=== PATIENT | male | born 1950 | race Caucasian/White ===

== ENCOUNTER 2020-12-21 14:29 | Inpatient (IN) | payer MEDICARE ==
[2020-12-21] MEDS ORDERED: Sodium Chloride 0.9% 10 ML Syringe FLUSH PRN (14:54)
[2020-12-21] MEDS ORDERED: cefTRIAXone 1 GM Vial IVPUSH ONE (15:21)
[2020-12-21] MEDS ORDERED: Sodium Chloride 0.9% 1,000 ML IV ONE (15:27)
--- NOTE | 2020-12-21 15:30 | CR ---
[id number] RAD/RAD Chest PA or AP 1V EXAM: RAD Chest PA or AP 1V INDICATION: FEVER. COMPARISON: None. DISCUSSION/IMPRESSION: Cardiomediastinal silhouette is normal in size and contour. Linear opacity in left lung base. Finding is most consistent with subsegmental atelectasis. However in the setting of fever, developing pneumonia is possible. Right lung is clear. Ian Bray MD 12/21/20 1528 Thank you for allowing us to participate in the care of your patient.
--- NOTE | 2020-12-21 15:37 | EDM.PDOC ---
ED HPI GENERAL MEDICAL PROBLEM - General Chief Complaint: Fever Stated Complaint: ER VISIT Time Seen by Provider: 12/21/20 14:53 Source of Information: Reports: Penitentiary Records - History of Present Illness INITIAL COMMENTS - FREE TEXT/NARRATIVE: Alexander is a 70 y/o male who lives at the [facility]. The nursing staff reported that he did not look well this AM an was quite pale. He was leaning to the left in his chair and was more lethargic and drowsy. Then around noon he felt warm and his temp was noted to be 103.8, he was given APAP 650mg x 1 dose. His temp was rechecked about 1315 and was still 103.6. The RN then called the ER and had the patient transported her for further evaluation. Rapid COVID test done this AM at the [facility] was negative. He is a primary patient of Dr Maggie Ross. Treatments PACK TRAIN DRIVER: Reports: Acetaminophen, IV/IO, Oxygen - Related Data Allergies Allergy/AdvReac Type Severity Reaction Status Date / Time No Known Allergies Allergy Verified 12/21/20 14:40 Past Medical History Cardiovascular History: Reports: High Cholesterol, Hypertension Gastrointestinal History: Reports: Chronic Constipation Genitourinary History: Reports: BPH Psychiatric History: Reports: Anxiety, Schizophrenia Endocrine/Metabolic History: Reports: Diabetes, Type II, Obesity/BMI 30+ Other Dermatologic History: sacral pressure ulcer - Infectious Disease History Infectious Disease History: Reports: Novel Coronavirus - Past Surgical History Other Cardiovascular Surgeries/Procedures: aortic valve stenosis Social & Family History - Tobacco Use Tobacco Use Status *Q: Unknown Ever Used Tobacco Review of Systems - Review of Systems Review Of Systems: Unable To Obtain Reason Not Obtained: ROS from [facility] RN and records Constitutional: Reports: Fever, Weakness Eyes: Reports: No Symptoms Ears: Reports: No Symptoms Nose: Reports: No Symptoms Mouth/Throat: Reports: No Symptoms Respiratory: Reports: No Symptoms Cardiovascular: Reports: No Symptoms GI/Abdominal: Reports: No Symptoms Genitourinary: Reports: No Symptoms Musculoskeletal: Reports: No Symptoms Skin: Reports: Pallor Neurological: Reports: Confusion, Weakness Psychiatric: Reports: No Symptoms ED EXAM, GENERAL - Physical Exam Exam: See Below General Appearance: Other (Elderly male, NAD. He does respond with one word answers, but only sometimes. He looks ill while lying on the ER cart.) Eye Exam: Bilateral Eye: PERRL Ears: Normal External Exam, Normal Canal, Normal TMs Nose: Normal Inspection, Normal Mucosa Throat/Mouth: Other (Lips slightly dry, note dried food or skin on tongue- appears to need oral care.) Neck: Normal Inspection Respiratory/Chest: No Respiratory Distress, Lungs Clear, Normal Breath Sounds, Chest Non-Tender Cardiovascular: Normal Peripheral Pulses, Regular Rate, Rhythm, Systolic Murmur GI/Abdominal: Normal Bowel Sounds, Soft, Non-Tender, Other (Obese) (Male) Exam: Normal Inspection Rectal (Males) Exam: Deferred Back Exam: Normal Inspection Extremities: Other (Trace lower extremity edema) Neurological: Slow to Respond Psychiatric: Flat Affect Skin Exam: Intact, Diaphoretic, Increased Warmth, Pallor Lymphatic: No Adenopathy #1 Interpretation EKG Date: 12/21/20 Time: 14:50 Rate (Beats/Min): 114 [place]: Normal P-Wave: Present QRS: Normal ST-T: Normal QT: Normal EKG Interpretation Comments: Sinus Tachycardia Course - Vital Signs Text/Narrative:: 1453 The patient was seen by the DIRECTOR OF TAX SERVICES. Labs, CXR, and EKG were done. Sepsis protocol started and Ceftriaxone 1gm IVP given due to fever and high suspicion for sepsis. A liter of NS was ordered. Myers was placed. 1600 Labs reviewed. CBC WBC=10.8, Neuts=80.7%; CMP Iivfdt=235, BUN=22, Kbeecjc=081, Mg=1.4; CRP=10.5; UA neg, COVID neg/Influenza A/B neg/neg; Lactic Acid-2.2. CXR reviewed-note developing opacity in left lung, probable pneumonia with fever noted along with cough. WBC elevated with left shift and CRP elevated. Sodium and Mg low, Lactic Acid mildly elevated but will hydrate and have admitting physician recheck. Patient has been covered with Ceftriaxone earlier. Blood Cx x2 are pending. Myers draining and left in place for accurate I&O. He is currently requiring 2 liters of oxygen to keep his sats at 94%. 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 [address] Maggie Ross, patient's PCP to manage but she advised she is out of town and carbonation equipment operator MD for [facility] to be contacted. 1610 Dr Brooke Brown contacted and case discussed. Will plan admission here at [facility] to the floor. Patient remains stable here in the ER. Please see H&P and further admission orders per Dr Deloris Brown. Last Recorded V/S: Last Vital Signs Temp 38.7 C H 12/21/20 14:29 Pulse 112 H 12/21/20 15:25 Resp 32 H 12/21/20 15:25 BP 120/68 12/21/20 15:25 Pulse Ox 95 12/21/20 15:25 - Orders/Labs/Meds Orders: Active Orders 24 hr Category Date Time Status Patient Status [ADT] Routine ADT 12/21/20 16:20 Ordered EKG Documentation Completion [RC] STAT Care 12/21/20 14:54 Active Myers Catheter Insertion [Insert Urinary Catheter] [OM. Care 12/21/20 15:30 Ordered PC] Q24H Urinary Catheter Assessment [RC] ASDIRECTED Care 12/21/20 15:21 Active CULTURE BLOOD [BC] Stat Lab 12/21/20 15:19 Received CULTURE BLOOD [BC] Stat Lab 12/21/20 15:25 Received LACTIC ACID [CHEM] Routine Lab 12/21/20 19:19 Ordered Sodium Chloride 0.9% [Normal Saline] 1,000 ml Med 12/21/20 15:27 Active IV ONETIME Sodium Chloride 0.9% [Saline Flush] Med 12/21/20 14:54 Active 10 ml FLUSH ASDIRECTED PRN Blood Culture x2 Reflex Set [OM.PC] Stat Oth 12/21/20 14:55 Ordered Saline Lock Insert [OM.PC] Stat Oth 12/21/20 14:54 Ordered Medication Orders Sodium Chloride (Normal Saline) 1,000 mls @ 999 mls/hr IV ONETIME ONE Stop: 12/21/20 16:27 Last Admin: 12/21/20 15:30 Dose: 999 mls/hr Documented by: DIANA Sodium Chloride (Sodium Chloride 0.9% 10 Ml Syringe) 10 ml FLUSH ASDIRECTED PRN PRN Reason: Keep Vein Open Labs: Laboratory Tests 12/21/20 12/21/20 12/21/20 Range/Units 15:10 15:18 15:19 WBC 10.8 H (4.0-10.0) x10^3/uL RBC 3.71 L (4.5-6.0) x10^6/uL Hgb 10.8 L (14.0-18.0) g/dL Hct 32.6 L (40.0-52.0) % MCV 87.9 (78.0-93.0) fL MCH 29.1 (26.0-32.0) pg MCHC 33.1 (32.0-36.0) g/dL RDW Coeff of Dian 14.0 (10.0-15.0) % Plt Count 230 (130-400) x10^3/uL Neut % (Auto) 80.7 H (50.0-80.0) % Lymph % (Auto) 13.2 L (25.0-50.0) % [place] % (Auto) 5.7 (2.0-11.0) % Eos % (Auto) 0.2 (0.0-4.0) % Baso % (Auto) 0.2 (0.2-1.2) % Sodium (136-145) mmol/L Potassium (3.5-5.1) mmol/L Chloride (98-107) mmol/L Carbon Dioxide (21-32) mmol/L Anion Gap (5-15) mmol/L BUN (7-18) mg/dL Creatinine (0.70-1.30) mg/dL Est Cr Clr Drug Dosing Estimated GFR (MDRD) Glucose (70-99) mg/dL Lactic Acid (0.4-2.0) mmol/L Calcium (8.5-10.1) mg/dL Corrected Calcium (8.5-10.1) mg/dL Magnesium (1.8-2.4) mg/dL Total Bilirubin (0.2-1.0) mg/dL AST (15-37) U/L ALT (16-63) U/L Alkaline Phosphatase (46-116) U/L Troponin I High Sens (<=76) ng/L C-Reactive Protein (<=0.9) mg/dL Total Protein (6.4-8.2) g/dL Albumin (3.4-5.0) g/dL Globulin Albumin/Globulin Ratio Urine Color Yellow (YELLOW) Urine Appearance Clear (CLEAR) Urine pH 7.0 (5.0-8.0) Ur Specific [place] 1.020 Urine Protein Negative (NEGATIVE) mg/dL Urine Glucose (UA) Negative (NEGATIVE) mg/dL Urine Ketones Negative (NEGATIVE) mg/dL Urine Occult Blood Negative (NEGATIVE) Urine Nitrite Negative (NEGATIVE) Urine Bilirubin Negative (NEGATIVE) Urine Urobilinogen 0.2 (0.2) EU/dL Ur Leukocyte Esterase Negative (NEGATIVE) Influenza Type A RNA Negative (NEGATIVE) Influenza Type B RNA Negative (NEGATIVE) SARS-CoV-2 RNA (MARCELINA) Negative (NEGATIVE) 12/21/20 12/21/20 Range/Units 15:19 15:19 WBC (4.0-10.0) x10^3/uL RBC (4.5-6.0) x10^6/uL Hgb (14.0-18.0) g/dL Hct (40.0-52.0) % MCV (78.0-93.0) fL MCH (26.0-32.0) pg MCHC (32.0-36.0) g/dL RDW Coeff of Dian (10.0-15.0) % Plt Count (130-400) x10^3/uL Neut % (Auto) (50.0-80.0) % Lymph % (Auto) (25.0-50.0) % [place] % (Auto) (2.0-11.0) % Eos % (Auto) (0.0-4.0) % Baso % (Auto) (0.2-1.2) % Sodium 131 L (136-145) mmol/L Potassium 4.0 (3.5-5.1) mmol/L Chloride 94 L (98-107) mmol/L Carbon Dioxide 31 (21-32) mmol/L Anion Gap 10.0 (5-15) mmol/L BUN 22 H (7-18) mg/dL Creatinine 1.2 (0.70-1.30) mg/dL Est Cr Clr Drug Dosing TNP Estimated GFR (MDRD) > 60 Glucose 250 H (70-99) mg/dL Lactic Acid 2.2 H* (0.4-2.0) mmol/L Calcium 8.7 (8.5-10.1) mg/dL Corrected Calcium 9.7 (8.5-10.1) mg/dL Magnesium 1.4 L (1.8-2.4) mg/dL Total Bilirubin 0.8 (0.2-1.0) mg/dL AST 19 (15-37) U/L ALT 19 (16-63) U/L Alkaline Phosphatase 81 (46-116) U/L Troponin I High Sens 16 (<=76) ng/L C-Reactive Protein 10.5 H (<=0.9) mg/dL Total Protein 7.2 (6.4-8.2) g/dL Albumin 2.8 L (3.4-5.0) g/dL Globulin 4.4 Albumin/Globulin Ratio 0.64 Urine Color (YELLOW) Urine Appearance (CLEAR) Urine pH (5.0-8.0) Ur Specific [place] Urine Protein (NEGATIVE) mg/dL Urine Glucose (UA) (NEGATIVE) mg/dL Urine Ketones (NEGATIVE) mg/dL Urine Occult Blood (NEGATIVE) Urine Nitrite (NEGATIVE) Urine Bilirubin (NEGATIVE) Urine Urobilinogen (0.2) EU/dL Ur Leukocyte Esterase (NEGATIVE) Influenza Type A RNA (NEGATIVE) Influenza Type B RNA (NEGATIVE) SARS-CoV-2 RNA (MARCELINA) (NEGATIVE) Meds: Medications Generic Name Dose Route Start Last Admin Trade Name Freq PRN Reason Stop Dose Admin Sodium Chloride 1,000 mls @ 999 mls/hr 12/21/20 15:27 12/21/20 15:30 Normal Saline IV 12/21/20 16:27 999 mls/hr ONETIME ONE Administration Sodium Chloride 10 ml 12/21/20 14:54 Sodium Chloride 0.9% 10 Ml Syringe FLUSH ASDIRECTED PRN Keep Vein Open Discontinued Medications Generic Name Dose Route Start Last Admin Trade Name Freq PRN Reason Stop Dose Admin Ceftriaxone Sodium 1 gm 12/21/20 15:21 12/21/20 15:30 Ceftriaxone 1 Gm Vial IVPUSH 12/21/20 15:22 1 gm STAT ONE Administration - Radiology Interpretation Free Text/Narrative:: XR Chest 1V=opacity noted in the left lung base (See final report) Departure - Departure Time of Disposition: 16:36 Disposition: Admitted As Inpatient 68 Condition: Good Clinical Impression: Cough Fever Qualifiers: Fever type: unspecified Qualified Code(s): R50.9 - Fever, unspecified - Discharge Information Forms: ED Department Discharge Sepsis Event Note (ED) - Evaluation Sepsis Screening Result: No Definite Risk - Focused Exam Vital Signs: Vital Signs Temp Pulse Resp BP Pulse Ox 12/21/20 15:25 112 H 32 H 120/68 95 12/21/20 14:29 38.7 C H 118 H 18 119/58 L 86 L - My Orders Last 24 Hours: My Active Orders 12/21/20 14:54 EKG Documentation Completion [RC] STAT Sodium Chloride 0.9% [Saline Flush] 10 ml FLUSH ASDIRECTED PRN Saline Lock Insert [OM.PC] Stat 12/21/20 14:55 Blood Culture x2 Reflex Set [OM.PC] Stat 12/21/20 15:19 CULTURE BLOOD [BC] Stat 12/21/20 15:21 Urinary Catheter Assessment [RC] ASDIRECTED 12/21/20 15:25 CULTURE BLOOD [BC] Stat 12/21/20 15:27 Sodium Chloride 0.9% [Normal Saline] 1,000 ml IV ONETIME 12/21/20 15:30 Myers Catheter Insertion [Insert Urinary Catheter] [OM.PC] Q24H 12/21/20 16:20 Patient Status [ADT] Routine 12/21/20 19:19 LACTIC ACID [CHEM] Routine - Assessment/Plan Last 24 Hours: My Active Orders 12/21/20 14:54 EKG Documentation Completion [RC] STAT Sodium Chloride 0.9% [Saline Flush] 10 ml FLUSH ASDIRECTED PRN Saline Lock Insert [OM.PC] Stat 12/21/20 14:55 Blood Culture x2 Reflex Set [OM.PC] Stat 12/21/20 15:19 CULTURE BLOOD [BC] Stat 12/21/20 15:21 Urinary Catheter Assessment [RC] ASDIRECTED 12/21/20 15:25 CULTURE BLOOD [BC] Stat 12/21/20 15:27 Sodium Chloride 0.9% [Normal Saline] 1,000 ml IV ONETIME 12/21/20 15:30 Myers Catheter Insertion [Insert Urinary Catheter] [OM.PC] Q24H 12/21/20 16:20 Patient Status [ADT] Routine 12/21/20 19:19 LACTIC ACID [CHEM] Routine Assessment:: 1)Fever 2)Cough 3)R/O Pneumonia Plan: -Dr Brooke Brown to admit for probable Pneumonia
[2020-12-21] MEDS ORDERED: cefTRIAXone 1 GM Vial ONE (15:39)
[2020-12-21 15:54] LABS: CHLORIDE,CL 94 mmol/L (98-107); SODIUM,NA 131 mmol/L (136-145)
[2020-12-21 16:11] LABS: CORONAVIRUS COVID-19 NAA NEGATIVE (NEGATIVE)
[2020-12-21] MEDS ORDERED: Magnesium Sulfate (4.06 MEQ/ML) 1 GM/2 ML SDV IM ONE ×2 (17:06→18:15)
[2020-12-21] MEDS ORDERED: Albuterol/Ipratropium 3.0-0.5 MG/3 ML Neb Soln NEB PRN (17:12)
[2020-12-21] MEDS ORDERED: Insulin Lispro 100 Units/ML 3 ML Vial SUBCUT ONE (17:19)
[2020-12-21] MEDS ORDERED: Glucagon,Human Recombinant 1 MG Vial IM PRN (17:19)
[2020-12-21] MEDS ORDERED: 50% Dextrose in Water 50 ML Syringe IV PRN (17:19)
--- NOTE | 2020-12-21 17:42 | PCM.HP.2 ---
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 He was weak last night per the nurse and used a walker then this AM was just not himself and was getting weaker but vitals were ok then he had a 103.8 temp at 11:45 am his blood sugar was 165 today and also his sats were 97 % at the [facility] but 86 % here on RA. He did get tylenol at noon and temp still 101.7 when he arrived in the ER. He first had a clinic visit scheduled but then he was so weak he needed the atiya lift and was quit slow and just not himself. He is able to answer questions and per staff he wasn't complaining of anything normally he talks fine and talks to himself and that is his behaviors he isn't violent. He had a fortune placed in ER and skin looked ok he has a hx of a scotal abscess last fall. He denies a cough but food was found in his mouth on the initial nursing exam. The [facility] nurse told me she had to feed him today and he did eat but normally he can feed himself. Rapid covid negative he did not get the vaccine yesterday. In ER he states yes to pain, no to abdominal pain or vomiting but yes to headache. No to shortness of breath but it took literally at least 30 seconds for him to respond but he did open both eyes and follow commands. He is on insulin and metformin he has a hx of aortic stenosis. Yesterday he was in the clinic for a vascular visit for PVD and was fine. He hasn't had psych med adjustments for a couple months. Onset of Symptoms: Reports: Today, Sudden - Related Data Allergies/Adverse Reactions: Allergies Allergy/AdvReac Type Severity Reaction Status Date / Time No Known Allergies Allergy Verified 12/21/20 14:40 Home Medications: Home Meds Cholecalciferol (Vitamin D3) [Vitamin D3] 4,000 intnl unit PO DAILY 12/21/20 [History] Insulin Aspart 100 unit SQ QIDACANDBED 12/21/20 [History] Insulin Glarg,Human.Rec.Analog [Lantus Solostar] 40 units SQ BEDTIME 12/21/20 [History] Melatonin 3 mg PO DAILY 12/21/20 [History] Paliperidone [Paliperidone ER] 12 mg PO DAILY 12/21/20 [History] Sennosides/Docusate Sodium [Senna Plus 8.6-50 mg Tablet] 1 each PO DAILY 12/21/20 [History] atorvaSTATin Calcium [Atorvastatin Calcium] 20 mg PO DAILY 12/21/20 [History] bisacodyL [Bisacodyl] 5 mg PO DAILY 12/21/20 [History] hydroCHLOROthiazide [Hydrochlorothiazide] 37.5 mg PO DAILY 12/21/20 [History] lisinopriL [Lisinopril] 20 mg PO DAILY 12/21/20 [History] metFORMIN HCl [Metformin HCl] 1,000 mg PO BID 12/21/20 [History] polyethylene glycoL 3350 [Miralax] 17 gm PO DAILY 12/21/20 [History] traZODone HCl [Trazodone HCl] 25 mg PO BEDTIME 12/21/20 [History] Past Medical History Cardiovascular History: Reports: Heart Murmur, High Cholesterol, Hypertension Gastrointestinal History: Reports: Chronic Constipation Genitourinary History: Reports: BPH Psychiatric History: Reports: Anxiety, Schizophrenia Endocrine/Metabolic History: Reports: Diabetes, Type II, Obesity/BMI 30+ Other Dermatologic History: sacral pressure ulcer - Infectious Disease History Infectious Disease History: Reports: Novel Coronavirus - Past Surgical History Other Cardiovascular Surgeries/Procedures: aortic valve stenosis Social & Family History - Family History Cardiac: Reports: CAD (brother, both parents unlisted what was the cause of but mom had HTN), Hypertension - Tobacco Use Tobacco Use Status *Q: Unknown Ever Used Tobacco H&P Review of Systems - Review of Systems: Review Of Systems: See Below General: Reports: Fever, Weakness. Denies: Chills HEENT: Reports: Headaches. Denies: Dysphasia, Eye Pain, Sinus Congestion, Sore Throat, Visual Changes Pulmonary: Denies: Shortness of Breath, Pleuritic Chest Pain, Cough, Sputum Cardiovascular: Reports: No Symptoms Gastrointestinal: Reports: No Symptoms Genitourinary: Reports: No Symptoms Musculoskeletal: Denies: Neck Pain, Arm Pain, Back Pain Skin: Reports: No Symptoms Psychiatric: Denies: Agitation, Hallucinations Neurological: Reports: Headache, Difficulty Walking, Weakness, Change in Speech (he is slower to respond), Gait Disturbance. Denies: Confusion, Dizziness, Numbness, Syncope Hematologic/Lymphatic: Denies: Easy Bleeding Exam - Exam Exam: See Below - Vital Signs Vital Signs: Last Vital Signs Temp 102.8 F H 12/21/20 16:31 Pulse 114 H 12/21/20 16:31 Resp 18 12/21/20 16:31 BP 152/84 H 12/21/20 16:31 Pulse Ox 95 12/21/20 16:31 - Exam Quality Assessment: Supplemental Oxygen General: Cooperative, Mild Distress, Lethargic HEENT: Conjunctiva Clear, Hearing Intact, Mucosa Moist & Green Level, Nares Patent, Posterior Pharynx Clear, Pupils Equal, Pupils Reactive, TMs Clear Neck: Supple, Trachea Midline, +2 Carotid Pulse wo Bruit, Full Range of Motion. No: JVD Lungs: Clear to Auscultation, Normal Respiratory Effort Cardiovascular: Regular Rate, Regular Rhythm, Systolic Murmur GI/Abdominal Exam: Normal Bowel Sounds, Soft, Non-Tender (Male) Exam: Other (fortune in place urine is yellow). No: Scrotal Swelling Back Exam: Normal Inspection Extremities: Normal Inspection, Non-Tender, No Pedal Edema, Normal Capillary Refill Peripheral Pulses: 2+: Radial (L), Radial (R), Dorsalis Pedis (L), Dorsalis Pedis (R) Skin: Warm, Dry, Intact Neurological: Normal Tone, Other (generalized weakness can follow commands to move extremities) Neuro Extensive - Mental Status: Memory Intact, Slow Response to Commands (answers questions with yes and no) Psychiatric: Normal Affect - Patient Data Lab Results Last 24 hrs: Laboratory Results - last 24 hr 12/21/20 12/21/20 12/21/20 Range/Units 15:10 15:18 15:19 WBC 10.8 H (4.0-10.0) x10^3/uL RBC 3.71 L (4.5-6.0) x10^6/uL Hgb 10.8 L (14.0-18.0) g/dL Hct 32.6 L (40.0-52.0) % MCV 87.9 (78.0-93.0) fL MCH 29.1 (26.0-32.0) pg MCHC 33.1 (32.0-36.0) g/dL RDW Coeff of Dian 14.0 (10.0-15.0) % Plt Count 230 (130-400) x10^3/uL Neut % (Auto) 80.7 H (50.0-80.0) % Lymph % (Auto) 13.2 L (25.0-50.0) % [place] % (Auto) 5.7 (2.0-11.0) % Eos % (Auto) 0.2 (0.0-4.0) % Baso % (Auto) 0.2 (0.2-1.2) % Sodium (136-145) mmol/L Potassium (3.5-5.1) mmol/L Chloride (98-107) mmol/L Carbon Dioxide (21-32) mmol/L Anion Gap (5-15) mmol/L BUN (7-18) mg/dL Creatinine (0.70-1.30) mg/dL Est Cr Clr Drug Dosing Estimated GFR (MDRD) Glucose (70-99) mg/dL Lactic Acid (0.4-2.0) mmol/L Calcium (8.5-10.1) mg/dL Corrected Calcium (8.5-10.1) mg/dL Magnesium (1.8-2.4) mg/dL Total Bilirubin (0.2-1.0) mg/dL AST (15-37) U/L ALT (16-63) U/L Alkaline Phosphatase (46-116) U/L Troponin I High Sens (<=76) ng/L C-Reactive Protein (<=0.9) mg/dL Total Protein (6.4-8.2) g/dL Albumin (3.4-5.0) g/dL Globulin Albumin/Globulin Ratio Urine Color Yellow (YELLOW) Urine Appearance Clear (CLEAR) Urine pH 7.0 (5.0-8.0) Ur Specific [place] 1.020 Urine Protein Negative (NEGATIVE) mg/dL Urine Glucose (UA) Negative (NEGATIVE) mg/dL Urine Ketones Negative (NEGATIVE) mg/dL Urine Occult Blood Negative (NEGATIVE) Urine Nitrite Negative (NEGATIVE) Urine Bilirubin Negative (NEGATIVE) Urine Urobilinogen 0.2 (0.2) EU/dL Ur Leukocyte Esterase Negative (NEGATIVE) Influenza Type A RNA Negative (NEGATIVE) Influenza Type B RNA Negative (NEGATIVE) SARS-CoV-2 RNA (MARCELINA) Negative (NEGATIVE) 12/21/20 12/21/20 Range/Units 15:19 15:19 WBC (4.0-10.0) x10^3/uL RBC (4.5-6.0) x10^6/uL Hgb (14.0-18.0) g/dL Hct (40.0-52.0) % MCV (78.0-93.0) fL MCH (26.0-32.0) pg MCHC (32.0-36.0) g/dL RDW Coeff of Dian (10.0-15.0) % Plt Count (130-400) x10^3/uL Neut % (Auto) (50.0-80.0) % Lymph % (Auto) (25.0-50.0) % [place] % (Auto) (2.0-11.0) % Eos % (Auto) (0.0-4.0) % Baso % (Auto) (0.2-1.2) % Sodium 131 L (136-145) mmol/L Potassium 4.0 (3.5-5.1) mmol/L Chloride 94 L (98-107) mmol/L Carbon Dioxide 31 (21-32) mmol/L Anion Gap 10.0 (5-15) mmol/L BUN 22 H (7-18) mg/dL Creatinine 1.2 (0.70-1.30) mg/dL Est Cr Clr Drug Dosing TNP Estimated GFR (MDRD) > 60 Glucose 250 H (70-99) mg/dL Lactic Acid 2.2 H* (0.4-2.0) mmol/L Calcium 8.7 (8.5-10.1) mg/dL Corrected Calcium 9.7 (8.5-10.1) mg/dL Magnesium 1.4 L (1.8-2.4) mg/dL Total Bilirubin 0.8 (0.2-1.0) mg/dL AST 19 (15-37) U/L ALT 19 (16-63) U/L Alkaline Phosphatase 81 (46-116) U/L Troponin I High Sens 16 (<=76) ng/L C-Reactive Protein 10.5 H (<=0.9) mg/dL Total Protein 7.2 (6.4-8.2) g/dL Albumin 2.8 L (3.4-5.0) g/dL Globulin 4.4 Albumin/Globulin Ratio 0.64 Urine Color (YELLOW) Urine Appearance (CLEAR) Urine pH (5.0-8.0) Ur Specific [place] Urine Protein (NEGATIVE) mg/dL Urine Glucose (UA) (NEGATIVE) mg/dL Urine Ketones (NEGATIVE) mg/dL Urine Occult Blood (NEGATIVE) Urine Nitrite (NEGATIVE) Urine Bilirubin (NEGATIVE) Urine Urobilinogen (0.2) EU/dL Ur Leukocyte Esterase (NEGATIVE) Influenza Type A RNA (NEGATIVE) Influenza Type B RNA (NEGATIVE) SARS-CoV-2 RNA (MARCELINA) (NEGATIVE) Result Diagrams: 12/21/20 15:19 12/21/20 15:19 #1 Interpretation EKG Date: 12/21/20 Rhythm: NSR Rate (Beats/Min): 114 Mcroberts: Normal P-Wave: Present QRS: Normal ST-T: Normal QT: Normal Comparison: NA - No Prior EKG Sepsis Event Note - Evaluation Sepsis Screening Result: No Definite Risk Current Stage of Sepsis: Severe Sepsis Possible Source of Sepsis: Pulmonary - Focused Exam Sepsis Event Note Statement: Focused Sepsis Exam Completed Vital Signs: Vital Signs Temp Pulse Resp BP Pulse Ox Pulse Ox 12/21/20 16:31 102.8 F H 114 H 18 152/84 H 95 12/21/20 15:25 112 H 32 H 120/68 95 12/21/20 14:29 101.7 F H 118 H 18 119/58 L 86 L 95 Respiratory Effort Without Exertion: Shallow Heart Sounds: Murmur, Systolic Capillary Refill, Detail: Less than/Equal to (</=) 2 Seconds Pulse Description: 2+ Normal Peripheral Pulse Location: Dorsalis Pedis Skin Exam (Focused Sepsis): Pale - Problem List (1) Sepsis SNOMED Code(s): 55096090 ICD Code: A41.9 - SEPSIS, UNSPECIFIED ORGANISM Status: Acute Priority: High Current Visit: Yes Qualifiers: Sepsis type: sepsis due to unspecified organism Sepsis acute organ dysfunction status: with acute organ dysfunction Severe sepsis acute organ dysfunction type: encephalopathy Severe sepsis shock status: without septic shock Qualified Code(s): A41.9 - Sepsis, unspecified organism; R65.20 - Severe sepsis without septic shock; G93.40 - Encephalopathy, unspecified (2) Pneumonia SNOMED Code(s): 177039212 ICD Code: J18.9 - PNEUMONIA, UNSPECIFIED ORGANISM Status: Acute Priority: High Current Visit: Yes Qualifiers: Pneumonia type: due to unspecified organism (3) Hyponatremia SNOMED Code(s): 54797697 ICD Code: E87.1 - HYPO-OSMOLALITY AND HYPONATREMIA Status: Acute Priority: High Current Visit: Yes (4) PVD (peripheral vascular disease) SNOMED Code(s): 978262041 ICD Code: I73.9 - PERIPHERAL VASCULAR DISEASE, UNSPECIFIED Status: Chronic Priority: Medium Current Visit: No (5) Schizophrenia SNOMED Code(s): 57588192 ICD Code: F20.9 - SCHIZOPHRENIA, UNSPECIFIED Status: Chronic Priority: Medium Current Visit: Yes Qualifiers: Schizophrenia type: unspecified Qualified Code(s): F20.9 - Schizophrenia, unspecified (6) Type 2 diabetes mellitus SNOMED Code(s): 46613342 ICD Code: E11.9 - TYPE 2 DIABETES MELLITUS WITHOUT COMPLICATIONS Status: Chronic Priority: Medium Current Visit: Yes Qualifiers: Diabetes mellitus senior care insulin use: with senior care use Diabetes mellitus complication status: without complication Qualified Code(s): E11.9 - Type 2 diabetes mellitus without complications; Z79.4 - prison (current) use of insulin (7) HTN (hypertension) SNOMED Code(s): 97032289 ICD Code: I10 - ESSENTIAL (PRIMARY) HYPERTENSION Status: Chronic Priority: Medium Current Visit: No Qualifiers: Hypertension type: essential hypertension Qualified Code(s): I10 - Essential (primary) hypertension (8) Hypomagnesemia SNOMED Code(s): 023372550 ICD Code: E83.42 - HYPOMAGNESEMIA Status: Acute Priority: High Current Visit: Yes (9) Adult failure to thrive SNOMED Code(s): 530521686 ICD Code: R62.7 - ADULT FAILURE TO THRIVE Status: Chronic Priority: Medium Current Visit: Yes (10) Anxiety SNOMED Code(s): 08547937 ICD Code: F41.9 - ANXIETY DISORDER, UNSPECIFIED Status: Chronic Priority: Medium Current Visit: No (11) Aortic valvar stenosis SNOMED Code(s): 20537858 ICD Code: I35.0 - NONRHEUMATIC AORTIC (VALVE) STENOSIS Status: Chronic Priority: Medium Current Visit: Yes Qualifiers: Cardiac valve disease etiology: etiology unspecified Qualified Code(s): I35.0 - Nonrheumatic aortic (valve) stenosis (12) BPH (benign prostatic hyperplasia) SNOMED Code(s): 164570516 ICD Code: N40.0 - BENIGN PROSTATIC HYPERPLASIA WITHOUT LOWER URINRY TRACT SYMP Status: Chronic Priority: Medium Current Visit: Yes Qualifiers: Lower urinary tract symptom presence: unspecified whether lower urinary tract symptoms present Qualified Code(s): N40.0 - Benign prostatic hyperplasia without lower urinary tract symptoms Problem List Initiated/Reviewed/Updated: Yes Orders Last 24hrs: Active Orders 24 hr Category Date Time Status Patient Status [ADT] Routine ADT 12/21/20 16:20 Active Blood Glucose Check, Bedside [RC] QIDACANDBED Care 12/21/20 17:12 Ordered Dietary Supplements [RC] BIDMEALS Care 12/21/20 17:05 Ordered Dietary Supplements [RC] BIDMEALS Care 12/21/20 17:12 Ordered EKG Documentation Completion [RC] STAT Care 12/21/20 14:54 Active Fortune Catheter Insertion [Insert Urinary Catheter] [OM. Care 12/21/20 15:30 Ordered PC] Q24H Intake and Output [RC] QSHIFT Care 12/21/20 17:13 Ordered Oxygen Therapy [RC] PRN Care 12/21/20 17:12 Ordered Pulse Oximetry [RC] CONTINUOUS Care 12/21/20 17:13 Ordered RT Aerosol Therapy [RC] ASDIRECTED Care 12/21/20 17:16 Ordered Up With Assistance [RC] ASDIRECTED Care 12/21/20 17:12 Ordered Urinary Catheter Assessment [RC] ASDIRECTED Care 12/21/20 15:21 Active VTE/DVT Education [RC] PER UNIT ROUTINE Care 12/21/20 17:12 Ordered Vital Signs [RC] Q4H Care 12/21/20 17:12 Ordered Mechanical Soft Diet [DIET] Diet 12/21/20 Breakfast Ordered BASIC METABOLIC PANEL,BMP [CHEM] AM Lab 12/22/20 05:15 Ordered CBC WITH AUTO DIFF [HEME] AM Lab 12/22/20 05:15 Ordered CREATINE KINASE,CK [CHEM] Routine Lab 12/21/20 17:19 Ordered CULTURE BLOOD [BC] Stat Lab 12/21/20 15:19 Received CULTURE BLOOD [BC] Stat Lab 12/21/20 15:25 Received CULTURE SPUTUM + SMEAR [RM] Stat Lab 12/21/20 17:12 Ordered LACTIC ACID [CHEM] Routine Lab 12/21/20 19:19 Ordered Acetaminophen [TylenoL] Med 12/21/20 17:12 Ordered 650 mg PO Q4H PRN Albuterol/Ipratropium [DuoNeb 3.0-0.5 MG/3 ML] Med 12/21/20 17:12 Ordered 3 ml NEB Q4H PRN Azithromycin [Zithromax] 500 mg Med 12/21/20 17:15 Ordered Sodium Chloride 0.9% [Normal Saline (AdvBag)] 250 ml IV DAILY Dextrose 50% in Water Med 12/21/20 17:19 Ordered 50 ml IV ASDIRECTED PRN Enoxaparin [Lovenox] Med 12/22/20 08:00 Ordered 40 mg SUBCUT DAILY Glucagon,Human Recombinant [GlucaGen] Med 12/21/20 17:19 Ordered 1 mg IM ASDIRECTED PRN Insulin Lispro [HumaLOG] Med 12/21/20 17:19 Once 3 unit SUBCUT ONETIME ONE Sodium Chloride 0.9% [Saline Flush] Med 12/21/20 14:54 Active 10 ml FLUSH ASDIRECTED PRN cefTRIAXone [Rocephin] Med 12/21/20 17:15 Ordered 1 gm IVPUSH DAILY Blood Culture x2 Reflex Set [OM.PC] Stat Oth 12/21/20 14:55 Ordered Saline Lock Insert [OM.PC] Stat Oth 12/21/20 14:54 Ordered Resuscitation Status Routine Resus Stat 12/21/20 17:12 Ordered Medication Orders Acetaminophen (Acetaminophen 325 Mg Tab) 650 mg PO Q4H PRN PRN Reason: Pain (Mild 1-3)/fever Albuterol/Ipratropium (Albuterol/Ipratropium 3.0-0.5 Mg/3 Ml Neb Soln) 3 ml NEB Q4H PRN PRN Reason: dyspnea/wheezing Ceftriaxone Sodium (Ceftriaxone 1 Gm Vial) 1 gm IVPUSH DAILY [facility] Dextrose/Water (50% Dextrose In Water 50 Ml Syringe) 50 ml IV ASDIRECTED PRN PRN Reason: Hypoglycemia Enoxaparin Sodium (Enoxaparin 40 Mg/0.4 Ml Syringe) 40 mg SUBCUT DAILY [facility] Glucagon (Glucagon,Human Recombinant 1 Mg Vial) 1 mg IM ASDIRECTED PRN PRN Reason: Hypoglycemia Azithromycin 500 mg/ Sodium (Chloride) 250 mls @ 250 mls/hr IV DAILY AISHA Stop: 12/25/20 23:00 Insulin Human Lispro (Insulin Lispro 100 Units/Ml 3 Ml Vial) 3 unit SUBCUT ONETIME ONE Stop: 12/21/20 17:20 Sodium Chloride (Sodium Chloride 0.9% 10 Ml Syringe) 10 ml FLUSH ASDIRECTED PRN PRN Reason: Keep Vein Open Assessment/Plan Comment:: Chest X-ray shows left lower lobe atelectasis versus developing infiltrate will treat with 2 grams of rocephin IV and IV zithromax. Blood cultures sent. Sputum cultures ordered. IV rehydration BP is actually running a little high so he already got his first liter now I will replaced at 125 ml/hr. Replace magn esium IV. Hold most medications and supplements will reassess need for BP meds in the AM and his Invega. DVT prophylaxis with Lovenox. Discussed cares with guardian sales consultant residential manager as his guardian is out of the office [phone] can call them if further questions. Would transfer to [place] if clinical condition deteriorates. Repeat lactic and check a CK level. Tylenol available for fever along with cooling measures. Monitor blood sugars and insulin ordered 3 units now and long acting will hold the sliding scale for now until eating better or if needed for higher blood sugars. Continue the fortune for strict I and O but likely will remove tomorrow. Oxygen to be used as needed currently on 2 L. - Mortality Measure Prognosis:: Poor
[2020-12-21] MEDS ORDERED: Azithromycin 500 MG in Sodium Chloride 0.9% 250 ML IV SCH (18:00)
[2020-12-21] MEDS ORDERED: Magnesium Sulfate/Water 2 GM/50 ML BAG IV SCH (18:30)
[2020-12-21] MEDS: Sodium Chloride 0.9% 1,000 ML IV SCH (19:39)
[2020-12-21] MEDS ORDERED: Acetaminophen 650 MG Supp RECTAL PRN (20:38)
[2020-12-21] MEDS: Insulin Glarg,Human.Rec.Analog 100 Unit/ML SUBCUT SCH ×2 (20:55→21:49)
[2020-12-22] MEDS: Sodium Chloride 0.9% 1,000 ML IV SCH (01:45)
[2020-12-22] MEDS ORDERED: Piperacillin/Tazobactam 4.5 GM in Sodium Chloride 0.9% 100 ML IV SCH (05:15)
[2020-12-22] MEDS: Acetaminophen 325 MG Tab PO PRN ×2 (05:22→10:16)
[2020-12-22] MEDS ORDERED: Piperacillin/Tazobactam 4.5 GM in Sodium Chloride 0.9% 100 ML IV ONE (05:30)
[2020-12-22] MEDS ORDERED: VANCOmycin 2 GM/400 ML 2 GM in Premix Bag 1 BAG IV SCH (06:00)
[2020-12-22] MEDS ORDERED: VANCOmycin 2 GM/400 ML 400 ML ONE (06:05)
[2020-12-22 06:34] LABS: BASE EXCESS ARTERIAL 3 mmol/L ((-2)-(+3)); BICARBONATE,ARTERIAL 28 mmol/L (21-28); O2 SATURATION ARTERIAL 95.5 %; PCO2 ARTERIAL 45 mmHG (35-48); PO2 ARTERIAL 79 mmHG (83-108)
[2020-12-22 06:50] LABS: ANION GAP 11.7 mmol/L (5-15); CHLORIDE,CL 98 mmol/L (98-107); SODIUM,NA 134 mmol/L (136-145)
[2020-12-22] MEDS ORDERED: NS + KCl 20mEq/L 1,000 ML IV SCH (08:45)
[2020-12-22] MEDS ORDERED: Iopamidol 612 MG/ML 100 ML Bottle IVPUSH ONE (09:16)
[2020-12-22] MEDS: Lisinopril 20 MG Tab PO SCH (10:13)
[2020-12-22] MEDS: Enoxaparin 40 MG/0.4 ML Syringe SUBCUT SCH (10:17)
[2020-12-22] MEDS: Polyethylene Glycol 3350 Powder 17 GM Packet PO SCH (10:20)
--- NOTE | 2020-12-22 10:30 | PN ---
Progress Note for LINH COULTER Date: 12/22/2020 Room #: VM.203 SUBJECTIVE: This is hospital day #2 on a 70-year-old admitted with severe sepsis with fever up to 103 at the snf around noon. Working diagnosis is pneumonia. The patient denied coughing. He did not have any other source of infection found. He began feeling weak on the evening before. He had not been vomiting. He this morning is completely unresponsive even to painful stimuli when he was able to be awakened yesterday to answer questions. He has been sleeping despite not getting any of his regular antipsychotic medications. Temperature is finally down to 99.8. He did require a slight increase in oxygen up to 3 L, but he is breathing normally. Urine output has been excellent. Urine is very clear. He is at 1.7 L. He has had no bowel movements. He has had no oral intake. OBJECTIVE: Vital Signs: His temperature is 99.8, T-max is at 103 [facility] the [facility] around noon and here is 102.8 at 4:30; blood pressure is 144/74, pulse 97, respiratory rate 18, O2 96% on 3 L. General: He is in no acute distress. He is resting in the bed. HEENT: I did open his eyes manually. His pupils are 2 mm. He is not following commands. He did not wake up to the painful stimuli. Heart: Regular rate and rhythm with murmur. LUNGS: Sounds show rhonchi, worse over the left base, but poor respiratory effort as the patient is not following commands. Abdomen: Positive bowel sounds. Soft, nondistended, nontender. Extremities: Warm and dry. No edema. Heels are examined. There is some redness but no ulcers or skin breakdown. Genitourinary: Scrotum does not show any redness. There was one sore with a slight amount of drainage that was cultured, a few sebaceous like cysts were noted and material was extracted from that.. Myers is in place. Urine is quite clear. Mental Status: This patient is too sedated from his medical condition to answer questions. Back: The patient does have a cyst opening on his lower back with packing, no purulent drainage, Another area was opened and had a small amount of purulent drainage and it was tunneling 2 cm LAB WORK: White count down to 7.1, hemoglobin 10.3, platelets 184. ESR 29. PH 7.4, pCO2 of 45, PO2 of 79. Sodium up to 134, potassium 3.7, chloride 98, bicarb 28, BUN 15, creatinine 1, glucose 127, calcium 7.7, magnesium up to 1.8, CRP up to 12.5. CK down to 586. Albumin yesterday was 2.8. Urine completely normal. Influenza A and COVID negative. ASSESSMENT AND PLAN: 1. Severe sepsis with encephalopathy, working diagnosis is pneumonia. The patient has been upgraded to IV vancomycin and Zosyn. Due to the fact he comes from a snf and the severity of his illness, he does not have any history of methicillin-resistant Staphylococcus aureus. We will also slow down IV fluids. We will also pursue CT scans of the chest and abdomen given his uncontrolled diabetes to rule out any other intraabdominal infections. Blood cultures were also repeated today. 2. Unresponsive, could be due to the severe encephalopathy. We will get a head CT. We will continue to support him with oxygen. 3. Diabetes type 2, uncontrolled, but blood sugars acceptable here. I will decrease the Lantus as he has an excellent blood sugar this morning and did not receive it last night. 4. Schizophrenia. We will substitute Risperdal for Invega when he is alert and awake enough to take it. 5. Hyponatremia, likely due to pneumonia, improving. 6. Essential hypertension. Blood pressures are mostly controlled. If he is alert and able to take his lisinopril, we can give it to him. I do not feel any IV blood pressure medications are currently indicated. 7. Hypomagnesemia, replaced. 8. Failure to thrive. This is a longstanding diagnosis for this patient. 9. Anxiety disorder. 10.Aortic stenosis. 11.BPH. He has a Myers in place for strict I's and O's. We will leave this in place due to his current medical condition. 12.Rhabdomyolysis. CK level up to 600. It is improving. Possibly due to the fact that he was on statins. His Lipitor is on hold. He does not have any renal failure currently. PLAN: The patient will continue acute cares with CT scans today for further evaluation of infection, and hopefully this will define his pneumonia better. We will continue IV vancomycin and Zosyn, now day #1. He got Rocephin and Zithromax yesterday. Pharmacy to assist in dosing. We will repeat lab work tomorrow. We will continue to monitor Accu-Cheks for deep vein thrombosis prophylaxis. He is on Lovenox, and I also slowed down IV fluids to 50 mL/h. MKA: 12/22/2020 08:39:36 MODL: 12/22/2020 10:26:34 /[id number] MTDD
[2020-12-22] MEDS: risperiDONE 1 MG Tab PO SCH ×2 (10:50→19:20)
--- NOTE | 2020-12-22 11:15 | CT ---
[id number] CT/CT Head WO IV EXAM: NONCONTRAST HEAD CT INDICATION: FEVER. COMPARISON: None. DISCUSSION: There is mild generalized atrophy. Mild multifocal white matter hypoattenuation is nonspecific, but generally ascribed to chronic small vessel ischemia. No mass effect or midline shift. No acute hemorrhage or extra-axial fluid collection. No acute territorial infarct is identified. Mild scattered bilateral ethmoid sinus mucosal thickening. Partial bilateral mastoid effusions and sclerosis in the tips of the mastoids suggesting potential chronic mastoiditis. IMPRESSION: 1. No acute intracranial findings. 2. Mild paranasal sinus mucosal thickening. 3. Small effusions and sclerosis in the mastoid air cells suggesting potential chronic mastoiditis. Omar Alanis MD 12/22/20 1114 Thank you for allowing us to participate in the care of your patient.
--- NOTE | 2020-12-22 11:31 | CT ---
[id number] CT/CT Chest Abdomen Pelvis W IV EXAM: CHEST ABDOMEN AND PELVIS CT WITH CONTRAST INDICATION: FEVER. COMPARISON: None. DISCUSSION: The lungs demonstrate scattered parenchymal scarring and/or atelectasis. Evidence of COPD with mild apical predominant emphysema and bronchitis. Indeterminate 4 mm noncalcified right middle lobe nodule (image 51 series 2) Mild cardiomegaly. Dense coronary artery calcifications. No pleural or pericardial effusion. No thoracic adenopathy. Soft tissue wound dependent left gluteal region with an associated fluid containing fistula or sinus tract leading to the left perirectal region. The tract is up to 10 mm in diameter. Small fat-containing left inguinal hernia. Previous right inguinal hernia repair. The urinary bladder is partially decompressed by Myers catheter and demonstrates significant wall thickening which could be from cystitis, chronic outlet obstruction and/or neoplasm. There is mild to moderate prostatomegaly. Mildly prominent stool volume. Numerous diverticula of the colon without evidence of diverticulitis. The appendix is not seen and may be surgically absent. Cholelithiasis without CT evidence of acute cholecystitis. In the interpolar region of the right kidney there is a 20 mm mixed cystic and solid mass with a focal area of calcification that is suspicious for malignancy. Abdomen MRI with and without contrast may be useful for further characterization. 25 mm cyst lower pole left kidney. Mild nonspecific thickening of both adrenal glands. The liver, spleen, pancreas and small bowel are normal in appearance. Disc degeneration L4-L5 and L5-S1. IMPRESSION: 1. Fluid containing sinus tract or fistula extending from the left perirectal region along the gluteal cleft to the left gluteal skin. No drainable fluid collection is currently identified. 2. Marked bladder wall thickening could be from cystitis, chronic outlet obstruction, and/or neoplasm. 3. Mixed cystic and solid right renal mass measuring up to 20 mm. This is suspicious for malignancy and further evaluation with MRI is suggested. Omar Alanis MD 12/22/20 [id number] Thank you for allowing us to participate in the care of your patient.
[2020-12-22] MEDS: Piperacillin/Tazobactam 3.375 GM in Sodium Chloride 0.9% 100 ML IV SCH ×2 (14:04→21:21)
[2020-12-22] MEDS ORDERED: cefTRIAXone 1 GM Vial IVPUSH SCH (15:00)
[2020-12-22] MEDS: VANCOmycin 1.5 GM/300 ML 1.5 GM in Premix Bag 1 BAG IV SCH (18:40)
[2020-12-22] MEDS: traZODone 50 MG Tab PO SCH (19:21)
[2020-12-22] MEDS: Insulin Glarg,Human.Rec.Analog 100 Unit/ML SUBCUT SCH (19:24)
[2020-12-23] MEDS: VANCOmycin 1.5 GM/300 ML 1.5 GM in Premix Bag 1 BAG IV SCH ×2 (05:34→17:55)
[2020-12-23] MEDS: Piperacillin/Tazobactam 3.375 GM in Sodium Chloride 0.9% 100 ML IV SCH ×3 (06:39→21:14)
[2020-12-23 08:01] LABS: CHLORIDE,CL 97 mmol/L (98-107); SODIUM,NA 133 mmol/L (136-145)
[2020-12-23 08:02] LABS: ANION GAP 10.2 mmol/L (5-15)
[2020-12-23] MEDS: Lisinopril 20 MG Tab PO SCH (08:13)
[2020-12-23] MEDS: Enoxaparin 40 MG/0.4 ML Syringe SUBCUT SCH (08:13)
[2020-12-23] MEDS: risperiDONE 1 MG Tab PO SCH ×2 (08:13→20:10)
[2020-12-23] MEDS: Polyethylene Glycol 3350 Powder 17 GM Packet PO SCH (08:14)
--- NOTE | 2020-12-23 09:33 | PN ---
Progress Note for LINH COULTER Date: 12/23/2020 Room #: VM.203 SUBJECTIVE: This is patient's third hospital day, being admitted with fever of sepsis and fever of unknown origin. He was also noted to have rhabdomyolysis. He has improved cognition-pradhan, where he is now talkative. He is very weak with transferring. He has been receiving antibiotics of vancomycin as well as Zosyn. He is otherwise not coughing. The patient comments he expressed concerns about how he was treated at the [facility]. The patient to note was obtunded when he came in and he claimed that he had been mistreated at the [facility]. OBJECTIVE: Vital Signs: His temperature is improved to 37.2, pulse is 103, blood pressure is 159/99, and saturations are 95% on 2 L. General: The patient is slightly diaphoretic. Heart: Regular rate and rhythm. Lungs: Have diminished breath sounds on bases. Abdomen: Bowel sounds are present. Soft, nontender. Psychiatric: The patient is noted to be somewhat confused, talking somewhat nonsensically. LABORATORY DATA: Lab work today shows white blood cell count 7.4, hemoglobin stable at 10.9. Sodium is 133, potassium 4.2, creatinine 1.1, GFR greater than 60, and glucose is 209. CK has improved to 421 from 622, albumin is 2.6. Blood cultures are negative so far. He did have a CT scan yesterday of his abdomen, chest, and pelvis which report said fluid-containing sinus tract from left perirectal area with no drainable fluid. He had marked bladder wall thickening from possibly cystitis. Mild cystic and solid right renal mass measuring up to 20 mm. This is suspicious for malignancy. Head CT done had come back showing no acute intracranial findings, mild paranasal sinusitis, small effusion, and sclerosis of mastoid air cells. IMPRESSION: 1. Sepsis of unclear origin. 2. Fever of unknown determination. 3. Rhabdomyolysis. 4. Type 2 diabetes mellitus. 5. Schizophrenia. 6. Hypertension. 7. Hypomagnesemia. 8. Failure to thrive. 9. Anxiety disorder. 10.Aortic stenosis. 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 12.Renal mass. PLAN: The patient stopped with his IV fluids yesterday. Due to his hypertension, persistent, we will have him resumed on his hydrochlorothiazide. We will carefully monitor his renal function. He will continue with his Zosyn and vancomycin. We will have Pharmacy work with dosing of vancomycin. He is on Lovenox and deferred questions of his treatment concerns at [facility] to his primary care provider, who will be back in 2 days. GM12/23/2020 08:52:09 MODL: 12/23/2020 09:22:34 /[id number]
[2020-12-23] MEDS: Hydrochlorothiazide 25 MG Tab PO SCH (10:18)
[2020-12-23] MEDS: traZODone 50 MG Tab PO SCH (20:11)
[2020-12-23] MEDS: Insulin Glarg,Human.Rec.Analog 100 Unit/ML SUBCUT SCH (20:21)
[2020-12-24] MEDS: VANCOmycin 1.5 GM/300 ML 1.5 GM in Premix Bag 1 BAG IV SCH ×2 (05:02→18:03)
[2020-12-24] MEDS: Piperacillin/Tazobactam 3.375 GM in Sodium Chloride 0.9% 100 ML IV SCH ×3 (06:48→21:14)
[2020-12-24 08:23] LABS: CHLORIDE,CL 99 mmol/L (98-107); SODIUM,NA 135 mmol/L (136-145)
[2020-12-24 08:24] LABS: ANION GAP 10.3 mmol/L (5-15)
[2020-12-24] MEDS: Hydrochlorothiazide 25 MG Tab PO SCH (08:39)
[2020-12-24] MEDS: risperiDONE 1 MG Tab PO SCH ×2 (08:40→20:44)
[2020-12-24] MEDS: Enoxaparin 40 MG/0.4 ML Syringe SUBCUT SCH (08:40)
[2020-12-24] MEDS: Lisinopril 20 MG Tab PO SCH (08:41)
[2020-12-24] MEDS: Polyethylene Glycol 3350 Powder 17 GM Packet PO SCH (08:41)
[2020-12-24] MEDS: metFORMIN 500 MG Tab PO SCH ×2 (09:15→20:43)
--- NOTE | 2020-12-24 09:23 | PN ---
Progress Note for LINH COULTER Date: 12/24/2020 Room #: VM.203 SUBJECTIVE: The patient varies with mental status. At times, he will be alert and talkative. Other times, he will be quite somnolent. He does not seem to have any pain. He has not been overly agitated. OBJECTIVE: Vital Signs: His temperature has come down. T-max was 37.1 in last 24 hours. Temperature this morning is 36.7, pulse 89, blood pressure is 112/70, saturations are 94% on 2 L, and respiratory rate 16. General: The patient is fairly somnolent this morning. Heart: Regular rate and rhythm. Lungs: Clear. Abdomen: Soft. Urine output is yellow and clear. His intake yesterday was 2000 mL plus output was 300+. His wound cultures have come back with gram-negative rods as well as coag- negative staph. Lab work shows white blood cell count 5.9, hemoglobin 1.0, sodium 135, potassium 4.3, creatinine 1.0, GFR greater than 60, glucose 211, magnesium was 1.9, CRP were 10.9 today, and ProBNP is 412. IMPRESSIONS: 1. Sepsis of unclear etiology. 2. Fever of unknown etiology. 3. Rhabdomyolysis. 4. Perirectal fistulas. 5. Type 2 diabetes mellitus. 6. Schizophrenia. 7. Hypertension. 8. Hypomagnesemia. 9. Anxiety disorder. 10.Failure to thrive. 11.Aortic stenosis. 12.Renal mass. PLAN: We will continue IV antibiotics. He was resumed on his hydrochlorothiazide yesterday to help prevent fluid retention. Dr. Maggie Ross will be resuming his care tomorrow. GM12/24/2020 08:55:24 MODL: 12/24/2020 09:16:27 /[id number]
[2020-12-24] MEDS: traZODone 50 MG Tab PO SCH (20:44)
[2020-12-24] MEDS: Insulin Glarg,Human.Rec.Analog 100 Unit/ML SUBCUT SCH (20:45)
[2020-12-25 06:33] LABS: CHLORIDE,CL 96 mmol/L (98-107); SODIUM,NA 134 mmol/L (136-145)
[2020-12-25 06:35] LABS: ANION GAP 11.4 mmol/L (5-15)
[2020-12-25] MEDS: VANCOmycin 1.5 GM/300 ML 1.5 GM in Premix Bag 1 BAG IV SCH ×2 (06:53→17:07)
[2020-12-25] MEDS: Polyethylene Glycol 3350 Powder 17 GM Packet PO SCH (07:32)
[2020-12-25] MEDS: risperiDONE 1 MG Tab PO SCH ×2 (07:32→20:22)
[2020-12-25] MEDS: Enoxaparin 40 MG/0.4 ML Syringe SUBCUT SCH (07:32)
[2020-12-25] MEDS: metFORMIN 500 MG Tab PO SCH ×2 (07:32→20:22)
[2020-12-25] MEDS: Lisinopril 20 MG Tab PO SCH (07:33)
[2020-12-25] MEDS: Hydrochlorothiazide 25 MG Tab PO SCH (07:33)
[2020-12-25] MEDS: Piperacillin/Tazobactam 3.375 GM in Sodium Chloride 0.9% 100 ML IV SCH ×3 (08:39→23:27)
--- NOTE | 2020-12-25 15:53 | PCM.PN ---
- General Info Date of Service: 12/25/20 Admission Dx/Problem (Free Text): Admission Diagnosis/Problem Admission Diagnosis/Problem Pneumonia Subjective Update: Yuriy is a 70-year-old male with a past medical history of failure to thrive, uncontrolled diabetes, and schizophrenia. He is a resident at [facility]. Admitted on 12/21/2020 for sepsis after reports of increased weakness and a fever of 103.8. He did have COVID back in June 2020. Rapid testing was negative. Upon arrival to the ER he was noted to be fairly lethargic but would open his eyes and respond upon prompting. He had had no recent medication adjustments. Chest x-ray at the time of admission did show some left lower lobe atelectasis versus questionable infiltrates. He was initiated on Rocephin and azithromycin and blood cultures were sent. Sputum cultures were ordered as well. He was given IV fluids for rehydration. By hospital day 2 his IV antibiotics had been upgraded to IV vancomycin and Zosyn. CT Scans of the chest and abdomen were ordered as well as a CT scan of his head given the encephalopathy. CT head did not treat any acute intracranial findings, may be some sinus mucosal thickening as well as chronic mastoiditis. CT chest abdomen pelvis did demonstrate his known sinus tract in the perirectal region although no drainable fluid collection was identified, bladder wall thickening, and a concerning solid/cystic right renal mass that measured up to 20 mm. There is no particular finding of pneumonia on the CT scan. At this time his vital signs have improved. He has been fever free since time of admission. He is maintaining oxygen saturations without supplementation. Laboratory evaluation is good except for blood sugars are creeping up. Blood cultures demonstrate no growth after 3 days. Left but talks wound culture with preliminary coag-negative staph; sensitivities to follow. Scrotal culture with Klebsiella, Morganella, gram-negative cocci with susceptibilities to cefoxitin (likely what we would send him home on). Mentally he is almost back to baseline today. Has not been up/ambulating much. - Review of Systems General: Reports: No Symptoms HEENT: Reports: No Symptoms Pulmonary: Reports: No Symptoms Cardiovascular: Reports: No Symptoms Musculoskeletal: Reports: No Symptoms Skin: Reports: No Symptoms Neurological: Reports: No Symptoms Psychiatric: Reports: No Symptoms - Patient Data Vitals - Most Recent: Last Vital Signs Temp 98.0 F 12/25/20 14:00 Pulse 94 12/25/20 14:00 Resp 16 12/25/20 14:00 BP 141/80 H 12/25/20 14:00 Pulse Ox 93 L 12/25/20 14:00 Weight - Most Recent: 242 lb I&O - Last 24 Hours: Intake & Output 12/25/20 12/25/20 12/25/20 06:59 14:59 22:59 Intake Total 900 720 Output Total 1999 Balance -1100 736 Lab Results Last 24 Hours: Laboratory Results - last 24 hr 12/24/20 12/25/20 12/25/20 Range/Units 20:42 06:06 06:06 WBC 7.8 (4.0-10.0) x10^3/uL RBC 3.99 L (4.5-6.0) x10^6/uL Hgb 11.6 L (14.0-18.0) g/dL Hct 34.7 L (40.0-52.0) % MCV 87.0 (78.0-93.0) fL MCH 29.1 (26.0-32.0) pg MCHC 33.4 (32.0-36.0) g/dL RDW Coeff of Dian 13.9 (10.0-15.0) % Plt Count 244 (130-400) x10^3/uL Neut % (Auto) 48.7 L (50.0-80.0) % Lymph % (Auto) 37.5 (25.0-50.0) % Coffey % (Auto) 9.2 (2.0-11.0) % Eos % (Auto) 4.2 H (0.0-4.0) % Baso % (Auto) 0.4 (0.2-1.2) % Sodium (136-145) mmol/L Potassium (3.5-5.1) mmol/L Chloride (98-107) mmol/L Carbon Dioxide (21-32) mmol/L Anion Gap (5-15) mmol/L BUN (7-18) mg/dL Creatinine (0.70-1.30) mg/dL Est Cr Clr Drug Dosing mL/min Estimated GFR (MDRD) Glucose (70-99) mg/dL POC Glucose 314 H (70-99) mg/dL Calcium (8.5-10.1) mg/dL Creatine Kinase (39-308) U/L Vancomycin Trough 19.5 (10.0-20.0) ug/mL 12/25/20 12/25/20 12/25/20 Range/Units 06:06 06:08 11:06 WBC (4.0-10.0) x10^3/uL RBC (4.5-6.0) x10^6/uL Hgb (14.0-18.0) g/dL Hct (40.0-52.0) % MCV (78.0-93.0) fL MCH (26.0-32.0) pg MCHC (32.0-36.0) g/dL RDW Coeff of Dian (10.0-15.0) % Plt Count (130-400) x10^3/uL Neut % (Auto) (50.0-80.0) % Lymph % (Auto) (25.0-50.0) % Coffey % (Auto) (2.0-11.0) % Eos % (Auto) (0.0-4.0) % Baso % (Auto) (0.2-1.2) % Sodium 134 L (136-145) mmol/L Potassium 4.4 (3.5-5.1) mmol/L Chloride 96 L (98-107) mmol/L Carbon Dioxide 31 (21-32) mmol/L Anion Gap 11.4 (5-15) mmol/L BUN 12 (7-18) mg/dL Creatinine 1.1 (0.70-1.30) mg/dL Est Cr Clr Drug Dosing 72.64 mL/min Estimated GFR (MDRD) > 60 Glucose 224 H (70-99) mg/dL POC Glucose 220 H 253 H (70-99) mg/dL Calcium 9.0 (8.5-10.1) mg/dL Creatine Kinase 155 (39-308) U/L Vancomycin Trough (10.0-20.0) ug/mL Sha Results Last 24 Hours: Microbiology 12/21/20 15:25 Aerobic Blood Culture - Preliminary Blood - Venous - Lab Draw NO GROWTH AFTER 4 DAYS Anaerobic Blood Culture - Preliminary NO GROWTH AFTER 4 DAYS 12/21/20 15:19 Aerobic Blood Culture - Preliminary Blood - Venous NO GROWTH AFTER 4 DAYS Anaerobic Blood Culture - Preliminary NO GROWTH AFTER 4 DAYS 12/22/20 08:50 Wound Culture - Preliminary Buttock, Left Probable Staphylococcus Sp Gram Positive Rods 12/22/20 08:50 Wound Culture - Final Scrotum - Right Klebsiella Oxytoca Morganella Morganii Gram Negative Cocci 12/22/20 06:22 Aerobic Blood Culture - Preliminary Blood - Venous - Lab Draw NO GROWTH AFTER 3 DAYS Anaerobic Blood Culture - Preliminary NO GROWTH AFTER 3 DAYS 12/22/20 06:15 Aerobic Blood Culture - Preliminary Blood - Venous NO GROWTH AFTER 3 DAYS Anaerobic Blood Culture - Preliminary NO GROWTH AFTER 3 DAYS Med Orders - Current: Current Medications Acetaminophen (Acetaminophen 325 Mg Tab) 650 mg PO Q4H PRN PRN Reason: Pain (Mild 1-3)/fever Last Admin: 12/22/20 10:16 Dose: 650 mg Documented by: Acetaminophen (Acetaminophen 650 Mg Supp) 650 mg RECTAL Q4H PRN PRN Reason: Fever Last Admin: 12/21/20 23:32 Dose: 650 mg Documented by: Albuterol/Ipratropium (Albuterol/Ipratropium 3.0-0.5 Mg/3 Ml Neb Soln) 3 ml NEB Q4H PRN PRN Reason: dyspnea/wheezing Dextrose/Water (50% Dextrose In Water 50 Ml Syringe) 50 ml IV ASDIRECTED PRN PRN Reason: Hypoglycemia Enoxaparin Sodium (Enoxaparin 40 Mg/0.4 Ml Syringe) 40 mg SUBCUT DAILY [facility] Last Admin: 12/25/20 07:32 Dose: 40 mg Documented by: Glucagon (Glucagon,Human Recombinant 1 Mg Vial) 1 mg IM ASDIRECTED PRN PRN Reason: Hypoglycemia Hydrochlorothiazide (Hydrochlorothiazide 25 Mg Tab) 37.5 mg PO DAILY [facility] Last Admin: 12/25/20 07:33 Dose: 37.5 mg Documented by: Vancomycin HCl 1.5 gm/ Premix 300 mls @ 200 mls/hr IV Q12H [facility] Last Admin: 12/25/20 06:53 Dose: 200 mls/hr Documented by: Piperacillin Sod/Tazobactam (Sod 3.375 gm/ Sodium Chloride) 100 mls @ 50 mls/hr IV Q8H [facility] Last Admin: 12/25/20 15:25 Dose: 50 mls/hr Documented by: Insulin Glargine (Insulin Glarg,Human.Rec.Analog 100 Unit/Ml) 25 unit SUBCUT BEDTIME [facility] Lisinopril (Lisinopril 20 Mg Tab) 20 mg PO DAILY [facility] Last Admin: 12/25/20 07:33 Dose: 20 mg Documented by: Metformin HCl (Metformin 500 Mg Tab) 1,000 mg PO BID [facility] Last Admin: 12/25/20 07:32 Dose: 1,000 mg Documented by: Polyethylene Glycol (Polyethylene Glycol 3350 Powder 17 Gm Packet) 17 gm PO DAILY [facility] Last Admin: 12/25/20 07:32 Dose: 17 gm Documented by: Risperidone (Risperidone 1 Mg Tab) 4 mg PO BID [facility] Last Admin: 12/25/20 07:32 Dose: 4 mg Documented by: Senna/Docusate Sodium (Docusate Sodium/Sennosides 50-8.6 Mg Tab) 1 tab PO DAILY [facility] Last Admin: 12/25/20 07:33 Dose: 1 tab Documented by: Sodium Chloride (Sodium Chloride 0.9% 10 Ml Syringe) 10 ml FLUSH ASDIRECTED PRN PRN Reason: Keep Vein Open Trazodone HCl (Trazodone 50 Mg Tab) 25 mg PO BEDTIME [facility] Last Admin: 12/24/20 20:44 Dose: 25 mg Documented by: Vancomycin HCl (Pharmacy To Dose - Vancomycin) 1 dose .XX ASDIRECTED [facility] Discontinued Medications Ceftriaxone Sodium (Ceftriaxone 1 Gm Vial) 1 gm IVPUSH STAT ONE Stop: 12/21/20 15:22 Last Admin: 12/21/20 15:30 Dose: 1 gm Documented by: Ceftriaxone Sodium (Ceftriaxone 1 Gm Vial) 1 gm IVPUSH DAILY@1500 AISHA Ceftriaxone Sodium (Ceftriaxone 1 Gm Vial) Confirm Administered Dose 1 gm .ROUTE .STK-MED ONE Stop: 12/21/20 15:40 Last Admin: 12/22/20 19:27 Dose: Not Given Documented by: Sodium Chloride (Normal Saline) 1,000 mls @ 999 mls/hr IV ONETIME ONE Stop: 12/21/20 16:27 Last Admin: 12/21/20 15:30 Dose: 999 mls/hr Documented by: Azithromycin 500 mg/ Sodium (Chloride) 250 mls @ 250 mls/hr IV Q24H [facility] Last Admin: 12/21/20 18:22 Dose: 250 mls/hr Documented by: Sodium Chloride (Normal Saline) 1,000 mls @ 50 mls/hr IV ASDIRECTED [facility] Last Admin: 12/22/20 01:45 Dose: 125 mls/hr Documented by: Magnesium Sulfate (Magnesium Sulfate In Water 2 Gm/50 Ml) 2 gm in 50 mls @ 25 mls/hr IV ASDIRECTED [facility] Stop: 12/21/20 20:29 Last Admin: 12/21/20 19:38 Dose: 25 mls/hr Documented by: Vancomycin HCl 2 gm/ Premix 400 mls @ 200 mls/hr IV Q24H [facility] Last Admin: 12/22/20 05:57 Dose: 200 mls/hr Documented by: Piperacillin Sod/Tazobactam (Sod 4.5 gm/ Sodium Chloride) 100 mls @ 200 mls/hr IV ONETIME ONE Stop: 12/22/20 05:59 Last Admin: 12/22/20 05:22 Dose: 200 mls/hr Documented by: Piperacillin Sod/Tazobactam (Sod 3.375 gm/ Sodium Chloride) 100 mls @ 25 mls/hr IV Q8H [facility] Last Admin: 12/25/20 08:39 Dose: 25 mls/hr Documented by: Potassium Chloride/Sodium Chloride (Normal Saline With 20 Meq Kcl) 1,000 mls @ 50 mls/hr IV ASDIRECTED [facility] Vancomycin HCl (Vancomycin 2 Gm/400 Ml) Confirm Administered Dose 400 mls @ as directed .ROUTE .STK-MED ONE Stop: 12/22/20 06:06 Last Admin: 12/22/20 19:27 Dose: Not Given Documented by: Insulin Glargine (Insulin Glarg,Human.Rec.Analog 100 Unit/Ml) 40 unit SUBCUT BEDTIME [facility] Last Admin: 12/21/20 21:49 Dose: Not Given Documented by: Insulin Glargine (Insulin Glarg,Human.Rec.Analog 100 Unit/Ml) 15 unit SUBCUT BEDTIME [facility] Last Admin: 12/24/20 20:45 Dose: 15 units Documented by: Insulin Human Lispro (Insulin Lispro 100 Units/Ml 3 Ml Vial) 3 unit SUBCUT ONETIME ONE Stop: 12/21/20 17:20 Last Admin: 12/21/20 18:33 Dose: 3 unit Documented by: Iopamidol (Iopamidol 612 Mg/Ml 100 Ml Bottle) 100 ml IVPUSH ONETIME ONE Stop: 12/22/20 09:17 Last Admin: 12/22/20 10:37 Dose: 100 ml Documented by: Magnesium Sulfate (Magnesium Sulfate (4.06 Meq/Ml) 1 Gm/2 Ml Sdv) 1 gm IM ONETIME ONE Stop: 12/21/20 17:07 Last Admin: 12/21/20 19:46 Dose: Not Given Documented by: Magnesium Sulfate (Magnesium Sulfate (4.06 Meq/Ml) 1 Gm/2 Ml Sdv) 1 gm IM ONETIME ONE Stop: 12/21/20 18:16 Last Admin: 12/21/20 19:45 Dose: Not Given Documented by: - Exam Urinary Catheter Total Time: 3Days 18Hours General: Alert, No Acute Distress HEENT: Mucous Membr. Moist/[employer] Neck: Supple Lungs: Clear to Auscultation, Normal Respiratory Effort Cardiovascular: Regular Rate, Regular Rhythm, Murmurs (strong systolic ejection) GI/Abdominal Exam: Normal Bowel Sounds, Soft, Non-Tender Extremities: Non-Tender, No Pedal Edema Skin: Warm, Dry, Other (coccyx wound with packing in place, no surrounding erythema/warmth/induratoin) Neurological: No New Focal Deficit Psy/Mental Status: Alert, Other (mentatoin almost to baseline this morning, delayed but focused speech present) - Patient Data Lab Results Last 24 hrs: Laboratory Results - last 24 hr 12/24/20 12/25/20 12/25/20 Range/Units 20:42 06:06 06:06 WBC 7.8 (4.0-10.0) x10^3/uL RBC 3.99 L (4.5-6.0) x10^6/uL Hgb 11.6 L (14.0-18.0) g/dL Hct 34.7 L (40.0-52.0) % MCV 87.0 (78.0-93.0) fL MCH 29.1 (26.0-32.0) pg MCHC 33.4 (32.0-36.0) g/dL RDW Coeff of Dian 13.9 (10.0-15.0) % Plt Count 244 (130-400) x10^3/uL Neut % (Auto) 48.7 L (50.0-80.0) % Lymph % (Auto) 37.5 (25.0-50.0) % Coffey % (Auto) 9.2 (2.0-11.0) % Eos % (Auto) 4.2 H (0.0-4.0) % Baso % (Auto) 0.4 (0.2-1.2) % Sodium (136-145) mmol/L Potassium (3.5-5.1) mmol/L Chloride (98-107) mmol/L Carbon Dioxide (21-32) mmol/L Anion Gap (5-15) mmol/L BUN (7-18) mg/dL Creatinine (0.70-1.30) mg/dL Est Cr Clr Drug Dosing mL/min Estimated GFR (MDRD) Glucose (70-99) mg/dL POC Glucose 314 H (70-99) mg/dL Calcium (8.5-10.1) mg/dL Creatine Kinase (39-308) U/L Vancomycin Trough 19.5 (10.0-20.0) ug/mL 12/25/20 12/25/20 12/25/20 Range/Units 06:06 06:08 11:06 WBC (4.0-10.0) x10^3/uL RBC (4.5-6.0) x10^6/uL Hgb (14.0-18.0) g/dL Hct (40.0-52.0) % MCV (78.0-93.0) fL MCH (26.0-32.0) pg MCHC (32.0-36.0) g/dL RDW Coeff of Dian (10.0-15.0) % Plt Count (130-400) x10^3/uL Neut % (Auto) (50.0-80.0) % Lymph % (Auto) (25.0-50.0) % Coffey % (Auto) (2.0-11.0) % Eos % (Auto) (0.0-4.0) % Baso % (Auto) (0.2-1.2) % Sodium 134 L (136-145) mmol/L Potassium 4.4 (3.5-5.1) mmol/L Chloride 96 L (98-107) mmol/L Carbon Dioxide 31 (21-32) mmol/L Anion Gap 11.4 (5-15) mmol/L BUN 12 (7-18) mg/dL Creatinine 1.1 (0.70-1.30) mg/dL Est Cr Clr Drug Dosing 72.64 mL/min Estimated GFR (MDRD) > 60 Glucose 224 H (70-99) mg/dL POC Glucose 220 H 253 H (70-99) mg/dL Calcium 9.0 (8.5-10.1) mg/dL Creatine Kinase 155 (39-308) U/L Vancomycin Trough (10.0-20.0) ug/mL Result Diagrams: 12/25/20 06:06 12/25/20 06:06 Sha Results Last 24 hrs: Microbiology 12/21/20 15:25 Aerobic Blood Culture - Preliminary Blood - Venous - Lab Draw NO GROWTH AFTER 4 DAYS Anaerobic Blood Culture - Preliminary NO GROWTH AFTER 4 DAYS 12/21/20 15:19 Aerobic Blood Culture - Preliminary Blood - Venous NO GROWTH AFTER 4 DAYS Anaerobic Blood Culture - Preliminary NO GROWTH AFTER 4 DAYS 12/22/20 08:50 Wound Culture - Preliminary Buttock, Left Probable Staphylococcus Sp Gram Positive Rods 12/22/20 08:50 Wound Culture - Final Scrotum - Right Klebsiella Oxytoca Morganella Morganii Gram Negative Cocci 12/22/20 06:22 Aerobic Blood Culture - Preliminary Blood - Venous - Lab Draw NO GROWTH AFTER 3 DAYS Anaerobic Blood Culture - Preliminary NO GROWTH AFTER 3 DAYS 12/22/20 06:15 Aerobic Blood Culture - Preliminary Blood - Venous NO GROWTH AFTER 3 DAYS Anaerobic Blood Culture - Preliminary NO GROWTH AFTER 3 DAYS Sepsis Event Note - Evaluation Sepsis Screening Result: No Definite Risk - Focused Exam Vital Signs: Vital Signs Temp Temp Pulse Resp BP BP Pulse Ox 12/25/20 14:00 98.0 F 94 16 141/80 H 93 L 12/25/20 10:00 98.4 F 96 17 144/86 H 94 L 12/25/20 07:47 12/25/20 07:33 145/85 H 12/25/20 05:35 97.7 F 99 16 145/85 H 94 L Pulse Ox 12/25/20 14:00 12/25/20 10:00 12/25/20 07:47 96 12/25/20 07:33 12/25/20 05:35 - Problem List & Annotations (1) Fever SNOMED Code(s): 190084491 Code(s): R50.9 - FEVER, UNSPECIFIED Status: Resolved Current Visit: Yes Qualifiers: Fever type: unspecified Qualified Code(s): R50.9 - Fever, unspecified (2) Sepsis SNOMED Code(s): 11528448 Code(s): A41.9 - SEPSIS, UNSPECIFIED ORGANISM Status: Resolved Priority: High Current Visit: Yes Qualifiers: Sepsis type: sepsis due to unspecified organism Sepsis acute organ dysfunction status: with acute organ dysfunction Severe sepsis acute organ dysfunction type: encephalopathy Severe sepsis shock status: without septic shock Qualified Code(s): A41.9 - Sepsis, unspecified organism; R65.20 - Severe sepsis without septic shock; G93.40 - Encephalopathy, unspecified - Problem List Review Problem List Initiated/Reviewed/Updated: Yes - My Orders Last 24 Hours: My Active Orders 12/25/20 15:46 PT Evaluation and Treatment [CONS] Routine 12/25/20 15:47 OT Evaluation and Treatment [CONS] Routine 12/25/20 20:00 Insulin Glarg,Human.Rec.Analog [LantUS] 25 unit SUBCUT BEDTIME 12/26/20 06:00 BASIC METABOLIC PANEL,BMP [CHEM] Routine CBC W/O DIFF,HEMOGRAM [HEME] Routine CRP [C-REACTIVE PROTEIN] [CHEM] Routine - Plan Plan:: Fever of Unknown Origin/Sepsis of unknown origin -Im not certain this is from a bacterial pneumonia nor his coccyx/scrotal wounds -Coccyx ulcer actually better in appearance than when I saw it last -Blood cultures negative thus far -Scrotal Cx: Klebsiella, Morganella, gram-negative cocci with susceptibilities to cefoxitin -Clinically almost back to baseline mental status Plan: -Continue IV antibiotics for 1 more day (today), if continued improvement switch to oral and ? ability to discharge back to [facility] -CBC, BMP, CRP in the am -PT/OT for deconditioning Renal Mass -Incidental 2cm solid/cystic right renal mass seen on CT abdomen/pelvis Plan: -Will plan for patient to follow-up outpatient on this. Will likely be talking with Chronic: DM: Will increase glargine up to 25U tonight for up-trending blood sugars HTN: continue home regiment Schizophrenia: Risperdal substituted for Invega Diet: mechanical soft DVT: lovenox Code: Full Disposition: called and talked with conservator about plan of care including the response to his infection as well as the incidental renal finding. Continue antibiotics today. PT/OT ordered. Anticipate 1-2 more days prior to discharge.
[2020-12-25] MEDS ORDERED: Insulin Glarg,Human.Rec.Analog 100 Unit/ML SUBCUT SCH (20:00)
[2020-12-25] MEDS: traZODone 50 MG Tab PO SCH (20:23)
[2020-12-26] MEDS: VANCOmycin 1.5 GM/300 ML 1.5 GM in Premix Bag 1 BAG IV SCH (05:00)
[2020-12-26] MEDS: Piperacillin/Tazobactam 3.375 GM in Sodium Chloride 0.9% 100 ML IV SCH (06:40)
[2020-12-26 07:18] LABS: ANION GAP 9.2 mmol/L (5-15); CHLORIDE,CL 99 mmol/L (98-107); SODIUM,NA 135 mmol/L (136-145)
[2020-12-26] MEDS: Enoxaparin 40 MG/0.4 ML Syringe SUBCUT SCH (07:39)
[2020-12-26] MEDS: risperiDONE 1 MG Tab PO SCH (07:39)
[2020-12-26] MEDS: Polyethylene Glycol 3350 Powder 17 GM Packet PO SCH (07:40)
[2020-12-26] MEDS: Lisinopril 20 MG Tab PO SCH (07:40)
[2020-12-26] MEDS: metFORMIN 500 MG Tab PO SCH (07:40)
[2020-12-26] MEDS: Hydrochlorothiazide 25 MG Tab PO SCH (07:40)
--- NOTE | 2020-12-26 10:37 | PCM.DCSUM1 ---
Discharge Summary - Hospital Course Free Text/Narrative:: Yuriy Munoz is a 70 year old male who was transferred to Hospital from the [facility] on 12/21/2020 due to increased lethargy and fever. Initial evaluation demonstrated a mild leukocytosis. Chest x-ray demonstrated atelectasis of the left lower lobe greater than right lower lobe. He was initially treated for pneumonia. Over the following days CT scan of his chest abdomen and pelvis was completed. Did not appear to have a pneumonia and no intra-abdominal abnormalities were noted. He did have the known sinus tract although there is no drainable abscess or fluid collection on imaging. He is continued on vancomycin and Zosyn. Wound cultures were obtained. Over the course of the weekend his mentation improved fact towards baseline. Vitals and laboratory findings were normal. His blood cultures have not grown out any organisms. His sinus tract and scrotal cultures did grow out Morganella and Klebsiella with quite a bit of resistance. By the morning of 12/26/20 hew as felt to be back to baseline in mentation. he is being discharged back to [facility] on Cipro 500mg BID for 5 more days. We will plan to [facility] 1 weeks time for follow-up. I have spoken with the filing writer who is seeing him today in the clinic after discharge and we will likely be having him see surgery for follow-up on this sinus tract. He is due for follow-up on colonoscopy findings as well. Incidental findings on his hospital stay include a 2cm renal cyst with mixed content. We will plan for follow-up on this (IR biopsy ordered through [facility]). - Discharge Data Discharge Date: 12/26/20 Discharge Disposition: DC/[facility]fer to [facility] Condition: Fair - Referral to Home Health Primary Care Physician: Maggie Ross MD - Discharge Diagnosis/Problem(s) (1) Fever SNOMED Code(s): 228550991 ICD Code: R50.9 - FEVER, UNSPECIFIED Status: Resolved Current Visit: Yes Qualifiers: Fever type: unspecified Qualified Code(s): R50.9 - Fever, unspecified (2) Sepsis SNOMED Code(s): 61350353 ICD Code: A41.9 - SEPSIS, UNSPECIFIED ORGANISM Status: Resolved Priority: High Current Visit: Yes Qualifiers: Sepsis type: sepsis due to unspecified organism Sepsis acute organ dysfunction status: with acute organ dysfunction Severe sepsis acute organ dysfunction type: encephalopathy Severe sepsis shock status: without septic shock Qualified Code(s): A41.9 - Sepsis, unspecified organism; R65.20 - Severe sepsis without septic shock; G93.40 - Encephalopathy, unspecified - Patient Summary/Data Consults: Consultations 12/25/20 15:46 PT Evaluation and Treatment [CONS] Routine 12/25/20 15:47 OT Evaluation and Treatment [CONS] Routine - Discharge Plan Home Medications: Home Meds Cholecalciferol (Vitamin D3) [Vitamin D3] 4,000 intnl unit PO DAILY 12/21/20 [History] Insulin Aspart 100 unit SQ QIDACANDBED 12/21/20 [History] Insulin Glarg,Human.Rec.Analog [Lantus Solostar] 40 units SQ BEDTIME 12/21/20 [History] Melatonin 3 mg PO DAILY 12/21/20 [History] Paliperidone [Paliperidone ER] 12 mg PO DAILY 12/21/20 [History] Sennosides/Docusate Sodium [Senna Plus 8.6-50 mg Tablet] 1 each PO DAILY 12/21/20 [History] atorvaSTATin Calcium [Atorvastatin Calcium] 20 mg PO DAILY 12/21/20 [History] bisacodyL [Bisacodyl] 5 mg PO DAILY 12/21/20 [History] hydroCHLOROthiazide [Hydrochlorothiazide] 37.5 mg PO DAILY 12/21/20 [History] lisinopriL [Lisinopril] 20 mg PO DAILY 12/21/20 [History] metFORMIN HCl [Metformin HCl] 1,000 mg PO BID 12/21/20 [History] polyethylene glycoL 3350 [Miralax] 17 gm PO DAILY 12/21/20 [History] traZODone HCl [Trazodone HCl] 25 mg PO BEDTIME 12/21/20 [History] Forms: ED Department Discharge Referrals: Maggie Ross MD [Primary Care Provider] - - Discharge Summary/Plan Comment DC Time >30 min.: Yes - Patient Data Vitals - Most Recent: Last Vital Signs Temp 97.7 F 12/26/20 05:42 Pulse 84 12/26/20 05:42 Resp 18 12/26/20 05:42 BP 106/66 12/26/20 07:40 Pulse Ox 93 L 12/26/20 07:49 Weight - Most Recent: 242 lb I&O - Last 24 hours: Intake & Output 12/25/20 12/26/20 12/26/20 22:59 06:59 14:59 Intake Total 400 700 180 Output Total 85 1600 Balance -45 -900 180 Lab Results - Last 24 hrs: Laboratory Results - last 24 hr 12/25/20 12/25/20 12/25/20 Range/Units 11:06 16:57 20:19 WBC (4.0-10.0) x10^3/uL RBC (4.5-6.0) x10^6/uL Hgb (14.0-18.0) g/dL Hct (40.0-52.0) % MCV (78.0-93.0) fL MCH (26.0-32.0) pg MCHC (32.0-36.0) g/dL RDW Coeff of Dian (10.0-15.0) % Plt Count (130-400) x10^3/uL Sodium (136-145) mmol/L Potassium (3.5-5.1) mmol/L Chloride (98-107) mmol/L Carbon Dioxide (21-32) mmol/L Anion Gap (5-15) mmol/L BUN (7-18) mg/dL Creatinine (0.70-1.30) mg/dL Est Cr Clr Drug Dosing mL/min Estimated GFR (MDRD) Glucose (70-99) mg/dL POC Glucose 253 H 216 H 253 H (70-99) mg/dL Calcium (8.5-10.1) mg/dL C-Reactive Protein (<=0.9) mg/dL SARS CoV-2 RNA Rapid MARCELINA (NEGATIVE) 12/26/20 12/26/20 12/26/20 Range/Units 06:11 06:21 06:33 WBC 8.5 (4.0-10.0) x10^3/uL RBC 3.90 L (4.5-6.0) x10^6/uL Hgb 11.4 L (14.0-18.0) g/dL Hct 34.6 L (40.0-52.0) % MCV 88.7 (78.0-93.0) fL MCH 29.2 (26.0-32.0) pg MCHC 32.9 (32.0-36.0) g/dL RDW Coeff of Dian 14.1 (10.0-15.0) % Plt Count 241 (130-400) x10^3/uL Sodium (136-145) mmol/L Potassium (3.5-5.1) mmol/L Chloride (98-107) mmol/L Carbon Dioxide (21-32) mmol/L Anion Gap (5-15) mmol/L BUN (7-18) mg/dL Creatinine (0.70-1.30) mg/dL Est Cr Clr Drug Dosing mL/min Estimated GFR (MDRD) Glucose (70-99) mg/dL POC Glucose 226 H (70-99) mg/dL Calcium (8.5-10.1) mg/dL C-Reactive Protein (<=0.9) mg/dL SARS CoV-2 RNA Rapid MARCELINA Negative (NEGATIVE) 12/26/20 Range/Units 06:33 WBC (4.0-10.0) x10^3/uL RBC (4.5-6.0) x10^6/uL Hgb (14.0-18.0) g/dL Hct (40.0-52.0) % MCV (78.0-93.0) fL MCH (26.0-32.0) pg MCHC (32.0-36.0) g/dL RDW Coeff of Dian (10.0-15.0) % Plt Count (130-400) x10^3/uL Sodium 135 L (136-145) mmol/L Potassium 4.2 (3.5-5.1) mmol/L Chloride 99 (98-107) mmol/L Carbon Dioxide 31 (21-32) mmol/L Anion Gap 9.2 (5-15) mmol/L BUN 14 (7-18) mg/dL Creatinine 1.2 (0.70-1.30) mg/dL Est Cr Clr Drug Dosing 66.58 mL/min Estimated GFR (MDRD) > 60 Glucose 214 H (70-99) mg/dL POC Glucose (70-99) mg/dL Calcium 8.7 (8.5-10.1) mg/dL C-Reactive Protein 3.4 H (<=0.9) mg/dL SARS CoV-2 RNA Rapid MARCELINA (NEGATIVE) BHAVANI Results - Last 24 hrs: Microbiology 12/22/20 08:50 Wound Culture - Preliminary Buttock, Left Probable Staphylococcus Sp Gram Positive Rods 12/22/20 06:22 Aerobic Blood Culture - Preliminary Blood - Venous - Lab Draw NO GROWTH AFTER 4 DAYS Anaerobic Blood Culture - Preliminary NO GROWTH AFTER 4 DAYS 12/22/20 06:15 Aerobic Blood Culture - Preliminary Blood - Venous NO GROWTH AFTER 4 DAYS Anaerobic Blood Culture - Preliminary NO GROWTH AFTER 4 DAYS 12/21/20 15:25 Aerobic Blood Culture - Preliminary Blood - Venous - Lab Draw NO GROWTH AFTER 4 DAYS Anaerobic Blood Culture - Preliminary NO GROWTH AFTER 4 DAYS 12/21/20 15:19 Aerobic Blood Culture - Preliminary Blood - Venous NO GROWTH AFTER 4 DAYS Anaerobic Blood Culture - Preliminary NO GROWTH AFTER 4 DAYS 12/22/20 08:50 Wound Culture - Final Scrotum - Right Klebsiella Oxytoca Morganella Morganii Gram Negative Cocci Med Orders - Current: Current Medications Acetaminophen (Acetaminophen 325 Mg Tab) 650 mg PO Q4H PRN PRN Reason: Pain (Mild 1-3)/fever Last Admin: 12/22/20 10:16 Dose: 650 mg Documented by: Acetaminophen (Acetaminophen 650 Mg Supp) 650 mg RECTAL Q4H PRN PRN Reason: Fever Last Admin: 12/21/20 23:32 Dose: 650 mg Documented by: Albuterol/Ipratropium (Albuterol/Ipratropium 3.0-0.5 Mg/3 Ml Neb Soln) 3 ml NEB Q4H PRN PRN Reason: dyspnea/wheezing Dextrose/Water (50% Dextrose In Water 50 Ml Syringe) 50 ml IV ASDIRECTED PRN PRN Reason: Hypoglycemia Enoxaparin Sodium (Enoxaparin 40 Mg/0.4 Ml Syringe) 40 mg SUBCUT DAILY [facility] Last Admin: 12/26/20 07:39 Dose: 40 mg Documented by: Glucagon (Glucagon,Human Recombinant 1 Mg Vial) 1 mg IM ASDIRECTED PRN PRN Reason: Hypoglycemia Hydrochlorothiazide (Hydrochlorothiazide 25 Mg Tab) 37.5 mg PO DAILY [facility] Last Admin: 12/26/20 07:40 Dose: 37.5 mg Documented by: Vancomycin HCl 1.5 gm/ Premix 300 mls @ 200 mls/hr IV Q12H [facility] Last Admin: 12/26/20 05:00 Dose: 200 mls/hr Documented by: Piperacillin Sod/Tazobactam (Sod 3.375 gm/ Sodium Chloride) 100 mls @ 50 mls/hr IV Q8H [facility] Last Admin: 12/26/20 06:40 Dose: 50 mls/hr Documented by: Insulin Glargine (Insulin Glarg,Human.Rec.Analog 100 Unit/Ml) 25 unit SUBCUT BEDTIME [facility] Last Admin: 12/25/20 20:20 Dose: 25 units Documented by: Lisinopril (Lisinopril 20 Mg Tab) 20 mg PO DAILY [facility] Last Admin: 12/26/20 07:40 Dose: 20 mg Documented by: Metformin HCl (Metformin 500 Mg Tab) 1,000 mg PO BID [facility] Last Admin: 12/26/20 07:40 Dose: 1,000 mg Documented by: Polyethylene Glycol (Polyethylene Glycol 3350 Powder 17 Gm Packet) 17 gm PO DAILY [facility] Last Admin: 12/26/20 07:40 Dose: Not Given Documented by: Risperidone (Risperidone 1 Mg Tab) 4 mg PO BID [facility] Last Admin: 12/26/20 07:39 Dose: 4 mg Documented by: Senna/Docusate Sodium (Docusate Sodium/Sennosides 50-8.6 Mg Tab) 1 tab PO DAILY [facility] Last Admin: 12/26/20 07:41 Dose: Not Given Documented by: Sodium Chloride (Sodium Chloride 0.9% 10 Ml Syringe) 10 ml FLUSH ASDIRECTED PRN PRN Reason: Keep Vein Open Trazodone HCl (Trazodone 50 Mg Tab) 25 mg PO BEDTIME [facility] Last Admin: 12/25/20 20:23 Dose: 25 mg Documented by: Vancomycin HCl (Pharmacy To Dose - Vancomycin) 1 dose .XX ASDIRECTED [facility] Discontinued Medications Ceftriaxone Sodium (Ceftriaxone 1 Gm Vial) 1 gm IVPUSH STAT ONE Stop: 12/21/20 15:22 Last Admin: 12/21/20 15:30 Dose: 1 gm Documented by: Ceftriaxone Sodium (Ceftriaxone 1 Gm Vial) 1 gm IVPUSH DAILY@1500 AISHA Ceftriaxone Sodium (Ceftriaxone 1 Gm Vial) Confirm Administered Dose 1 gm .ROUTE .STK-MED ONE Stop: 12/21/20 15:40 Last Admin: 12/22/20 19:27 Dose: Not Given Documented by: Sodium Chloride (Normal Saline) 1,000 mls @ 999 mls/hr IV ONETIME ONE Stop: 12/21/20 16:27 Last Admin: 12/21/20 15:30 Dose: 999 mls/hr Documented by: Azithromycin 500 mg/ Sodium (Chloride) 250 mls @ 250 mls/hr IV Q24H [facility] Last Admin: 12/21/20 18:22 Dose: 250 mls/hr Documented by: Sodium Chloride (Normal Saline) 1,000 mls @ 50 mls/hr IV ASDIRECTED [facility] Last Admin: 12/22/20 01:45 Dose: 125 mls/hr Documented by: Magnesium Sulfate (Magnesium Sulfate In Water 2 Gm/50 Ml) 2 gm in 50 mls @ 25 mls/hr IV ASDIRECTED [facility] Stop: 12/21/20 20:29 Last Admin: 12/21/20 19:38 Dose: 25 mls/hr Documented by: Vancomycin HCl 2 gm/ Premix 400 mls @ 200 mls/hr IV Q24H [facility] Last Admin: 12/22/20 05:57 Dose: 200 mls/hr Documented by: Piperacillin Sod/Tazobactam (Sod 4.5 gm/ Sodium Chloride) 100 mls @ 200 mls/hr IV ONETIME ONE Stop: 12/22/20 05:59 Last Admin: 12/22/20 05:22 Dose: 200 mls/hr Documented by: Piperacillin Sod/Tazobactam (Sod 3.375 gm/ Sodium Chloride) 100 mls @ 25 mls/hr IV Q8H [facility] Last Admin: 12/25/20 08:39 Dose: 25 mls/hr Documented by: Potassium Chloride/Sodium Chloride (Normal Saline With 20 Meq Kcl) 1,000 mls @ 50 mls/hr IV ASDIRECTED [facility] Vancomycin HCl (Vancomycin 2 Gm/400 Ml) Confirm Administered Dose 400 mls @ as directed .ROUTE .STK-MED ONE Stop: 12/22/20 06:06 Last Admin: 12/22/20 19:27 Dose: Not Given Documented by: Insulin Glargine (Insulin Glarg,Human.Rec.Analog 100 Unit/Ml) 40 unit SUBCUT BEDTIME [facility] Last Admin: 12/21/20 21:49 Dose: Not Given Documented by: Insulin Glargine (Insulin Glarg,Human.Rec.Analog 100 Unit/Ml) 15 unit SUBCUT BEDTIME [facility] Last Admin: 12/24/20 20:45 Dose: 15 units Documented by: Insulin Human Lispro (Insulin Lispro 100 Units/Ml 3 Ml Vial) 3 unit SUBCUT ONETIME ONE Stop: 12/21/20 17:20 Last Admin: 12/21/20 18:33 Dose: 3 unit Documented by: Iopamidol (Iopamidol 612 Mg/Ml 100 Ml Bottle) 100 ml IVPUSH ONETIME ONE Stop: 12/22/20 09:17 Last Admin: 12/22/20 10:37 Dose: 100 ml Documented by: Magnesium Sulfate (Magnesium Sulfate (4.06 Meq/Ml) 1 Gm/2 Ml Sdv) 1 gm IM ONETIME ONE Stop: 12/21/20 17:07 Last Admin: 12/21/20 19:46 Dose: Not Given Documented by: Magnesium Sulfate (Magnesium Sulfate (4.06 Meq/Ml) 1 Gm/2 Ml Sdv) 1 gm IM ONETIME ONE Stop: 12/21/20 18:16 Last Admin: 12/21/20 19:45 Dose: Not Given Documented by: - Exam General: Reports: Alert, Oriented HEENT: Reports: Mucous Membr. Moist/[place]: Reports: Supple Lungs: Reports: Crackles (bilateral bases (atelectasis)) Cardiovascular: Reports: Regular Rate, Regular Rhythm GI/Abdominal Exam: Normal Bowel Sounds, Non-Tender Extremities: Normal Inspection, Non-Tender, No Pedal Edema Skin: Reports: Warm, Dry, Other (did not insepct sinus tract site today) Psy/Mental Status: Reports: Alert, Other (back to baseline in regards to personality; very focused on 'getting well' and being transfered to a different facility)
== END 2020-12-26 12:30 | DRG 871 ==
LOC: VM.ED 14:29 → VM.MS 16:20
PROVIDERS: ADMIT Internal Medicine; ATTEND Family Medicine
DX: R50.9 Fever, unspecified (principal); R05 Cough; A41.9 Sepsis, unspecified organism; G93.41 Metabolic encephalopathy; E87.1 Hypo-osmolality and hyponatremia; M62.82 Rhabdomyolysis; E87.0 Hyperosmolality and hypernatremia; E11.9 Type 2 diabetes mellitus without complications; R65.20 Severe sepsis without septic shock; F20.9 Schizophrenia, unspecified; M06.9 Rheumatoid arthritis, unspecified; Z20.822 Contact with and (suspected) exposure to COVID-19; E78.00 Pure hypercholesterolemia, unspecified; I10 Essential (primary) hypertension; K59.09 Other constipation; N40.0 Benign prostatic hyperplasia without lower urinary tract symptoms; E66.9 Obesity, unspecified; L89.159 Pressure ulcer of sacral region, unspecified stage; I73.9 Peripheral vascular disease, unspecified; E83.42 Hypomagnesemia; R62.7 Adult failure to thrive; F41.9 Anxiety disorder, unspecified; I35.0 Nonrheumatic aortic (valve) stenosis; N28.9 Disorder of kidney and ureter, unspecified; Z86.16 Personal history of COVID-19; Z79.899 Other long term (current) drug therapy; Z79.4 Long term (current) use of insulin
CPT/HCPCS: 0240U; 36415; 36600; 51702; 70450; 71045; 71260; 74177; 80048; 80053; 80202; 81003; 82550; 82803; 82947; 83605; 83735; 83880; 84145; 84484; 85025; 85027; 85652; 86140; 87040; 87070; 87077; 87186; 93005; 93010; 94760; 96374; 97165-GO; 99284; 99285-25; A9270-GY; J0456; J0696; J1650; J1815-GY; J2543; J3370; J3475; J7030; J7050; Q9967; U0002

== ENCOUNTER 2021-01-27 15:15 | Emergency (ER) | payer MEDICARE ==
[2021-01-27] MEDS ORDERED: Sodium Chloride 0.9% 1,000 ML IV ONE (15:20)
[2021-01-27] MEDS ORDERED: Sodium Chloride 0.9% 10 ML Syringe FLUSH PRN (15:20)
[2021-01-27] MEDS ORDERED: Acetaminophen 650 MG Supp RECTAL ONE (15:41)
--- NOTE | 2021-01-27 15:49 | EDM.PDOC ---
ED HPI GENERAL MEDICAL PROBLEM - General Chief Complaint: Fever Stated Complaint: LETHARGIC,NON AMBULATORY,99.1 TEMP Time Seen by Provider: 01/27/21 15:25 Source of Information: Reports: Patient, EMS, Correction Records History Limitations: Reports: Altered Mental Status - History of Present Illness INITIAL COMMENTS - FREE TEXT/NARRATIVE: Patient is a [facility] resident and was well this morning. AT lunchtime he went from able to feed himself to lethargic and weak. He was found to have a fever and decreased oxygen of sats of 88% on room air. Recently hospitalized fo r pneumonia and sent home on )2 as needed 2 lpm. Patient is a poor historian. States he feels short of breath and has chest pain. did tell ems that he had abdominal pain, but denies this here. Able to answer questions, but orientation is not x4, unsure of baseline. moves all extremities, but will not ambulate. Usually able to ambulate. Unsure if given antipyretics. 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 - Related Data Allergies Allergy/AdvReac Type Severity Reaction Status Date / Time No Known Allergies Allergy Verified 01/27/21 17:30 Home Meds: Home Meds Cholecalciferol (Vitamin D3) [Vitamin D3] 4,000 intnl unit PO DAILY 12/21/20 [History] Insulin Aspart 7 unit SQ QIDACANDBED 12/21/20 [History] Insulin Glarg,Human.Rec.Analog [Lantus Solostar] 45 units SQ BEDTIME 12/21/20 [History] Melatonin 3 mg PO DAILY 12/21/20 [History] Paliperidone [Paliperidone ER] 12 mg PO DAILY 12/21/20 [History] Sennosides/Docusate Sodium [Senna Plus 8.6-50 mg Tablet] 1 each PO DAILY 0 12/21/20 [History] atorvaSTATin Calcium [Atorvastatin Calcium] 20 mg PO DAILY 12/21/20 [History] hydroCHLOROthiazide [Hydrochlorothiazide] 37.5 mg PO DAILY 12/21/20 [History] lisinopriL [Lisinopril] 20 mg PO DAILY 12/21/20 [History] metFORMIN HCl [Metformin HCl] 1,000 mg PO BID 12/21/20 [History] traZODone HCl [Trazodone HCl] 25 mg PO BEDTIME 12/21/20 [History] Aspirin 81 mg PO DAILY 01/27/21 [History] Azithromycin 250 mg PO DAILY #2 tablet 01/27/21 [Rx] Tamsulosin HCl [Flomax] 0.4 mg PO DAILY 01/27/21 [History] Urea [Urea 20% Crm] 1 dose TOP DAILY 01/27/21 [History] Past Medical History Cardiovascular History: Reports: Heart Murmur, High Cholesterol, Hypertension Gastrointestinal History: Reports: Chronic Constipation Genitourinary History: Reports: BPH Psychiatric History: Reports: Anxiety, Schizophrenia Endocrine/Metabolic History: Reports: Diabetes, Type II, Obesity/BMI 30+ Dermatologic History: Reports: Other (See Below) Other Dermatologic History: cyst removal site slow healing - Infectious Disease History Infectious Disease History: Reports: Novel Coronavirus - Past Surgical History Other Cardiovascular Surgeries/Procedures: aortic valve stenosis Social & Family History - Family History Cardiac: Reports: CAD (brother, both parents unlisted what was the cause of but mom had HTN), Hypertension ED ROS GENERAL - Review of Systems Review Of Systems: See Below Constitutional: Reports: Fever, Weakness, Fatigue HEENT: Reports: No Symptoms Respiratory: Reports: Shortness of Breath, Cough Cardiovascular: Reports: Chest Pain Endocrine: Reports: Fatigue GI/Abdominal: Reports: Abdominal Pain. Denies: Hematemesis, Hematochezia, Nausea, Vomiting Musculoskeletal: Reports: No Symptoms Skin: Reports: No Symptoms Neurological: Reports: Difficulty Walking ED EXAM, SEPSIS - Physical Exam Exam: See Below Exam Limited By: Altered Mental Status General Appearance: Alert, Other (answers questions with one word answers. moves all extremities, appears ill) Eye Exam: Bilateral Eye: EOMI, Normal Inspection, PERRL Ears: Normal External Exam, Normal TMs Nose: Normal Inspection Throat/Mouth: Normal Oropharynx, Normal Voice, Other (mild dry mucous membranes) Head: Atraumatic Neck: Normal Inspection Respiratory/Chest: Decreased Breath Sounds (bilateral bases), Crackles (mid lungs), Other (tachypnea) Cardiovascular: Tachycardia, Systolic Murmur GI/Abdominal Exam: Normal Bowel Sounds, Soft, No Organomegaly, No Distention, No Abnormal Bruit, No Mass Extremities: Normal Inspection, No Pedal Edema Neurological: Alert, Slow to Respond (answers in one word replies) #1 Interpretation Rate (Beats/Min): 109 (tachycardia) [place]: Normal P-Wave: Present QRS: Normal QT: Normal EKG Interpretation Comments: q waves in II, III, aVf Course - Vital Signs Last Recorded V/S: Last Vital Signs Temp 37.0 C 01/27/21 16:16 Pulse 108 H 01/27/21 16:00 Resp 20 01/27/21 16:00 BP 168/92 H 01/27/21 16:00 Pulse Ox 96 01/27/21 16:00 - Orders/Labs/Meds Orders: Active Orders 24 hr Category Date Time Status CULTURE BLOOD [BC] Stat Lab 01/27/21 15:31 Received CULTURE BLOOD [BC] Stat Lab 01/27/21 15:34 Received Blood Culture x2 Reflex Set [OM.PC] Stat Oth 01/27/21 15:20 Ordered Pulse Oximetry Continuous Monitoring [OM.PC] Routine Oth 01/27/21 15:20 Ordered Saline Lock Insert [OM.PC] Stat Oth 01/27/21 15:20 Ordered Severe Sepsis Onset Time [OM.PC] Stat Oth 01/27/21 15:20 Ordered Labs: Laboratory Tests 01/27/21 01/27/21 01/27/21 Range/Units 15:25 15:31 15:31 WBC 9.3 (4.0-10.0) x10^3/uL RBC 3.74 L (4.5-6.0) x10^6/uL Hgb 11.0 L (14.0-18.0) g/dL Hct 33.4 L (40.0-52.0) % MCV 89.3 (78.0-93.0) fL MCH 29.4 (26.0-32.0) pg MCHC 32.9 (32.0-36.0) g/dL RDW Coeff of Dian 15.0 (10.0-15.0) % Plt Count 220 (130-400) x10^3/uL Neut % (Auto) 71.9 (50.0-80.0) % Lymph % (Auto) 18.9 L (25.0-50.0) % Floyd % (Auto) 7.8 (2.0-11.0) % Eos % (Auto) 1.2 (0.0-4.0) % Baso % (Auto) 0.2 (0.2-1.2) % Sodium 135 L (136-145) mmol/L Potassium 4.1 (3.5-5.1) mmol/L Chloride 97 L (98-107) mmol/L Carbon Dioxide 30 (21-32) mmol/L Anion Gap 12.1 (5-15) mmol/L BUN 22 H (7-18) mg/dL Creatinine 1.0 (0.70-1.30) mg/dL Est Cr Clr Drug Dosing TNP Estimated GFR (MDRD) > 60 Glucose 157 H (70-99) mg/dL Lactic Acid (0.4-2.0) mmol/L Calcium 8.6 (8.5-10.1) mg/dL Corrected Calcium 9.5 (8.5-10.1) mg/dL Total Bilirubin 0.5 (0.2-1.0) mg/dL AST 12 L (15-37) U/L ALT 19 (16-63) U/L Alkaline Phosphatase 85 (46-116) U/L Troponin I High Sens 9 (<=76) ng/L C-Reactive Protein 2.4 H (<=0.9) mg/dL Total Protein 7.6 (6.4-8.2) g/dL Albumin 2.9 L (3.4-5.0) g/dL Globulin 4.7 Albumin/Globulin Ratio 0.62 Urine Color (YELLOW) Urine Appearance (CLEAR) Urine pH (5.0-8.0) Ur Specific [place] Urine Protein (NEGATIVE) mg/dL Urine Glucose (UA) (NEGATIVE) mg/dL Urine Ketones (NEGATIVE) mg/dL Urine Occult Blood (NEGATIVE) Urine Nitrite (NEGATIVE) Urine Bilirubin (NEGATIVE) Urine Urobilinogen (0.2) EU/dL Ur Leukocyte Esterase (NEGATIVE) Urine RBC (NOT SEEN) /HPF Urine WBC (NOT SEEN) /HPF Ur Squamous Epith Cells (NOT SEEN) /HPF Urine Bacteria (NOT SEEN) /HPF Urine Mucus (NOT SEEN) /LPF SARS CoV-2 RNA Rapid MARCELINA Negative (NEGATIVE) 06/19/21 06/19/21 Range/Units 15:31 16:05 WBC (4.0-10.0) x10^3/uL RBC (4.5-6.0) x10^6/uL Hgb (14.0-18.0) g/dL Hct (40.0-52.0) % MCV (78.0-93.0) fL MCH (26.0-32.0) pg MCHC (32.0-36.0) g/dL RDW Coeff of Dian (10.0-15.0) % Plt Count (130-400) x10^3/uL Neut % (Auto) (50.0-80.0) % Lymph % (Auto) (25.0-50.0) % Floyd % (Auto) (2.0-11.0) % Eos % (Auto) (0.0-4.0) % Baso % (Auto) (0.2-1.2) % Sodium (136-145) mmol/L Potassium (3.5-5.1) mmol/L Chloride (98-107) mmol/L Carbon Dioxide (21-32) mmol/L Anion Gap (5-15) mmol/L BUN (7-18) mg/dL Creatinine (0.70-1.30) mg/dL Est Cr Clr Drug Dosing Estimated GFR (MDRD) Glucose (70-99) mg/dL Lactic Acid 1.8 (0.4-2.0) mmol/L Calcium (8.5-10.1) mg/dL Corrected Calcium (8.5-10.1) mg/dL Total Bilirubin (0.2-1.0) mg/dL AST (15-37) U/L ALT (16-63) U/L Alkaline Phosphatase (46-116) U/L Troponin I High Sens (<=76) ng/L C-Reactive Protein (<=0.9) mg/dL Total Protein (6.4-8.2) g/dL Albumin (3.4-5.0) g/dL Globulin Albumin/Globulin Ratio Urine Color Yellow (YELLOW) Urine Appearance Clear (CLEAR) Urine pH 7.0 (5.0-8.0) Ur Specific [place] 1.020 Urine Protein Negative (NEGATIVE) mg/dL Urine Glucose (UA) Negative (NEGATIVE) mg/dL Urine Ketones Negative (NEGATIVE) mg/dL Urine Occult Blood Negative (NEGATIVE) Urine Nitrite Negative (NEGATIVE) Urine Bilirubin Negative (NEGATIVE) Urine Urobilinogen 0.2 (0.2) EU/dL Ur Leukocyte Esterase Negative (NEGATIVE) Urine RBC 0-5 (NOT SEEN) /HPF Urine WBC Not seen (NOT SEEN) /HPF Ur Squamous Epith Cells Not seen (NOT SEEN) /HPF Urine Bacteria Rare (NOT SEEN) /HPF Urine Mucus Rare H (NOT SEEN) /LPF SARS CoV-2 RNA Rapid MARCELINA (NEGATIVE) Meds: Medications Discontinued Medications Generic Name Dose Route Start Last Admin Trade Name Freq PRN Reason Stop Dose Admin Acetaminophen 650 mg 01/27/21 15:41 01/27/21 15:46 Acetaminophen 650 Mg Supp RECTAL 01/27/21 15:42 650 mg NOW ONE Administration Azithromycin 1 packet 01/27/21 18:06 01/27/21 18:23 Take Home: Azithromycin 250 Mg, 2 Tab Pack PO 01/27/21 18:07 1 packet ONETIME ONE Administration Sodium Chloride 1,000 mls @ 1,000 mls/hr 01/27/21 15:20 01/27/21 15:47 Normal Saline IV 01/27/21 16:19 1,000 mls/hr BOLUS ONE Administration Protocol Methylprednisolone Sodium 101 mls @ 200 mls/hr 01/27/21 17:40 Succinate 125 mg/ Sodium IV 01/27/21 18:11 Chloride ONETIME ONE Azithromycin 500 mg/ Sodium 250 mls @ 250 mls/hr 01/27/21 17:40 01/27/21 17:58 Chloride IV 01/27/21 18:39 250 mls/hr STAT ONE Administration Iopamidol 100 ml 01/27/21 16:39 01/27/21 17:20 Iopamidol 612 Mg/Ml 100 Ml Bottle IVPUSH 01/27/21 16:40 100 ml ONETIME ONE Administration Iopamidol 100 ml 01/27/21 17:20 01/27/21 17:20 Iopamidol 612 Mg/Ml 100 Ml Bottle IVPUSH 01/27/21 17:21 100 ml ONETIME ONE Administration Methylprednisolone Sodium Succinate 125 mg 01/27/21 17:47 01/27/21 17:58 Methylprednisolone Sodium Succinate 125 Mg/2 Ml Sdv IVPUSH 01/27/21 17:48 125 mg ONETIME ONE Administration Methylprednisolone Sodium Succinate Confirm 01/27/21 18:05 01/27/21 18:18 Methylprednisolone Sodium Succinate 125 Mg/2 Ml Sdv Administered 01/27/21 18:06 Not Given Dose 125 mg .ROUTE .STK-MED ONE Sodium Chloride 10 ml 01/27/21 15:20 Sodium Chloride 0.9% 10 Ml Syringe FLUSH ASDIRECTED PRN Keep Vein Open - Radiology Interpretation Free Text/Narrative:: chest x-ray with hypoinflation and crowding of vasculature and bibasilar atelectasis no infiltrates. interpreted by radiology chest angiogram chest PE protocol with no large or central pulmonary embolism. limited by respiratory motion for small and peripheral emboli. Cholelithiasis noted. interpreted by radiology Abdomen ct with resolution of left gluteal fold fluid collection, stable to possible increase in sicze of right renal mass, cholelithiasis without cholecystitis, thickened bladder wall consistent with chronic obstruction verus infection. read by radiology - Re-Assessments/Exams Free Text/Narrative Re-Assessment/Exam: 01/27/21 15:51 Patient appears ill. Is a code level 1, on 2 lpm nasal canula oxygen, febrile. Will get blood cultures x 2, lactic, lbas, urine, chest x-ray. Give IV fluids and rectal tylenol. 01/27/21 16:11 patient WBC is normal, urine not infected, negative forcovid. Awaiting labs, no source of hypoxia and fever. Needs Ct scan of the abdomen and chest to rule out PE and intraabdominal process due to patient's altered mental status at baseline 01/27/21 17:57 Ct with bladder wall thickening, and given nature of amount of urine output, probable due to chronic bladder outlet obstruction. Will leave in the fortune, have them follow up with PCP as to urology consult or in dwelling. will advise on Renal mass CT versus MRI for follow up. Will treat for copd exacerbation with solu medrol 125 mg IVP and azithromycin 500 mg IV. Will send home on azithromycin for the next four days and follow up with PCP. Possible Viral URI Departure - Departure Time of Disposition: 18:00 Disposition: DC/Tfer to [facility] Condition: Fair Clinical Impression: COPD exacerbation, Fever, Viral URI, Urinary retention, Bladder outlet obstruction, Renal mass, right, Cholelithiasis - Discharge Information *PRESCRIPTION DRUG MONITORING PROGRAM REVIEWED*: Not Applicable *COPY OF PRESCRIPTION DRUG MONITORING REPORT IN PATIENT PAVEL: Not Applicable Prescriptions: Azithromycin 250 mg PO DAILY #2 tablet Instructions: Viral Respiratory Infection, [id number], Cholelithiasis, [id number], Acute Urinary Retention, Male, [id number], Fever, Adult, [id number] Referrals: Maggie Ross MD [Primary Care Provider] - Forms: ED Department Discharge Additional Instructions: Testing today did not reveal a pneumonia or a blood clot or COVID causing your fever or shortness of breath. You are being treated with one dose of steroid in the ED, one dose of antibiotics in the ED and antibiotics daily for the next 4 days ( azithromycin). You are given a tablet for tomorrow due to it being Friday and then a prescription for the last 3 three days. The kidney mass in the the right kidney is suggested to be looked at by a renal mass CT or MRI. It appears stable from previous scans. You have gallstones, but no signs of gallbladder infection. A low fat diet is advised You have a fortune catheter in place due to inability to empty your bladder. You were found to have 2 liters of fluid in the bladder, but no infection. It is presumed since no pneumonia was found that you have a viral infection causing your fever. You are advised to treat this with tylenol and motrin and stay well hydrated Close follow up with your primary care is advised. Sepsis Event Note (ED) - Focused Exam Vital Signs: Vital Signs Temp Temp Pulse Resp BP Pulse Ox 01/27/21 16:16 37.0 C 01/27/21 16:00 37.0 C 108 H 20 168/92 H 96 01/27/21 15:46 38.9 C H 01/27/21 15:36 145/88 H 01/27/21 15:21 171/96 H 01/27/21 15:20 38.9 C H 111 H 28 H 158/90 H 89 L - My Orders Last 24 Hours: My Active Orders 01/27/21 15:20 Blood Culture x2 Reflex Set [OM.PC] Stat Pulse Oximetry Continuous Monitoring [OM.PC] Routine Saline Lock Insert [OM.PC] Stat Severe Sepsis Onset Time [OM.PC] Stat 01/27/21 15:31 CULTURE BLOOD [BC] Stat 01/27/21 15:34 CULTURE BLOOD [BC] Stat - Assessment/Plan Last 24 Hours: My Active Orders 01/27/21 15:20 Blood Culture x2 Reflex Set [OM.PC] Stat Pulse Oximetry Continuous Monitoring [OM.PC] Routine Saline Lock Insert [OM.PC] Stat Severe Sepsis Onset Time [OM.PC] Stat 01/27/21 15:31 CULTURE BLOOD [BC] Stat 01/27/21 15:34 CULTURE BLOOD [BC] Stat
--- NOTE | 2021-01-27 16:07 | CR ---
[id number] RAD/RAD Chest PA or AP 1V EXAM: FRONTAL CHEST INDICATION: HYPOXIA. COMPARISON: None. DISCUSSION: Hypoinflation with central vascular crowding and bibasilar atelectasis. No acute infiltrates are identified, but the volume loss could obscure findings. Normal heart size. No effusions. IMPRESSION: 1. Low lung volumes. Omar Alanis MD 01/27/21 [id number] Thank you for allowing us to participate in the care of your patient.
[2021-01-27 16:15] LABS: CHLORIDE,CL 97 mmol/L (98-107); SODIUM,NA 135 mmol/L (136-145)
[2021-01-27 16:18] LABS: ANION GAP 12.1 mmol/L (5-15)
[2021-01-27] MEDS ORDERED: Iopamidol 612 MG/ML 100 ML Bottle IVPUSH ONE ×2 (16:39→17:20)
--- NOTE | 2021-01-27 17:39 | CT ---
[id number] CT/CTA Chest EXAM: CT ANGIOGRAM CHEST INDICATION: HYPOXIA, FEVER. COMPARISON: December 22, 2020. DISCUSSION: No large or central pulmonary embolus is identified, but respiratory motion limits evaluation for small and peripheral emboli. Moderate apical predominant emphysema. Mild scattered linear scarring or atelectasis has minimally changed. No infiltrates. No pleural or pericardial effusion. Borderline cardiomegaly. Atherosclerotic plaque in the aorta and its major branches including the coronary arteries. No mediastinal, hilar or axillary lymphadenopathy. Cholelithiasis in the partially imaged gallbladder. Imaged upper abdomen is otherwise unremarkable. Degenerative changes in the lower thoracic spine. IMPRESSION: 1. No large or central pulmonary embolism. Evaluation for small and peripheral emboli is limited by respiratory motion. 2. Cholelithiasis. Omar Alanis MD 01/27/21 [id number] Thank you for allowing us to participate in the care of your patient.
[2021-01-27] MEDS ORDERED: Azithromycin 500 MG in Sodium Chloride 0.9% 250 ML IV ONE (17:40)
[2021-01-27] MEDS ORDERED: methylPREDNISolone Sod Succ 125 MG in Sodium Chloride 0.9% 100 ML IV ONE (17:40)
[2021-01-27] MEDS ORDERED: methylPREDNISolone Sodium Succinate 125 MG/2 ML SDV IVPUSH ONE (17:47)
--- NOTE | 2021-01-27 17:54 | CT ---
[id number] CT/CT Abdomen Pelvis W IV EXAM: ABDOMEN AND PELVIS CT WITH CONTRAST INDICATION: ABDOMINAL PAIN, FEVER. COMPARISON: December 22, 2020. DISCUSSION: Motion artifact somewhat limits assessment. Interval resolution of a left gluteal fluid collection with linear soft tissue density at the site of previous collection most suggestive of scarring. A mixed intensity cystic and solid right renal mass is at least as large as the prior study was measured at 20 mm and may have mildly increased in size, but exact measurement is limited on today's study due to motion. Stable cyst lower pole left kidney. Nonspecific 15 mm soft tissue density adjacent right kidney. This is more evident on the prior study due to decreased perinephric stranding, but appears likely stable. Nonspecific thickening of the adrenal glands. Cholelithiasis without CT evidence of acute cholecystitis. Small fat-containing umbilical and bilateral inguinal hernias. Diverticulosis of the colon without evidence of diverticulitis. Urinary bladder is decompressed by catheter and has a markedly thick-walled appearance which could be from chronic outlet obstruction, cystitis or neoplasm. The prostate is mildly enlarged. Atherosclerotic plaque in the aorta and its major branches. The liver, spleen, pancreas, and small bowel are normal in appearance. Degenerative changes in the lower lumbar spine. The osseous structures are otherwise unremarkable. IMPRESSION: 1. Interval resolution of a left gluteal fluid collection. 2. Stable or mildly increased cystic and solid density right renal mass as previously described. Consider renal mass protocol CT or MRI. 3. Cholelithiasis without CT evidence of acute cholecystitis. 4. Persistent marked bladder wall thickening which could be from cystitis, chronic outlet obstruction and/or neoplasm. The bladder is decompressed by a Myers catheter Omar Alanis MD 01/27/21 [phone] Thank you for allowing us to participate in the care of your patient.
[2021-01-27] MEDS ORDERED: methylPREDNISolone Sodium Succinate 125 MG/2 ML SDV ONE (18:05)
[2021-01-27] MEDS ORDERED: Take Home: Azithromycin 250 MG, 2 Tab Pack PO ONE (18:06)
== END 2021-01-27 19:20 ==
LOC: VM.ED 15:15
DX: J44.1 Chronic obstructive pulmonary disease with (acute) exacerbation (principal); K80.21 Calculus of gallbladder without cholecystitis with obstruction; J06.9 Acute upper respiratory infection, unspecified; R33.9 Retention of urine, unspecified; E78.00 Pure hypercholesterolemia, unspecified; I10 Essential (primary) hypertension; E11.9 Type 2 diabetes mellitus without complications; E66.9 Obesity, unspecified; Z20.822 Contact with and (suspected) exposure to COVID-19; Z68.30 Body mass index [BMI] 30.0-30.9, adult; Z79.82 Long term (current) use of aspirin; Z79.4 Long term (current) use of insulin; Z79.899 Other long term (current) drug therapy
CPT/HCPCS: 36415; 71045; 71275; 74177; 80053; 81001; 83605; 84484; 85025; 86140; 87040; 93005; 93010; 96365; 96375; 99284; 99285-25; A9270-GY; J0456; J2930; J7030; J7050; Q9967; U0002

== ENCOUNTER 2021-01-30 16:53 | Observation (INO) | payer MEDICARE ==
[2021-01-30] MEDS ORDERED: Sodium Chloride 0.9% 10 ML Syringe FLUSH PRN (17:03)
[2021-01-30] MEDS: Sodium Chloride 0.9% 1,000 ML IV ONE ×2 (17:20→18:32)
--- NOTE | 2021-01-30 17:23 | EDM.PDOC ---
ED HPI GENERAL MEDICAL PROBLEM - General Stated Complaint: lethargy Time Seen by Provider: 01/30/21 17:03 Source of Information: Reports: Patient, EMS, Long-Term Records - History of Present Illness INITIAL COMMENTS - FREE TEXT/NARRATIVE: Yuriy is a 70 y/o male who lives at the [facility]. He is brought to the ED today by EMS after he became more lethargic. Approximately 1330 today he had PT and then he was more drowsy and lethargic after that and would not really answer questions. He was seen over the weekend and placed on Azithromycin. His Systolic BPs were reported by halfway staff in the 60-80 ranges, but EMS reported 110s. He did also have some low sats and was placed on oxygen. This presentation sounds very similar to when he was seen 12/21/2020 and 01/27/2021 in the ER. - Related Data Allergies Allergy/AdvReac Type Severity Reaction Status Date / Time No Known Allergies Allergy Verified 01/30/21 18:15 Home Meds: Home Meds Cholecalciferol (Vitamin D3) [Vitamin D3] 4,000 intnl unit PO DAILY 12/21/20 [History] Insulin Aspart 7 unit SQ TIDAC 12/21/20 [History] Insulin Glarg,Human.Rec.Analog [Lantus Solostar] 45 units SQ BEDTIME 12/21/20 [History] Melatonin 3 mg PO DAILY 12/21/20 [History] Paliperidone [Paliperidone ER] 12 mg PO DAILY 12/21/20 [History] Sennosides/Docusate Sodium [Senna Plus 8.6-50 mg Tablet] 1 each PO DAILY 0 12/21/20 [History] atorvaSTATin Calcium [Atorvastatin Calcium] 20 mg PO DAILY 12/21/20 [History] hydroCHLOROthiazide [Hydrochlorothiazide] 37.5 mg PO DAILY 12/21/20 [History] lisinopriL [Lisinopril] 20 mg PO DAILY 12/21/20 [History] metFORMIN HCl [Metformin HCl] 1,000 mg PO BID 12/21/20 [History] traZODone HCl [Trazodone HCl] 25 mg PO BEDTIME 12/21/20 [History] Aspirin 81 mg PO DAILY 01/27/21 [History] Azithromycin 250 mg PO DAILY #2 tablet 01/27/21 [Rx] Tamsulosin HCl [Flomax] 0.4 mg PO DAILY 01/27/21 [History] Urea [Urea 20% Crm] 1 dose TOP DAILY 01/27/21 [History] Past Medical History Cardiovascular History: Reports: Heart Murmur, High Cholesterol, Hypertension Gastrointestinal History: Reports: Chronic Constipation Genitourinary History: Reports: BPH Psychiatric History: Reports: Anxiety, Schizophrenia Endocrine/Metabolic History: Reports: Diabetes, Type II, Obesity/BMI 30+ Dermatologic History: Reports: Other (See Below) Other Dermatologic History: cyst removal site slow healing - Infectious Disease History Infectious Disease History: Reports: Novel Coronavirus - Past Surgical History Other Cardiovascular Surgeries/Procedures: aortic valve stenosis Social & Family History - Family History Cardiac: Reports: CAD, Hypertension Review of Systems - Review of Systems Review Of Systems: Unable To Obtain (P) Reason Not Obtained: Patient lethargic and answers few questions Constitutional: Reports: Weakness Eyes: Reports: No Symptoms Ears: Reports: No Symptoms Nose: Reports: No Symptoms Mouth/Throat: Reports: No Symptoms Respiratory: Reports: No Symptoms Cardiovascular: Reports: No Symptoms GI/Abdominal: Reports: No Symptoms Genitourinary: Reports: No Symptoms Musculoskeletal: Reports: No Symptoms Skin: Reports: No Symptoms Neurological: Reports: Weakness Psychiatric: Reports: No Symptoms ED EXAM, GENERAL - Physical Exam Exam: See Below General Appearance: No Apparent Distress (Elderly male), Lethargic Eye Exam: Bilateral Eye: PERRL Ears: Normal External Exam, Normal Canal, Normal TMs Nose: Normal Inspection Throat/Mouth: Other (Lips and tongue are dry and cracked) Head: Atraumatic, Normocephalic Neck: Normal Inspection, Supple Respiratory/Chest: Decreased Breath Sounds (bases) Cardiovascular: Normal Peripheral Pulses, Regular Rate, Rhythm, Diastolic Murmur GI/Abdominal: Normal Bowel Sounds, Soft (Male) Exam: Normal Inspection, Other (note dried blood in Attends, mild erythema to scrotum and skin folds, note open area under the scrotum about 1cm long that is excoriated and oozing bright red blood.) Rectal (Males) Exam: Deferred Back Exam: Normal Inspection, Full Range of Motion Extremities: Normal Inspection, Normal Range of Motion, Normal Capillary Refill Neurological: Alert, CN II-XII Intact, Slow to Respond Skin Exam: Warm, Dry, Intact, Normal Color, Other (+tenting noted) Course - Vital Signs Text/Narrative:: 1700 The patient was seen by the DRYING ROOM ATTENDANT. Labs, EKG, and CXR ordered. He was given a liter of NS. 1830 Labs reviewed. CBC neg, BUN=25, Lactic Acid=2.1, UA=neg other than occult blood. CXR reviewed. Case discussed with Dr Maggie Ross, suspect dehydration as cause of increased lactic acid. Patient resting now, VSS. Will plan to admit to Observation tonight with IV fluids and repeat labs in AM. Will consult MD tomorrow. Last Recorded V/S: Last Vital Signs Temp 36.6 C 01/30/21 17:00 Pulse 92 01/30/21 18:29 Resp 22 H 01/30/21 18:29 BP 105/56 L 01/30/21 18:29 Pulse Ox 97 01/30/21 18:29 - Orders/Labs/Meds Orders: Active Orders 24 hr Category Date Time Status Patient Status [ADT] Routine ADT 01/30/21 18:36 Ordered EKG Documentation Completion [RC] STAT Care 01/30/21 17:04 Active CULTURE BLOOD [BC] Stat Lab 01/30/21 17:10 Received CULTURE BLOOD [BC] Stat Lab 01/30/21 17:26 Received REFLEX LACTIC ACID YES OR NO [CHEM] Routine Lab 01/30/21 17:59 Received Sodium Chloride 0.9% [Normal Saline] 250 ml Med 01/30/21 18:45 Ordered IV ASDIRECTED Sodium Chloride 0.9% [Saline Flush] Med 01/30/21 17:03 Active 10 ml FLUSH ASDIRECTED PRN Blood Culture x2 Reflex Set [OM.PC] Stat Oth 01/30/21 17:04 Ordered Saline Lock Insert [OM.PC] Stat Oth 01/30/21 17:04 Ordered Medication Orders Sodium Chloride (Normal Saline) 250 mls @ 250 mls/hr IV ASDIRECTED AISHA Sodium Chloride (Sodium Chloride 0.9% 10 Ml Syringe) 10 ml FLUSH ASDIRECTED PRN PRN Reason: Keep Vein Open Labs: Laboratory Tests 01/30/21 01/30/21 01/30/21 Range/Units 17:10 17:10 17:10 WBC 11.0 H (4.0-10.0) x10^3/uL RBC 3.76 L (4.5-6.0) x10^6/uL Hgb 11.0 L (14.0-18.0) g/dL Hct 33.7 L (40.0-52.0) % MCV 89.6 (78.0-93.0) fL MCH 29.3 (26.0-32.0) pg MCHC 32.6 (32.0-36.0) g/dL RDW Coeff of Dian 15.2 H (10.0-15.0) % Plt Count 208 (130-400) x10^3/uL Neut % (Auto) 51.3 (50.0-80.0) % Lymph % (Auto) 36.5 (25.0-50.0) % [place] % (Auto) 9.6 (2.0-11.0) % Eos % (Auto) 2.5 (0.0-4.0) % Baso % (Auto) 0.1 L (0.2-1.2) % PT (9.9-12.5) SEC INR (2.0-3.5) APTT (25.6-32.8) SEC Sodium 135 L (136-145) mmol/L Potassium 3.8 (3.5-5.1) mmol/L Chloride 97 L (98-107) mmol/L Carbon Dioxide 31 (21-32) mmol/L Anion Gap 10.8 (5-15) mmol/L BUN 25 H (7-18) mg/dL Creatinine 1.1 (0.70-1.30) mg/dL Est Cr Clr Drug Dosing TNP Estimated GFR (MDRD) > 60 Glucose 54 L (70-99) mg/dL Lactic Acid 2.1 H* (0.4-2.0) mmol/L Calcium 8.8 (8.5-10.1) mg/dL Corrected Calcium 9.8 (8.5-10.1) mg/dL Magnesium 1.8 (1.8-2.4) mg/dL Total Bilirubin 0.7 (0.2-1.0) mg/dL AST 15 (15-37) U/L ALT 20 (16-63) U/L Alkaline Phosphatase 70 (46-116) U/L Troponin I High Sens 6 (<=76) ng/L C-Reactive Protein 4.9 H (<=0.9) mg/dL Total Protein 7.5 (6.4-8.2) g/dL Albumin 2.8 L (3.4-5.0) g/dL Globulin 4.7 Albumin/Globulin Ratio 0.60 Urine Color (YELLOW) Urine Appearance (CLEAR) Urine pH (5.0-8.0) Ur Specific [place] Urine Protein (NEGATIVE) mg/dL Urine Glucose (UA) (NEGATIVE) mg/dL Urine Ketones (NEGATIVE) mg/dL Urine Occult Blood (NEGATIVE) Urine Nitrite (NEGATIVE) Urine Bilirubin (NEGATIVE) Urine Urobilinogen (0.2) EU/dL Ur Leukocyte Esterase (NEGATIVE) U Hyaline Cast (Auto) Urine RBC (NOT SEEN) /HPF Urine WBC (NOT SEEN) /HPF Ur Squamous Epith Cells (NOT SEEN) /HPF Urine Bacteria (NOT SEEN) /HPF Urine Mucus (NOT SEEN) /LPF 01/30/21 01/30/21 Range/Units 17:26 17:40 WBC (4.0-10.0) x10^3/uL RBC (4.5-6.0) x10^6/uL Hgb (14.0-18.0) g/dL Hct (40.0-52.0) % MCV (78.0-93.0) fL MCH (26.0-32.0) pg MCHC (32.0-36.0) g/dL RDW Coeff of Dian (10.0-15.0) % Plt Count (130-400) x10^3/uL Neut % (Auto) (50.0-80.0) % Lymph % (Auto) (25.0-50.0) % [place] % (Auto) (2.0-11.0) % Eos % (Auto) (0.0-4.0) % Baso % (Auto) (0.2-1.2) % PT 10.6 (9.9-12.5) SEC INR 1.0 L (2.0-3.5) APTT 32.1 (25.6-32.8) SEC Sodium (136-145) mmol/L Potassium (3.5-5.1) mmol/L Chloride (98-107) mmol/L Carbon Dioxide (21-32) mmol/L Anion Gap (5-15) mmol/L BUN (7-18) mg/dL Creatinine (0.70-1.30) mg/dL Est Cr Clr Drug Dosing Estimated GFR (MDRD) Glucose (70-99) mg/dL Lactic Acid (0.4-2.0) mmol/L Calcium (8.5-10.1) mg/dL Corrected Calcium (8.5-10.1) mg/dL Magnesium (1.8-2.4) mg/dL Total Bilirubin (0.2-1.0) mg/dL AST (15-37) U/L ALT (16-63) U/L Alkaline Phosphatase (46-116) U/L Troponin I High Sens (<=76) ng/L C-Reactive Protein (<=0.9) mg/dL Total Protein (6.4-8.2) g/dL Albumin (3.4-5.0) g/dL Globulin Albumin/Globulin Ratio Urine Color Yellow (YELLOW) Urine Appearance Clear (CLEAR) Urine pH 5.5 (5.0-8.0) Ur Specific [place] 1.010 Urine Protein Negative (NEGATIVE) mg/dL Urine Glucose (UA) Negative (NEGATIVE) mg/dL Urine Ketones Negative (NEGATIVE) mg/dL Urine Occult Blood Moderate H (NEGATIVE) Urine Nitrite Negative (NEGATIVE) Urine Bilirubin Negative (NEGATIVE) Urine Urobilinogen 0.2 (0.2) EU/dL Ur Leukocyte Esterase Negative (NEGATIVE) U Hyaline Cast (Auto) Rare Urine RBC 5-10 H (NOT SEEN) /HPF Urine WBC 0-5 (NOT SEEN) /HPF Ur Squamous Epith Cells Not seen (NOT SEEN) /HPF Urine Bacteria Not seen (NOT SEEN) /HPF Urine Mucus Not seen (NOT SEEN) /LPF Meds: Medications Generic Name Dose Route Start Last Admin Trade Name Freq PRN Reason Stop Dose Admin Sodium Chloride 250 mls @ 250 mls/hr 01/30/21 18:45 Normal Saline IV ASDIRECTED AISHA Sodium Chloride 10 ml 01/30/21 17:03 Sodium Chloride 0.9% 10 Ml Syringe FLUSH ASDIRECTED PRN Keep Vein Open Discontinued Medications Generic Name Dose Route Start Last Admin Trade Name Freq PRN Reason Stop Dose Admin Sodium Chloride 1,000 mls @ 999 mls/hr 01/30/21 17:18 01/30/21 17:20 Normal Saline IV 01/30/21 18:18 999 mls/hr ONETIME ONE Administration - Radiology Interpretation Free Text/Narrative:: XR Chest-no changed from previous, no pneumonia (See final report) Departure - Departure Time of Disposition: 18:41 Disposition: Refer to Observation Condition: Good Clinical Impression: Lethargic, Lactic acid increased, Intertriginous dermatitis associated with moisture - Discharge Information Additional Instructions: -Admit to Observation tonight Sepsis Event Note (ED) - Focused Exam Vital Signs: Vital Signs Temp Pulse Resp BP Pulse Ox 01/30/21 18:29 92 22 H 105/56 L 97 01/30/21 18:00 95 24 H 108/50 L 95 01/30/21 17:00 36.6 C 97 24 H 110/64 90 L - Problem List & Annotations (1) Lethargic SNOMED Code(s): 891756286 Code(s): R53.83 - OTHER FATIGUE Status: Acute Current Visit: Yes Annotation/Comment:: Increased lethargy today at the care center. Behavior spurred staff there to check BP and reported it as low, but normalized in ER. Will monitor. (2) Lactic acid increased SNOMED Code(s): 01885138 Code(s): E87.2 - ACIDOSIS Status: Acute Current Visit: Yes Annotation/Comment:: Lactic acid=2.1, CBC neg. No fever. UA neg. Suspect this is related to dehydration. Will repeat serial Lactic Acid levels and continue IV fluids. (3) Intertriginous dermatitis associated with moisture SNOMED Code(s): 350540776 Code(s): L30.4 - ERYTHEMA INTERTRIGO Status: Acute Current Visit: Yes Annotation/Comment:: -Skin is periarea very excoriated. Will treat with antifungal powder and agressive alysia-care here in the hospital while admitted. (4) HTN (hypertension) SNOMED Code(s): 59452275 Code(s): I10 - ESSENTIAL (PRIMARY) HYPERTENSION Status: Acute Current Visit: No Annotation/Comment:: -Currently on Lisonopril 20mg po qd. Will montitor, but has not been problematic. (5) Urinary retention SNOMED Code(s): 444719126 Code(s): R33.9 - RETENTION OF URINE, UNSPECIFIED Status: Acute Current Visit: No Annotation/Comment:: Fortune placed in the ER and noted that her had 1000ml in bladder. Known bladder outlet obstruction. Will monitor output in in hospital and continue fortune. Will need to see Urology for consult, but will leave this up to PCP. (6) BPH (benign prostatic hyperplasia) SNOMED Code(s): 597181472 Code(s): N40.0 - BENIGN PROSTATIC HYPERPLASIA WITHOUT LOWER URINRY TRACT SYMP Status: Chronic Priority: Medium Current Visit: No Annotation/Comment:: As noted above Qualifiers: Lower urinary tract symptom presence: unspecified whether lower urinary tract symptoms present Qualified Code(s): N40.0 - Benign prostatic hyperplasia without lower urinary tract symptoms (7) Schizophrenia SNOMED Code(s): 60150352 Code(s): F20.9 - SCHIZOPHRENIA, UNSPECIFIED Status: Chronic Priority: Medium Current Visit: No Annotation/Comment:: Continue Paliperiodone ER 12mg qd. Qualifiers: Schizophrenia type: unspecified Qualified Code(s): F20.9 - Schizophrenia, unspecified (8) Type 2 diabetes mellitus SNOMED Code(s): 96733688 Code(s): E11.9 - TYPE 2 DIABETES MELLITUS WITHOUT COMPLICATIONS Status: Chronic Priority: Medium Current Visit: No Annotation/Comment:: Continue Metformin and Insulin while admitted. Will monitor BS AC and HS. Qualifiers: Diabetes mellitus usp insulin use: with buttermaker continuous churn use Diabetes mellitus complication status: without complication Qualified Code(s): E11.9 - Type 2 diabetes mellitus without complications; Z79.4 - FDC (current) use of insulin (9) COPD exacerbation SNOMED Code(s): 959379841 Code(s): J44.1 - CHRONIC OBSTRUCTIVE PULMONARY DISEASE W (ACUTE) EXACERBATION Status: Acute Current Visit: No Annotation/Comment:: Was seen on 2020 for COPD exacerbation, will continue oral Azithromycin as prescribed for 5 day course. - Problem List Review Problem List Initiated/Reviewed/Updated: Yes - My Orders Last 24 Hours: My Active Orders 01/30/21 17:03 Sodium Chloride 0.9% [Saline Flush] 10 ml FLUSH ASDIRECTED PRN 01/30/21 17:04 EKG Documentation Completion [RC] STAT Blood Culture x2 Reflex Set [OM.PC] Stat Saline Lock Insert [OM.PC] Stat 01/30/21 17:10 CULTURE BLOOD [BC] Stat 01/30/21 17:26 CULTURE BLOOD [BC] Stat 01/30/21 17:59 REFLEX LACTIC ACID YES OR NO [CHEM] Routine 01/30/21 18:36 Patient Status [ADT] Routine 01/30/21 18:45 Sodium Chloride 0.9% [Normal Saline] 250 ml IV ASDIRECTED - Assessment/Plan Admission H&P: Please use this note as an admission H&P Last 24 Hours: My Active Orders 01/30/21 17:03 Sodium Chloride 0.9% [Saline Flush] 10 ml FLUSH ASDIRECTED PRN 01/30/21 17:04 EKG Documentation Completion [RC] STAT Blood Culture x2 Reflex Set [OM.PC] Stat Saline Lock Insert [OM.PC] Stat 01/30/21 17:10 CULTURE BLOOD [BC] Stat 01/30/21 17:26 CULTURE BLOOD [BC] Stat 01/30/21 17:59 REFLEX LACTIC ACID YES OR NO [CHEM] Routine 01/30/21 18:36 Patient Status [ADT] Routine 01/30/21 18:45 Sodium Chloride 0.9% [Normal Saline] 250 ml IV ASDIRECTED Assessment:: 1)Lethargy 2)Elevated Lactic Acid 3)Intertrigo Dermatitis-Periarea Plan: As Above
--- NOTE | 2021-01-30 17:34 | CR ---
[id number] RAD/RAD Chest PA or AP 1V EXAM: SINGLE VIEW CHEST. INDICATION: LETHARGY COMPARISON: CORRELATION IS MADE WITH JANUARY 28, 2020 FINDINGS: There is minimal pleural reaction at the left lung base There is mild scarring at the left lung base There is no cynthia pneumonia or edema otherwise The cardiac silhouette is stable IMPRESSION: NO SIGNIFICANT CHANGE SINCE LAST EXAM Marky Spicer MD 01/30/21 7022 Thank you for allowing us to participate in the care of your patient.
[2021-01-30 17:55] LABS: CHLORIDE,CL 97 mmol/L (98-107); SODIUM,NA 135 mmol/L (136-145)
[2021-01-30 17:59] LABS: ANION GAP 10.8 mmol/L (5-15)
[2021-01-30 18:14] LABS: PTT,PARTIAL THROMBOPLSTIN TIME 32.1 SEC (25.6-32.8)
[2021-01-30] MEDS ORDERED: Sodium Chloride 0.9% 250 ML IV SCH (18:45)
[2021-01-30] MEDS ORDERED: Acetaminophen 325 MG Tab PO PRN (18:59)
[2021-01-30] MEDS ORDERED: 50% Dextrose in Water 50 ML Syringe IVPUSH PRN (21:17)
[2021-01-30] MEDS ORDERED: Glucagon,Human Recombinant 1 MG Vial IM PRN (21:17)
[2021-01-30] MEDS: Insulin Glarg,Human.Rec.Analog 100 Unit/ML SUBCUT SCH (21:24)
[2021-01-30] MEDS ORDERED: Insulin Glarg,Human.Rec.Analog 100 Unit/ML SUBCUT ONE (21:30)
[2021-01-30] MEDS: Melatonin 3 MG Tab PO SCH (21:31)
[2021-01-30] MEDS: traZODone 50 MG Tab PO SCH (21:31)
[2021-01-30] MEDS: Betamethasone Dipropionate/Clotrimazole 0.05-1% Crm 15 GM Tube TOP SCH (21:32)
[2021-01-30] MEDS: Sodium Chloride 0.9% 1,000 ML IV SCH (23:08)
[2021-01-31] MEDS: Sodium Chloride 0.9% 1,000 ML IV SCH ×2 (06:44→17:50)
[2021-01-31 06:59] LABS: CHLORIDE,CL 101 mmol/L (98-107); SODIUM,NA 137 mmol/L (136-145)
[2021-01-31] MEDS ORDERED: Insulin Lispro 100 Units/ML 3 ML Vial SUBCUT SCH (07:00)
[2021-01-31 07:01] LABS: ANION GAP 9.9 mmol/L (5-15)
[2021-01-31] MEDS: Aspirin 81 MG Tab.Chew PO SCH (07:53)
[2021-01-31] MEDS: Tamsulosin 0.4 MG Cap.ER PO SCH (07:54)
[2021-01-31] MEDS: metFORMIN 500 MG Tab PO SCH ×2 (07:54→17:56)
[2021-01-31] MEDS: Hydrochlorothiazide 25 MG Tab PO SCH (07:56)
[2021-01-31] MEDS: atorvaSTATin 10 MG Tab PO SCH (07:57)
[2021-01-31] MEDS: Lisinopril 20 MG Tab PO SCH (07:58)
[2021-01-31] MEDS ORDERED: Azithromycin 250 MG Tab PO SCH (08:00)
[2021-01-31] MEDS: Cholecalciferol (Vitamin D3) 25 MCG Tab PO SCH (08:03)
[2021-01-31] MEDS: Betamethasone Dipropionate/Clotrimazole 0.05-1% Crm 15 GM Tube TOP SCH ×2 (08:05→20:20)
[2021-01-31] MEDS: Insulin Lispro 100 Units/ML 3 ML Vial SUBCUT SCH ×2 (11:05→17:48)
[2021-01-31] MEDS: risperiDONE 1 MG Tab PO SCH ×2 (11:27→20:20)
--- NOTE | 2021-01-31 18:33 | PCM.PN ---
- General Info Date of Service: 01/31/21 Admission Dx/Problem (Free Text): Lethargy Elevated CRP Subjective Update: Patient doing better at this time. He reports feeling better and is actually talking tonight to BRASS BUFFER. He has been eating and drinking fluids today. Fortune has remained in. Oxygen weaned off today per nursing as patient was more alert. - Review of Systems General: Reports: No Symptoms HEENT: Reports: No Symptoms Pulmonary: Reports: No Symptoms Cardiovascular: Reports: No Symptoms Gastrointestinal: Reports: No Symptoms Genitourinary: Reports: No Symptoms Musculoskeletal: Reports: No Symptoms Skin: Reports: No Symptoms, Dryness Psychiatric: Reports: No Symptoms - Patient Data Vitals - Most Recent: Last Vital Signs Temp 36.6 C 01/31/21 18:00 Pulse 83 01/31/21 18:00 Resp 20 01/31/21 12:00 BP 184/90 H 01/31/21 18:00 Pulse Ox 95 01/31/21 18:00 Weight - Most Recent: 115.8 kg I&O - Last 24 Hours: Intake & Output 01/31/21 01/31/21 01/31/21 06:59 14:59 22:59 Intake Total 926 720 240 Output Total 3150 1650 1900 Balance -4300 -964 -6205 Lab Results Last 24 Hours: Laboratory Results - last 24 hr 01/30/21 01/30/21 01/30/21 Range/Units 18:54 21:03 21:03 WBC (4.0-10.0) x10^3/uL RBC (4.5-6.0) x10^6/uL Hgb (14.0-18.0) g/dL Hct (40.0-52.0) % MCV (78.0-93.0) fL MCH (26.0-32.0) pg MCHC (32.0-36.0) g/dL RDW Coeff of Dian (10.0-15.0) % Plt Count (130-400) x10^3/uL Neut % (Auto) (50.0-80.0) % Lymph % (Auto) (25.0-50.0) % Rains % (Auto) (2.0-11.0) % Eos % (Auto) (0.0-4.0) % Baso % (Auto) (0.2-1.2) % Sodium (136-145) mmol/L Potassium (3.5-5.1) mmol/L Chloride (98-107) mmol/L Carbon Dioxide (21-32) mmol/L Anion Gap (5-15) mmol/L BUN (7-18) mg/dL Creatinine (0.70-1.30) mg/dL Est Cr Clr Drug Dosing mL/min Estimated GFR (MDRD) Glucose (70-99) mg/dL POC Glucose 102 H (70-99) mg/dL Lactic Acid 1.0 (0.4-2.0) mmol/L Calcium (8.5-10.1) mg/dL Magnesium (1.8-2.4) mg/dL C-Reactive Protein (<=0.9) mg/dL SARS CoV-2 RNA Rapid MARCELINA Negative (NEGATIVE) 01/31/21 01/31/21 01/31/21 Range/Units 06:20 06:40 06:40 WBC 7.1 (4.0-10.0) x10^3/uL RBC 3.41 L (4.5-6.0) x10^6/uL Hgb 10.2 L (14.0-18.0) g/dL Hct 30.7 L (40.0-52.0) % MCV 90.0 (78.0-93.0) fL MCH 29.9 (26.0-32.0) pg MCHC 33.2 (32.0-36.0) g/dL RDW Coeff of Dian 15.1 H (10.0-15.0) % Plt Count 193 (130-400) x10^3/uL Neut % (Auto) 51.9 (50.0-80.0) % Lymph % (Auto) 32.7 (25.0-50.0) % Rains % (Auto) 9.6 (2.0-11.0) % Eos % (Auto) 5.5 H (0.0-4.0) % Baso % (Auto) 0.3 (0.2-1.2) % Sodium 137 (136-145) mmol/L Potassium 3.9 (3.5-5.1) mmol/L Chloride 101 (98-107) mmol/L Carbon Dioxide 30 (21-32) mmol/L Anion Gap 9.9 (5-15) mmol/L BUN 20 H (7-18) mg/dL Creatinine 0.9 (0.70-1.30) mg/dL Est Cr Clr Drug Dosing 93.89 mL/min Estimated GFR (MDRD) > 60 Glucose 115 H (70-99) mg/dL POC Glucose 113 H (70-99) mg/dL Lactic Acid (0.4-2.0) mmol/L Calcium 7.8 L (8.5-10.1) mg/dL Magnesium 1.7 L (1.8-2.4) mg/dL C-Reactive Protein 4.5 H (<=0.9) mg/dL SARS CoV-2 RNA Rapid MARCELINA (NEGATIVE) 01/31/21 01/31/21 01/31/21 Range/Units 06:40 10:55 17:39 WBC (4.0-10.0) x10^3/uL RBC (4.5-6.0) x10^6/uL Hgb (14.0-18.0) g/dL Hct (40.0-52.0) % MCV (78.0-93.0) fL MCH (26.0-32.0) pg MCHC (32.0-36.0) g/dL RDW Coeff of Dian (10.0-15.0) % Plt Count (130-400) x10^3/uL Neut % (Auto) (50.0-80.0) % Lymph % (Auto) (25.0-50.0) % Rains % (Auto) (2.0-11.0) % Eos % (Auto) (0.0-4.0) % Baso % (Auto) (0.2-1.2) % Sodium (136-145) mmol/L Potassium (3.5-5.1) mmol/L Chloride (98-107) mmol/L Carbon Dioxide (21-32) mmol/L Anion Gap (5-15) mmol/L BUN (7-18) mg/dL Creatinine (0.70-1.30) mg/dL Est Cr Clr Drug Dosing mL/min Estimated GFR (MDRD) Glucose (70-99) mg/dL POC Glucose 175 H 119 H (70-99) mg/dL Lactic Acid 0.8 (0.4-2.0) mmol/L Calcium (8.5-10.1) mg/dL Magnesium (1.8-2.4) mg/dL C-Reactive Protein (<=0.9) mg/dL SARS CoV-2 RNA Rapid MARCELINA (NEGATIVE) Sha Results Last 24 Hours: Microbiology 01/30/21 17:26 Aerobic Blood Culture - Preliminary Blood - Venous - Lab Draw NO GROWTH AFTER 1 DAY Anaerobic Blood Culture - Preliminary NO GROWTH AFTER 1 DAY 01/30/21 17:10 Aerobic Blood Culture - Preliminary Blood - Venous NO GROWTH AFTER 1 DAY Anaerobic Blood Culture - Preliminary NO GROWTH AFTER 1 DAY 01/30/21 19:58 MRSA Surveillance Culture - Final Nasal, Unspecified NO MRSA ISOLATED Med Orders - Current: Current Medications Acetaminophen (Acetaminophen 325 Mg Tab) 650 mg PO Q4H PRN PRN Reason: Pain (Mild 1-3)/fever Aspirin (Aspirin 81 Mg Tab.Chew) 81 mg PO DAILY [facility] Last Admin: 01/31/21 07:53 Dose: 81 mg Documented by: Atorvastatin Calcium (Atorvastatin 10 Mg Tab) 20 mg PO DAILY [facility] Last Admin: 01/31/21 07:57 Dose: 20 mg Documented by: Betamethasone/Clotrimazole (Betamethasone Dipropionate/Clotrimazole 0.05-1% Crm 15 Gm Tube) 0 gm TOP BID [facility] Last Admin: 01/31/21 08:05 Dose: 15 applic Documented by: Cholecalciferol (Cholecalciferol (Vitamin D3) 25 Mcg Tab) 100 mcg PO DAILY [facility] Last Admin: 01/31/21 08:03 Dose: 100 mcg Documented by: Dextrose/Water (50% Dextrose In Water 50 Ml Syringe) 50 ml IVPUSH ASDIRECTED PRN PRN Reason: Hypoglycemia Glucagon (Glucagon,Human Recombinant 1 Mg Vial) 1 mg IM ASDIRECTED PRN PRN Reason: Hypoglycemia Hydrochlorothiazide (Hydrochlorothiazide 25 Mg Tab) 37.5 mg PO DAILY [facility] Last Admin: 01/31/21 07:56 Dose: 37.5 mg Documented by: Sodium Chloride (Normal Saline) 250 mls @ 250 mls/hr IV ASDIRECTED [facility] Sodium Chloride (Normal Saline) 1,000 mls @ 125 mls/hr IV ASDIRECTED [facility] Last Admin: 01/31/21 17:50 Dose: 125 mls/hr Documented by: Insulin Glargine (Insulin Glarg,Human.Rec.Analog 100 Unit/Ml) 45 unit SUBCUT BEDTIME [facility] Last Admin: 01/30/21 21:24 Dose: Not Given Documented by: Insulin Human Lispro (Insulin Lispro 100 Units/Ml 3 Ml Vial) 7 unit SUBCUT TIDMEALS [facility] Last Admin: 01/31/21 17:48 Dose: Not Given Documented by: Lisinopril (Lisinopril 20 Mg Tab) 20 mg PO DAILY [facility] Last Admin: 01/31/21 07:58 Dose: 20 mg Documented by: Melatonin (Melatonin 3 Mg Tab) 3 mg PO BEDTIME [facility] Last Admin: 01/30/21 21:31 Dose: 3 mg Documented by: Metformin HCl (Metformin 500 Mg Tab) 1,000 mg PO BIDMEALS [facility] Last Admin: 01/31/21 17:56 Dose: 1,000 mg Documented by: Risperidone (Risperidone 1 Mg Tab) 4 mg PO BID [facility] Last Admin: 01/31/21 11:27 Dose: 4 mg Documented by: Senna/Docusate Sodium (Docusate Sodium/Sennosides 50-8.6 Mg Tab) 1 tab PO DAILY [facility] Last Admin: 01/31/21 08:03 Dose: 1 tab Documented by: Sodium Chloride (Sodium Chloride 0.9% 10 Ml Syringe) 10 ml FLUSH ASDIRECTED PRN PRN Reason: Keep Vein Open Tamsulosin HCl (Tamsulosin 0.4 Mg Cap.Er) 0.4 mg PO DAILY [facility] Last Admin: 01/31/21 07:54 Dose: 0.4 mg Documented by: Trazodone HCl (Trazodone 50 Mg Tab) 25 mg PO BEDTIME [facility] Last Admin: 01/30/21 21:31 Dose: 25 mg Documented by: Discontinued Medications Azithromycin (Azithromycin 250 Mg Tab) 250 mg PO DAILY [facility] Last Admin: 01/31/21 08:04 Dose: 250 mg Documented by: Sodium Chloride (Normal Saline) 1,000 mls @ 999 mls/hr IV ONETIME ONE Stop: 01/30/21 18:18 Last Admin: 01/30/21 18:32 Dose: 250 mls/hr Documented by: Insulin Glargine (Insulin Glarg,Human.Rec.Analog 100 Unit/Ml) 20 unit SUBCUT DAILY ONE Stop: 01/30/21 21:31 Last Admin: 01/30/21 22:11 Dose: 20 unit Documented by: Insulin Human Lispro (Insulin Lispro 100 Units/Ml 3 Ml Vial) [facility] Admin: 01/31/21 08:01 Dose: Not Given Documented by: - Exam Urinary Catheter Total Time: 0Days 18Hours General: Alert, Oriented, Other (Sitting in room mumbling to himself.) HEENT: Pupils Equal, Mucous Membr. Moist/Moose [address] Neck: Supple Lungs: Clear to Auscultation, Normal Respiratory Effort Cardiovascular: Regular Rate, Regular Rhythm GI/Abdominal Exam: Normal Bowel Sounds, Soft, Non-Tender (Male) Exam: Other (Fortune remains in with clear yellow urine draining into collection bag.) Extremities: Normal Inspection, Normal Range of Motion, No Pedal Edema, Normal Capillary Refill Skin: Warm, Dry, Intact - Patient Data Lab Results Last 24 hrs: Laboratory Results - last 24 hr 01/30/21 01/30/21 01/30/21 Range/Units 18:54 21:03 21:03 WBC (4.0-10.0) x10^3/uL RBC (4.5-6.0) x10^6/uL Hgb (14.0-18.0) g/dL Hct (40.0-52.0) % MCV (78.0-93.0) fL MCH (26.0-32.0) pg MCHC (32.0-36.0) g/dL RDW Coeff of Dian (10.0-15.0) % Plt Count (130-400) x10^3/uL Neut % (Auto) (50.0-80.0) % Lymph % (Auto) (25.0-50.0) % Rains % (Auto) (2.0-11.0) % Eos % (Auto) (0.0-4.0) % Baso % (Auto) (0.2-1.2) % Sodium (136-145) mmol/L Potassium (3.5-5.1) mmol/L Chloride (98-107) mmol/L Carbon Dioxide (21-32) mmol/L Anion Gap (5-15) mmol/L BUN (7-18) mg/dL Creatinine (0.70-1.30) mg/dL Est Cr Clr Drug Dosing mL/min Estimated GFR (MDRD) Glucose (70-99) mg/dL POC Glucose 102 H (70-99) mg/dL Lactic Acid 1.0 (0.4-2.0) mmol/L Calcium (8.5-10.1) mg/dL Magnesium (1.8-2.4) mg/dL C-Reactive Protein (<=0.9) mg/dL SARS CoV-2 RNA Rapid MARCELINA Negative (NEGATIVE) 01/31/21 01/31/21 01/31/21 Range/Units 06:20 06:40 06:40 WBC 7.1 (4.0-10.0) x10^3/uL RBC 3.41 L (4.5-6.0) x10^6/uL Hgb 10.2 L (14.0-18.0) g/dL Hct 30.7 L (40.0-52.0) % MCV 90.0 (78.0-93.0) fL MCH 29.9 (26.0-32.0) pg MCHC 33.2 (32.0-36.0) g/dL RDW Coeff of Dian 15.1 H (10.0-15.0) % Plt Count 193 (130-400) x10^3/uL Neut % (Auto) 51.9 (50.0-80.0) % Lymph % (Auto) 32.7 (25.0-50.0) % Rains % (Auto) 9.6 (2.0-11.0) % Eos % (Auto) 5.5 H (0.0-4.0) % Baso % (Auto) 0.3 (0.2-1.2) % Sodium 137 (136-145) mmol/L Potassium 3.9 (3.5-5.1) mmol/L Chloride 101 (98-107) mmol/L Carbon Dioxide 30 (21-32) mmol/L Anion Gap 9.9 (5-15) mmol/L BUN 20 H (7-18) mg/dL Creatinine 0.9 (0.70-1.30) mg/dL Est Cr Clr Drug Dosing 93.89 mL/min Estimated GFR (MDRD) > 60 Glucose 115 H (70-99) mg/dL POC Glucose 113 H (70-99) mg/dL Lactic Acid (0.4-2.0) mmol/L Calcium 7.8 L (8.5-10.1) mg/dL Magnesium 1.7 L (1.8-2.4) mg/dL C-Reactive Protein 4.5 H (<=0.9) mg/dL SARS CoV-2 RNA Rapid MARCELINA (NEGATIVE) 01/31/21 01/31/21 01/31/21 Range/Units 06:40 10:55 17:39 WBC (4.0-10.0) x10^3/uL RBC (4.5-6.0) x10^6/uL Hgb (14.0-18.0) g/dL Hct (40.0-52.0) % MCV (78.0-93.0) fL MCH (26.0-32.0) pg MCHC (32.0-36.0) g/dL RDW Coeff of Dian (10.0-15.0) % Plt Count (130-400) x10^3/uL Neut % (Auto) (50.0-80.0) % Lymph % (Auto) (25.0-50.0) % Rains % (Auto) (2.0-11.0) % Eos % (Auto) (0.0-4.0) % Baso % (Auto) (0.2-1.2) % Sodium (136-145) mmol/L Potassium (3.5-5.1) mmol/L Chloride (98-107) mmol/L Carbon Dioxide (21-32) mmol/L Anion Gap (5-15) mmol/L BUN (7-18) mg/dL Creatinine (0.70-1.30) mg/dL Est Cr Clr Drug Dosing mL/min Estimated GFR (MDRD) Glucose (70-99) mg/dL POC Glucose 175 H 119 H (70-99) mg/dL Lactic Acid 0.8 (0.4-2.0) mmol/L Calcium (8.5-10.1) mg/dL Magnesium (1.8-2.4) mg/dL C-Reactive Protein (<=0.9) mg/dL SARS CoV-2 RNA Rapid MARCELINA (NEGATIVE) Result Diagrams: 01/31/21 06:40 01/31/21 06:40 Sha Results Last 24 hrs: Microbiology 01/30/21 17:26 Aerobic Blood Culture - Preliminary Blood - Venous - Lab Draw NO GROWTH AFTER 1 DAY Anaerobic Blood Culture - Preliminary NO GROWTH AFTER 1 DAY 01/30/21 17:10 Aerobic Blood Culture - Preliminary Blood - Venous NO GROWTH AFTER 1 DAY Anaerobic Blood Culture - Preliminary NO GROWTH AFTER 1 DAY 01/30/21 19:58 MRSA Surveillance Culture - Final Nasal, Unspecified NO MRSA ISOLATED Sepsis Event Note - Evaluation Sepsis Screening Result: No Definite Risk - Focused Exam Vital Signs: Vital Signs Temp Pulse Resp BP BP Pulse Ox Pulse Ox 01/31/21 18:00 36.6 C 83 184/90 H 95 01/31/21 12:00 36.6 C 90 20 128/59 L 95 01/31/21 08:00 35.8 C L 84 20 133/77 93 L 93 L 01/31/21 07:58 133/77 - Problem List & Annotations (1) Lethargic SNOMED Code(s): 883239222 Code(s): R53.83 - OTHER FATIGUE Status: Acute Current Visit: Yes Annotation/Comment:: Much more talkative and alert today. Has beeb drinking coffee and conversing with staff. (2) Lactic acid increased SNOMED Code(s): 71685425 Code(s): E87.2 - ACIDOSIS Status: Acute Current Visit: Yes Annota tion/Comment:: -Lactic acid this AM=0.8, doubt infection. Elevated probable due to dehydration. -Will continue IV fluids yet tonight since he has gotten dehydrated easily now 3 times in the last month. Decrease rate to 75ml/hr. -Repeat BMP and CRP in the AM. (3) Intertriginous dermatitis associated with moisture SNOMED Code(s): 169959531 Code(s): L30.4 - ERYTHEMA INTERTRIGO Status: Acute Current Visit: Yes Annotation/Comment:: -Continue Lotrisone to periarea. Sx improved with good alysia care and meds. -Will consider starting an antifungal powder when he returns to the [facility], but not avilable here. (4) HTN (hypertension) SNOMED Code(s): 24701397 Code(s): I10 - ESSENTIAL (PRIMARY) HYPERTENSION Status: Acute Current Visit: No Annotation/Comment:: -Currently on Lisonopril 20mg po qd. -BP range 128/59 to 184/90, will continue to monitor. (5) Urinary retention SNOMED Code(s): 676005219 Code(s): R33.9 - RETENTION OF URINE, UNSPECIFIED Status: Acute Current Vi sit: No Annotation/Comment:: -Intake 960ml today, [id number]. Last night fortune output was 3150. Balance +1900ml. -Fortune removed and will monitor his output. He may need a fortune in if he continues to retain urine. -Will need to see Urology for consult, but will leave this up to PCP. (6) BPH (benign prostatic hyperplasia) SNOMED Code(s): 607733009 Code(s): N40.0 - BENIGN PROSTATIC HYPERPLASIA WITHOUT LOWER URINRY TRACT SYMP Status: Chronic Priority: Medium Current Visit: No Qualifiers: Lower urinary tract symptom presence: unspecified whether lower urinary tract symptoms present Qualified Code(s): N40.0 - Benign prostatic hyperplasia without lower urinary tract symptoms Annotation/Comment:: As noted above (7) Schizophrenia SNOMED Code(s): 99858870 Code(s): F20.9 - SCHIZOPHRENIA, UNSPECIFIED Status: Chronic Priority: Medium Current Visit: No Qualifiers: Schizophrenia type: unspecified Qualified Code(s): F20.9 - Schizophrenia, unspecified Annotation/Comment:: Continue Paliperiodone ER 12mg qd, recieving Risperidone here as a substitute but will restart this med when he returns to the [facility]. (8) Type 2 diabetes mellitus SNOMED Code(s): 66001816 Code(s): E11.9 - TYPE 2 DIABETES MELLITUS WITHOUT COMPLICATIONS Status: Chronic Priority: Medium Current Visit: No Qualifiers: Diabetes mellitus intermediate insulin use: with extermination inspector use Diabetes mellitus complication status: without complication Qualified Code(s): E11.9 - Type 2 diabetes mellitus without complications; Z79.4 - terminal system operator (current) use of insulin Annotation/Comment:: -Last night was notified that his [id number], evening insulin was cut in half. Low blood sugar most likely due to decreased oral intake. -Will monitor BS AC and HS. Todays readings 113,175, 119. -Resume usual insulin and oral DM meds since he is eating. (9) COPD exacerbation SNOMED Code(s): 968517266 Code(s): J44.1 - CHRONIC OBSTRUCTIVE PULMONARY DISEASE W (ACUTE) EXACERBATION Status: Acute Current Visit: No Annotation/Comment:: -Today was Day# 5 of Azithromycin, will d/c. - Problem List Review Problem List Initiated/Reviewed/Updated: Yes - My Orders Last 24 Hours: My Active Orders 01/30/21 18:36 Patient Status [ADT] Routine 01/30/21 18:45 Sodium Chloride 0.9% [Normal Saline] 250 ml IV ASDIRECTED 01/30/21 18:59 Blood Glucose Check, Bedside [RC] 07,11,17,20 Height and Weight [RC] .PRN Oxygen Therapy [RC] 08,20 Up With Assistance [RC] 08,20 VTE/DVT Education [RC] .PRN Acetaminophen [TylenoL] 650 mg PO Q4H PRN Resuscitation Status Routine 01/30/21 19:00 Intake and Output [RC] 06,18 01/30/21 19:05 Dietary Supplements [RC] ,17 01/30/21 19:30 Sodium Chloride 0.9% [Normal Saline] 1,000 ml IV ASDIRECTED 01/30/21 19:44 Isolation [COMM] Routine 01/30/21 20:00 Betamethasone/Clotrimazole [Lotrisone] 0 gm TOP BID Insulin Glarg,Human.Rec.Analog [LantUS] 45 unit SUBCUT BEDTIME traZODone 25 mg PO BEDTIME 01/30/21 21:00 Melatonin 3 mg PO BEDTIME 01/30/21 21:17 Dextrose 50% in Water 50 ml IVPUSH ASDIRECTED PRN Glucagon,Human Recombinant [GlucaGen] 1 mg IM ASDIRECTED PRN 01/31/21 Breakfast [employer] Diet [DIET] 01/31/21 08:00 Aspirin 81 mg PO DAILY Cholecalciferol (Vitamin D3) [Vitamin D3] 100 mcg PO DAILY Docusate Sodium/Sennosides [Senna Plus] 1 tab PO DAILY Tamsulosin [Flomax] 0.4 mg PO DAILY atorvaSTATin [Lipitor] 20 mg PO DAILY hydroCHLOROthiazide 37.5 mg PO DAILY lisinopriL [Prinivil] 20 mg PO DAILY metFORMIN [Glucophage] 1,000 mg PO BIDMEALS 01/31/21 10:00 risperiDONE [RisperiDAL] 4 mg PO BID 01/31/21 12:00 Insulin Lispro [HumaLOG] 7 unit SUBCUT TIDMEALS 01/31/21 18:30 Remove Fortune Catheter [Urinary Catheter Removal] [RC] PER UNIT ROUTINE - Assessment Assessment:: As above - Plan Plan:: -Plan AM labs and discharge back to care center tomorrow.
[2021-01-31] MEDS ORDERED: Sodium Chloride 0.9% 1,000 ML IV SCH (18:42)
[2021-01-31] MEDS: Insulin Glarg,Human.Rec.Analog 100 Unit/ML SUBCUT SCH (20:19)
[2021-01-31] MEDS: traZODone 50 MG Tab PO SCH (20:20)
[2021-01-31] MEDS: Melatonin 3 MG Tab PO SCH (20:20)
[2021-02-01] MEDS ORDERED: Sodium Chloride 0.9% 1,000 ML IV SCH (01:00)
[2021-02-01 06:41] LABS: CHLORIDE,CL 102 mmol/L (98-107); SODIUM,NA 140 mmol/L (136-145)
[2021-02-01 06:44] LABS: ANION GAP 10.3 mmol/L (5-15)
[2021-02-01] MEDS: Aspirin 81 MG Tab.Chew PO SCH (08:02)
[2021-02-01] MEDS: Tamsulosin 0.4 MG Cap.ER PO SCH (08:02)
[2021-02-01] MEDS: metFORMIN 500 MG Tab PO SCH (08:03)
[2021-02-01] MEDS: Hydrochlorothiazide 25 MG Tab PO SCH (08:04)
[2021-02-01] MEDS: Lisinopril 20 MG Tab PO SCH (08:05)
[2021-02-01] MEDS: atorvaSTATin 10 MG Tab PO SCH (08:05)
[2021-02-01] MEDS: risperiDONE 1 MG Tab PO SCH (08:06)
[2021-02-01] MEDS: Cholecalciferol (Vitamin D3) 25 MCG Tab PO SCH (08:06)
[2021-02-01] MEDS: Betamethasone Dipropionate/Clotrimazole 0.05-1% Crm 15 GM Tube TOP SCH (08:10)
[2021-02-01] MEDS: Insulin Lispro 100 Units/ML 3 ML Vial SUBCUT SCH (08:11)
--- NOTE | 2021-02-01 08:35 | PCM.DCSUM1 ---
Discharge Summary - Hospital Course Free Text/Narrative:: Patient was admitted for lethargy, cough, urinary retention. He is doing much better. He is sitting up , eating and conversing. Unfortunately his fortune catheter was removed yesterday and he continues to have retention. He does have overflow incontinence. Fortune catheter will be placed and needs to be changed monthly along with urology consultation. His lethargy improved with the removal of the Paliperdone and changed to risperidone. Will continue him on this. Cough continues, no signs of pneumonia or illness. Will give him albuterol nebs to help with this. O2 sats are 92% at [facility]. Has chronic respiratory failure and has this prescribed at the half-way. Goal is to keep o2 sats 92% or higher. Has a small sore and breakdown on the scrotum. will have alysia cares and clotrimazole. Brief History: Improved lethargy with medicaiton change, urinary retention with fortune catheter. Patient requests therapy for generalized weakness and deconditioning Diagnosis: Stroke: No Modified [place] Scale: Mod.Disablility Requiring Some Help,Able to Walk Without Assistance Modified [place] Scale Score: 3 - Discharge Data Discharge Date: 02/01/21 Discharge Disposition: DC/Tfer to [facility] Condition: Good - Referral to Home Health Primary Care Physician: Maggie Ross MD - Discharge Diagnosis/Problem(s) (1) Bladder outlet obstruction SNOMED Code(s): 334306702 ICD Code: N32.0 - BLADDER-NECK OBSTRUCTION Status: Acute Current Visit: Yes Problem Details: Patient has been shown to have urinary retention,. needs follow up with urology. Fortune catheter needs to remain in place until this is done. (2) Lethargic SNOMED Code(s): 985227828 ICD Code: R53.83 - OTHER FATIGUE Status: Chronic Current Visit: Yes Problem Details: Much more talkative and alert today. Has beeb drinking coffee and conversing with staff. (3) Cough SNOMED Code(s): 50569364 ICD Code: R05 - COUGH Status: Acute Current Visit: Yes - Patient Instructions Diet: Diabetic Diet - Discharge Plan *PRESCRIPTION DRUG MONITORING PROGRAM REVIEWED*: Not Applicable *COPY OF PRESCRIPTION DRUG MONITORING REPORT IN PATIENT PAVEL: Not Applicable Prescriptions/Med Rec: Albuterol Sulfate 2.5 mg IH Q4HR PRN 14 Days #30 vial.neb PRN Reason: Cough Betamethasone/Clotrimazole [Lotrisone] 1 drop TOP BID #1 tube risperiDONE [RisperiDAL] 4 mg PO BID #60 tablet Home Medications: Home Meds Cholecalciferol (Vitamin D3) [Vitamin D3] 4,000 intnl unit PO DAILY 12/21/20 [History] Insulin Aspart 7 unit SQ TIDAC 12/21/20 [History] Insulin Glarg,Human.Rec.Analog [Lantus Solostar] 45 units SQ BEDTIME 12/21/20 [History] Melatonin 3 mg PO DAILY 12/21/20 [History] Sennosides/Docusate Sodium [Senna Plus 8.6-50 mg Tablet] 1 each PO DAILY 12/21/20 [History] atorvaSTATin Calcium [Atorvastatin Calcium] 20 mg PO DAILY 12/21/20 [History] hydroCHLOROthiazide [Hydrochlorothiazide] 37.5 mg PO DAILY 12/21/20 [History] lisinopriL [Lisinopril] 20 mg PO DAILY 12/21/20 [History] metFORMIN HCl [Metformin HCl] 1,000 mg PO BID 12/21/20 [History] traZODone HCl [Trazodone HCl] 25 mg PO BEDTIME 12/21/20 [History] Aspirin 81 mg PO DAILY 01/27/21 [History] Azithromycin 250 mg PO DAILY #2 tablet 01/27/21 [Rx] Tamsulosin HCl [Flomax] 0.4 mg PO DAILY 01/27/21 [History] Urea [Urea 20% Crm] 1 dose TOP DAILY 01/27/21 [History] Acetaminophen [Tylenol] 650 mg PO Q4H PRN tablet 02/01/21 [Rx] Albuterol Sulfate 2.5 mg IH Q4HR PRN 14 Days #30 vial.neb 02/01/21 [Rx] Betamethasone/Clotrimazole [Lotrisone] 1 drop TOP BID #1 tube 02/01/21 [Rx] risperiDONE [RisperiDAL] 4 mg PO BID #60 tablet 02/01/21 [Rx] Oxygen Therapy Mode: Nasal Cannula Oxygen Flow Rate (L/min): 2 (up to 2 lpm as needed for oxygen less than 92%) Forms: ED Department Discharge Referrals: Maggie oRss MD [Primary Care Provider] - - Discharge Summary/Plan Comment DC Time >30 min.: Yes - Patient Data Vitals - Most Recent: Last Vital Signs Temp 36.3 C 02/01/21 06:00 Pulse 84 02/01/21 06:00 Resp 16 02/01/21 06:00 BP 144/78 H 02/01/21 08:05 Pulse Ox 92 L 02/01/21 06:00 Weight - Most Recent: 115.8 kg I&O - Last 24 hours: Intake & Output 01/31/21 02/01/21 02/01/21 22:59 06:59 14:59 Intake Total 490 938 125 Output Total 2400 Balance -1910 938 125 Lab Results - Last 24 hrs: Laboratory Results - last 24 hr 01/31/21 01/31/21 01/31/21 Range/Units 10:55 17:39 20:18 Sodium (136-145) mmol/L Potassium (3.5-5.1) mmol/L Chloride (98-107) mmol/L Carbon Dioxide (21-32) mmol/L Anion Gap (5-15) mmol/L BUN (7-18) mg/dL Creatinine (0.70-1.30) mg/dL Est Cr Clr Drug Dosing mL/min Estimated GFR (MDRD) Glucose (70-99) mg/dL POC Glucose 175 H 119 H 214 H (70-99) mg/dL Calcium (8.5-10.1) mg/dL Magnesium (1.8-2.4) mg/dL C-Reactive Protein (<=0.9) mg/dL 02/01/21 02/01/21 Range/Units 01:15 06:08 Sodium 140 (136-145) mmol/L Potassium 4.3 (3.5-5.1) mmol/L Chloride 102 (98-107) mmol/L Carbon Dioxide 32 (21-32) mmol/L Anion Gap 10.3 (5-15) mmol/L BUN 14 (7-18) mg/dL Creatinine 0.9 (0.70-1.30) mg/dL Est Cr Clr Drug Dosing 93.89 mL/min Estimated GFR (MDRD) > 60 Glucose 121 H (70-99) mg/dL POC Glucose 151 H (70-99) mg/dL Calcium 8.2 L (8.5-10.1) mg/dL Magnesium 1.6 L (1.8-2.4) mg/dL C-Reactive Protein 2.9 H (<=0.9) mg/dL BHAVANI Results - Last 24 hrs: Microbiology 01/30/21 17:26 Aerobic Blood Culture - Preliminary Blood - Venous - Lab Draw NO GROWTH AFTER 1 DAY Anaerobic Blood Culture - Preliminary NO GROWTH AFTER 1 DAY 01/30/21 17:10 Aerobic Blood Culture - Preliminary Blood - Venous NO GROWTH AFTER 1 DAY Anaerobic Blood Culture - Preliminary NO GROWTH AFTER 1 DAY 01/30/21 19:58 MRSA Surveillance Culture - Final Nasal, Unspecified NO MRSA ISOLATED Med Orders - Current: Current Medications Acetaminophen (Acetaminophen 325 Mg Tab) 650 mg PO Q4H PRN PRN Reason: Pain (Mild 1-3)/fever Aspirin (Aspirin 81 Mg Tab.Chew) 81 mg PO DAILY [facility] Last Admin: 02/01/21 08:02 Dose: 81 mg Documented by: Atorvastatin Calcium (Atorvastatin 10 Mg Tab) 20 mg PO DAILY [facility] Last Admin: 02/01/21 08:05 Dose: 20 mg Documented by: Betamethasone/Clotrimazole (Betamethasone Dipropionate/Clotrimazole 0.05-1% Crm 15 Gm Tube) 0 gm TOP BID [facility] Last Admin: 02/01/21 08:10 Dose: 1 applic Documented by: Cholecalciferol (Cholecalciferol (Vitamin D3) 25 Mcg Tab) 100 mcg PO DAILY [facility] Last Admin: 02/01/21 08:06 Dose: 100 mcg Documented by: Dextrose/Water (50% Dextrose In Water 50 Ml Syringe) 50 ml IVPUSH ASDIRECTED PRN PRN Reason: Hypoglycemia Glucagon (Glucagon,Human Recombinant 1 Mg Vial) 1 mg IM ASDIRECTED PRN PRN Reason: Hypoglycemia Hydrochlorothiazide (Hydrochlorothiazide 25 Mg Tab) 37.5 mg PO DAILY [facility] Last Admin: 02/01/21 08:04 Dose: 37.5 mg Documented by: Sodium Chloride (Normal Saline) 1,000 mls @ 75 mls/hr IV ASDIRECTED [facility] Last Admin: 02/01/21 01:02 Dose: 75 mls/hr Documented by: Insulin Glargine (Insulin Glarg,Human.Rec.Analog 100 Unit/Ml) 45 unit SUBCUT BEDTIME [facility] Last Admin: 01/31/21 20:19 Dose: 45 units Documented by: Insulin Human Lispro (Insulin Lispro 100 Units/Ml 3 Ml Vial) 7 unit SUBCUT TIDMEALS [facility] Last Admin: 02/01/21 08:11 Dose: 7 units Documented by: Lisinopril (Lisinopril 20 Mg Tab) 20 mg PO DAILY [facility] Last Admin: 02/01/21 08:05 Dose: 20 mg Documented by: Melatonin (Melatonin 3 Mg Tab) 3 mg PO BEDTIME [facility] Last Admin: 01/31/21 20:20 Dose: 3 mg Documented by: Metformin HCl (Metformin 500 Mg Tab) 1,000 mg PO BIDMEALS [facility] Last Admin: 02/01/21 08:03 Dose: 1,000 mg Documented by: Risperidone (Risperidone 1 Mg Tab) 4 mg PO BID [facility] Last Admin: 02/01/21 08:06 Dose: 4 mg Documented by: Senna/Docusate Sodium (Docusate Sodium/Sennosides 50-8.6 Mg Tab) 1 tab PO DAILY [facility] Last Admin: 02/01/21 08:06 Dose: 1 tab Documented by: Sodium Chloride (Sodium Chloride 0.9% 10 Ml Syringe) 10 ml FLUSH ASDIRECTED PRN PRN Reason: Keep Vein Open Tamsulosin HCl (Tamsulosin 0.4 Mg Cap.Er) 0.4 mg PO DAILY [facility] Last Admin: 02/01/21 08:02 Dose: 0.4 mg Documented by: Trazodone HCl (Trazodone 50 Mg Tab) 25 mg PO BEDTIME [facility] Last Admin: 01/31/21 20:20 Dose: 25 mg Documented by: Discontinued Medications Azithromycin (Azithromycin 250 Mg Tab) 250 mg PO DAILY [facility] Last Admin: 01/31/21 08:04 Dose: 250 mg Documented by: Sodium Chloride (Normal Saline) 1,000 mls @ 999 mls/hr IV ONETIME ONE Stop: 01/30/21 18:18 Last Admin: 01/30/21 18:32 Dose: 250 mls/hr Documented by: Sodium Chloride (Normal Saline) 250 mls @ 250 mls/hr IV ASDIRECTED AISHA Sodium Chloride (Normal Saline) 1,000 mls @ 125 mls/hr IV ASDIRECTED [facility] Last Admin: 01/31/21 17:50 Dose: 125 mls/hr Documented by: Sodium Chloride (Normal Saline) 1,000 mls @ 75 mls/hr IV ASDIRECTED [facility] Last Admin: 01/31/21 19:11 Dose: 75 mls/hr Documented by: Insulin Glargine (Insulin Glarg,Human.Rec.Analog 100 Unit/Ml) 20 unit SUBCUT DAILY ONE Stop: 01/30/21 21:31 Last Admin: 01/30/21 22:11 Dose: 20 unit Documented by: Insulin Human Lispro (Insulin Lispro 100 Units/Ml 3 Ml Vial) 7 unit SUBCUT TIDAC [facility] Last Admin: 01/31/21 08:01 Dose: Not Given Documented by:
== END 2021-02-01 10:00 ==
LOC: VM.ED 16:53 → VM.MS 18:36
PROVIDERS: ADMIT Nurse Practitioner Family; ATTEND Nurse Practitioner Family
DX: R05 Cough (principal); R33.9 Retention of urine, unspecified; R53.83 Other fatigue; N32.0 Bladder-neck obstruction; E78.00 Pure hypercholesterolemia, unspecified; I10 Essential (primary) hypertension; E11.9 Type 2 diabetes mellitus without complications; E66.9 Obesity, unspecified; E87.2 Acidosis; L30.4 Erythema intertrigo; N40.0 Benign prostatic hyperplasia without lower urinary tract symptoms; F20.9 Schizophrenia, unspecified; J44.1 Chronic obstructive pulmonary disease with (acute) exacerbation; Z20.822 Contact with and (suspected) exposure to COVID-19; Z79.899 Other long term (current) drug therapy; Z79.82 Long term (current) use of aspirin
CPT/HCPCS: 36415; 51702; 51798; 71045; 80048; 80053; 81001; 82947; 83605; 83735; 84484; 85025; 85610; 85730; 86140; 87040; 93005; 99217; 99220; 99225; 99285-25; A9270-GY; G0378; J1815-GY; J7030; J7050; U0002

== ENCOUNTER 2021-02-15 16:25 | Inpatient (IN) | payer MEDICARE ==
--- NOTE | 2021-02-15 17:08 | EDM.PDOC ---
ED HPI GENERAL MEDICAL PROBLEM - General Chief Complaint: General Stated Complaint: hypotension/hypoxia Time Seen by Provider: 02/15/21 16:25 Source of Information: Reports: EMS, [facility] Records History Limitations: Reports: No Limitations - History of Present Illness INITIAL COMMENTS - FREE TEXT/NARRATIVE: Yuriy is a 70 year old male who presents to ER per EMS from the halfway with concerns with blood pressure and oxygen sats. 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 Was kept overnight to monitor for bleeding, nausea and pain. Did well while at [facility], was up eating and vitals were stable. Discharged back to the MD. Staff reports blood pressure low at 70/40 and requiring 5 liters of oxygen to get sat to 90%. Patient complains of mild shortness of breath and dizziness. Denies any pain. No further nausea. Per EMS, blood pressure 100/60. Oxygen sat greater than 90% on 2 liters. Onset: Today Duration: Hour(s): Location: Reports: Generalized Associated Symptoms: Reports: Malaise, Nausea/Vomiting, Shortness of Breath, Weakness. Denies: Chest Pain, Fever/Chills, Headaches - Related Data Allergies Allergy/AdvReac Type Severity Reaction Status Date / Time No Known Allergies Allergy Verified 02/15/21 19:10 Home Meds: Home Meds Cholecalciferol (Vitamin D3) [Vitamin D3] 4,000 intnl unit PO DAILY 12/21/20 [History] Insulin Aspart 7 unit SQ TIDAC 12/21/20 [History] Insulin Glarg,Human.Rec.Analog [Lantus Solostar] 45 units SQ BEDTIME 12/21/20 [History] Melatonin 3 mg PO DAILY 12/21/20 [History] Sennosides/Docusate Sodium [Senna Plus 8.6-50 mg Tablet] 1 each PO DAILY 12/21/20 [History] atorvaSTATin Calcium [Atorvastatin Calcium] 20 mg PO DAILY 12/21/20 [History] hydroCHLOROthiazide [Hydrochlorothiazide] 37.5 mg PO DAILY 12/21/20 [History] lisinopriL [Lisinopril] 20 mg PO DAILY 12/21/20 [History] metFORMIN HCl [Metformin HCl] 1,000 mg PO BID 12/21/20 [History] traZODone HCl [Trazodone HCl] 25 mg PO BEDTIME 12/21/20 [History] Aspirin 81 mg PO DAILY 01/27/21 [History] Azithromycin 250 mg PO DAILY #2 tablet 01/27/21 [Rx] Tamsulosin HCl [Flomax] 0.4 mg PO DAILY 01/27/21 [History] Urea [Urea 20% Crm] 1 dose TOP DAILY 01/27/21 [History] Acetaminophen [Tylenol] 650 mg PO Q4H PRN tablet 02/01/21 [Rx] Albuterol Sulfate 2.5 mg IH Q4HR PRN 14 Days #30 vial.neb 02/01/21 [Rx] Betamethasone/Clotrimazole [Lotrisone] 1 drop TOP BID #1 tube 02/01/21 [Rx] risperiDONE [RisperiDAL] 4 mg PO BID #60 tablet 02/01/21 [Rx] Past Medical History Cardiovascular History: Reports: Heart Murmur, High Cholesterol, Hypertension Gastrointestinal History: Reports: Chronic Constipation Genitourinary History: Reports: BPH Psychiatric History: Reports: Anxiety, Schizophrenia Endocrine/Metabolic History: Reports: Diabetes, Type II, Obesity/BMI 30+ Dermatologic History: Reports: Other (See Below) Other Dermatologic History: cyst removal site slow healing - Infectious Disease History Infectious Disease History: Reports: Novel Coronavirus - Past Surgical History Other Cardiovascular Surgeries/Procedures: aortic valve stenosis Social & Family History - Family History Cardiac: Reports: CAD, Hypertension - Tobacco Use Tobacco Use Status *Q: Unknown Ever Used Tobacco ED ROS GENERAL - Review of Systems Review Of Systems: See Below Constitutional: Reports: Malaise, Weakness, Fatigue. Denies: Fever, Chills HEENT: Denies: Ear Pain, Sinus Problem, Throat Pain Respiratory: Reports: Shortness of Breath. Denies: Cough Cardiovascular: Denies: Chest Pain, Lightheadedness Endocrine: Reports: Fatigue GI/Abdominal: Reports: Nausea. Denies: Abdominal Pain, Vomiting : Reports: Other (indwelling catheter) Musculoskeletal: Reports: No Symptoms Skin: Reports: Pallor Neurological: Reports: Dizziness. Denies: Headache ED EXAM, GENERAL - Physical Exam Exam: See Below Exam Limited By: No Limitations General Appearance: Alert, WD/WN Ears: Normal External Exam, Normal TMs Nose: Normal Inspection, Normal Mucosa, No Blood Throat/Mouth: Normal Inspection, Other (dry mucous membranes) Head: Normocephalic Neck: Normal Inspection, Supple, Non-Tender Respiratory/Chest: No Respiratory Distress, Lungs Clear Cardiovascular: Regular Rate, Rhythm, Systolic Murmur GI/Abdominal: Normal Bowel Sounds, Soft, Non-Tender Extremities: Normal Inspection, No Pedal Edema Neurological: Alert Skin Exam: Pallor Course - Orders/Labs/Meds Orders: Active Orders 24 hr Category Date Time Status CORONAVIRUS COVID-19 RAPID [[facility]] Stat Lab 02/15/21 19:10 Received Labs: Laboratory Tests 02/15/21 02/15/21 02/15/21 Range/Units 16:42 16:42 16:42 WBC 10.5 H (4.0-10.0) x10^3/uL RBC 3.43 L (4.5-6.0) x10^6/uL Hgb 10.1 L (14.0-18.0) g/dL Hct 30.5 L (40.0-52.0) % MCV 88.9 (78.0-93.0) fL MCH 29.4 (26.0-32.0) pg MCHC 33.1 (32.0-36.0) g/dL RDW Coeff of Dian 14.6 (10.0-15.0) % Plt Count 264 (130-400) x10^3/uL Neut % (Auto) 69.3 (50.0-80.0) % Lymph % (Auto) 21.1 L (25.0-50.0) % [place] % (Auto) 8.4 (2.0-11.0) % Eos % (Auto) 1.0 (0.0-4.0) % Baso % (Auto) 0.2 (0.2-1.2) % D-Dimer, Quantitative 10.79 H (<=0.58) mg/LFEU Sodium 135 L (136-145) mmol/L Potassium 4.0 (3.5-5.1) mmol/L Chloride 98 (98-107) mmol/L Carbon Dioxide 31 (21-32) mmol/L Anion Gap 10.0 (5-15) mmol/L BUN 16 (7-18) mg/dL Creatinine 1.1 (0.70-1.30) mg/dL Est Cr Clr Drug Dosing TNP Estimated GFR (MDRD) > 60 Glucose 187 H (70-99) mg/dL Calcium 8.3 L (8.5-10.1) mg/dL Corrected Calcium 9.3 (8.5-10.1) mg/dL Total Bilirubin 0.5 (0.2-1.0) mg/dL AST 25 (15-37) U/L ALT 17 (16-63) U/L Alkaline Phosphatase 77 (46-116) U/L Troponin I High Sens 7 (<=76) ng/L C-Reactive Protein 2.0 H (<=0.9) mg/dL NT-Pro-B Natriuret Pep (<=125) pg/mL Total Protein 6.9 (6.4-8.2) g/dL Albumin 2.7 L (3.4-5.0) g/dL Globulin 4.2 Albumin/Globulin Ratio 0.64 02/15/21 Range/Units 16:42 WBC (4.0-10.0) x10^3/uL RBC (4.5-6.0) x10^6/uL Hgb (14.0-18.0) g/dL Hct (40.0-52.0) % MCV (78.0-93.0) fL MCH (26.0-32.0) pg MCHC (32.0-36.0) g/dL RDW Coeff of Dian (10.0-15.0) % Plt Count (130-400) x10^3/uL Neut % (Auto) (50.0-80.0) % Lymph % (Auto) (25.0-50.0) % [place] % (Auto) (2.0-11.0) % Eos % (Auto) (0.0-4.0) % Baso % (Auto) (0.2-1.2) % D-Dimer, Quantitative (<=0.58) mg/LFEU Sodium (136-145) mmol/L Potassium (3.5-5.1) mmol/L Chloride (98-107) mmol/L Carbon Dioxide (21-32) mmol/L Anion Gap (5-15) mmol/L BUN (7-18) mg/dL Creatinine (0.70-1.30) mg/dL Est Cr Clr Drug Dosing Estimated GFR (MDRD) Glucose (70-99) mg/dL Calcium (8.5-10.1) mg/dL Corrected Calcium (8.5-10.1) mg/dL Total Bilirubin (0.2-1.0) mg/dL AST (15-37) U/L ALT (16-63) U/L Alkaline Phosphatase (46-116) U/L Troponin I High Sens (<=76) ng/L C-Reactive Protein (<=0.9) mg/dL NT-Pro-B Natriuret Pep 237 H (<=125) pg/mL Total Protein (6.4-8.2) g/dL Albumin (3.4-5.0) g/dL Globulin Albumin/Globulin Ratio - Re-Assessments/Exams Free Text/Narrative Re-Assessment/Exam: 02/15/21 18:23 Labs are all unremarkable except d-dimer of greater than 10. Hemoglobin at 10.1. Surgical site is warm and dry, no signs of ecchymosis, taut or firm skin. 02/15/21 18:24 CTA of chest done. 02/15/21 19:09 CT scan shows PE. Did consult with Dr. Holley and then DR. Castañeda and Dr Quintana at [facility] in regards to PE with recent biopsy and ablation. Do feel it is safe to anticoagulate for the PE while following his hemoglobin. Dr. Holley notified and will do admission. Departure - Departure Time of Disposition: 19:10 Disposition: DC/Tfer to Acute Hospital 02 Condition: Fair Clinical Impression: Pulmonary embolism - Discharge Information *PRESCRIPTION DRUG MONITORING PROGRAM REVIEWED*: No *COPY OF PRESCRIPTION DRUG MONITORING REPORT IN PATIENT PAVEL: No - My Orders Last 24 Hours: My Active Orders 02/15/21 19:10 CORONAVIRUS COVID-19 RAPID [[facility]] Stat - Assessment/Plan Last 24 Hours: My Active Orders 02/15/21 19:10 CORONAVIRUS COVID-19 RAPID [[facility]] Stat
[2021-02-15 17:24] LABS: CHLORIDE,CL 98 mmol/L (98-107); SODIUM,NA 135 mmol/L (136-145)
--- NOTE | 2021-02-15 17:30 | CR ---
[id number] RAD/RAD Chest PA or AP 1V EXAM: RAD Chest PA or AP 1V INDICATION: SHORTNESS OF BREATH. COMPARISON: January 30, 2021. DISCUSSION: Cardiomediastinal silhouette is enlarged. Central pulmonary vascular congestion. No pneumothorax or pleural effusion. IMPRESSION: Central pulmonary vascular congestion. Henri Do DO 02/15/21 [id number] Thank you for allowing us to participate in the care of your patient.
--- NOTE | 2021-02-15 18:50 | CT ---
[id number] CT/CTA Chest EXAM: CT ANGIOGRAM CHEST INDICATION: SHORTNESS OF BREATH, HYPOXIA, ELEVATED D - DIMER. COMPARISON: 01/27/2021. DISCUSSION: Evaluation is limited secondary to suboptimal bolus however there are filling defects extending from the segmental and subsegmental branches especially within the left upper lobe suggestive of acute pulmonary embolism. No evidence of right heart strain. Dependent atelectasis and/or scarring at the lung bases bilaterally. No pneumothorax or pleural effusion. No pericardial effusion. The heart is borderline enlarged. No mediastinal, hilar or axillary lymphadenopathy. Atherosclerotic calcifications of aorta and its branches. Cholelithiasis without evidence of acute cholecystitis. IMPRESSION: 1. Acute pulmonary embolism as described above. No evidence of right heart strain. Henri Do DO 02/15/21 1022 Thank you for allowing us to participate in the care of your patient.
[2021-02-15] MEDS ORDERED: Enoxaparin 100 MG/1 ML Syringe SUBCUT ONE (19:31)
[2021-02-15] MEDS ORDERED: Ondansetron 4 MG Tab.DIS PO PRN (20:00)
[2021-02-15] MEDS: Sodium Chloride 0.9% 1,000 ML IV SCH (20:37)
[2021-02-15] MEDS: risperiDONE 1 MG Tab PO SCH (20:55)
[2021-02-15] MEDS: Melatonin 3 MG Tab PO SCH (20:55)
[2021-02-15] MEDS: Insulin Glarg,Human.Rec.Analog 100 Unit/ML SUBCUT SCH (20:56)
[2021-02-15] MEDS: Betamethasone Dipropionate/Clotrimazole 0.05-1% Crm 15 GM Tube TOP SCH (20:56)
--- NOTE | 2021-02-15 21:54 | HP ---
CHIEF COMPLAINT: Hypoxemia with hypotension. HISTORY OF PRESENT ILLNESS: The patient is a 70-year-old resident of [facility] who returned today from [facility] after having gone a right renal mass biopsy with cryoablation. He had been hospitalized there from 02/14/2021 to 02/15/2021, had an uncomplicated procedure with cryoablation and biopsy of right renal mass. He was kept overnight in the hospital due to concern for bleeding and need to monitor for postablation nausea and pain. The patient was doing well morning of discharge with indwelling chronic Myers catheter which is chronic. Vital signs stable. No flank pain or tenderness. He had had a few doses of Zofran. He did not need any postoperative antibiotics. On arrival to the long term, he was noted to have O2 sats down in the 70s and his blood pressure was down 70/60, so he was brought to the emergency room and seen by TED Massey. The patient is a poor historian due to the schizophrenia and he cannot say if he is having pain or nausea. MEDICATIONS: That he is currently on are Zofran 4 mg q.6 hours p.r.n. nausea, vomiting; albuterol nebs q.4 hours p.r.n.; aspirin 81 mg 1 pill daily; Lipitor 20 mg 1 pill at bedtime; hydrochlorothiazide, a pill and a half daily; NovoLog 7 units 3 times a day before meals; Lantus 45 units at bedtime; lisinopril 20 mg daily in the morning; melatonin 3 mg at bedtime; metformin 1000 mg b.i.d.; oxygen 1 liter p.r.n.; Risperdal 3 mg b.i.d.; Senna Plus 2 tablets daily; Zoloft 50 mg daily; tamsulosin 0.4 mg 1 pill daily; trazodone 25 mg at bedtime; vitamin D 100 mcg 1 pill daily. ALLERGIES: To no known medications. 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 He has had BPH, failure to thrive, aortic valve stenosis, frequent falls, peripheral vascular disease and ventral hernia. PAST SURGICAL HISTORY: He has had appendectomy in 2019, colonoscopy in the past, cheek bone fracture in the past, hernia repair on the right, mass excision of left medial thigh chronic sinus tract on 01/18/2014. He has had his wisdom teeth extracted, tonsillectomy, upper endoscopy on 05/18/2020, and right renal mass biopsy and cryoablation on 02/14/2021. SOCIAL HISTORY: The patient is single. He is a resident of [facility]. He has never been . He has smoked, he denies currently. Alcohol use, not listed. FAMILY MEDICAL HISTORY: Mother has had hypertension. Father had some type of cancer. Brother had some type of cancer. Another brother had heart disease. REVIEW OF SYSTEMS: The patient is a poor historian. He says he does walk with a walker. He had been short of breath earlier, had been nauseated. Denies flank pain. Has indwelling Myers catheter which is chronic. The patient is noted to be forgetful, otherwise he is not able to contribute to history. PHYSICAL EXAMINATION: Vital Signs: Patient's weight per [facility] was 111 kg, his pulse was 101, blood pressure 100/60, respiratory rate 16, sats are 92 on 2 liters. Skin: Patient's skin is pale, warm and dry. He does have bruising on his arms from recent IV sticks. HEENT: Mucous membranes are noted to be dry. His tongue is dark brown. Pupils are equal and reactive to light. Neck: Nontender. Heart: Regular rate and rhythm with 2/6 systolic ejection murmur. Lungs: Clear to auscultation. Abdomen: Obese, soft, nontender. No hepatosplenomegaly. Myers catheter is indwelling. His buttocks were not examined today. Neurologic: The patient appears generalized weak neurologically. Psychiatric: The patient is forgetful, answers just one-word questions. LABORATORY DATA: Shows his D-dimer was positive at 10.79, normal being 0.58. Last white blood cell count 10.5, hemoglobin 10.0, platelet count 264, 69.3 segs, 21 lymphs. Sodium 135, potassium 4.0, creatinine 1.1, GFR greater than 60, BUN 16, glucose 187, calcium is 9.3. LFTs were normal. Troponin negative at 7. CRP elevated at 2.0. ProBNP slightly elevated at 237, albumin 2.7. COVID test was negative. Chest x-ray was read as having some central pulmonary vascular congestion. His CTA showed left upper lobe PE. Also cholelithiasis was noted. EKG showed sinus tachycardia. IMPRESSION: 1. Acute left upper lobe pulmonary embolism. 2. Hypoxemia related to pulmonary embolism. 3. Right renal mass with biopsy and ablation on 02/14/2021. 4. Dehydration. 5. Schizophrenia. 6. Type 2 diabetes mellitus. 7. Hypertension. 8. Chronic cholelithiasis. PLAN: I had Melieddie Gao visit with both Dr. Zelalem Miller, interventional radiologist, as well as Dr. Castañeda, hospitalist at [place], about ability to anticoagulate the patient in light of his acute PE, with recent kidney biopsy and ablation therapy. They felt it was acceptable to anticoagulate and no need for thrombectomy, unless bleeding. His hemoglobin while he is in [place] had dropped from 11.1 to 10.1 and he was stable today. We will start him on Lovenox 1 mg/kg b.i.d. dosing. He will also be started on Coumadin, starting tomorrow. We will need to monitor his hemoglobin closely to make certain it does not drop off. HIs oxygen sats need to be monitored.. He will be given some IV hydration due to the slight hypotension and nausea. We will monitor his blood sugars. The patient was felt in need of acute care monitoring and could not be treated as an outpatient for his PE because of his hypoxemia as well as recent biopsy with risk for bleeding. Also patient is a poor historian and so may not be able to indicate problems to others. The patient is a code level 1 status. Do anticipate discharge back to the long term in a few days. He will be admitted to Dr. Maggie Ross's service. If the patient's condition would deteriorate or having problems with hemorrhage, he would need urgent transfer to a higher level of care. GM02/15/2021 20:23:56 MODL: 02/15/2021 21:45:28 /[id number] KIMBERLY
[2021-02-16] MEDS ORDERED: Acetaminophen 325 MG Tab PO PRN (02:00)
[2021-02-16] MEDS ORDERED: Albuterol 0.083% 2.5 MG/3 ML Neb Soln NEB PRN (02:04)
[2021-02-16 07:48] LABS: ANION GAP 9.9 mmol/L (5-15); CHLORIDE,CL 102 mmol/L (98-107); SODIUM,NA 139 mmol/L (136-145)
[2021-02-16] MEDS ORDERED: Hydrochlorothiazide 25 MG Tab PO SCH (08:00)
[2021-02-16] MEDS ORDERED: Lisinopril 20 MG Tab PO SCH (08:00)
--- NOTE | 2021-02-16 08:59 | PCM.PN ---
- General Info Date of Service: 02/16/21 Admission Dx/Problem (Free Text): Yuriy Munoz is a 70-year-old male with a past medical history of schizophrenia, failure to thrive, type 2 diabetes with long-term use of insulin, hypertension, obesity who was admitted on 02/15/2021 for acute hypoxic respiratory failure. Earlier in the day he had undergone renal biopsy and cryotherapy for a right renal mass. He was discharged home from [facility] in [place] in stable condition however upon arrival to the long-term he was noted to be hypoxic with saturations in the 70s and hypovolemic. He was transferred to the ER for furt her evaluation. Upon arrival pulses at 101, blood pressure is 105/58. Saturations were in the low to mid 90s on 2 L of oxygen. Hemoglobin was down slightly from discharge earlier in the day(10.1 from 11.1). BNP was up at 237, CRP at 2.0. D-dimer was positive at 10.78. Chest x-ray demonstrated central pulmonary vascular congestion. CTA of the chest that demonstrated acute pulmonary embolism of the segmental and subsegmental branches of the left upper lobe suggested of an acute pulmonary embolism. ER provider did speak with interventional radiologist as well as the hospitalist on-call at [facility] about the plan of care given his recent biopsy and ablation. They felt that a couple to anticoagulate him and did not feel like he was in need of thrombectomy. He is admitted and initiated on Lovenox 1 mg/kg twice a day as well as Coumadin. This morning Mr. Munoz is a tired-appearing. Vital signs have stabilized although he is still requiring 2 L of oxygen to maintain saturations in the mid 90s. His hemoglobin is stable at 9.9. He denies any pain. - Review of Systems General: Reports: Weakness HEENT: Reports: No Symptoms Pulmonary: Reports: No Symptoms Cardiovascular: Reports: No Symptoms Gastrointestinal: Reports: No Symptoms Genitourinary: Reports: No Symptoms Musculoskeletal: Reports: No Symptoms Skin: Reports: No Symptoms Neurological: Reports: No Symptoms Psychiatric: Reports: No Symptoms Systems Review Comment:: Patient is very reserved but alert this morning. Denies all ROS questions asked - Patient Data Vitals - Most Recent: Last Vital Signs Temp 97.0 F 02/16/21 02:00 Pulse 91 02/16/21 05:41 Resp 16 02/16/21 05:41 BP 104/61 02/16/21 05:41 Pulse Ox 95 02/16/21 05:41 Weight - Most Recent: 245 lb I&O - Last 24 Hours: Intake & Output 02/15/21 02/16/21 02/16/21 22:59 06:59 14:59 Output Total 1300 Balance -1300 Lab Results Last 24 Hours: Laboratory Results - last 24 hr 02/15/21 02/15/21 02/15/21 Range/Units 16:42 16:42 16:42 WBC 10.5 H (4.0-10.0) x10^3/uL RBC 3.43 L (4.5-6.0) x10^6/uL Hgb 10.1 L (14.0-18.0) g/dL Hct 30.5 L (40.0-52.0) % MCV 88.9 (78.0-93.0) fL MCH 29.4 (26.0-32.0) pg MCHC 33.1 (32.0-36.0) g/dL RDW Coeff of Dian 14.6 (10.0-15.0) % Plt Count 264 (130-400) x10^3/uL Neut % (Auto) 69.3 (50.0-80.0) % Lymph % (Auto) 21.1 L (25.0-50.0) % [place] % (Auto) 8.4 (2.0-11.0) % Eos % (Auto) 1.0 (0.0-4.0) % Baso % (Auto) 0.2 (0.2-1.2) % PT (9.9-12.5) SEC INR (2.0-3.5) D-Dimer, Quantitative 10.79 H (<=0.58) mg/LFEU Sodium 135 L (136-145) mmol/L Potassium 4.0 (3.5-5.1) mmol/L Chloride 98 (98-107) mmol/L Carbon Dioxide 31 (21-32) mmol/L Anion Gap 10.0 (5-15) mmol/L BUN 16 (7-18) mg/dL Creatinine 1.1 (0.70-1.30) mg/dL Est Cr Clr Drug Dosing TNP Estimated GFR (MDRD) > 60 Glucose 187 H (70-99) mg/dL POC Glucose (70-99) mg/dL Calcium 8.3 L (8.5-10.1) mg/dL Corrected Calcium 9.3 (8.5-10.1) mg/dL Total Bilirubin 0.5 (0.2-1.0) mg/dL AST 25 (15-37) U/L ALT 17 (16-63) U/L Alkaline Phosphatase 77 (46-116) U/L Troponin I High Sens 7 (<=76) ng/L C-Reactive Protein 2.0 H (<=0.9) mg/dL NT-Pro-B Natriuret Pep (<=125) pg/mL Total Protein 6.9 (6.4-8.2) g/dL Albumin 2.7 L (3.4-5.0) g/dL Globulin 4.2 Albumin/Globulin Ratio 0.64 Urine Color (YELLOW) Urine Appearance (CLEAR) Urine pH (5.0-8.0) Ur Specific [place] Urine Protein (NEGATIVE) mg/dL Urine Glucose (UA) (NEGATIVE) mg/dL Urine Ketones (NEGATIVE) mg/dL Urine Occult Blood (NEGATIVE) Urine Nitrite (NEGATIVE) Urine Bilirubin (NEGATIVE) Urine Urobilinogen (0.2) EU/dL Ur Leukocyte Esterase (NEGATIVE) Urine RBC (NOT SEEN) /HPF Urine WBC (NOT SEEN) /HPF Ur Squamous Epith Cells (NOT SEEN) /HPF Urine Bacteria (NOT SEEN) /HPF Urine Mucus (NOT SEEN) /LPF SARS CoV-2 RNA Rapid MARCELINA (NEGATIVE) 02/15/21 02/15/21 02/15/21 Range/Units 16:42 19:10 20:54 WBC (4.0-10.0) x10^3/uL RBC (4.5-6.0) x10^6/uL Hgb (14.0-18.0) g/dL Hct (40.0-52.0) % MCV (78.0-93.0) fL MCH (26.0-32.0) pg MCHC (32.0-36.0) g/dL RDW Coeff of Dian (10.0-15.0) % Plt Count (130-400) x10^3/uL Neut % (Auto) (50.0-80.0) % Lymph % (Auto) (25.0-50.0) % [place] % (Auto) (2.0-11.0) % Eos % (Auto) (0.0-4.0) % Baso % (Auto) (0.2-1.2) % PT (9.9-12.5) SEC INR (2.0-3.5) D-Dimer, Quantitative (<=0.58) mg/LFEU Sodium (136-145) mmol/L Potassium (3.5-5.1) mmol/L Chloride (98-107) mmol/L Carbon Dioxide (21-32) mmol/L Anion Gap (5-15) mmol/L BUN (7-18) mg/dL Creatinine (0.70-1.30) mg/dL Est Cr Clr Drug Dosing Estimated GFR (MDRD) Glucose (70-99) mg/dL POC Glucose 141 H (70-99) mg/dL Calcium (8.5-10.1) mg/dL Corrected Calcium (8.5-10.1) mg/dL Total Bilirubin (0.2-1.0) mg/dL AST (15-37) U/L ALT (16-63) U/L Alkaline Phosphatase (46-116) U/L Troponin I High Sens (<=76) ng/L C-Reactive Protein (<=0.9) mg/dL NT-Pro-B Natriuret Pep 237 H (<=125) pg/mL Total Protein (6.4-8.2) g/dL Albumin (3.4-5.0) g/dL Globulin Albumin/Globulin Ratio Urine Color (YELLOW) Urine Appearance (CLEAR) Urine pH (5.0-8.0) Ur Specific [place] Urine Protein (NEGATIVE) mg/dL Urine Glucose (UA) (NEGATIVE) mg/dL Urine Ketones (NEGATIVE) mg/dL Urine Occult Blood (NEGATIVE) Urine Nitrite (NEGATIVE) Urine Bilirubin (NEGATIVE) Urine Urobilinogen (0.2) EU/dL Ur Leukocyte Esterase (NEGATIVE) Urine RBC (NOT SEEN) /HPF Urine WBC (NOT SEEN) /HPF Ur Squamous Epith Cells (NOT SEEN) /HPF Urine Bacteria (NOT SEEN) /HPF Urine Mucus (NOT SEEN) /LPF SARS CoV-2 RNA Rapid MARCELINA Negative (NEGATIVE) 0702/16/21 02/16/21 Range/Units 05:30 07:17 07:17 WBC 7.7 (4.0-10.0) x10^3/uL RBC 3.36 L (4.5-6.0) x10^6/uL Hgb 9.9 L (14.0-18.0) g/dL Hct 30.2 L (40.0-52.0) % MCV 89.9 (78.0-93.0) fL MCH 29.5 (26.0-32.0) pg MCHC 32.8 (32.0-36.0) g/dL RDW Coeff of Dian 14.8 (10.0-15.0) % Plt Count 255 (130-400) x10^3/uL Neut % (Auto) 55.5 (50.0-80.0) % Lymph % (Auto) 31.4 (25.0-50.0) % [place] % (Auto) 9.6 (2.0-11.0) % Eos % (Auto) 3.1 (0.0-4.0) % Baso % (Auto) 0.4 (0.2-1.2) % PT 10.4 (9.9-12.5) SEC INR 0.9 L (2.0-3.5) D-Dimer, Quantitative (<=0.58) mg/LFEU Sodium (136-145) mmol/L Potassium (3.5-5.1) mmol/L Chloride (98-107) mmol/L Carbon Dioxide (21-32) mmol/L Anion Gap (5-15) mmol/L BUN (7-18) mg/dL Creatinine (0.70-1.30) mg/dL Est Cr Clr Drug Dosing Estimated GFR (MDRD) Glucose (70-99) mg/dL POC Glucose (70-99) mg/dL Calcium (8.5-10.1) mg/dL Corrected Calcium (8.5-10.1) mg/dL Total Bilirubin (0.2-1.0) mg/dL AST (15-37) U/L ALT (16-63) U/L Alkaline Phosphatase (46-116) U/L Troponin I High Sens (<=76) ng/L C-Reactive Protein (<=0.9) mg/dL NT-Pro-B Natriuret Pep (<=125) pg/mL Total Protein (6.4-8.2) g/dL Albumin (3.4-5.0) g/dL Globulin Albumin/Globulin Ratio Urine Color Yellow (YELLOW) Urine Appearance Clear (CLEAR) Urine pH 7.0 (5.0-8.0) Ur Specific [place]ue 1.015 Urine Protein 30 H (NEGATIVE) mg/dL Urine Glucose (UA) Negative (NEGATIVE) mg/dL Urine Ketones Negative (NEGATIVE) mg/dL Urine Occult Blood Small H (NEGATIVE) Urine Nitrite Negative (NEGATIVE) Urine Bilirubin Negative (NEGATIVE) Urine Urobilinogen 0.2 (0.2) EU/dL Ur Leukocyte Esterase Negative (NEGATIVE) Urine RBC 0-5 (NOT SEEN) /HPF Urine WBC 0-5 (NOT SEEN) /HPF Ur Squamous Epith Cells Not seen (NOT SEEN) /HPF Urine Bacteria Rare (NOT SEEN) /HPF Urine Mucus Not seen (NOT SEEN) /LPF SARS CoV-2 RNA Rapid MARCELINA (NEGATIVE) 02/16/21 02/16/21 Range/Units 07:17 07:18 WBC (4.0-10.0) x10^3/uL RBC (4.5-6.0) x10^6/uL Hgb (14.0-18.0) g/dL Hct (40.0-52.0) % MCV (78.0-93.0) fL MCH (26.0-32.0) pg MCHC (32.0-36.0) g/dL RDW Coeff of Dian (10.0-15.0) % Plt Count (130-400) x10^3/uL Neut % (Auto) (50.0-80.0) % Lymph % (Auto) (25.0-50.0) % [place] % (Auto) (2.0-11.0) % Eos % (Auto) (0.0-4.0) % Baso % (Auto) (0.2-1.2) % PT (9.9-12.5) SEC INR (2.0-3.5) D-Dimer, Quantitative (<=0.58) mg/LFEU Sodium 139 (136-145) mmol/L Potassium 3.9 (3.5-5.1) mmol/L Chloride 102 (98-107) mmol/L Carbon Dioxide 31 (21-32) mmol/L Anion Gap 9.9 (5-15) mmol/L BUN 15 (7-18) mg/dL Creatinine 0.8 (0.70-1.30) mg/dL Est Cr Clr Drug Dosing 99.88 Estimated GFR (MDRD) > 60 Glucose 117 H (70-99) mg/dL POC Glucose 113 H (70-99) mg/dL Calcium 8.1 L (8.5-10.1) mg/dL Corrected Calcium (8.5-10.1) mg/dL Total Bilirubin (0.2-1.0) mg/dL AST (15-37) U/L ALT (16-63) U/L Alkaline Phosphatase (46-116) U/L Troponin I High Sens (<=76) ng/L C-Reactive Protein (<=0.9) mg/dL NT-Pro-B Natriuret Pep (<=125) pg/mL Total Protein (6.4-8.2) g/dL Albumin (3.4-5.0) g/dL Globulin Albumin/Globulin Ratio Urine Color (YELLOW) Urine Appearance (CLEAR) Urine pH (5.0-8.0) Ur Specific [place] Urine Protein (NEGATIVE) mg/dL Urine Glucose (UA) (NEGATIVE) mg/dL Urine Ketones (NEGATIVE) mg/dL Urine Occult Blood (NEGATIVE) Urine Nitrite (NEGATIVE) Urine Bilirubin (NEGATIVE) Urine Urobilinogen (0.2) EU/dL Ur Leukocyte Esterase (NEGATIVE) Urine RBC (NOT SEEN) /HPF Urine WBC (NOT SEEN) /HPF Ur Squamous Epith Cells (NOT SEEN) /HPF Urine Bacteria (NOT SEEN) /HPF Urine Mucus (NOT SEEN) /LPF SARS CoV-2 RNA Rapid MARCELINA (NEGATIVE) Med Orders - Current: Current Medications Acetaminophen (Acetaminophen 325 Mg Tab) 650 mg PO Q6H PRN PRN Reason: Pain Albuterol (Albuterol 0.083% 2.5 Mg/3 Ml Neb Soln) 2.5 mg NEB Q4H PRN PRN Reason: Shortness of Breath Atorvastatin Calcium (Atorvastatin 10 Mg Tab) 20 mg PO DAILY [facility] Betamethasone/Clotrimazole (Betamethasone Dipropionate/Clotrimazole 0.05-1% Crm 15 Gm Tube) 0 gm TOP BID [facility] Last Admin: 02/15/21 20:56 Dose: 1 applic Documented by: Cholecalciferol (Cholecalciferol (Vitamin D3) 25 Mcg Tab) 100 mcg PO DAILY [facility] Enoxaparin Sodium (Enoxaparin 100 Mg/1 Ml Syringe) 100 mg SUBCUT Q12H [facility] Hydrochlorothiazide (Hydrochlorothiazide 25 Mg Tab) 37.5 mg PO DAILY [facility] Sodium Chloride (Normal Saline) 1,000 mls @ 100 mls/hr IV ASDIRECTED [facility] Last Admin: 02/15/21 20:37 Dose: 100 mls/hr Documented by: Insulin Glargine (Insulin Glarg,Human.Rec.Analog 100 Unit/Ml) 45 unit SUBCUT BEDTIME [facility] Last Admin: 02/15/21 20:56 Dose: 45 units Documented by: Insulin Human Lispro (Insulin Lispro 100 Units/Ml 3 Ml Vial) 7 unit SUBCUT TIDAC [facility] Lisinopril (Lisinopril 20 Mg Tab) 20 mg PO DAILY [facility] Melatonin (Melatonin 3 Mg Tab) 3 mg PO BEDTIME [facility] Last Admin: 02/15/21 20:55 Dose: 3 mg Documented by: Non-Formulary Medication (Metformin Hcl [Metformin Hcl]) 1,000 mg PO BID [facility] Non-Formulary Medication (Urea [Urea 20% Crm]) 1 dose TOP DAILY [facility] Ondansetron HCl (Ondansetron 4 Mg Tab.Dis) 4 mg PO Q6H PRN PRN Reason: Nausea Risperidone (Risperidone 1 Mg Tab) 3 mg PO BID [facility] Last Admin: 02/15/21 20:55 Dose: 3 mg Documented by: Senna/Docusate Sodium (Docusate Sodium/Sennosides 50-8.6 Mg Tab) 1 tab PO DAILY [facility] Sertraline HCl (Sertraline 50 Mg Tab) 50 mg PO DAILY [facility] Tamsulosin HCl (Tamsulosin 0.4 Mg Cap.Er) 0.4 mg PO DAILY [facility] Trazodone HCl (Trazodone 50 Mg Tab) 25 mg PO BEDTIME [facility] Warfarin Sodium (Warfarin 5 Mg Tab) 5 mg PO BEDTIME [facility] Discontinued Medications Enoxaparin Sodium (Enoxaparin 100 Mg/1 Ml Syringe) 100 mg SUBCUT ONETIME ONE Stop: 02/15/21 19:32 Last Admin: 02/15/21 19:42 Dose: 100 mg Documented by: - Exam Quality Assessment: Supplemental Oxygen (2L) General: Alert, Cooperative, No Acute Distress HEENT: Mucous Membr. Moist/[place] Neck: Supple Lungs: Clear to Auscultation, Normal Respiratory Effort (Less than ideal exam with patient unable to sit up) Cardiovascular: Regular Rate, Regular Rhythm, Murmurs (3/6 systolic heard over the aortic and mitral areas best) GI/Abdominal Exam: Normal Bowel Sounds, Soft, Non-Tender Extremities: Non-Tender, Pedal Edema (1+ to the bilateral ankles, baseline) Skin: Warm, Dry Wound/Incisions: Healing Well (Biopsy site appears CDI. No surrounding bruising, erythema, edema) Psy/Mental Status: Alert, Normal Affect, Normal Mood - Patient Data Lab Results Last 24 hrs: Laboratory Results - last 24 hr 02/15/21 02/15/21 02/15/21 Range/Units 16:42 16:42 16:42 WBC 10.5 H (4.0-10.0) x10^3/uL RBC 3.43 L (4.5-6.0) x10^6/uL Hgb 10.1 L (14.0-18.0) g/dL Hct 30.5 L (40.0-52.0) % MCV 88.9 (78.0-93.0) fL MCH 29.4 (26.0-32.0) pg MCHC 33.1 (32.0-36.0) g/dL RDW Coeff of Dian 14.6 (10.0-15.0) % Plt Count 264 (130-400) x10^3/uL Neut % (Auto) 69.3 (50.0-80.0) % Lymph % (Auto) 21.1 L (25.0-50.0) % [place] % (Auto) 8.4 (2.0-11.0) % Eos % (Auto) 1.0 (0.0-4.0) % Baso % (Auto) 0.2 (0.2-1.2) % PT (9.9-12.5) SEC INR (2.0-3.5) D-Dimer, Quantitative 10.79 H (<=0.58) mg/LFEU Sodium 135 L (136-145) mmol/L Potassium 4.0 (3.5-5.1) mmol/L Chloride 98 (98-107) mmol/L Carbon Dioxide 31 (21-32) mmol/L Anion Gap 10.0 (5-15) mmol/L BUN 16 (7-18) mg/dL Creatinine 1.1 (0.70-1.30) mg/dL Est Cr Clr Drug Dosing TNP Estimated GFR (MDRD) > 60 Glucose 187 H (70-99) mg/dL POC Glucose (70-99) mg/dL Calcium 8.3 L (8.5-10.1) mg/dL Corrected Calcium 9.3 (8.5-10.1) mg/dL Total Bilirubin 0.5 (0.2-1.0) mg/dL AST 25 (15-37) U/L ALT 17 (16-63) U/L Alkaline Phosphatase 77 (46-116) U/L Troponin I High Sens 7 (<=76) ng/L C-Reactive Protein 2.0 H (<=0.9) mg/dL NT-Pro-B Natriuret Pep (<=125) pg/mL Total Protein 6.9 (6.4-8.2) g/dL Albumin 2.7 L (3.4-5.0) g/dL Globulin 4.2 Albumin/Globulin Ratio 0.64 Urine Color (YELLOW) Urine Appearance (CLEAR) Urine pH (5.0-8.0) Ur Specific [place] Urine Protein (NEGATIVE) mg/dL Urine Glucose (UA) (NEGATIVE) mg/dL Urine Ketones (NEGATIVE) mg/dL Urine Occult Blood (NEGATIVE) Urine Nitrite (NEGATIVE) Urine Bilirubin (NEGATIVE) Urine Urobilinogen (0.2) EU/dL Ur Leukocyte Esterase (NEGATIVE) Urine RBC (NOT SEEN) /HPF Urine WBC (NOT SEEN) /HPF Ur Squamous Epith Cells (NOT SEEN) /HPF Urine Bacteria (NOT SEEN) /HPF Urine Mucus (NOT SEEN) /LPF SARS CoV-2 RNA Rapid MARCELINA (NEGATIVE) 02/15/21 02/15/21 02/15/21 Range/Units 16:42 19:10 20:54 WBC (4.0-10.0) x10^3/uL RBC (4.5-6.0) x10^6/uL Hgb (14.0-18.0) g/dL Hct (40.0-52.0) % MCV (78.0-93.0) fL MCH (26.0-32.0) pg MCHC (32.0-36.0) g/dL RDW Coeff of Dian (10.0-15.0) % Plt Count (130-400) x10^3/uL Neut % (Auto) (50.0-80.0) % Lymph % (Auto) (25.0-50.0) % [place] % (Auto) (2.0-11.0) % Eos % (Auto) (0.0-4.0) % Baso % (Auto) (0.2-1.2) % PT (9.9-12.5) SEC INR (2.0-3.5) D-Dimer, Quantitative (<=0.58) mg/LFEU Sodium (136-145) mmol/L Potassium (3.5-5.1) mmol/L Chloride (98-107) mmol/L Carbon Dioxide (21-32) mmol/L Anion Gap (5-15) mmol/L BUN (7-18) mg/dL Creatinine (0.70-1.30) mg/dL Est Cr Clr Drug Dosing Estimated GFR (MDRD) Glucose (70-99) mg/dL POC Glucose 141 H (70-99) mg/dL Calcium (8.5-10.1) mg/dL Corrected Calcium (8.5-10.1) mg/dL Total Bilirubin (0.2-1.0) mg/dL AST (15-37) U/L ALT (16-63) U/L Alkaline Phosphatase (46-116) U/L Troponin I High Sens (<=76) ng/L C-Reactive Protein (<=0.9) mg/dL NT-Pro-B Natriuret Pep 237 H (<=125) pg/mL Total Protein (6.4-8.2) g/dL Albumin (3.4-5.0) g/dL Globulin Albumin/Globulin Ratio Urine Color (YELLOW) Urine Appearance (CLEAR) Urine pH (5.0-8.0) Ur Specific [place] Urine Protein (NEGATIVE) mg/dL Urine Glucose (UA) (NEGATIVE) mg/dL Urine Ketones (NEGATIVE) mg/dL Urine Occult Blood (NEGATIVE) Urine Nitrite (NEGATIVE) Urine Bilirubin (NEGATIVE) Urine Urobilinogen (0.2) EU/dL Ur Leukocyte Esterase (NEGATIVE) Urine RBC (NOT SEEN) /HPF Urine WBC (NOT SEEN) /HPF Ur Squamous Epith Cells (NOT SEEN) /HPF Urine Bacteria (NOT SEEN) /HPF Urine Mucus (NOT SEEN) /LPF SARS CoV-2 RNA Rapid MARCELINA Negative (NEGATIVE) 02/16/21 02/16/21 02/16/21 Range/Units 05:30 07:17 07:17 WBC 7.7 (4.0-10.0) x10^3/uL RBC 3.36 L (4.5-6.0) x10^6/uL Hgb 9.9 L (14.0-18.0) g/dL Hct 30.2 L (40.0-52.0) % MCV 89.9 (78.0-93.0) fL MCH 29.5 (26.0-32.0) pg MCHC 32.8 (32.0-36.0) g/dL RDW Coeff of Dian 14.8 (10.0-15.0) % Plt Count 255 (130-400) x10^3/uL Neut % (Auto) 55.5 (50.0-80.0) % Lymph % (Auto) 31.4 (25.0-50.0) % [place] % (Auto) 9.6 (2.0-11.0) % Eos % (Auto) 3.1 (0.0-4.0) % Baso % (Auto) 0.4 (0.2-1.2) % PT 10.4 (9.9-12.5) SEC INR 0.9 L (2.0-3.5) D-Dimer, Quantitative (<=0.58) mg/LFEU Sodium (136-145) mmol/L Potassium (3.5-5.1) mmol/L Chloride (98-107) mmol/L Carbon Dioxide (21-32) mmol/L Anion Gap (5-15) mmol/L BUN (7-18) mg/dL Creatinine (0.70-1.30) mg/dL Est Cr Clr Drug Dosing Estimated GFR (MDRD) Glucose (70-99) mg/dL POC Glucose (70-99) mg/dL Calcium (8.5-10.1) mg/dL Corrected Calcium (8.5-10.1) mg/dL Total Bilirubin (0.2-1.0) mg/dL AST (15-37) U/L ALT (16-63) U/L Alkaline Phosphatase (46-116) U/L Troponin I High Sens (<=76) ng/L C-Reactive Protein (<=0.9) mg/dL NT-Pro-B Natriuret Pep (<=125) pg/mL Total Protein (6.4-8.2) g/dL Albumin (3.4-5.0) g/dL Globulin Albumin/Globulin Ratio Urine Color Yellow (YELLOW) Urine Appearance Clear (CLEAR) Urine pH 7.0 (5.0-8.0) Ur Specific [place] 1.015 Urine Protein 30 H (NEGATIVE) mg/dL Urine Glucose (UA) Negative (NEGATIVE) mg/dL Urine Ketones Negative (NEGATIVE) mg/dL Urine Occult Blood Small H (NEGATIVE) Urine Nitrite Negative (NEGATIVE) Urine Bilirubin Negative (NEGATIVE) Urine Urobilinogen 0.2 (0.2) EU/dL Ur Leukocyte Esterase Negative (NEGATIVE) Urine RBC 0-5 (NOT SEEN) /HPF Urine WBC 0-5 (NOT SEEN) /HPF Ur Squamous Epith Cells Not seen (NOT SEEN) /HPF Urine Bacteria Rare (NOT SEEN) /HPF Urine Mucus Not seen (NOT SEEN) /LPF SARS CoV-2 RNA Rapid MARCELINA (NEGATIVE) 02/16/21 02/16/21 Range/Units 07:17 07:18 WBC (4.0-10.0) x10^3/uL RBC (4.5-6.0) x10^6/uL Hgb (14.0-18.0) g/dL Hct (40.0-52.0) % MCV (78.0-93.0) fL MCH (26.0-32.0) pg MCHC (32.0-36.0) g/dL RDW Coeff of Dian (10.0-15.0) % Plt Count (130-400) x10^3/uL Neut % (Auto) (50.0-80.0) % Lymph % (Auto) (25.0-50.0) % [place] % (Auto) (2.0-11.0) % Eos % (Auto) (0.0-4.0) % Baso % (Auto) (0.2-1.2) % PT (9.9-12.5) SEC INR (2.0-3.5) D-Dimer, Quantitative (<=0.58) mg/LFEU Sodium 139 (136-145) mmol/L Potassium 3.9 (3.5-5.1) mmol/L Chloride 102 (98-107) mmol/L Carbon Dioxide 31 (21-32) mmol/L Anion Gap 9.9 (5-15) mmol/L BUN 15 (7-18) mg/dL Creatinine 0.8 (0.70-1.30) mg/dL Est Cr Clr Drug Dosing 99.88 Estimated GFR (MDRD) > 60 Glucose 117 H (70-99) mg/dL POC Glucose 113 H (70-99) mg/dL Calcium 8.1 L (8.5-10.1) mg/dL Corrected Calcium (8.5-10.1) mg/dL Total Bilirubin (0.2-1.0) mg/dL AST (15-37) U/L ALT (16-63) U/L Alkaline Phosphatase (46-116) U/L Troponin I High Sens (<=76) ng/L C-Reactive Protein (<=0.9) mg/dL NT-Pro-B Natriuret Pep (<=125) pg/mL Total Protein (6.4-8.2) g/dL Albumin (3.4-5.0) g/dL Globulin Albumin/Globulin Ratio Urine Color (YELLOW) Urine Appearance (CLEAR) Urine pH (5.0-8.0) Ur Specific [place] Urine Protein (NEGATIVE) mg/dL Urine Glucose (UA) (NEGATIVE) mg/dL Urine Ketones (NEGATIVE) mg/dL Urine Occult Blood (NEGATIVE) Urine Nitrite (NEGATIVE) Urine Bilirubin (NEGATIVE) Urine Urobilinogen (0.2) EU/dL Ur Leukocyte Esterase (NEGATIVE) Urine RBC (NOT SEEN) /HPF Urine WBC (NOT SEEN) /HPF Ur Squamous Epith Cells (NOT SEEN) /HPF Urine Bacteria (NOT SEEN) /HPF Urine Mucus (NOT SEEN) /LPF SARS CoV-2 RNA Rapid MARCELINA (NEGATIVE) Result Diagrams: 02/16/21 07:17 02/16/21 07:17 Sepsis Event Note - Evaluation Sepsis Screening Result: No Definite Risk - Focused Exam Vital Signs: Vital Signs Temp Pulse Resp BP Pulse Ox 02/16/21 05:41 91 16 104/61 95 02/16/21 02:00 97.0 F 87 16 91/57 L 98 02/15/21 22:00 98 F 94 94/65 96 - Problem List & Annotations (1) Hypoxia SNOMED Code(s): 308073333 Code(s): R09.02 - HYPOXEMIA Status: Acute Current Visit: Yes (2) Pulmonary embolism SNOMED Code(s): 21695967 Code(s): I26.99 - OTHER PULMONARY EMBOLISM WITHOUT ACUTE COR PULMONALE Status: Acute Current Visit: Yes (3) Renal mass, right SNOMED Code(s): 192952358 Code(s): N28.89 - OTHER SPECIFIED DISORDERS OF KIDNEY AND URETER Status: Acute Current Visit: Yes - Problem List Review Problem List Initiated/Reviewed/Updated: Yes - Assessment Assessment:: Subsegmental pulmonary embolism, provoked Acute hypoxic respiratory failure S/P renal biopsy and cryo on 02/15/21 -CT demonstrating Subsegmental PE of the left upper lobe -Patient stable on 2L -Hgb stable at this time Plan: -Continue Lovenox/Coumadin bridge. Rx to monitor/dose -Daily monitoring of Hgb -O2 as needed to maintain sats >90% -If worsening status/signs of bleeding short leash to transfer to higher level of care -Zofran prn for nausea Hypovolemia/dehydration -Vitals stable this morning Plan: -Continue IVF at 100mL/hr -Holding home BP meds at this time Chronic: -Schizophrenia - continue home Risperdal, Zoloft -HTN - holding home hydrochlorothiazide 37.5 mg daily, lisinopril 20 mg daily until blood pressures improved -Type 2 diabetes - continue home Lantus 45 units at bedtime, NovoLog 7 units 3 times a day with meals, metformin 1000 mg twice a day -Insomnia - continue home trazodone, melatonin -BPH - continue home Flomax -Hyperlipidemia - continue home Lipitor Diet: Diabetic, as tolerated DVT: Patient is on Lovenox as well as Coumadin bridge at this point Code: Full Disposition: Anticipate that patient will need 3-4 midnight at a minimum for monitoring of his status as well as bridging of the Lovenox/Coumadin. We will monitor his labs as well as his vital signs closely.
[2021-02-16] MEDS: Cholecalciferol (Vitamin D3) 25 MCG Tab PO SCH (09:27)
[2021-02-16] MEDS: atorvaSTATin 10 MG Tab PO SCH (09:27)
[2021-02-16] MEDS: Tamsulosin 0.4 MG Cap.ER PO SCH (09:27)
[2021-02-16] MEDS: Sertraline 50 MG Tab PO SCH (09:28)
[2021-02-16] MEDS: UREA 20% TOP SCH (09:28)
[2021-02-16] MEDS: Enoxaparin 100 MG/1 ML Syringe SUBCUT SCH ×2 (09:28→21:15)
[2021-02-16] MEDS: risperiDONE 1 MG Tab PO SCH ×2 (09:28→21:16)
[2021-02-16] MEDS: Betamethasone Dipropionate/Clotrimazole 0.05-1% Crm 15 GM Tube TOP SCH ×2 (09:29→21:18)
[2021-02-16] MEDS: Insulin Lispro 100 Units/ML 3 ML Vial SUBCUT SCH ×4 (09:29→18:06)
[2021-02-16] MEDS: metFORMIN 500 MG Tab PO SCH ×2 (09:30→18:09)
[2021-02-16] MEDS: Sodium Chloride 0.9% 1,000 ML IV SCH (11:17)
[2021-02-16] MEDS ORDERED: [UNRECOGNIZED DRUG - REMARK] SCH (11:30)
[2021-02-16] MEDS: Warfarin 5 MG Tab PO SCH (12:39)
[2021-02-16] MEDS: traZODone 50 MG Tab PO SCH (21:16)
[2021-02-16] MEDS: Melatonin 3 MG Tab PO SCH (21:16)
[2021-02-16] MEDS: Insulin Glarg,Human.Rec.Analog 100 Unit/ML SUBCUT SCH (21:17)
[2021-02-17] MEDS: Sodium Chloride 0.9% 1,000 ML IV SCH (06:52)
[2021-02-17] MEDS: risperiDONE 1 MG Tab PO SCH ×2 (08:08→20:19)
[2021-02-17] MEDS: Cholecalciferol (Vitamin D3) 25 MCG Tab PO SCH (08:08)
[2021-02-17] MEDS: metFORMIN 500 MG Tab PO SCH ×2 (08:08→18:46)
[2021-02-17] MEDS: Sertraline 50 MG Tab PO SCH (08:08)
[2021-02-17] MEDS: atorvaSTATin 10 MG Tab PO SCH (08:08)
[2021-02-17] MEDS: Tamsulosin 0.4 MG Cap.ER PO SCH (08:08)
[2021-02-17] MEDS: UREA 20% TOP SCH (08:09)
[2021-02-17] MEDS: Enoxaparin 100 MG/1 ML Syringe SUBCUT SCH ×2 (08:09→20:23)
[2021-02-17] MEDS: Betamethasone Dipropionate/Clotrimazole 0.05-1% Crm 15 GM Tube TOP SCH ×2 (08:10→20:29)
--- NOTE | 2021-02-17 10:49 | PCM.PN ---
- General Info Date of Service: 02/17/21 Admission Dx/Problem (Free Text): Yuriy Munoz is a 70-year-old male with a past medical history of schizophrenia, failure to thrive, type 2 diabetes with long-term use of insulin, hypertension, obesity who was admitted on 02/15/2021 for acute hypoxic respiratory failure. Earlier in the day he had undergone renal biopsy and cryotherapy for a right renal mass. He was discharged home from [facility] in [place] in stable condition however upon arrival to the residential he was noted to be hypoxic with saturations in the 70s and hypovolemic. He was transferred to the ER for furt her evaluation. Upon arrival pulses at 101, blood pressure is 105/58. Saturations were in the low to mid 90s on 2 L of oxygen. Hemoglobin was down slightly from discharge earlier in the day (10.1 from 11.1). BNP was up at 237, CRP at 2.0. D-dimer was positive at 10.78. Chest x-ray demonstrated central pulmonary vascular congestion. CTA of the chest that demonstrated acute pulmonary embolism of the segmental and subsegmental branches of the left upper lobe suggested of an acute pulmonary embolism. ER provider did speak with interventional radiologist as well as the hospitalist on-call at [place] about the plan of care given his recent biopsy and ablation. They felt that a couple to anticoagulate him and did not feel like he was in need of thrombectomy. He is admitted and initiated on Lovenox 1 mg/kg twice a day as well as Coumadin. This morning Mr. Munoz is much more alert. He notes no pain. Some trouble with his breathing. We discussed his reason for admission and he notes understanding. He has been able to be weaned to 1L O2. He is eating and drinking well per nursing. he did refuse lab draw this morning so I am awaiting his CBC and INR. Functional Status: Reports: Pain Controlled - Review of Systems General: Reports: No Symptoms HEENT: Reports: No Symptoms Pulmonary: Reports: Shortness of Breath Cardiovascular: Reports: No Symptoms Gastrointestinal: Reports: No Symptoms Genitourinary: Reports: No Symptoms Musculoskeletal: Reports: No Symptoms Skin: Reports: No Symptoms Neurological: Reports: No Symptoms Psychiatric: Reports: No Symptoms - Patient Data Vitals - Most Recent: Last Vital Signs Temp 97.6 F 02/17/21 06:00 Pulse 92 02/17/21 06:00 Resp 15 02/17/21 06:00 BP 161/97 H 02/17/21 06:00 Pulse Ox 94 L 02/17/21 06:00 Weight - Most Recent: 245 lb I&O - Last 24 Hours: Intake & Output 02/16/21 02/17/21 02/17/21 22:59 06:59 14:59 Intake Total 1330 2810 480 Output Total 3200 2000 Balance -1870 810 480 Lab Results Last 24 Hours: Laboratory Results - last 24 hr 02/16/21 02/16/21 02/16/21 Range/Units 11:21 17:07 21:13 PT (9.9-12.5) SEC INR (2.0-3.5) POC Glucose 143 H 105 H 129 H (70-99) mg/dL 02/17/21 02/17/21 Range/Units 08:07 08:40 PT 10.4 (9.9-12.5) SEC INR 0.9 L (2.0-3.5) POC Glucose 149 H (70-99) mg/dL Sha Results Last 24 Hours: Microbiology 02/16/21 05:30 MRSA Surveillance Culture - Final Nares, Unspecified NO MRSA ISOLATED Med Orders - Current: Current Medications Acetaminophen (Acetaminophen 325 Mg Tab) 650 mg PO Q6H PRN PRN Reason: Pain Albuterol (Albuterol 0.083% 2.5 Mg/3 Ml Neb Soln) 2.5 mg NEB Q4H PRN PRN Reason: Shortness of Breath Atorvastatin Calcium (Atorvastatin 10 Mg Tab) 20 mg PO DAILY [facility] Last Admin: 02/17/21 08:08 Dose: 20 mg Documented by: Betamethasone/Clotrimazole (Betamethasone Dipropionate/Clotrimazole 0.05-1% Crm 15 Gm Tube) 0 gm TOP BID [facility] Last Admin: 02/17/21 08:10 Dose: 1 applic Documented by: Cholecalciferol (Cholecalciferol (Vitamin D3) 25 Mcg Tab) 100 mcg PO DAILY [facility] Last Admin: 02/17/21 08:08 Dose: 100 mcg Documented by: Enoxaparin Sodium (Enoxaparin 100 Mg/1 Ml Syringe) 100 mg SUBCUT Q12H [facility] Last Admin: 02/17/21 08:09 Dose: 100 mg Documented by: Hydrochlorothiazide (Hydrochlorothiazide 25 Mg Tab) 37.5 mg PO DAILY [facility] Insulin Glargine (Insulin Glarg,Human.Rec.Analog 100 Unit/Ml) 45 unit SUBCUT BEDTIME [facility] Last Admin: 02/16/21 21:17 Dose: 45 units Documented by: Insulin Human Lispro (Insulin Lispro 100 Units/Ml 3 Ml Vial) 7 unit SUBCUT TIDMEALS [facility] Last Admin: 02/16/21 18:06 Dose: Not Given Documented by: Lisinopril (Lisinopril 20 Mg Tab) 20 mg PO DAILY [facility] Melatonin (Melatonin 3 Mg Tab) 3 mg PO BEDTIME [facility] Last Admin: 02/16/21 21:16 Dose: 3 mg Documented by: Metformin HCl (Metformin 500 Mg Tab) 1,000 mg PO BIDMEALS [facility] Last Admin: 02/17/21 08:08 Dose: 1,000 mg Documented by: Urea 20% Cream (Own (Supply)) 1 dose TOP DAILY [facility] Last Admin: 02/17/21 08:09 Dose: Not Given Documented by: Ondansetron HCl (Ondansetron 4 Mg Tab.Dis) 4 mg PO Q6H PRN PRN Reason: Nausea Pharmacy Consult (Dose & Monitor Warfarin For Pe) 1 each .XX ASDIRECTED [facility] Risperidone (Risperidone 1 Mg Tab) 3 mg PO BID [facility] Last Admin: 02/17/21 08:08 Dose: 3 mg Documented by: Senna/Docusate Sodium (Docusate Sodium/Sennosides 50-8.6 Mg Tab) 1 tab PO DAILY [facility] Last Admin: 02/17/21 08:08 Dose: 1 tab Documented by: Sertraline HCl (Sertraline 50 Mg Tab) 50 mg PO DAILY [facility] Last Admin: 02/17/21 08:08 Dose: 50 mg Documented by: Tamsulosin HCl (Tamsulosin 0.4 Mg Cap.Er) 0.4 mg PO DAILY [facility] Last Admin: 02/17/21 08:08 Dose: 0.4 mg Documented by: Trazodone HCl (Trazodone 50 Mg Tab) 25 mg PO BEDTIME [facility] Last Admin: 02/16/21 21:16 Dose: 25 mg Documented by: Warfarin Sodium (Warfarin 5 Mg Tab) 5 mg PO DAILY@1200 [facility] Last Admin: 02/16/21 12:39 Dose: 5 mg Documented by: Discontinued Medications Enoxaparin Sodium (Enoxaparin 100 Mg/1 Ml Syringe) 100 mg SUBCUT ONETIME ONE Stop: 02/15/21 19:32 Last Admin: 02/15/21 19:42 Dose: 100 mg Documented by: Hydrochlorothiazide (Hydrochlorothiazide 25 Mg Tab) 37.5 mg PO DAILY [facility] Last Admin: 02/16/21 09:25 Dose: Not Given Documented by: Sodium Chloride (Normal Saline) 1,000 mls @ 100 mls/hr IV ASDIRECTED [facility] Last Admin: 02/17/21 06:52 Dose: 100 mls/hr Documented by: Insulin Human Lispro (Insulin Lispro 100 Units/Ml 3 Ml Vial) 7 unit SUBCUT TIDAC [facility] Last Admin: 02/16/21 11:25 Dose: Not Given Documented by: Lisinopril (Lisinopril 20 Mg Tab) 20 mg PO DAILY [facility] Last Admin: 02/16/21 09:26 Dose: Not Given Documented by: - Exam Quality Assessment: Supplemental Oxygen (1L) General: Alert, Oriented HEENT: Mucous Membr. Moist/[place] Neck: Supple Lungs: Normal Respiratory Effort, Rhonchi (Left lower lobe) Cardiovascular: Regular Rate, Regular Rhythm, Murmurs (3/6 systolic, heart best over the left upper sternal border today. less in the mitral area) GI/Abdominal Exam: Normal Bowel Sounds, Soft Back Exam: Normal Inspection Extremities: Non-Tender, Pedal Edema (1+ to the mid-[place]) Skin: Warm Psy/Mental Status: Alert, Normal Affect, Normal Mood - Patient Data Lab Results Last 24 hrs: Laboratory Results - last 24 hr 02/16/21 02/16/21 02/16/21 Range/Units 11:21 17:07 21:13 PT (9.9-12.5) SEC INR (2.0-3.5) POC Glucose 143 H 105 H 129 H (70-99) mg/dL 02/17/21 02/17/21 Range/Units 08:07 08:40 PT 10.4 (9.9-12.5) SEC INR 0.9 L (2.0-3.5) POC Glucose 149 H (70-99) mg/dL Result Diagrams: 02/16/21 07:17 02/16/21 07:17 Sha Results Last 24 hrs: Microbiology 02/16/21 05:30 MRSA Surveillance Culture - Final Nares, Unspecified NO MRSA ISOLATED Sepsis Event Note - Evaluation Sepsis Screening Result: No Definite Risk - Focused Exam Vital Signs: Vital Signs Temp Pulse Resp BP BP Pulse Ox 02/17/21 06:00 97.6 F 92 15 161/97 H 94 L 02/17/21 02:00 97.3 F 88 17 142/88 H 95 - Problem List & Annotations (1) Hypoxia SNOMED Code(s): 371071507 Code(s): R09.02 - HYPOXEMIA Status: Acute Current Visit: Yes (2) Pulmonary embolism SNOMED Code(s): 66884114 Code(s): I26.99 - OTHER PULMONARY EMBOLISM WITHOUT ACUTE COR PULMONALE Status: Acute Current Visit: Yes (3) Renal mass, right SNOMED Code(s): 079778887 Code(s): N28.89 - OTHER SPECIFIED DISORDERS OF KIDNEY AND URETER Status: Acute Current Visit: Yes - Problem List Review Problem List Initiated/Reviewed/Updated: Yes - My Orders Last 24 Hours: My Active Orders 02/16/21 11:30 Pharmacy Consult [Consult to Pharmacy] 1 each .XX ASDIRECTED 02/16/21 12:00 Warfarin [Coumadin] 5 mg PO DAILY@1200 02/16/21 16:52 Renew/Continue Urinary Catheter [OM.PC] Routine 02/17/21 10:27 Renew/Continue Urinary Catheter [OM.PC] Routine - Assessment Assessment:: Subsegmental pulmonary embolism, provoked Acute hypoxic respiratory failure S/P renal biopsy and cryo on 02/15/21 -CT demonstrating Subsegmental PE of the left upper lobe -O2 down to 1L Plan: -Continue Lovenox/Coumadin bridge. Pharmacy to help monitor (thank you) -Daily monitoring of Hgb -O2 as needed to maintain sats >90% -If worsening status/signs of bleeding we will discuss transfer to [facility] prn for nausea Hypovolemia/dehydration -BP elevated this am -Patient eating/drinking well Plan: -D/C IVF -Restarting home BP meds Chronic: -Schizophrenia - continue home Risperdal, Zoloft -HTN - restart home HCTZ and lisinopril -Type 2 diabetes - continue home Lantus 45 units at bedtime, NovoLog 7 units 3 times a day with meals, metformin 1000 mg twice a day -Insomnia - continue home trazodone, melatonin -BPH - continue home Flomax -Hyperlipidemia - continue home Lipitor Diet: Diabetic, as tolerated DVT: Patient is on Lovenox as well as Coumadin bridge at this point Code: Full Disposition: Anticipate that patient will need 3-4 midnight at a minimum for monitoring of his status as well as bridging of the Lovenox/Coumadin. We will monitor his labs as well as his vital signs closely.
[2021-02-17] MEDS: Lisinopril 20 MG Tab PO SCH (11:06)
[2021-02-17] MEDS: Warfarin 5 MG Tab PO SCH (11:06)
[2021-02-17] MEDS: Hydrochlorothiazide 25 MG Tab PO SCH (11:16)
[2021-02-17] MEDS: Melatonin 3 MG Tab PO SCH (20:19)
[2021-02-17] MEDS: traZODone 50 MG Tab PO SCH (20:20)
[2021-02-17] MEDS: Insulin Glarg,Human.Rec.Analog 100 Unit/ML SUBCUT SCH (20:22)
[2021-02-18] MEDS: risperiDONE 1 MG Tab PO SCH ×2 (07:56→21:14)
[2021-02-18] MEDS: Sertraline 50 MG Tab PO SCH (07:57)
[2021-02-18] MEDS: Cholecalciferol (Vitamin D3) 25 MCG Tab PO SCH (07:57)
[2021-02-18] MEDS: Hydrochlorothiazide 25 MG Tab PO SCH (07:57)
[2021-02-18] MEDS: metFORMIN 500 MG Tab PO SCH ×2 (07:57→17:34)
[2021-02-18] MEDS: Tamsulosin 0.4 MG Cap.ER PO SCH (07:57)
[2021-02-18] MEDS: atorvaSTATin 10 MG Tab PO SCH (07:57)
[2021-02-18] MEDS: Enoxaparin 100 MG/1 ML Syringe SUBCUT SCH ×2 (07:58→21:15)
[2021-02-18] MEDS: Lisinopril 20 MG Tab PO SCH (07:58)
[2021-02-18] MEDS: Betamethasone Dipropionate/Clotrimazole 0.05-1% Crm 15 GM Tube TOP SCH ×2 (07:58→21:17)
--- NOTE | 2021-02-18 11:18 | PCM.PN ---
- General Info Date of Service: 02/18/21 Admission Dx/Problem (Free Text): Pulmonary Embolism Subjective Update: Yuriy Munoz is a 70-year-old male with a past medical history of schizophrenia, failure to thrive, type 2 diabetes with long-term use of insulin, hypertension, obesity who was admitted on 02/15/2021 for acute hypoxic respiratory failure. Earlier in the day he had undergone renal biopsy and cryotherapy for a right renal mass. He was discharged home from in stable condition however upon arrival to the long term he was noted to be hypoxic with saturations in the 70s and hypovolemic. He was transferred to the ER for further evaluation. Upon arrival pulses at 101, blood pressure is 105/58. Saturations were in the low to mid 90s on 2 L of oxygen. Hemoglobin was down slightly from discharge earlier in the day (10.1 from 11.1). BNP was up at 237, CRP at 2.0. D-dimer was positive at 10.78. Chest x-ray demonstrated central pulmonary vascular congestion. CTA of the chest that demonstrated acute pulmonary embolism of the segmental and subsegmental branches of the left upper lobe suggested of an acute pulmonary embolism. ER provider did speak with interventional radiologist as well as the hospitalist on-call at [place] about the plan of care given his recent biopsy and ablation. They felt that a couple to anticoagulate him and did not feel like he was in need of thrombectomy. He is admitted and initiated on Lovenox 1 mg/kg twice a day as well as Coumadin. This morning Yuriy is alert and more talkative and starting to perseverate on his typical topics. He was weaned off oxygen yesterday afternoon and has been steady in the mid-90s on RA since. He denies any pain or SOB. - Review of Systems General: Reports: No Symptoms HEENT: Reports: No Symptoms Pulmonary: Reports: No Symptoms Cardiovascular: Reports: No Symptoms Gastrointestinal: Reports: No Symptoms Genitourinary: Reports: No Symptoms Musculoskeletal: Reports: No Symptoms Skin: Reports: No Symptoms Neurological: Reports: No Symptoms Psychiatric: Reports: No Symptoms - Patient Data Vitals - Most Recent: Last Vital Signs Temp 97.8 F 02/18/21 10:00 Pulse 102 H 02/18/21 10:00 Resp 16 02/18/21 10:00 BP 115/73 02/18/21 10:00 Pulse Ox 92 L 02/18/21 10:00 Weight - Most Recent: 245 lb I&O - Last 24 Hours: Intake & Output 02/17/21 02/18/21 02/18/21 22:59 06:59 14:59 Intake Total 760 800 420 Output Total 3400 2400 Balance -2640 -1600 420 Lab Results Last 24 Hours: Laboratory Results - last 24 hr 02/17/21 02/17/21 02/17/21 Range/Units 08:40 11:21 18:46 WBC 7.6 (4.0-10.0) x10^3/uL RBC 3.30 L (4.5-6.0) x10^6/uL Hgb 9.7 L (14.0-18.0) g/dL Hct 30.1 L (40.0-52.0) % MCV 91.2 (78.0-93.0) fL MCH 29.4 (26.0-32.0) pg MCHC 32.2 (32.0-36.0) g/dL RDW Coeff of Dian 14.8 (10.0-15.0) % Plt Count 261 (130-400) x10^3/uL PT (9.9-12.5) SEC INR (2.0-3.5) POC Glucose 188 H 158 H (70-99) mg/dL 02/18/21 02/18/21 02/18/21 Range/Units 07:56 09:32 09:32 WBC 8.9 (4.0-10.0) x10^3/uL RBC 3.36 L (4.5-6.0) x10^6/uL Hgb 9.8 L (14.0-18.0) g/dL Hct 30.2 L (40.0-52.0) % MCV 89.9 (78.0-93.0) fL MCH 29.2 (26.0-32.0) pg MCHC 32.5 (32.0-36.0) g/dL RDW Coeff of Dian 14.6 (10.0-15.0) % Plt Count 251 (130-400) x10^3/uL PT 13.3 H (9.9-12.5) SEC INR 1.2 L (2.0-3.5) POC Glucose 108 H (70-99) mg/dL Sha Results Last 24 Hours: Microbiology 02/16/21 05:30 MRSA Surveillance Culture - Final Nares, Unspecified NO MRSA ISOLATED Med Orders - Current: Current Medications Acetaminophen (Acetaminophen 325 Mg Tab) 650 mg PO Q6H PRN PRN Reason: Pain Albuterol (Albuterol 0.083% 2.5 Mg/3 Ml Neb Soln) 2.5 mg NEB Q4H PRN PRN Reason: Shortness of Breath Atorvastatin Calcium (Atorvastatin 10 Mg Tab) 20 mg PO DAILY [facility] Last Admin: 02/18/21 07:57 Dose: 20 mg Documented by: Betamethasone/Clotrimazole (Betamethasone Dipropionate/Clotrimazole 0.05-1% Crm 15 Gm Tube) 0 gm TOP BID [facility] Last Admin: 02/18/21 07:58 Dose: 1 applic Documented by: Cholecalciferol (Cholecalciferol (Vitamin D3) 25 Mcg Tab) 100 mcg PO DAILY [facility] Last Admin: 02/18/21 07:57 Dose: 100 mcg Documented by: Enoxaparin Sodium (Enoxaparin 100 Mg/1 Ml Syringe) 100 mg SUBCUT Q12H [facility] Last Admin: 02/18/21 07:58 Dose: 100 mg Documented by: Hydrochlorothiazide (Hydrochlorothiazide 25 Mg Tab) 37.5 mg PO DAILY [facility] Last Admin: 02/18/21 07:57 Dose: 37.5 mg Documented by: Insulin Glargine (Insulin Glarg,Human.Rec.Analog 100 Unit/Ml) 45 unit SUBCUT BEDTIME [facility] Last Admin: 02/17/21 20:22 Dose: 45 units Documented by: Insulin Human Lispro (Insulin Lispro 100 Units/Ml 3 Ml Vial) 7 unit SUBCUT TIDMEALS [facility] Last Admin: 02/16/21 18:06 Dose: Not Given Documented by: Lisinopril (Lisinopril 20 Mg Tab) 20 mg PO DAILY [facility] Last Admin: 02/18/21 07:58 Dose: 20 mg Documented by: Melatonin (Melatonin 3 Mg Tab) 3 mg PO BEDTIME [facility] Last Admin: 02/17/21 20:19 Dose: 3 mg Documented by: Metformin HCl (Metformin 500 Mg Tab) 1,000 mg PO BIDMEALS [facility] Last Admin: 02/18/21 07:57 Dose: 1,000 mg Documented by: Urea 20% Cream (Own (Supply)) 1 dose TOP DAILY [facility] Last Admin: 02/17/21 08:09 Dose: Not Given Documented by: Ondansetron HCl (Ondansetron 4 Mg Tab.Dis) 4 mg PO Q6H PRN PRN Reason: Nausea Pharmacy Consult (Dose & Monitor Warfarin For Pe) 1 each .XX ASDIRECTED [facility] Risperidone (Risperidone 1 Mg Tab) 3 mg PO BID [facility] Last Admin: 02/18/21 07:56 Dose: 3 mg Documented by: Senna/Docusate Sodium (Docusate Sodium/Sennosides 50-8.6 Mg Tab) 1 tab PO DAILY [facility] Last Admin: 02/18/21 07:57 Dose: 1 tab Documented by: Sertraline HCl (Sertraline 50 Mg Tab) 50 mg PO DAILY [facility] Last Admin: 02/18/21 07:57 Dose: 50 mg Documented by: Tamsulosin HCl (Tamsulosin 0.4 Mg Cap.Er) 0.4 mg PO DAILY [facility] Last Admin: 02/18/21 07:57 Dose: 0.4 mg Documented by: Trazodone HCl (Trazodone 50 Mg Tab) 25 mg PO BEDTIME [facility] Last Admin: 02/17/21 20:20 Dose: 25 mg Documented by: Warfarin Sodium (Warfarin 5 Mg Tab) 5 mg PO DAILY@1200 [facility] Last Admin: 02/17/21 11:06 Dose: 5 mg Documented by: Discontinued Medications Enoxaparin Sodium (Enoxaparin 100 Mg/1 Ml Syringe) 100 mg SUBCUT ONETIME ONE Stop: 02/15/21 19:32 Last Admin: 02/15/21 19:42 Dose: 100 mg Documented by: Hydrochlorothiazide (Hydrochlorothiazide 25 Mg Tab) 37.5 mg PO DAILY [facility] Last Admin: 02/16/21 09:25 Dose: Not Given Documented by: Sodium Chloride (Normal Saline) 1,000 mls @ 100 mls/hr IV ASDIRECTED [facility] Last Admin: 02/17/21 06:52 Dose: 100 mls/hr Documented by: Insulin Human Lispro (Insulin Lispro 100 Units/Ml 3 Ml Vial) 7 unit SUBCUT TIDAC [facility] Last Admin: 02/16/21 11:25 Dose: Not Given Documented by: Lisinopril (Lisinopril 20 Mg Tab) 20 mg PO DAILY [facility] Last Admin: 02/16/21 09:26 Dose: Not Given Documented by: - Exam General: Alert, Oriented HEENT: EOMI, Mucous Membr. Moist/[place] Neck: Supple Lungs: Normal Respiratory Effort, Crackles (bilateral bases) Cardiovascular: Regular Rate, Regular Rhythm GI/Abdominal Exam: Normal Bowel Sounds, Soft, Non-Tender Extremities: Non-Tender, No Pedal Edema, Pedal Edema (trace) Skin: Warm, Dry Neurological: No New Focal Deficit Psy/Mental Status: Alert, Normal Affect, Normal Mood - Patient Data Lab Results Last 24 hrs: Laboratory Results - last 24 hr 02/17/21 02/17/21 02/17/21 Range/Units 08:40 11:21 18:46 WBC 7.6 (4.0-10.0) x10^3/uL RBC 3.30 L (4.5-6.0) x10^6/uL Hgb 9.7 L (14.0-18.0) g/dL Hct 30.1 L (40.0-52.0) % MCV 91.2 (78.0-93.0) fL MCH 29.4 (26.0-32.0) pg MCHC 32.2 (32.0-36.0) g/dL RDW Coeff of Dian 14.8 (10.0-15.0) % Plt Count 261 (130-400) x10^3/uL PT (9.9-12.5) SEC INR (2.0-3.5) POC Glucose 188 H 158 H (70-99) mg/dL 02/18/21 02/18/21 02/18/21 Range/Units 07:56 09:32 09:32 WBC 8.9 (4.0-10.0) x10^3/uL RBC 3.36 L (4.5-6.0) x10^6/uL Hgb 9.8 L (14.0-18.0) g/dL Hct 30.2 L (40.0-52.0) % MCV 89.9 (78.0-93.0) fL MCH 29.2 (26.0-32.0) pg MCHC 32.5 (32.0-36.0) g/dL RDW Coeff of Dian 14.6 (10.0-15.0) % Plt Count 251 (130-400) x10^3/uL PT 13.3 H (9.9-12.5) SEC INR 1.2 L (2.0-3.5) POC Glucose 108 H (70-99) mg/dL Result Diagrams: 02/18/21 09:32 02/16/21 07:17 Sha Results Last 24 hrs: Microbiology 02/16/21 05:30 MRSA Surveillance Culture - Final Nares, Unspecified NO MRSA ISOLATED Sepsis Event Note - Evaluation Sepsis Screening Result: No Definite Risk - Focused Exam Vital Signs: Vital Signs Temp Pulse Resp BP BP Pulse Ox 02/18/21 10:00 97.8 F 102 H 16 115/73 92 L 02/18/21 07:58 132/76 02/18/21 06:00 98.4 F 95 16 132/76 95 02/18/21 02:00 97.6 F 92 16 111/63 94 L - Problem List & Annotations (1) Hypoxia SNOMED Code(s): 027540512 Code(s): R09.02 - HYPOXEMIA Status: Acute Current Visit: Yes (2) Pulmonary embolism SNOMED Code(s): 21516340 Code(s): I26.99 - OTHER PULMONARY EMBOLISM WITHOUT ACUTE COR PULMONALE Status: Acute Current Visit: Yes (3) Renal mass, right SNOMED Code(s): 908919570 Code(s): N28.89 - OTHER SPECIFIED DISORDERS OF KIDNEY AND URETER Status: Acute Current Visit: Yes - Problem List Review Problem List Initiated/Reviewed/Updated: Yes - My Orders Last 24 Hours: My Active Orders 02/17/21 10:27 Renew/Continue Urinary Catheter [OM.PC] Routine 02/18/21 10:15 Renew/Continue Urinary Catheter [OM.PC] Routine 02/19/21 13:59 CBC W/O DIFF,HEMOGRAM [HEME] DAILY 02/20/21 13:59 CBC W/O DIFF,HEMOGRAM [HEME] DAILY 02/21/21 13:59 CBC W/O DIFF,HEMOGRAM [HEME] DAILY 02/22/21 13:59 CBC W/O DIFF,HEMOGRAM [HEME] DAILY 02/23/21 13:59 CBC W/O DIFF,HEMOGRAM [HEME] DAILY 02/24/21 13:59 CBC W/O DIFF,HEMOGRAM [HEME] DAILY 02/25/21 13:59 CBC W/O DIFF,HEMOGRAM [HEME] DAILY 02/26/21 13:59 CBC W/O DIFF,HEMOGRAM [HEME] DAILY 02/27/21 13:59 CBC W/O DIFF,HEMOGRAM [HEME] DAILY 02/28/21 13:59 CBC W/O DIFF,HEMOGRAM [HEME] DAILY 03/01/21 13:59 CBC W/O DIFF,HEMOGRAM [HEME] DAILY 03/02/21 13:59 CBC W/O DIFF,HEMOGRAM [HEME] DAILY 03/03/21 13:59 CBC W/O DIFF,HEMOGRAM [HEME] DAILY 03/04/21 13:59 CBC W/O DIFF,HEMOGRAM [HEME] DAILY 03/05/21 13:59 CBC W/O DIFF,HEMOGRAM [HEME] DAILY 03/06/21 13:59 CBC W/O DIFF,HEMOGRAM [HEME] DAILY - Assessment Assessment:: Subsegmental pulmonary embolism, provoked Acute hypoxic respiratory failure, resolved S/P renal biopsy and cryo on 02/15/21 -CT demonstrating Subsegmental PE of the left upper lobe -Patient now sating fine on RA -Hgb stable Plan: -Continue Lovenox/Coumadin bridge. Pharmacy to help monitor (thank you) -hgb e/o day at this time -INR daily -Zofran prn for nausea Hypovolemia/dehydration, resolved Chronic: -Schizophrenia - continue home Risperdal, Zoloft -HTN - continuehome HCTZ and lisinopril -Type 2 diabetes - continue home Lantus 45 units at bedtime, NovoLog 7 units 3 times a day with meals, metformin 1000 mg twice a day -Insomnia - continue home trazodone, melatonin -BPH - continue home Flomax -Hyperlipidemia - continue home Lipitor Diet: Diabetic, as tolerated DVT: Patient is on Lovenox as well as Coumadin bridge at this point Code: Full Disposition: Anticipate that patient will need 1-3 more nights monitoring of his status as well as bridging of the Lovenox/Coumadin. We will monitor his labs as well as his vital signs closely.
[2021-02-18] MEDS: Warfarin 5 MG Tab PO SCH (11:29)
[2021-02-18] MEDS: Insulin Lispro 100 Units/ML 3 ML Vial SUBCUT SCH (17:34)
[2021-02-18] MEDS: traZODone 50 MG Tab PO SCH (21:14)
[2021-02-18] MEDS: Melatonin 3 MG Tab PO SCH (21:15)
[2021-02-18] MEDS: Insulin Glarg,Human.Rec.Analog 100 Unit/ML SUBCUT SCH (21:17)
[2021-02-19] MEDS: Enoxaparin 100 MG/1 ML Syringe SUBCUT SCH (09:00)
[2021-02-19] MEDS: Insulin Lispro 100 Units/ML 3 ML Vial SUBCUT SCH ×2 (09:01→12:45)
[2021-02-19] MEDS: Cholecalciferol (Vitamin D3) 25 MCG Tab PO SCH (09:04)
[2021-02-19] MEDS: Hydrochlorothiazide 25 MG Tab PO SCH (09:05)
[2021-02-19] MEDS: metFORMIN 500 MG Tab PO SCH (09:05)
[2021-02-19] MEDS: atorvaSTATin 10 MG Tab PO SCH (09:05)
[2021-02-19] MEDS: Sertraline 50 MG Tab PO SCH (09:07)
[2021-02-19] MEDS: Lisinopril 20 MG Tab PO SCH (09:07)
[2021-02-19] MEDS: risperiDONE 1 MG Tab PO SCH (09:07)
[2021-02-19] MEDS: Tamsulosin 0.4 MG Cap.ER PO SCH (09:08)
[2021-02-19] MEDS: Betamethasone Dipropionate/Clotrimazole 0.05-1% Crm 15 GM Tube TOP SCH (09:08)
--- NOTE | 2021-02-19 09:37 | PCM.DCSUM1 ---
Discharge Summary - Hospital Course Free Text/Narrative:: Yuriy Munoz is a 70-year-old male with a past medical history of schizophrenia, failure to thrive, type 2 diabetes with long-term use of insulin, hypertension, obesity who was admitted on 02/15/2021 for acute hypoxic respiratory failure. Earlier in the day he had undergone renal biopsy and cryotherapy for a right renal mass. He was discharged home from [facility] in [place] in stable condition however upon [facility] he was noted to be hypoxic with saturations in the 70s and hypovolemic. He was transferred to the ER for further evaluation. Upon arrival pulse was 101, blood pressure 105/58. Saturations were in the low to mid 90s on 2 L of oxygen. Hemoglobin was down slightly from discharge earlier in the day (10.1 from 11.1). BNP was up at 237, CRP at 2.0. D-dimer was positive at 10.78. Chest x-ray demonstrated central pulmonary vascular congestion. CTA of the chest demonstrated acute pulmonary embolism of the segmental and subsegmental branches of the left upper lobe suggested of an acute pulmonary embolism. ER provider did speak with interventional radiologist as well as the hospitalist on-call at [facility] about the plan of care given his recent biopsy and ablation. They felt that it would be safe to anticoagulate him and did not feel like he was in need of thrombectomy/transfer. He is admitted and initiated on Lovenox 1 mg/kg twice a day as well as Coumadin. He has done well throughout his hospital stay. He has been weaned off of oxygen onto room air and is satting in the mid 90s. If no complaints of shortness of breath, palpitations, abdominal pain, urinary problems, leg pains. He is hopeful to be discharged to a different hospital at this time; these perseverations are pretty typical for him when he is at baseline with a schizophrenia. I feel like he is ready for discharge back to [facility]. This morning his INR is only 1.5. We will plan to discharge him on a continued Lovenox/warfarin bridge. We will send him on warfarin 5 mg daily. He will continued Lovenox 80 mg subcu twice a day. We'll plan to do daily INR checks. Once we have two INRs that are within therapeutic range (2-3) we will discontinue the Lovenox. I anticipate another 2-4 days for bridging as his INR has been very slow to build while he has been in the hospital. I did place orders for all the medications through [facility]. I also put in a referral to the anticoagulation clinic through [facility]. Being that this was a provoked pulmonary embolism we will plan for 3 months of therapy. I did relay our plan of care with the charge nurse on his floor. We will have him continue the incentive spirometry QID for now as well to aid in pulmonary protection. - Discharge Data Discharge Date: 02/19/21 Discharge Disposition: DC/Tfer to [facility] Condition: Good - Referral to Home Health Primary Care Physician: Maggie Ross MD - Discharge Diagnosis/Problem(s) (1) Hypoxia SNOMED Code(s): 182091852 ICD Code: R09.02 - HYPOXEMIA Status: Acute Current Visit: Yes (2) Pulmonary embolism SNOMED Code(s): 72266686 ICD Code: I26.99 - OTHER PULMONARY EMBOLISM WITHOUT ACUTE COR PULMONALE Status: Acute Current Visit: Yes (3) Renal mass, right SNOMED Code(s): 832757575 ICD Code: N28.89 - OTHER SPECIFIED DISORDERS OF KIDNEY AND URETER Status: Acute Current Visit: Yes - Patient Instructions Other/Special Instructions: Warfarin 5mg daily. Lovenox bridge: 80mg SubQ BID. Daily INR, fax to [facility] daily. Will D/C Lovenox once we have 2 therapeutic I NRs. [facility] INR clinic referral placed. In[facility]rive Spirometry 4 times a day for the next week - Discharge Plan *PRESCRIPTION DRUG MONITORING PROGRAM REVIEWED*: No *COPY OF PRESCRIPTION DRUG MONITORING REPORT IN PATIENT PAVEL: No Home Medications: Home Meds Cholecalciferol (Vitamin D3) [Vitamin D3] 4,000 intnl unit PO DAILY 12/21/20 [History] Insulin Aspart 7 unit SQ TIDAC 12/21/20 [History] Insulin Glarg,Human.Rec.Analog [Lantus Solostar] 45 units SQ BEDTIME 12/21/20 [History] Melatonin 3 mg PO DAILY 12/21/20 [History] Sennosides/Docusate Sodium [Senna Plus 8.6-50 mg Tablet] 1 each PO DAILY 12/21/20 [History] atorvaSTATin Calcium [Atorvastatin Calcium] 20 mg PO DAILY 12/21/20 [History] hydroCHLOROthiazide [Hydrochlorothiazide] 37.5 mg PO DAILY 12/21/20 [History] lisinopriL [Lisinopril] 20 mg PO DAILY 12/21/20 [History] metFORMIN HCl [Metformin HCl] 1,000 mg PO BID 12/21/20 [History] Tamsulosin HCl [Flomax] 0.4 mg PO DAILY 01/27/21 [History] Urea [Urea 20% Crm] 1 dose TOP DAILY 01/27/21 [History] Betamethasone/Clotrimazole [Lotrisone] 1 drop TOP BID #1 tube 02/01/21 [Rx] Sertraline [Zoloft] 50 mg PO DAILY 02/15/21 [History] ondansetron HCL [Zofran] 4 mg PO Q6H PRN 02/15/21 [History] risperiDONE [RisperiDAL] 3 mg PO BID 02/15/21 [History] Enoxaparin [Lovenox] 80 mg SUBCUT Q12H syringe 02/19/21 [Rx] Warfarin [Coumadin] 5 mg PO DAILY@1200 tablet 02/19/21 [Rx] Oxygen Therapy Mode: Room Air Forms: ED Department Discharge Referrals: PCP,Unknown [Ordering Only Provider] - - Discharge Summary/Plan Comment DC Time >30 min.: No - Patient Data Vitals - Most Recent: Last Vital Signs Temp 97.3 F 02/19/21 06:00 Pulse 57 L 02/19/21 06:00 Resp 18 02/19/21 06:00 BP 133/84 02/19/21 09:07 Pulse Ox 93 L 02/19/21 06:00 Weight - Most Recent: 245 lb I&O - Last 24 hours: Intake & Output 02/18/21 02/19/21 02/19/21 22:59 06:59 14:59 Intake Total 240 600 240 Output Total 2550 1000 Balance -2310 -400 240 Lab Results - Last 24 hrs: Laboratory Results - last 24 hr 02/18/21 02/18/21 02/18/21 Range/Units 09:32 09:32 11:31 WBC 8.9 (4.0-10.0) x10^3/uL RBC 3.36 L (4.5-6.0) x10^6/uL Hgb 9.8 L (14.0-18.0) g/dL Hct 30.2 L (40.0-52.0) % MCV 89.9 (78.0-93.0) fL MCH 29.2 (26.0-32.0) pg MCHC 32.5 (32.0-36.0) g/dL RDW Coeff of Dian 14.6 (10.0-15.0) % Plt Count 251 (130-400) x10^3/uL PT 13.3 H (9.9-12.5) SEC INR 1.2 L (2.0-3.5) POC Glucose 196 H (70-99) mg/dL 02/18/21 02/18/21 02/19/21 Range/Units 17:33 21:16 06:30 WBC (4.0-10.0) x10^3/uL RBC (4.5-6.0) x10^6/uL Hgb (14.0-18.0) g/dL Hct (40.0-52.0) % MCV (78.0-93.0) fL MCH (26.0-32.0) pg MCHC (32.0-36.0) g/dL RDW Coeff of Dian (10.0-15.0) % Plt Count (130-400) x10^3/uL PT 16.4 H (9.9-12.5) SEC INR 1.5 L (2.0-3.5) POC Glucose 197 H 201 H (70-99) mg/dL 02/19/21 02/19/21 02/19/21 Range/Units 06:30 07:52 08:59 WBC 9.5 (4.0-10.0) x10^3/uL RBC 3.42 L (4.5-6.0) x10^6/uL Hgb 10.1 L (14.0-18.0) g/dL Hct 30.7 L (40.0-52.0) % MCV 89.8 (78.0-93.0) fL MCH 29.5 (26.0-32.0) pg MCHC 32.9 (32.0-36.0) g/dL RDW Coeff of Dian 14.8 (10.0-15.0) % Plt Count 245 (130-400) x10^3/uL PT (9.9-12.5) SEC INR (2.0-3.5) POC Glucose 152 H 177 H (70-99) mg/dL Med Orders - Current: Current Medications Acetaminophen (Acetaminophen 325 Mg Tab) 650 mg PO Q6H PRN PRN Reason: Pain Albuterol (Albuterol 0.083% 2.5 Mg/3 Ml Neb Soln) 2.5 mg NEB Q4H PRN PRN Reason: Shortness of Breath Atorvastatin Calcium (Atorvastatin 10 Mg Tab) 20 mg PO DAILY [facility] Last Admin: 02/19/21 09:05 Dose: 20 mg Documented by: Betamethasone/Clotrimazole (Betamethasone Dipropionate/Clotrimazole 0.05-1% Crm 15 Gm Tube) 0 gm TOP BID [facility] Last Admin: 02/19/21 09:08 Dose: 1 applic Documented by: Cholecalciferol (Cholecalciferol (Vitamin D3) 25 Mcg Tab) 100 mcg PO DAILY [facility] Last Admin: 02/19/21 09:04 Dose: 100 mcg Documented by: Enoxaparin Sodium (Enoxaparin 100 Mg/1 Ml Syringe) 100 mg SUBCUT Q12H [facility] Last Admin: 02/19/21 09:00 Dose: 100 mg Documented by: Hydrochlorothiazide (Hydrochlorothiazide 25 Mg Tab) 37.5 mg PO DAILY [facility] Last Admin: 02/19/21 09:05 Dose: 37.5 mg Documented by: Insulin Glargine (Insulin Glarg,Human.Rec.Analog 100 Unit/Ml) 45 unit SUBCUT BEDTIME [facility] Last Admin: 02/18/21 21:17 Dose: 45 units Documented by: Insulin Human Lispro (Insulin Lispro 100 Units/Ml 3 Ml Vial) 7 unit SUBCUT TIDMEALS [facility] Last Admin: 02/19/21 09:01 Dose: 7 units Documented by: Lisinopril (Lisinopril 20 Mg Tab) 20 mg PO DAILY [facility] Last Admin: 02/19/21 09:07 Dose: 20 mg Documented by: Melatonin (Melatonin 3 Mg Tab) 3 mg PO BEDTIME [facility] Last Admin: 02/18/21 21:15 Dose: 3 mg Documented by: Metformin HCl (Metformin 500 Mg Tab) 1,000 mg PO BIDMEALS [facility] Last Admin: 02/19/21 09:05 Dose: 1,000 mg Documented by: Urea 20% Cream (Own (Supply)) 1 dose TOP DAILY [facility] Last Admin: 02/17/21 08:09 Dose: Not Given Documented by: Ondansetron HCl (Ondansetron 4 Mg Tab.Dis) 4 mg PO Q6H PRN PRN Reason: Nausea Pharmacy Consult (Dose & Monitor Warfarin For Pe) 1 each .XX ASDIRECTED [facility] Risperidone (Risperidone 1 Mg Tab) 3 mg PO BID [facility] Last Admin: 02/19/21 09:07 Dose: 3 mg Documented by: Senna/Docusate Sodium (Docusate Sodium/Sennosides 50-8.6 Mg Tab) 1 tab PO DAILY [facility] Last Admin: 02/19/21 09:05 Dose: 1 tab Documented by: Sertraline HCl (Sertraline 50 Mg Tab) 50 mg PO DAILY [facility] Last Admin: 02/19/21 09:07 Dose: 50 mg Documented by: Tamsulosin HCl (Tamsulosin 0.4 Mg Cap.Er) 0.4 mg PO DAILY [facility] Last Admin: 02/19/21 09:08 Dose: 0.4 mg Documented by: Trazodone HCl (Trazodone 50 Mg Tab) 25 mg PO BEDTIME [facility] Last Admin: 02/18/21 21:14 Dose: 25 mg Documented by: Warfarin Sodium (Warfarin 5 Mg Tab) 5 mg PO DAILY@1200 [facility] Last Admin: 02/18/21 11:29 Dose: 5 mg Documented by: Discontinued Medications Enoxaparin Sodium (Enoxaparin 100 Mg/1 Ml Syringe) 100 mg SUBCUT ONETIME ONE Stop: 02/15/21 19:32 Last Admin: 02/15/21 19:42 Dose: 100 mg Documented by: Hydrochlorothiazide (Hydrochlorothiazide 25 Mg Tab) 37.5 mg PO DAILY [facility] Last Admin: 02/16/21 09:25 Dose: Not Given Documented by: Sodium Chloride (Normal Saline) 1,000 mls @ 100 mls/hr IV ASDIRECTED [facility] Last Admin: 02/17/21 06:52 Dose: 100 mls/hr Documented by: Insulin Human Lispro (Insulin Lispro 100 Units/Ml 3 Ml Vial) 7 unit SUBCUT TIDAC [facility] Last Admin: 02/16/21 11:25 Dose: Not Given Documented by: Lisinopril (Lisinopril 20 Mg Tab) 20 mg PO DAILY [facility] Last Admin: 02/16/21 09:26 Dose: Not Given Documented by: - Exam General: Reports: Alert, Oriented, Cooperative, No Acute Distress HEENT: Reports: EOMI, Mucous Membr. Moist/[place] Neck: Reports: Supple Lungs: Reports: Normal Respiratory Effort, Crackles (bilateral lower lung bases) Cardiovascular: Reports: Regular Rate, Regular Rhythm GI/Abdominal Exam: Normal Bowel Sounds, Soft, Non-Tender Back Exam: Reports: Normal Inspection Extremities: Non-Tender, Pedal Edema (trace) Skin: Reports: Warm, Dry Wound/Incisions: Reports: Healing Well Neurological: Reports: No New Focal Deficit Psy/Mental Status: Reports: Alert, Normal Affect, Normal Mood
[2021-02-19] MEDS: Warfarin 5 MG Tab PO SCH (12:43)
== END 2021-02-19 13:00 | DRG 175 ==
LOC: VM.ED 16:25 → VM.MS 19:11
PROVIDERS: ADMIT Family Medicine; ATTEND Family Medicine
DX: I26.99 Other pulmonary embolism without acute cor pulmonale (principal); I26.93 Single subsegmental thrombotic pulmonary embolism without acute cor pulmonale; E78.00 Pure hypercholesterolemia, unspecified; J96.01 Acute respiratory failure with hypoxia; N28.89 Other specified disorders of kidney and ureter; F41.9 Anxiety disorder, unspecified; I10 Essential (primary) hypertension; E11.9 Type 2 diabetes mellitus without complications; E78.5 Hyperlipidemia, unspecified; Z79.82 Long term (current) use of aspirin; N40.0 Benign prostatic hyperplasia without lower urinary tract symptoms; Z79.899 Other long term (current) drug therapy; F17.210 Nicotine dependence, cigarettes, uncomplicated; Z20.822 Contact with and (suspected) exposure to COVID-19; K59.09 Other constipation; G47.00 Insomnia, unspecified; R29.6 Repeated falls; I73.9 Peripheral vascular disease, unspecified; E86.0 Dehydration; F20.9 Schizophrenia, unspecified; K80.80 Other cholelithiasis without obstruction; Z79.4 Long term (current) use of insulin; Z87.19 Personal history of other diseases of the digestive system; Z90.49 Acquired absence of other specified parts of digestive tract; Z98.890 Other specified postprocedural states; Z90.89 Acquired absence of other organs
CPT/HCPCS: 36415; 71046; 71275; 80048; 80053; 81001; 82947; 83880; 84484; 85025; 85027; 85379; 85610; 86140; 93005; 99284; 99285-25; A9270-GY; J1650; J1815-GY; J7030; U0002

== ENCOUNTER 2021-03-10 12:09 | Inpatient (IN) | payer MEDICARE ==
[2021-03-10] MEDS ORDERED: Lactated Ringers 1,000 ML IV ONE ×3 (12:26→12:52)
[2021-03-10] MEDS ORDERED: cefTRIAXone 2 GM Vial IVPUSH ONE (12:26)
[2021-03-10 13:08] LABS: CHLORIDE,CL 97 mmol/L (98-107); SODIUM,NA 134 mmol/L (136-145)
[2021-03-10 13:09] LABS: ANION GAP 11.2 mmol/L (5-15)
--- NOTE | 2021-03-10 13:28 | CR ---
[id number] RAD/RAD Chest PA or AP 1V EXAM: RAD Chest PA or AP 1V INDICATION: HYPOTENSION, QUESTION SEPSIS. COMPARISON: None. DISCUSSION: Cardiomediastinal silhouette is stable in size and contour. No infiltrate, effusion, pneumothorax, or edema. Pulmonary hyperinflation. Left basilar linear atelectasis and/or scarring. IMPRESSION: No acute cardiopulmonary abnormality. Henri Do DO 03/10/21 [id number] Thank you for allowing us to participate in the care of your patient.
[2021-03-10 13:30] LABS: PTT,PARTIAL THROMBOPLSTIN TIME 42.8 SEC (25.6-32.8)
--- NOTE | 2021-03-10 13:31 | EDM.PDOC ---
ED HPI GENERAL MEDICAL PROBLEM - General Stated Complaint: weakness Time Seen by Provider: 03/10/21 12:09 - History of Present Illness INITIAL COMMENTS - FREE TEXT/NARRATIVE: Patient comes emergency department today from the special cares unit at the [facility] here in town with concerns of sweating hypotension and tachycardia. Patient has longstanding history of schizophrenia. He had a urinary catheter placed a couple months ago. He has had decreased activity over the past couple of days. He has been very weak. He does not typically get out of bed other than with the assistance of a Nanette lift but they are needing to assist him quite a bit more. He was noted to be hypotensive with a blood pressure in the 60s and a heart rate in the 120s at the [facility] today. He was alert and at his neurological baseline. Ambulance was summoned and brought to the emergency department. Upon arrival the patient is alert and at his neurological baseline. He knows where he is he knows where he lives. There is no confusion. He does not complain of any cough congestion. He does complain of feeling chilled. No fever. No chest pain no shortness of breath or difficulty breathing. He does complain of generalized weakness malaise and fatigue. No arthralgias or myalgias. He denies any abdominal pain nausea or vomiting. He does have a Myers catheter in place. He has been having normal bowel movements. He does not have the energy to eat or drink. Although he is constantly thirsty. He has been Covid vaccinated. - Related Data Allergies Allergy/AdvReac Type Severity Reaction Status Date / Time No Known Allergies Allergy Verified 03/10/21 19:42 Home Meds: Home Meds Cholecalciferol (Vitamin D3) [Vitamin D3] 4,000 intnl unit PO DAILY 12/21/20 [History] Insulin Aspart 7 unit SQ TIDAC 12/21/20 [History] Insulin Glarg,Human.Rec.Analog [Lantus Solostar] 40 units SQ BEDTIME 12/21/20 [History] Melatonin 3 mg PO DAILY 12/21/20 [History] atorvaSTATin Calcium [Atorvastatin Calcium] 20 mg PO DAILY 12/21/20 [History] hydroCHLOROthiazide [Hydrochlorothiazide] 12.5 mg PO DAILY 12/21/20 [History] lisinopriL [Lisinopril] 20 mg PO DAILY 12/21/20 [History] metFORMIN HCl [Metformin HCl] 1,000 mg PO BID 12/21/20 [History] Tamsulosin HCl [Flomax] 0.4 mg PO DAILY 01/27/21 [History] Urea [Urea 20% Crm] 1 dose TOP DAILY 01/27/21 [History] Sertraline [Zoloft] 50 mg PO DAILY 02/15/21 [History] ondansetron HCL [Zofran] 4 mg PO Q6H PRN 02/15/21 [History] risperiDONE [RisperiDAL] 3 mg PO BID 02/15/21 [History] Betamethasone/Clotrimazole [Lotrisone] 1 applic TOP BID 03/10/21 [History] Methylcellulose [Fiber] 500 mg PO DAILY 03/10/21 [History] Nystatin 1 applic PO BID 03/10/21 [History] Warfarin [Coumadin] 5 mg PO ASDIRECTED 03/10/21 [History] Past Medical History Cardiovascular History: Reports: Heart Murmur, High Cholesterol, Hypertension Gastrointestinal History: Reports: Chronic Constipation Genitourinary History: Reports: BPH Psychiatric History: Reports: Anxiety, Schizophrenia Endocrine/Metabolic History: Reports: Diabetes, Type II, Obesity/BMI 30+ Dermatologic History: Reports: Other (See Below) Other Dermatologic History: cyst removal site slow healing - Infectious Disease History Infectious Disease History: Reports: Novel Coronavirus - Past Surgical History Other Cardiovascular Surgeries/Procedures: aortic valve stenosis Social & Family History - Family History Cardiac: Reports: CAD, Hypertension ED ROS GENERAL - Review of Systems Review Of Systems: Comprehensive ROS is negative, except as noted in HPI. ED EXAM, SEPSIS - Physical Exam Exam: See Below Text/Narrative:: This patient upon arrival is alert and appropriate although he does appear toxic appearing. He is pale and diaphoretic with weak peripheral pulses. Exam Limited By: No Limitations General Appearance: Alert Eye Exam: Bilateral Eye: EOMI Ears: Normal External Exam Nose: Normal Inspection Throat/Mouth: No: Normal Inspection (Oral mucosa is quite dry. His lips are dried and cracked) Head: Atraumatic, Normocephalic Neck: Normal Inspection, Supple Respiratory/Chest: No Respiratory Distress, Lungs Clear, Normal Breath Sounds, No Accessory Muscle Use, Chest Non-Tender Cardiovascular: Normal Peripheral Pulses, Regular Rate, Rhythm, Tachycardia Peripheral Pulses: 1+: Radial (L), Radial (R) GI/Abdominal Exam: Normal Bowel Sounds, Soft, Non-Tender, No Distention, No Mass (Male) Exam: Other (Myers catheter in place draining dark yellow semiclear urine) Rectal (Males) Exam: Deferred Back: Normal Inspection, Full Range of Motion Extremities: Normal Inspection (Pale cool clammy diaphoretic extremities no signs of rash lesions sores) Neurological: Alert, Oriented, Normal Cognition (At his baseline) Psychiatric: Flat Affect Skin: Intact, No Rash, Cool, Diaphoretic, Pallor Course - Vital Signs Last Recorded V/S: Last Vital Signs Temp 98.3 F 03/10/21 18:10 Pulse 103 H 03/10/21 18:10 Resp 16 03/10/21 18:10 BP 126/74 03/10/21 18:10 Pulse Ox 100 03/10/21 18:10 - Orders/Labs/Meds Orders: Active Orders 24 hr Category Date Time Status CULTURE BLOOD [BC] Stat Lab 03/10/21 12:21 Received CULTURE BLOOD [BC] Stat Lab 03/10/21 13:04 Received CULTURE URINE [RM] Stat Lab 03/10/21 13:26 Received Sodium Chloride 0.9% [Saline Flush] Med 03/10/21 12:23 Active 10 ml FLUSH ASDIRECTED PRN Blood Culture x2 Reflex Set [OM.PC] Stat Oth 03/10/21 12:23 Ordered Peripheral IV Insertion Adult [OM.PC] Stat Oth 03/10/21 12:23 Ordered Medication Orders Atorvastatin Calcium (Atorvastatin 10 Mg Tab) 20 mg PO DAILY [facility] Betamethasone/Clotrimazole (Betamethasone Dipropionate/Clotrimazole 0.05-1% Crm 15 Gm Tube) 0 gm TOP BID AISHA Last Admin: 03/10/21 21:22 Dose: 1 applic Documented by: SHIVANI Calcium Polycarbophil (Calcium Polycarbophil 625 Mg Tab) 625 mg PO DAILY [facility] Ceftriaxone Sodium (Ceftriaxone 1 Gm Vial) 1 gm IVPUSH DAILY@1200 [facility] Cholecalciferol (Cholecalciferol (Vitamin D3) 25 Mcg Tab) 100 mcg PO DAILY [facility] Insulin Glargine (Insulin Glarg,Human.Rec.Analog 100 Unit/Ml) 40 unit SUBCUT BEDTIME [facility] Last Admin: 03/10/21 21:22 Dose: 40 unit Documented by: SHIVANI Insulin Human Lispro (Insulin Lispro 100 Units/Ml 3 Ml Vial) 7 unit SUBCUT TIDMEALS [facility] Magnesium Oxide (Magnesium Oxide 400 Mg Tab) 400 mg PO BID [facility] Last Admin: 03/10/21 21:22 Dose: 400 mg Documented by: SHIVANI Melatonin (Melatonin 3 Mg Tab) 3 mg PO BEDTIME [facility] Last Admin: 03/10/21 21:22 Dose: 3 mg Documented by: SHIVANI Ondansetron HCl (Ondansetron 4 Mg Tab.Dis) 4 mg PO Q6H PRN PRN Reason: Nausea Risperidone (Risperidone 1 Mg Tab) 3 mg PO BID [facility] Last Admin: 03/10/21 21:21 Dose: 3 mg Documented by: SHIVANI Sertraline HCl (Sertraline 50 Mg Tab) 50 mg PO DAILY [facility] Sodium Chloride (Sodium Chloride 0.9% 10 Ml Syringe) 10 ml FLUSH ASDIRECTED PRN PRN Reason: Keep Vein Open Warfarin Sodium (Warfarin 5 Mg Tab) 5 mg PO DAILY@1999 [facility] Stop: 03/11/21 20:01 Last Admin: 03/10/21 21:21 Dose: 5 mg Documented by: SHIVANI Labs: Laboratory Tests 03/10/21 03/10/21 03/10/21 Range/Units 12:15 12:21 12:21 WBC 11.4 H (4.0-10.0) x10^3/uL RBC 3.89 L (4.5-6.0) x10^6/uL Hgb 11.3 L (14.0-18.0) g/dL Hct 34.8 L (40.0-52.0) % MCV 89.5 (78.0-93.0) fL MCH 29.0 (26.0-32.0) pg MCHC 32.5 (32.0-36.0) g/dL RDW Coeff of Dian 14.9 (10.0-15.0) % Plt Count 361 D (130-400) x10^3/uL Neut % (Auto) 70.2 (50.0-80.0) % Lymph % (Auto) 21.2 L (25.0-50.0) % [place] % (Auto) 6.6 (2.0-11.0) % Eos % (Auto) 1.8 (0.0-4.0) % Baso % (Auto) 0.2 (0.2-1.2) % PT (9.9-12.5) SEC INR (2.0-3.5) APTT (25.6-32.8) SEC Sodium 134 L (136-145) mmol/L Potassium 4.2 (3.5-5.1) mmol/L Chloride 97 L (98-107) mmol/L Carbon Dioxide 30 (21-32) mmol/L Anion Gap 11.2 (5-15) mmol/L BUN 25 H (7-18) mg/dL Creatinine 1.2 (0.70-1.30) mg/dL Est Cr Clr Drug Dosing TNP Estimated GFR (MDRD) > 60 Glucose 195 H (70-99) mg/dL Lactic Acid (0.4-2.0) mmol/L Calcium 8.6 (8.5-10.1) mg/dL Corrected Calcium 9.6 (8.5-10.1) mg/dL Magnesium 1.6 L (1.8-2.4) mg/dL Total Bilirubin 0.4 (0.2-1.0) mg/dL AST 16 (15-37) U/L ALT 13 L (16-63) U/L Alkaline Phosphatase 93 (46-116) U/L Troponin I High Sens 8 (<=76) ng/L C-Reactive Protein 0.9 (<=0.9) mg/dL Total Protein 7.5 (6.4-8.2) g/dL Albumin 2.7 L (3.4-5.0) g/dL Globulin 4.8 Albumin/Globulin Ratio 0.56 Lipase 75 (73-393) U/L Procalcitonin (0.1-0.50) ng/mL Urine Color (YELLOW) Urine Appearance (CLEAR) Urine pH (5.0-8.0) Ur Specific [place] Urine Protein (NEGATIVE) mg/dL Urine Glucose (UA) (NEGATIVE) mg/dL Urine Ketones (NEGATIVE) mg/dL Urine Occult Blood (NEGATIVE) Urine Nitrite (NEGATIVE) Urine Bilirubin (NEGATIVE) Urine Urobilinogen (0.2) EU/dL Ur Leukocyte Esterase (NEGATIVE) U Hyaline Cast (Auto) Urine RBC (NOT SEEN) /HPF Urine WBC (NOT SEEN) /HPF Ur Squamous Epith Cells (NOT SEEN) /HPF Urine Bacteria (NOT SEEN) /HPF Urine Mucus (NOT SEEN) /LPF SARS-CoV-2 RNA (MARCELINA) Negative (NEGATIVE) 03/10/21 03/10/21 03/10/21 Range/Units 12:21 12:21 13:04 WBC (4.0-10.0) x10^3/uL RBC (4.5-6.0) x10^6/uL Hgb (14.0-18.0) g/dL Hct (40.0-52.0) % MCV (78.0-93.0) fL MCH (26.0-32.0) pg MCHC (32.0-36.0) g/dL RDW Coeff of Dian (10.0-15.0) % Plt Count (130-400) x10^3/uL Neut % (Auto) (50.0-80.0) % Lymph % (Auto) (25.0-50.0) % [place] % (Auto) (2.0-11.0) % Eos % (Auto) (0.0-4.0) % Baso % (Auto) (0.2-1.2) % PT 21.3 H (9.9-12.5) SEC INR 1.9 L (2.0-3.5) APTT 42.8 H (25.6-32.8) SEC Sodium (136-145) mmol/L Potassium (3.5-5.1) mmol/L Chloride (98-107) mmol/L Carbon Dioxide (21-32) mmol/L Anion Gap (5-15) mmol/L BUN (7-18) mg/dL Creatinine (0.70-1.30) mg/dL Est Cr Clr Drug Dosing Estimated GFR (MDRD) Glucose (70-99) mg/dL Lactic Acid 4.3 H* (0.4-2.0) mmol/L Calcium (8.5-10.1) mg/dL Corrected Calcium (8.5-10.1) mg/dL Magnesium (1.8-2.4) mg/dL Total Bilirubin (0.2-1.0) mg/dL AST (15-37) U/L ALT (16-63) U/L Alkaline Phosphatase (46-116) U/L Troponin I High Sens (<=76) ng/L C-Reactive Protein (<=0.9) mg/dL Total Protein (6.4-8.2) g/dL Albumin (3.4-5.0) g/dL Globulin Albumin/Globulin Ratio Lipase (73-393) U/L Procalcitonin <0.05 L (0.1-0.50) ng/mL Urine Color (YELLOW) Urine Appearance (CLEAR) Urine pH (5.0-8.0) Ur Specific [place] Urine Protein (NEGATIVE) mg/dL Urine Glucose (UA) (NEGATIVE) mg/dL Urine Ketones (NEGATIVE) mg/dL Urine Occult Blood (NEGATIVE) Urine Nitrite (NEGATIVE) Urine Bilirubin (NEGATIVE) Urine Urobilinogen (0.2) EU/dL Ur Leukocyte Esterase (NEGATIVE) U Hyaline Cast (Auto) Urine RBC (NOT SEEN) /HPF Urine WBC (NOT SEEN) /HPF Ur Squamous Epith Cells (NOT SEEN) /HPF Urine Bacteria (NOT SEEN) /HPF Urine Mucus (NOT SEEN) /LPF SARS-CoV-2 RNA (MARCELINA) (NEGATIVE) 03/10/21 Range/Units 13:26 WBC (4.0-10.0) x10^3/uL RBC (4.5-6.0) x10^6/uL Hgb (14.0-18.0) g/dL Hct (40.0-52.0) % MCV (78.0-93.0) fL MCH (26.0-32.0) pg MCHC (32.0-36.0) g/dL RDW Coeff of Dian (10.0-15.0) % Plt Count (130-400) x10^3/uL Neut % (Auto) (50.0-80.0) % Lymph % (Auto) (25.0-50.0) % [place] % (Auto) (2.0-11.0) % Eos % (Auto) (0.0-4.0) % Baso % (Auto) (0.2-1.2) % PT (9.9-12.5) SEC INR (2.0-3.5) APTT (25.6-32.8) SEC Sodium (136-145) mmol/L Potassium (3.5-5.1) mmol/L Chloride (98-107) mmol/L Carbon Dioxide (21-32) mmol/L Anion Gap (5-15) mmol/L BUN (7-18) mg/dL Creatinine (0.70-1.30) mg/dL Est Cr Clr Drug Dosing Estimated GFR (MDRD) Glucose (70-99) mg/dL Lactic Acid (0.4-2.0) mmol/L Calcium (8.5-10.1) mg/dL Corrected Calcium (8.5-10.1) mg/dL Magnesium (1.8-2.4) mg/dL Total Bilirubin (0.2-1.0) mg/dL AST (15-37) U/L ALT (16-63) U/L Alkaline Phosphatase (46-116) U/L Troponin I High Sens (<=76) ng/L C-Reactive Protein (<=0.9) mg/dL Total Protein (6.4-8.2) g/dL Albumin (3.4-5.0) g/dL Globulin Albumin/Globulin Ratio Lipase (73-393) U/L Procalcitonin (0.1-0.50) ng/mL Urine Color Yellow (YELLOW) Urine Appearance Clear (CLEAR) Urine pH 6.0 (5.0-8.0) Ur Specific [place] 1.020 Urine Protein Negative (NEGATIVE) mg/dL Urine Glucose (UA) Negative (NEGATIVE) mg/dL Urine Ketones Negative (NEGATIVE) mg/dL Urine Occult Blood Moderate H (NEGATIVE) Urine Nitrite Negative (NEGATIVE) Urine Bilirubin Negative (NEGATIVE) Urine Urobilinogen 0.2 (0.2) EU/dL Ur Leukocyte Esterase Small H (NEGATIVE) U Hyaline Cast (Auto) Many Urine RBC 10-20 H (NOT SEEN) /HPF Urine WBC 20-30 H (NOT SEEN) /HPF Ur Squamous Epith Cells Rare (NOT SEEN) /HPF Urine Bacteria Rare (NOT SEEN) /HPF Urine Mucus Rare H (NOT SEEN) /LPF SARS-CoV-2 RNA (MARCELINA) (NEGATIVE) Meds: Medications Generic Name Dose Route Start Last Admin Trade Name Freq PRN Reason Stop Dose Admin Atorvastatin Calcium 20 mg 03/11/21 08:00 Atorvastatin 10 Mg Tab PO DAILY AISHA Betamethasone/Clotrimazole 0 gm 03/10/21 20:00 03/10/21 21:22 Betamethasone Dipropionate/Clotrimazole 0.05-1% Crm 15 Gm Tube TOP 1 applic BID [facility] Administration Calcium Polycarbophil 625 mg 03/11/21 08:00 Calcium Polycarbophil 625 Mg Tab PO DAILY [facility] Ceftriaxone Sodium 1 gm 03/11/21 12:00 Ceftriaxone 1 Gm Vial IVPUSH DAILY@1200 [facility] Cholecalciferol 100 mcg 03/11/21 08:00 Cholecalciferol (Vitamin D3) 25 Mcg Tab PO DAILY [facility] Insulin Glargine 40 unit 03/10/21 20:00 03/10/21 21:22 Insulin Glarg,Human.Rec.Analog 100 Unit/Ml SUBCUT 40 unit BEDTIME [facility] Administration Insulin Human Lispro 7 unit 03/11/21 08:00 Insulin Lispro 100 Units/Ml 3 Ml Vial SUBCUT TIDMEALS [facility] Magnesium Oxide 400 mg 03/10/21 20:00 03/10/21 21:22 Magnesium Oxide 400 Mg Tab PO 400 mg BID [facility] Administration Melatonin 3 mg 03/10/21 20:00 03/10/21 21:22 Melatonin 3 Mg Tab PO 3 mg BEDTIME [facility] Administration Ondansetron HCl 4 mg 03/10/21 18:20 Ondansetron 4 Mg Tab.Dis PO Q6H PRN Nausea Risperidone 3 mg 03/10/21 20:00 03/10/21 21:21 Risperidone 1 Mg Tab PO 3 mg BID [facility] Administration Sertraline HCl 50 mg 03/11/21 08:00 Sertraline 50 Mg Tab PO DAILY [facility] Sodium Chloride 10 ml 03/10/21 12:23 Sodium Chloride 0.9% 10 Ml Syringe FLUSH ASDIRECTED PRN Keep Vein Open Warfarin Sodium 5 mg 03/10/21 21:00 03/10/21 21:21 Warfarin 5 Mg Tab PO 03/11/21 20:01 5 mg DAILY@2000 [facility] Administration Discontinued Medications Generic Name Dose Route Start Last Admin Trade Name Freq PRN Reason Stop Dose Admin Ceftriaxone Sodium 2 gm 03/10/21 12:26 03/10/21 12:35 Ceftriaxone 2 Gm Vial IVPUSH 03/10/21 12:27 2 gm STAT ONE Administration Enoxaparin Sodium 40 mg 03/10/21 18:22 03/10/21 19:04 Enoxaparin 40 Mg/0.4 Ml Syringe SUBCUT 03/10/21 18:23 40 mg ONETIME ONE Administration Lactated Ringer's 1,000 mls @ 999 mls/hr 03/10/21 12:26 03/10/21 12:35 Ringers, Lactated IV 03/10/21 13:26 999 mls/hr ONETIME ONE Administration Lactated Ringer's 1,000 mls @ 999 mls/hr 03/10/21 12:47 03/10/21 13:08 Ringers, Lactated IV 03/10/21 13:47 999 mls/hr ONETIME ONE Administration Lactated Ringer's 1,000 mls @ 999 mls/hr 03/10/21 12:52 03/10/21 13:40 Ringers, Lactated IV 03/10/21 13:52 999 mls/hr ONETIME ONE Administration Lactated Ringer's 1,000 mls @ 150 mls/hr 03/10/21 14:30 03/10/21 14:41 Ringers, Lactated IV 150 mls/hr ASDIRECTED [facility] Administration Insulin Human Lispro 7 unit 03/11/21 07:00 Insulin Lispro 100 Units/Ml 3 Ml Vial SUBCUT TIDAC [facility] - Radiology Interpretation Free Text/Narrative:: Chest x-ray per radiology no infiltrate effusion pneumothorax or edema. Left basilar linear atelectasis and/or scarring. No acute cardiopulmonary abnormality. - Re-Assessments/Exams Free Text/Narrative Re-Assessment/Exam: Although the patient's blood pressure is much improved upon arrival with a blood pressure in the 120s I still have concerns for sepsis for this patient. IV was established labs are drawn. To include blood cultures x2. Covid negative. LR 1 L wide open. Rocephin 2 g IV piggyback. Chest x-ray with some chronic scarring but no acute infiltrate. Shortly after the patient's arrival he did start dipping his blood pressure into the 80s systolically. I then initiated the 30 mill per kilo bolus for a total of 3 L for my concerns of sepsis with septic shock. Laboratory evaluation with a WBC of 11.4, hemoglobin 11.3, platelet 361. CMP with a sodium 134 chloride 97 a normal creatinine of 1.2 with a BUN of 25. Glucose 195. Lactic acid 4.3. Magnesium 1.6. CRP 0.9. Lipase normal at 75. Procalcitonin less than 0.05. Urinalysis with moderate amount of blood from his indwelling Myers, small leukocyte esterase, U RBCs 1020, U WBCs 2030. After the 3 L bolus the patient did quite improved. His blood pressure surprisingly increased to about 160 systolically. His skin is pink warm and dry. He relates that he feels quite a bit better. He does not feel as weak and fatigued as he did upon arrival. Clearly appears that this patient is in urosepsis with septic shock responsive to fluids. He initially was given 2 g of Rocephin to cover him for bacteremia. I do not find any other cause for his infection at this time. He was monitored in the emergency department over the next hour or so with the concerns of sepsis with septic shock with an elevated lactic acid. Lactated Ringer's was continued on 150 mils to continue hydration. After his 3 L and about 300 mils of lactated Ringer's he still only had about 250 mils of urine out so far. Patient does feel quite a bit better. Her repeat of his lactic shows improvement of it at 3 hours down to 3.8. This patient is a full code verified with the patient as well as his documentation. Although he does have sepsis with septic shock he has responded well to fluid and maintained his vital signs at this time. I called and spoke with Dr. Deloris Brown. HPI ER Course findings and concerns were relayed to her. She came and saw the patient in the ED and agreed to admit the patient here with the above concerns. The patient was comfortable with this plan and his questions answered. Departure - Departure Time of Disposition: 16:00 Disposition: Admitted As Inpatient 68 Clinical Impression: Hypomagnesemia UTI (urinary tract infection) Qualifiers: Urinary tract infection type: catheter-associated UTI Indwelling urinary catheter type: indwelling urethral catheter Encounter type: initial encounter Qualified Code(s): T83.511A - Infection and inflammatory reaction due to indwelling urethral catheter, initial encounter; N39.0 - Urinary tract infection, site not specified Sepsis Qualifiers: Sepsis type: sepsis due to unspecified organism Sepsis acute organ dysfunction status: with acute organ dysfunction Severe sepsis acute organ dysfunction type: unspecified Severe sepsis shock status: with septic shock Qualified Code(s): A41.9 - Sepsis, unspecified organism; R65.21 - Severe sepsis with septic shock - Discharge Information Sepsis Event Note (ED) - Focused Exam Vital Signs: Vital Signs Pulse Resp BP Pulse Ox 03/10/21 14:05 91 16 167/92 H 99 - My Orders Last 24 Hours: My Active Orders 03/10/21 12:21 CULTURE BLOOD [BC] Stat 03/10/21 12:23 Sodium Chloride 0.9% [Saline Flush] 10 ml FLUSH ASDIRECTED PRN Blood Culture x2 Reflex Set [OM.PC] Stat Peripheral IV Insertion Adult [OM.PC] Stat 03/10/21 13:04 CULTURE BLOOD [BC] Stat 03/10/21 13:26 CULTURE URINE [RM] Stat - Assessment/Plan Last 24 Hours: My Active Orders 03/10/21 12:21 CULTURE BLOOD [BC] Stat 03/10/21 12:23 Sodium Chloride 0.9% [Saline Flush] 10 ml FLUSH ASDIRECTED PRN Blood Culture x2 Reflex Set [OM.PC] Stat Peripheral IV Insertion Adult [OM.PC] Stat 03/10/21 13:04 CULTURE BLOOD [BC] Stat 03/10/21 13:26 CULTURE URINE [RM] Stat
--- NOTE | 2021-03-10 13:32 | PCM.EKG ---
#1 Interpretation EKG Date: 03/10/21 Time: 12:20 Rhythm: NSR Rate (Beats/Min): 104 Amonate: Normal P-Wave: Present QRS: Normal ST-T: Normal QT: Normal Comparison: No Change
[2021-03-10] MEDS ORDERED: Lactated Ringers 1,000 ML IV SCH (14:30)
[2021-03-10] MEDS ORDERED: Ondansetron 4 MG Tab.DIS PO PRN (18:20)
[2021-03-10] MEDS ORDERED: Enoxaparin 40 MG/0.4 ML Syringe SUBCUT ONE (18:22)
[2021-03-10] MEDS ORDERED: Warfarin 5 MG Tab PO SCH (21:00)
[2021-03-10] MEDS: risperiDONE 1 MG Tab PO SCH (21:21)
[2021-03-10] MEDS: Melatonin 3 MG Tab PO SCH (21:22)
[2021-03-10] MEDS: Insulin Glarg,Human.Rec.Analog 100 Unit/ML SUBCUT SCH (21:22)
[2021-03-10] MEDS: Betamethasone Dipropionate/Clotrimazole 0.05-1% Crm 15 GM Tube TOP SCH (21:22)
[2021-03-10] MEDS: Magnesium Oxide 400 MG Tab PO SCH (21:22)
--- NOTE | 2021-03-10 21:23 | HP ---
CHIEF COMPLAINT: Hypotension. HISTORY OF PRESENT ILLNESS: At 11 a.m., at the half-way, the patient was weak and dizzy. His blood pressure was only 60/40, his heart rate 120, O2 of 90 on room air and 96 on 2 L. He was very pale and clammy. His respiratory rate 20, temp 98.4, but very pale. No fevers. Blood sugar 224. Then, they put him in Trendelenburg. He was alert and orientated x4. His blood pressure did improve up to 96/61, heart rate 110, but decision was made to transfer him over to the hospital for further eval. The patient was incontinent of bowel which he did not report to me. He denied basically any symptom other than he said he knew his blood pressure was low. He has a permanent Fortune catheter. He requires a Nanette lift. He states he is at the half-way because he is weak and he has been in the [facility] since 07/2020 since he moved from a half-way in [place]. This is what I put in my note in 12/2020 which was his first hospital admission and he had pneumonia. He was looking much worse, hypoxic, 103 fever at that time. He eventually was treated, discharged home. Blood cultures did not grow any infection, but then unfortunately the patient has been back for four visits now. The next visit in 01/2021, the patient was admitted for lethargy, cough, and urinary retention and he had had a catheter removal before he came in and discharging diagnosis was more for the urinary retention. The patient does have schizophrenia. He is followed by Psych. Then, his next admission earlier in 02/2021 showed him to have pulmonary embolism. He is on Coumadin. Yesterday, his INR was 2.4. That admission happened after the admission on 02/14/2021 and 02/15/2021 for a right renal mass that he underwent cryoablation for. That mass was actually found on a CT when he was admitted in 12/2020 for the pneumonia. The patient is denying any back pain. He in fact did not have any blood in his Fortune catheter, but did have microscopic 10-20 rbc's, 20-30 wbc's. He is denying that he had any burning. He is denying abdominal pain, but he was diagnosed in the emergency room with suspected UTI due to lactic acid of 4.3, given 2 g of Rocephin and 3 L of fluid and had significant improvement, but only a little bit of urine output so far. The patient actually tells me he wants to be hospitalized in the [facility] in [place]. 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 However, we did not discuss this today. He does have a followup with Interventional Radiology in 03/2021, and Urology later this fall. His pulmonary embolism was on 02/15/2021 noted to be due to a suboptimal bolus, but he has filling defects in the segmental and subsegmental branches, especially within the left upper lobe. He had some dependent atelectasis at that time. He had cholelithiasis but without acute cholecystitis. The patient is alert. He is answering questions. He is denying any headache. ALLERGIES: Include none. MEDICATION LIST: Reviewed from [facility] and he is on Coumadin or warfarin for his pulmonary embolism. While he is scheduled to get 5 mg today and 5 mg Friday, he got 2.5 mg yesterday with a plan of repeat for 03/12/2021. Other medications as per his [facility] medication list includes Lipitor 20 mg daily, Lotrisone cream twice daily, vitamin D 4000 units daily, hydrochlorothiazide 12.5 daily, insulin 7 units t.i.d., Lantus 40 units at bedtime, lisinopril 20 mg daily, metformin 1000 b.i.d., fiber 500 daily, nystatin b.i.d., Zofran 4 mg every four hours p.r.n., Risperdal 3 mg b.i.d., sertraline 50 mg daily, Flomax 0.4 daily, and urea topical. PAST MEDICAL HISTORY: Includes the renal cell cancer, status post IR ablation on 02/14/2021 to the right anterolateral kidney; acute pulmonary embolism, on Coumadin; obesity; schizophrenia; essential hypertension; BPH; failure to thrive in an adult; leg weakness; hyperlipidemia. The patient reported history of COVID; chronic pressure ulcer of the sacrum, but no new concerns for wound drainage; peripheral vascular disease; type 2 diabetes. PAST SURGICAL HISTORY: Tonsillectomy, dental extractions, sinus tract excision, left medial thigh IR ablation for that kidney tumor, groin hernia surgery, fracture to the cheek bone surgery, appendectomy, colonoscopy. SOCIAL HISTORY: The patient is a former smoker. He is reported to have no alcohol use. He is single. No children listed. No occupation listed. FAMILY HISTORY: Both parents are listed as . His mother had essential hypertension. REVIEW OF SYSTEMS: General: The patient is not aware of any fever or chills. His weight went down about 20 pounds at least in the last six months, but he had gained about 10 pounds prior to that from the fall. HEENT: No sore throat. No trouble swallowing, although he is scheduled for a swallow eval. Cardiac: No chest pain. No palpitations. Respiratory: No cough. No shortness of breath. Neurologic: The patient denies that he currently feels weak, lightheaded, or dizzy, other than the weakness in his legs which is chronic. Musculoskeletal: He has no new back pain or joint pains. Otherwise, all systems reviewed and found to be negative unless otherwise stated. PHYSICAL EXAMINATION: Vital Signs: On admission, his temperature is 98.9; pulse 97; blood pressure 118/78, but after 3 L of fluids, he did get up to 161/84, respiratory rate 18; and O2 of 98 on 2 L. General: He is in no acute distress. Heart: Regular rate and rhythm. S1, S2 without murmur. Lungs: Lung sounds are clear to auscultation bilaterally without crackles or wheezes. Abdomen: Positive bowel sounds. Soft, nondistended, nontender. Extremities: Warm and dry. No edema. Skin: Warm and dry. Mental Status: He is alert. He is aware he is at the hospital. He states he does not like it at the care center. He answers questions appropriately. LABORATORY WORK: Shows white count 11.4, hemoglobin 11.1 which is improved from his last ER visit two or three weeks ago, platelets 361. INR 1.9. Sodium 134, potassium 4.2, chloride 97, bicarb 30, BUN 25, creatinine 1.2, glucose 195. His lactic was 4.3, calcium 8.6, magnesium 1.6, bilirubin 0.4, AST 16, ALT 13. CRP is normal at 0.9. Albumin 2.7, lipase 75, and procalcitonin less than 0.05. COVID testing negative. Urine again 20-30 wbc's. The patient's imaging today shows a chest x-ray which has no acute process. ASSESSMENT: 1. Acute-onset hypotension, symptomatic, with weakness and dizziness and tachycardia. Possible sepsis. The patient with a recent pulmonary embolism, but nearly normal INR, but no chest pain, shortness of breath, and improved rapidly with IV fluids, possibly some low blood pressure from his medications, diuretic and angiotensin converting enzyme inhibitor. We will go ahead and hold those. I do not think he needs further fluids at this point. We will hold them. 2. Urinary tract infection. Urine is being cultured. We will continue Rocephin 1 g daily. We also had blood cultures. We will assess for other clinical signs of hypotension and infection. He has a chronic fortune. 3. Lactic acidosis, possibly due to the sepsis. Also, he has been on metformin. Repeat lactic acid is already improving. We will go ahead and repeat it again in 3 hours with another INR and hemoglobin, just to further evaluate causes of low blood pressure. 4. Type 2 diabetes. We will continue his insulin. We will do q.i.d. Accu- Cheks. 5. Pulmonary embolism. I am going to give him 40 mg of subcutaneous Lovenox one time if his hemoglobin is stable. 6. Renal cancer with recent ablation. The patient is not having any symptoms to suggest there are any issues there, but we will have a low threshold for re-imaging with a CT of his abdomen if he has fevers or further hypotension. 7. Schizophrenia. We will continue his home medications. 8. Hyperlipidemia. I will continue his Lipitor. 9. Hypomagnesemia. I will replace orally. PLAN: The patient is admitted for acute cares. I did update his guardian today. His normal guardian is out for the weekend, but on-call next week; Yazmin, . The on-call was [phone]. For DVT prophylaxis, he is getting the one time Lovenox. He is on Coumadin. He is a code level 1. Again Yuriy Munoz, admitted with hypotension and volume depletion, now clinically improved, but not stable enought to go back to the care center. He will likely be discharged there in the next couple of days. I did tell his guardian if he needs transfer, it would be to [place], not to this hospital in [place] that he talks about and they understand. MKA: 03/10/2021 18:31:22 MODL: 03/10/2021 21:16:44 /[id number] MTDD
[2021-03-11] MEDS ORDERED: Insulin Lispro 100 Units/ML 3 ML Vial SUBCUT SCH (07:00)
[2021-03-11] MEDS: atorvaSTATin 10 MG Tab PO SCH (08:01)
[2021-03-11] MEDS: risperiDONE 1 MG Tab PO SCH ×2 (08:01→21:07)
[2021-03-11] MEDS: Cholecalciferol (Vitamin D3) 25 MCG Tab PO SCH (08:02)
[2021-03-11] MEDS: Magnesium Oxide 400 MG Tab PO SCH ×2 (08:03→21:08)
[2021-03-11] MEDS: Sertraline 50 MG Tab PO SCH (08:03)
[2021-03-11] MEDS: Insulin Lispro 100 Units/ML 3 ML Vial SUBCUT SCH ×3 (08:04→18:23)
[2021-03-11] MEDS: Betamethasone Dipropionate/Clotrimazole 0.05-1% Crm 15 GM Tube TOP SCH ×2 (08:05→21:09)
[2021-03-11] MEDS: Calcium Polycarbophil 625 MG Tab PO SCH (08:08)
[2021-03-11] MEDS: Sodium Chloride 0.9% 10 ML Syringe FLUSH PRN ×2 (08:09→12:56)
[2021-03-11 08:57] LABS: CHLORIDE,CL 98 mmol/L (98-107); SODIUM,NA 134 mmol/L (136-145)
[2021-03-11 09:01] LABS: ANION GAP 9.1 mmol/L (5-15)
[2021-03-11] MEDS ORDERED: Warfarin 5 MG Tab PO SCH (09:30)
--- NOTE | 2021-03-11 11:50 | PN ---
Progress Note for LINH COULTER Date: 03/11/2021 Room #: VM.201 SUBJECTIVE: This is hospital day #2 on a 70-year-old admitted with symptomatic hypotension and dizziness, working diagnosis was sepsis due to UTI, and he did receive some IV Rocephin, but he has a chronic wound to his lower back, which has some purulent drainage. It has been there for many months. He has had it cultured before and has grown enterococcus and coagulase-negative Staph last in December. He has been afebrile. He did have a mildly elevated white count at 11.3, but it has now normalized. His lactic acid was quite high over 4, but it normalized yesterday after IV fluids. His procalcitonin remains normal. He had 3 L of fluid. He has a chronic catheter, and now, he has had 3.8 L out. He is eating and drinking 75% to 100% of his meals. He is not in any pain. His biggest concern is that he does not want to go back to the [facility]. He wants to go to assisted living in [place]. He was on lisinopril and hydrochlorothiazide. Those medications were held. He had recently just been decreased from 37 to 12.5 of hydrochlorothiazide on the . He also recently was started on Coumadin for PE. INR was 2.4 the day prior to admission, 1.9 in the ER. He had received 2.5 mg on 03/09/2021 with instructions to take 5 mg daily over the weekend. The patient has not had any bleeding problems. His hemoglobin remained stable. OBJECTIVE: Vital Signs: His weight is 107.5 kg; temperature 98.4; pulse 93; blood pressure 149/86, but repeat blood pressure in the 120s this morning around 8 o'clock per the nurse; respiratory rate is 18; and O2 of 98% on room air. General: He is in no acute distress. Heart: Regular rate and rhythm. S1, S2 without murmur. Lungs: Lung sounds are clear to auscultation bilaterally without crackles or wheezes. Abdomen: Nondistended, nontender. Extremities: Warm and dry. No edema. Mental Status: He is alert. He answers questions. We did not go specifically through orientation questions but he is aware he lives at [facility]. Skin: His left lower buttock wound just has some minimal redness, no surrounding cellulitis, but there is some mild purulent discharge and drainage on his dressing, which was cultured from the wound today. Mental Status: He is not anxious or depressed. He is not having any behaviors. LABORATORY DATA: Lab work does show his white count to be 8.8, hemoglobin 10.8, and platelets 340. INR 1.9. Sodium 134, potassium 4.1, chloride 98, bicarbonate 31, BUN 13, creatinine 0.9, and glucose 132. His blood sugars have actually been quite excellent. He had 252, though as his high at bedtime. Otherwise, a 99 was his low. Lactic normalized down to 1.5. Calcium 8.7, procalcitonin again less than 0.05. ASSESSMENT: 1. Acute hypotension with concern for sepsis, although it could just be related to his medications and volume depletion because he made a remarkable improvement with mainly fluids, although he did get intravenous Rocephin. He has never had a fever and his symptoms came on though quite abruptly. At this point, we have stopped intravenous fluids on admit and he is maintaining his hydration. We will keep him off the hydrochlorothiazide. I will hold the lisinopril 20 mg daily unless his blood pressure goes up again into the 150s or 160s and likely, then I will start on 10 mg daily. 2. Recent pulmonary embolism. He got a dose of subcutaneous 40 of Lovenox yesterday. He has 1.9 for INR. I will give him his 5 mg dose this morning and repeat an INR tomorrow morning, and Pharmacy can help at that point with further dosing. 3. Urinary tract infection complicated with chronic Myers. He has been on intravenous Rocephin. Given review of his last wound cultures and his wound today, I am going to switch him over to the Unasyn to cover both infections. 4. Chronic left lower back wound likely infected due to drainage. He has been working with this for months over at the [facility]. He should continue same wound cares. 5. Type 2 diabetes. Blood sugars are under good control. He is off the metformin. We will continue insulin hold if blood sugar under 100 since unless he starts eating better or has high blood sugars. 6. Lactic acidosis. Metformin has been stopped. It will be up to his primary care whether they decide on restarting it. 7. Recent renal cell cancer with ablation. He is not having any symptoms from this. There are no fevers or indications to repeat any imaging. 8. Schizophrenia. We will continue his home medications. 9. Hyperlipidemia, on Lipitor. 10.Hypomagnesemia. He is on oral replacement. PLAN: The patient will continue acute cares. We will continue the Coumadin. I will not re-dose the Lovenox today since INR is at 1.9, and he is having no symptoms of his pulmonary embolism. No further hypotension. He is not having chest pain or palpitations. We will get the dialysis social worker involved and as I anticipate discharge back to [facility] tomorrow, and then the patient can work with them regarding his desire to go to a half-way in [place]. I have already updated his guardian yesterday. He is a code level 1. I will switch his IV Rocephin over to Unasyn and await further wound culture that were done today. We will repeat laboratory work in the AM and restart his lisinopril if needed for blood pressures. MKA: 03/11/2021 10:58:21 MODL: 03/11/2021 11:40:42 /[id number] MTDD
[2021-03-11] MEDS ORDERED: cefTRIAXone 1 GM Vial IVPUSH SCH (12:00)
[2021-03-11] MEDS: Lisinopril 10 MG Tab PO SCH (12:53)
[2021-03-11] MEDS: Ampicillin/Sulbactam Na 3 GM Vial IVPUSH SCH ×2 (12:56→18:23)
[2021-03-11] MEDS: Melatonin 3 MG Tab PO SCH (21:08)
[2021-03-11] MEDS: Insulin Glarg,Human.Rec.Analog 100 Unit/ML SUBCUT SCH (21:09)
[2021-03-12] MEDS: Ampicillin/Sulbactam Na 3 GM Vial IVPUSH SCH ×3 (00:14→11:47)
[2021-03-12 07:21] LABS: ANION GAP 7.4 mmol/L (5-15); CHLORIDE,CL 102 mmol/L (98-107); SODIUM,NA 137 mmol/L (136-145)
[2021-03-12] MEDS: Sodium Chloride 0.9% 10 ML Syringe FLUSH PRN (07:54)
[2021-03-12] MEDS: Insulin Lispro 100 Units/ML 3 ML Vial SUBCUT SCH ×2 (07:54→11:47)
[2021-03-12] MEDS: risperiDONE 1 MG Tab PO SCH (07:55)
[2021-03-12] MEDS: Cholecalciferol (Vitamin D3) 25 MCG Tab PO SCH (07:55)
[2021-03-12] MEDS: Betamethasone Dipropionate/Clotrimazole 0.05-1% Crm 15 GM Tube TOP SCH (07:55)
[2021-03-12] MEDS: atorvaSTATin 10 MG Tab PO SCH (07:55)
[2021-03-12] MEDS: Sertraline 50 MG Tab PO SCH (07:56)
[2021-03-12] MEDS: Calcium Polycarbophil 625 MG Tab PO SCH (07:56)
[2021-03-12] MEDS: Lisinopril 10 MG Tab PO SCH (07:56)
[2021-03-12] MEDS: Magnesium Oxide 400 MG Tab PO SCH (07:56)
[2021-03-12] MEDS: Warfarin 5 MG Tab PO SCH ×2 (08:02→08:37)
--- NOTE | 2021-03-12 11:43 | PCM.DCSUM1 ---
Discharge Summary - Hospital Course Free Text/Narrative:: Yuriy is a 70-year-old male who was admitted on 03/10/2021 for hypotension and dizziness. At the time of admission I didn't think that there is maybe a component of sepsis due to UTI and he was given Rocephin. As noted that he also had this chronic lower back wound that had some purulent drainage. He was afebrile, white cell count was 11.3 lactic acid was high over 4. He was given IV fluids and within 24 hours his clinical status had improved significantly. He has done well over the last 24 hours with only oral hydration. His HCTZ was held as well as his lisinopril. From a breathing standpoint he did very well especially given his recent admission for acute provoked PE. His Coumadin was continued while he was inpatient. For the concern of the UTI he was switched to Unasyn to cover both the urinary as well as his chronic low back wound. M etformin was held due to his lactic acidosis; we will plan to restart this at time of discharge. This morning the patient is well-appearing. He has no complaints. His vital signs are stable. Laboratory evaluation is relatively normal. Microbiology did come back positive for staph and coag negative with strep in the urine. He is crying out coag-negative as well as gram-positive rods in his low back/buttocks wound. Blood cultures thus far negative. - Discharge Data Discharge Date: 03/12/21 Discharge Disposition: DC/Tfer to SNF 03 Condition: Fair - Referral to Home Health Primary Care Physician: Maggie Ross MD - Patient Summary/Data Consults: Consultations 03/11/21 10:29 Consult to Case Management/[place] [CONS] Routine - Discharge Plan *PRESCRIPTION DRUG MONITORING PROGRAM REVIEWED*: No *COPY OF PRESCRIPTION DRUG MONITORING REPORT IN PATIENT PAVEL: No Prescriptions/Med Rec: lisinopriL [Prinivil] 10 mg PO DAILY #30 tablet Home Medications: Home Meds Cholecalciferol (Vitamin D3) [Vitamin D3] 4,000 intnl unit PO DAILY 12/21/20 [History] Insulin Aspart 7 unit SQ TIDAC 12/21/20 [History] Insulin Glarg,Human.Rec.Analog [Lantus Solostar] 40 units SQ BEDTIME 12/21/20 [History] Melatonin 3 mg PO DAILY 12/21/20 [History] atorvaSTATin Calcium [Atorvastatin Calcium] 20 mg PO DAILY 12/21/20 [History] metFORMIN HCl [Metformin HCl] 1,000 mg PO BID 12/21/20 [History] Tamsulosin HCl [Flomax] 0.4 mg PO DAILY 01/27/21 [History] Urea [Urea 20% Crm] 1 dose TOP DAILY 01/27/21 [History] Sertraline [Zoloft] 50 mg PO DAILY 02/15/21 [History] ondansetron HCL [Zofran] 4 mg PO Q6H PRN 02/15/21 [History] risperiDONE [RisperiDAL] 3 mg PO BID 02/15/21 [History] Betamethasone/Clotrimazole [Lotrisone] 1 applic TOP BID 03/10/21 [History] Methylcellulose [Fiber] 500 mg PO DAILY 03/10/21 [History] Nystatin 1 applic PO BID 03/10/21 [History] Warfarin [Coumadin] 5 mg PO ASDIRECTED 03/10/21 [History] Amoxicillin/Clavulanate K [Augmentin 875-125 MG] 1 tab PO BID #10 tablet 03/12/21 [Rx] lisinopriL [Prinivil] 10 mg PO DAILY #30 tablet 03/12/21 [Rx] Referrals: Maggie Ross MD [Primary Care Provider] - - Discharge Summary/Plan Comment DC Time >30 min.: No - Patient Data Vitals - Most Recent: Last Vital Signs Temp 98.6 F 03/12/21 11:27 Pulse 86 03/12/21 11:27 Resp 16 03/12/21 11:27 BP 145/86 H 03/12/21 11:27 Pulse Ox 97 03/12/21 11:27 Weight - Most Recent: 237 lb 1.6 oz I&O - Last 24 hours: Intake & Output 03/11/21 03/12/21 03/12/21 22:59 06:59 14:59 Intake Total 240 1500 380 Output Total 1500 2950 Balance -1260 -1450 380 Lab Results - Last 24 hrs: Laboratory Results - last 24 hr 03/11/21 03/11/21 03/11/21 Range/Units 11:40 17:29 20:46 WBC (4.0-10.0) x10^3/uL RBC (4.5-6.0) x10^6/uL Hgb (14.0-18.0) g/dL Hct (40.0-52.0) % MCV (78.0-93.0) fL MCH (26.0-32.0) pg MCHC (32.0-36.0) g/dL RDW Coeff of Dian (10.0-15.0) % Plt Count (130-400) x10^3/uL Neut % (Auto) (50.0-80.0) % Lymph % (Auto) (25.0-50.0) % [place] % (Auto) (2.0-11.0) % Eos % (Auto) (0.0-4.0) % Baso % (Auto) (0.2-1.2) % PT (9.9-12.5) SEC INR (2.0-3.5) Sodium (136-145) mmol/L Potassium (3.5-5.1) mmol/L Chloride (98-107) mmol/L Carbon Dioxide (21-32) mmol/L Anion Gap (5-15) mmol/L BUN (7-18) mg/dL Creatinine (0.70-1.30) mg/dL Est Cr Clr Drug Dosing mL/min Estimated GFR (MDRD) Glucose (70-99) mg/dL POC Glucose 93 146 H 183 H (70-99) mg/dL Calcium (8.5-10.1) mg/dL Magnesium (1.8-2.4) mg/dL 03/12/21 03/12/21 03/12/21 Range/Units 06:23 06:23 06:23 WBC 8.8 (4.0-10.0) x10^3/uL RBC 3.52 L (4.5-6.0) x10^6/uL Hgb 10.4 L (14.0-18.0) g/dL Hct 32.0 L (40.0-52.0) % MCV 90.9 (78.0-93.0) fL MCH 29.5 (26.0-32.0) pg MCHC 32.5 (32.0-36.0) g/dL RDW Coeff of Dian 15.0 (10.0-15.0) % Plt Count 325 (130-400) x10^3/uL Neut % (Auto) 56.6 (50.0-80.0) % Lymph % (Auto) 33.6 (25.0-50.0) % [place] % (Auto) 7.4 (2.0-11.0) % Eos % (Auto) 2.2 (0.0-4.0) % Baso % (Auto) 0.2 (0.2-1.2) % PT 21.3 H (9.9-12.5) SEC INR 1.9 L (2.0-3.5) Sodium 137 (136-145) mmol/L Potassium 4.4 (3.5-5.1) mmol/L Chloride 102 (98-107) mmol/L Carbon Dioxide 32 (21-32) mmol/L Anion Gap 7.4 (5-15) mmol/L BUN 15 (7-18) mg/dL Creatinine 0.9 (0.70-1.30) mg/dL Est Cr Clr Drug Dosing 88.78 mL/min Estimated GFR (MDRD) > 60 Glucose 133 H (70-99) mg/dL POC Glucose (70-99) mg/dL Calcium 8.5 (8.5-10.1) mg/dL Magnesium (1.8-2.4) mg/dL 03/12/21 03/12/21 03/12/21 Range/Units 06:23 06:58 11:19 WBC (4.0-10.0) x10^3/uL RBC (4.5-6.0) x10^6/uL Hgb (14.0-18.0) g/dL Hct (40.0-52.0) % MCV (78.0-93.0) fL MCH (26.0-32.0) pg MCHC (32.0-36.0) g/dL RDW Coeff of Dian (10.0-15.0) % Plt Count (130-400) x10^3/uL Neut % (Auto) (50.0-80.0) % Lymph % (Auto) (25.0-50.0) % [place] % (Auto) (2.0-11.0) % Eos % (Auto) (0.0-4.0) % Baso % (Auto) (0.2-1.2) % PT (9.9-12.5) SEC INR (2.0-3.5) Sodium (136-145) mmol/L Potassium (3.5-5.1) mmol/L Chloride (98-107) mmol/L Carbon Dioxide (21-32) mmol/L Anion Gap (5-15) mmol/L BUN (7-18) mg/dL Creatinine (0.70-1.30) mg/dL Est Cr Clr Drug Dosing mL/min Estimated GFR (MDRD) Glucose (70-99) mg/dL POC Glucose 118 H 144 H (70-99) mg/dL Calcium (8.5-10.1) mg/dL Magnesium 1.8 (1.8-2.4) mg/dL BHAVANI Results - Last 24 hrs: Microbiology 03/11/21 09:20 Wound Culture - Preliminary Buttock, Unspecified Staphylococcus Coagulase Neg Gram Negative Rods 03/10/21 13:26 Urine Culture - Preliminary Urine, Myers Cath (Indwelling) Streptococcus Species Staphylococcus Coagulase Neg 03/10/21 18:40 MRSA Surveillance Culture - Final Nares, Unspecified NO MRSA ISOLATED 03/10/21 13:04 Aerobic Blood Culture - Preliminary Blood - Venous - Lab Draw NO GROWTH AFTER 1 DAY Anaerobic Blood Culture - Preliminary NO GROWTH AFTER 1 DAY 03/10/21 12:21 Aerobic Blood Culture - Preliminary Blood - Venous NO GROWTH AFTER 1 DAY Anaerobic Blood Culture - Preliminary NO GROWTH AFTER 1 DAY Med Orders - Current: Current Medications Ampicillin Sodium/Sulbactam Sodium (Ampicillin/Sulbactam Na 3 Gm Vial) 3 gm IVPUSH Q6H [facility] Last Admin: 03/12/21 06:09 Dose: 3 gm Documented by: Atorvastatin Calcium (Atorvastatin 10 Mg Tab) 20 mg PO DAILY [facility] Last Admin: 03/12/21 07:55 Dose: 20 mg Documented by: Betamethasone/Clotrimazole (Betamethasone Dipropionate/Clotrimazole 0.05-1% Crm 15 Gm Tube) 0 gm TOP BID [facility] Last Admin: 03/12/21 07:55 Dose: 1 applic Documented by: Calcium Polycarbophil (Calcium Polycarbophil 625 Mg Tab) 625 mg PO DAILY [facility] Last Admin: 03/12/21 07:56 Dose: 625 mg Documented by: Cholecalciferol (Cholecalciferol (Vitamin D3) 25 Mcg Tab) 100 mcg PO DAILY [facility] Last Admin: 03/12/21 07:55 Dose: 100 mcg Documented by: Insulin Glargine (Insulin Glarg,Human.Rec.Analog 100 Unit/Ml) 40 unit SUBCUT BEDTIME [facility] Last Admin: 03/11/21 21:09 Dose: 40 unit Documented by: Insulin Human Lispro (Insulin Lispro 100 Units/Ml 3 Ml Vial) 7 unit SUBCUT TIDMEALS [facility] Last Admin: 03/12/21 07:54 Dose: 7 units Documented by: Lisinopril (Lisinopril 10 Mg Tab) 10 mg PO DAILY [facility] Last Admin: 03/12/21 07:56 Dose: 10 mg Documented by: Magnesium Oxide (Magnesium Oxide 400 Mg Tab) 400 mg PO BID [facility] Last Admin: 03/12/21 07:56 Dose: 400 mg Documented by: Melatonin (Melatonin 3 Mg Tab) 3 mg PO BEDTIME [facility] Last Admin: 03/11/21 21:08 Dose: 3 mg Documented by: Ondansetron HCl (Ondansetron 4 Mg Tab.Dis) 4 mg PO Q6H PRN PRN Reason: Nausea Risperidone (Risperidone 1 Mg Tab) 3 mg PO BID [facility] Last Admin: 03/12/21 07:55 Dose: 3 mg Documented by: Sertraline HCl (Sertraline 50 Mg Tab) 50 mg PO DAILY [facility] Last Admin: 03/12/21 07:56 Dose: 50 mg Documented by: Sodium Chloride (Sodium Chloride 0.9% 10 Ml Syringe) 10 ml FLUSH ASDIRECTED PRN PRN Reason: Keep Vein Open Last Admin: 03/12/21 07:54 Dose: 10 ml Documented by: Warfarin Sodium (Warfarin 5 Mg Tab) 5 mg PO DAILY@1999 [facility] Last Admin: 03/12/21 08:37 Dose: Not Given Documented by: Discontinued Medications Ceftriaxone Sodium (Ceftriaxone 2 Gm Vial) 2 gm IVPUSH STAT ONE Stop: 03/10/21 12:27 Last Admin: 03/10/21 12:35 Dose: 2 gm Documented by: Ceftriaxone Sodium (Ceftriaxone 1 Gm Vial) 1 gm IVPUSH DAILY@1200 [facility] Enoxaparin Sodium (Enoxaparin 40 Mg/0.4 Ml Syringe) 40 mg SUBCUT ONETIME ONE Stop: 03/10/21 18:23 Last Admin: 03/10/21 19:04 Dose: 40 mg Documented by: Lactated Ringer's (Ringers, Lactated) 1,000 mls @ 999 mls/hr IV ONETIME ONE Stop: 03/10/21 13:26 Last Admin: 03/10/21 12:35 Dose: 999 mls/hr Documented by: Lactated Ringer's (Ringers, Lactated) 1,000 mls @ 999 mls/hr IV ONETIME ONE Stop: 03/10/21 13:47 Last Admin: 03/10/21 13:08 Dose: 999 mls/hr Documented by: Lactated Ringer's (Ringers, Lactated) 1,000 mls @ 999 mls/hr IV ONETIME ONE Stop: 03/10/21 13:52 Last Admin: 03/10/21 13:40 Dose: 999 mls/hr Documented by: Lactated Ringer's (Ringers, Lactated) 1,000 mls @ 150 mls[facility] Last Admin: 03/10/21 14:41 Dose: 150 mls/hr Documented by: Insulin Human Lispro (Insulin Lispro 100 Units/Ml 3 Ml Vial) [facility] Warfarin Sodium (Warfarin 5 Mg Tab) 5 mg PO DAILY@1999 [facility] Stop: 03/11/21 20:01 Last Admin: 03/10/21 21:21 Dose: 5 mg Documented by: Warfarin Sodium (Warfarin 5 Mg Tab) 5 mg PO DAILY@1999 [facility] Last Admin: 03/11/21 10:44 Dose: 5 mg Documented by: - Exam General: Reports: Alert, Cooperative, No Acute Distress HEENT: Reports: EOMI, Mucous Membr. Moist/[place] Neck: Reports: Supple Lungs: Reports: Clear to Auscultation, Normal Respiratory Effort Cardiovascular: Reports: Regular Rate, Regular Rhythm GI/Abdominal Exam: Soft, Non-Tender Back Exam: Reports: Normal Inspection Extremities: Non-Tender Skin: Reports: Warm, Dry Psy/Mental Status: Reports: Alert, Normal Affect, Normal Mood
== END 2021-03-12 13:20 | DRG 699 ==
LOC: VM.ED 12:09 → VM.MS 14:17
PROVIDERS: ADMIT Internal Medicine; ATTEND Internal Medicine
DX: A41.9 Sepsis, unspecified organism (principal); T83.511A Infection and inflammatory reaction due to indwelling urethral catheter, initial encounter; E87.2 Acidosis; N39.0 Urinary tract infection, site not specified; F20.9 Schizophrenia, unspecified; E66.9 Obesity, unspecified; I10 Essential (primary) hypertension; N40.0 Benign prostatic hyperplasia without lower urinary tract symptoms; F41.9 Anxiety disorder, unspecified; R62.7 Adult failure to thrive; E11.9 Type 2 diabetes mellitus without complications; E78.5 Hyperlipidemia, unspecified; E11.51 Type 2 diabetes mellitus with diabetic peripheral angiopathy without gangrene; I95.9 Hypotension, unspecified; E83.42 Hypomagnesemia; Z20.822 Contact with and (suspected) exposure to COVID-19; E78.00 Pure hypercholesterolemia, unspecified; K59.09 Other constipation; G89.29 Other chronic pain; M54.5 Low back pain; Z79.4 Long term (current) use of insulin; Z79.84 Long term (current) use of oral hypoglycemic drugs; Z79.01 Long term (current) use of anticoagulants; Z79.899 Other long term (current) drug therapy; Z86.711 Personal history of pulmonary embolism; Z85.53 Personal history of malignant neoplasm of renal pelvis; Z86.16 Personal history of COVID-19; Z87.891 Personal history of nicotine dependence; Z90.89 Acquired absence of other organs; Z98.890 Other specified postprocedural states; Z90.49 Acquired absence of other specified parts of digestive tract
CPT/HCPCS: 36415; 71045; 80048; 80053; 81001; 82947; 83605; 83690; 83735; 84145; 84484; 85025; 85027; 85610; 85730; 86140; 87040; 87070; 87077; 87086; 87088; 87186; 93005; 94760; 96374; 99284; 99285-25; A9270-GY; J0295; J0696; J1650; J1815-GY; J7120; U0002

== ENCOUNTER 2021-04-02 15:13 | Inpatient (IN) | payer MEDICARE ==
[2021-04-02] MEDS ORDERED: Non-Formulary Medication 1 Each (Insulin Aspart 100 UNIT/ML Vial) SQ PRN (16:31)
[2021-04-02] MEDS ORDERED: Ondansetron 4 MG Tab.DIS PO PRN (16:31)
[2021-04-02] MEDS: cefTRIAXone 2 GM Vial IVPUSH SCH (18:34)
[2021-04-02] MEDS: Sodium Chloride 0.9% 1,000 ML IV SCH (18:35)
[2021-04-02] MEDS: Insulin Lispro 100 Units/ML 3 ML Vial SUBCUT SCH (18:57)
[2021-04-02] MEDS ORDERED: Insulin Glarg,Human.Rec.Analog 100 Unit/ML SUBCUT SCH (20:00)
[2021-04-02] MEDS ORDERED: Warfarin 5 MG Tab PO ONE (20:15)
[2021-04-02] MEDS: risperiDONE 1 MG Tab PO SCH (20:48)
[2021-04-02] MEDS: Betamethasone Dipropionate/Clotrimazole 0.05-1% Crm 15 GM Tube TOP SCH (20:55)
[2021-04-02] MEDS: Melatonin 3 MG Tab PO SCH (20:55)
--- NOTE | 2021-04-02 22:18 | HP ---
SUBJECTIVE: The patient is a 70-year-old male who presented to the clinic with complaints of weakness, loss of appetite, tired, needing more cues, slow to respond and lethargic at times. Caregiver who accompanies him has no clue as to how long these symptoms have been going on. The patient is a poor historian and not able to relate much details of his health. To note, I had admitted the patient on 02/15/2021 with an acute PE after renal biopsy and weakness. He also had some UTI at the current time. Then, he had an admission on 7:30 for UTI. Then on 03/26/2021, he had a video swallow done for some dysphagia where he was found to have some delayed transition. He had some reduced swallowing noted. MEDICATIONS: The patient's medications that he is currently on are Coumadin 5 mg daily, fiber pill 1 pill daily, Flomax 0.4 mg 1 pill daily. Insulin sliding scale; if blood sugars are over 150 to 199, he has 1 unit to 7; if 200 to 249, 2 units, add 2 units to 7; if it is 250 to 299, 3 units, add 3 units to 7 units; if it is 300 to 349, 4 units, add 4 units to 7; if 350 to 399, add 5 units to 7. He takes Lantus 40 units daily, Lipitor 20 mg a day, lisinopril 10 mg daily, Lotrisone cream to scrotum 2 times a day, melatonin 3 mg 1 pill at bedtime, metformin 1000 mg twice a day, NovoLog 7 units before meals, Risperdal 3 mg twice a day, urea cream 20% to feet once a day, vitamin D 4000 units once a day, Zofran 4 mg every 6 hours as needed, Zoloft 50 mg 1 pill a day. ALLERGIES: None known. PAST MEDICAL HISTORY: The patient has history of schizophrenia, type 2 diabetes mellitus, hypertension, hyperlipidemia, bipolar 1 disorder, depression. He has had an adrenal gland tumor noted, prior upper GI bleed. He has had tobacco dependency, had BPH with urinary retention with need for permanent Myers catheter. Failure to thrive, aortic valvular stenosis, frequent falls, peripheral vascular disease, ventral hernia. PAST SURGICAL HISTORY: He has had an appendectomy in 2019, colonoscopy in the past. He has had a cheekbone fracture in the past, hernia repair on the right, mass excision of left medial thigh, chronic sinus tract on 01/18/2014. He has wisdom teeth resected. Upper GI on 05/18/2020. He has had a right renal mass biopsy and cryoablation on 02/14/2021. SOCIAL HISTORY: He is single. He is a resident of [facility]. He has never been . He has smoked; he denies current use. Alcohol use, not listed. FAMILY MEDICAL HISTORY: Mother has had hypertension. Father had some type of cancer. Brother has had cancer. Another brother has had heart disease. REVIEW OF SYSTEMS: The patient is a poor historian. He is being more lethargic. He denies coughing on fluid or aspirating. He denies throwing up. No diarrhea. He has a Myers catheter in. He is in a wheelchair now due to weakness. PHYSICAL EXAMINATION: Vital Signs: Show that his temperature is 100.1, blood pressure is 108/66, pulse is 116, saturations are 93%. Skin: [place], warm, diaphoretic. HEENT: Mucous membranes are dry. Heart: Tachycardic. Unable to appreciate murmur. Lungs: Have diminished breath sounds on bases, but he is noted to have a productive cough. Abdomen: Bowel sounds present. Soft, nontender. Genitalia: He has Myers catheter. Extremities: Lower extremities are weak with moving around. His skin is noted to be somewhat pale. DIAGNOSTIC DATA: Chest x-ray done in the clinic. I do not appreciated any acute pneumonias. Lab that was done in the clinic shows his white blood cell count to be 20.4 with hemoglobin 10.5, platelets 272 with 87% segs, 1 band, 7% lymphocytes, 5.6 monocytes. Sodium was 131, potassium 4.5, creatinine 0.84, BUN 21, glucose 209, GFR greater than 90, calcium 9.4. Urinalysis shows urine slightly cloudy, ketones 5, specific gravity 1.020, greater than 300 mg/dL protein, moderate leukocyte esterase. Microscopy shows 11 to 20 white blood cells, 11 to 20 red blood cells, bacteria many, calcium oxalate crystals present, white blood cells clumps present. IMPRESSION: 1. Sepsis. 2. Probable urosepsis. 3. Febrile. 4. Tachycardia. 5. Cough, doubtful aspiration pneumonia. 6. Dysphagia. 7. Schizophrenia. 8. Bipolar disorder. 9. Hypertension. 10.Type 2 diabetes mellitus. 11.Right adrenal gland mass. 12.Urinary retention with bladder outlet obstruction. 13.Known pulmonary embolism, currently anticoagulated. PLAN: The patient will be admitted to acute care. He is full code level status. He will be checked for COIVD, which actually came back negative for screen at the hospital. At the hospital, his lactic acid came back elevated at 2.3, procalcitonin was normal at 0.39. The patient's metformin will be held due to sepsis, and he will have his sliding scale insulin covered. The patient will be given IV hydration to help with his sepsis. Dr. Maggie Ross to assume care in the morning. To note, the patient's condition may continue to decline with current health problems and the patient could potentially from current health problems as it is somewhat concerning that the patient now has had a third admission in little over a month's time. To note, over an hour was spent on admission for the patient. GM04/02/2021 18:17:01 MODL: 04/02/2021 22:09:41 /[id number] KIMBERLY
[2021-04-03] MEDS: Insulin Lispro 100 Units/ML 3 ML Vial SUBCUT SCH ×5 (06:56→19:12)
[2021-04-03 07:03] LABS: CHLORIDE,CL 98 mmol/L (98-107); SODIUM,NA 134 mmol/L (136-145)
[2021-04-03 07:07] LABS: ANION GAP 10.9 mmol/L (5-15)
[2021-04-03] MEDS ORDERED: UREA TOP SCH (08:00)
[2021-04-03] MEDS ORDERED: 50% Dextrose in Water 50 ML Syringe IVPUSH PRN (08:09)
[2021-04-03] MEDS: Calcium Polycarbophil 625 MG Tab PO SCH (08:51)
[2021-04-03] MEDS: Sertraline 50 MG Tab PO SCH (08:51)
[2021-04-03] MEDS: Lisinopril 10 MG Tab PO SCH (08:51)
[2021-04-03] MEDS: Tamsulosin 0.4 MG Cap.ER PO SCH (08:51)
[2021-04-03] MEDS: Cholecalciferol (Vitamin D3) 25 MCG Tab PO SCH (08:58)
[2021-04-03] MEDS: atorvaSTATin 10 MG Tab PO SCH (08:58)
[2021-04-03] MEDS: risperiDONE 1 MG Tab PO SCH ×2 (08:58→20:56)
[2021-04-03] MEDS: Betamethasone Dipropionate/Clotrimazole 0.05-1% Crm 15 GM Tube TOP SCH ×2 (09:03→20:57)
--- NOTE | 2021-04-03 12:34 | PCM.PN ---
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 He presented to the clinic for evaluation after being noted to have weakness, loss of appetite, fatigue, intermittent lethargic behaviors. Laboratory evaluation in the clinic was notable for leukocytosis of 24,000. Ur ine came back demonstrating likely urinary urinary tract infection with calcium oxalate crystals and WBC clumps. He was admitted, initiated on fluids and IV antibiotics (Rocephin). He is at baseline level of mentation this morning: alert and asking to be transferred to a hospital a hospital that can take care of all of his needs; specifically asking to go to one of the 4 in [place] (there are only 2: [facility] and the [facility] [place]). His vitals are stable and labwork is slightly improved. Blood cultures are pending ([facility]) as are the urine cultures ([place]). Functional Status: Reports: Pain Controlled - Review of Systems General: Reports: Weakness, Fatigue HEENT: Reports: No Symptoms Pulmonary: Reports: No Symptoms Cardiovascular: Reports: No Symptoms Gastrointestinal: Reports: No Symptoms Musculoskeletal: Reports: No Symptoms Skin: Reports: No Symptoms Psychiatric: Reports: No Symptoms - Patient Data Vitals - Most Recent: Last Vital Signs Temp 97.9 F 04/03/21 12:03 Pulse 96 04/03/21 12:03 Resp 33 H 04/03/21 12:03 BP 165/90 H 04/03/21 12:03 Pulse Ox 92 L 04/03/21 12:03 Weight - Most Recent: 235 lb 14.314 oz I&O - Last 24 Hours: Intake & Output 04/02/21 04/03/21 04/03/21 22:59 06:59 14:59 Intake Total 0 1845 600 Output Total 725 650 Balance -725 1195 600 Lab Results Last 24 Hours: Laboratory Results - last 24 hr 04/02/21 04/02/21 04/02/21 Range/Units 15:32 15:35 15:35 WBC (4.0-10.0) x10^3/uL RBC (4.5-6.0) x10^6/uL Hgb (14.0-18.0) g/dL Hct (40.0-52.0) % MCV (78.0-93.0) fL MCH (26.0-32.0) pg MCHC (32.0-36.0) g/dL RDW Coeff of Dian (10.0-15.0) % Plt Count (130-400) x10^3/uL Immature Gran % (Auto) (0.00-0.43) % Neut % (Auto) (50.0-80.0) % Lymph % (Auto) (25.0-50.0) % [place] % (Auto) (2.0-11.0) % Eos % (Auto) (0.0-4.0) % Baso % (Auto) (0.2-1.2) % Neut # (Auto) (1.8-7.7) x10^3/uL Lymph # (Auto) (1.0-4.8) x10^3/uL [place] # (Auto) (0.0-0.8) x10^3/uL Eos # (Auto) (0.0-0.5) x10^3/uL Baso # (Auto) (0.0-0.2) x10^3/uL Immature Gran # (Auto) (0.00-0.07) x10^3/uL PT (9.9-12.5) SEC INR (2.0-3.5) Sodium (136-145) mmol/L Potassium (3.5-5.1) mmol/L Chloride (98-107) mmol/L Carbon Dioxide (21-32) mmol/L Anion Gap (5-15) mmol/L BUN (7-18) mg/dL Creatinine (0.70-1.30) mg/dL Est Cr Clr Drug Dosing mL/min Estimated GFR (MDRD) Glucose (70-99) mg/dL POC Glucose (70-99) mg/dL Lactic Acid 2.3 H* (0.4-2.0) mmol/L Calcium (8.5-10.1) mg/dL Corrected Calcium (8.5-10.1) mg/dL Magnesium (1.8-2.4) mg/dL Total Bilirubin (0.2-1.0) mg/dL AST (15-37) U/L ALT (16-63) U/L Alkaline Phosphatase (46-116) U/L C-Reactive Protein (<=0.9) mg/dL Total Protein (6.4-8.2) g/dL Albumin (3.4-5.0) g/dL Globulin Albumin/Globulin Ratio Procalcitonin 0.39 (0.1-0.50) ng/mL SARS CoV-2 RNA Rapid MARCELINA Negative (NEGATIVE) 04/02/21 04/02/21 04/02/21 Range/Units 17:58 17:58 18:55 WBC (4.0-10.0) x10^3/uL RBC (4.5-6.0) x10^6/uL Hgb (14.0-18.0) g/dL Hct (40.0-52.0) % MCV (78.0-93.0) fL MCH (26.0-32.0) pg MCHC (32.0-36.0) g/dL RDW Coeff of Dian (10.0-15.0) % Plt Count (130-400) x10^3/uL Immature Gran % (Auto) (0.00-0.43) % Neut % (Auto) (50.0-80.0) % Lymph % (Auto) (25.0-50.0) % [place] % (Auto) (2.0-11.0) % Eos % (Auto) (0.0-4.0) % Baso % (Auto) (0.2-1.2) % Neut # (Auto) (1.8-7.7) x10^3/uL Lymph # (Auto) (1.0-4.8) x10^3/uL [place] # (Auto) (0.0-0.8) x10^3/uL Eos # (Auto) (0.0-0.5) x10^3/uL Baso # (Auto) (0.0-0.2) x10^3/uL Immature Gran # (Auto) (0.00-0.07) x10^3/uL PT (9.9-12.5) SEC INR (2.0-3.5) Sodium (136-145) mmol/L Potassium (3.5-5.1) mmol/L Chloride (98-107) mmol/L Carbon Dioxide (21-32) mmol/L Anion Gap (5-15) mmol/L BUN (7-18) mg/dL Creatinine (0.70-1.30) mg/dL Est Cr Clr Drug Dosing mL/min Estimated GFR (MDRD) Glucose (70-99) mg/dL POC Glucose 198 H (70-99) mg/dL Lactic Acid 1.0 (0.4-2.0) mmol/L Calcium (8.5-10.1) mg/dL Corrected Calcium (8.5-10.1) mg/dL Magnesium (1.8-2.4) mg/dL Total Bilirubin (0.2-1.0) mg/dL AST (15-37) U/L ALT (16-63) U/L Alkaline Phosphatase (46-116) U/L C-Reactive Protein 94.4 H (<=0.9) mg/dL Total Protein (6.4-8.2) g/dL Albumin (3.4-5.0) g/dL Globulin Albumin/Globulin Ratio Procalcitonin (0.1-0.50) ng/mL SARS CoV-2 RNA Rapid MARCELINA (NEGATIVE) 04/02/21 04/03/21 04/03/21 Range/Units 20:52 06:12 06:12 WBC 19.1 H (4.0-10.0) x10^3/uL RBC 3.42 L (4.5-6.0) x10^6/uL Hgb 9.7 L (14.0-18.0) g/dL Hct 30.1 L (40.0-52.0) % MCV 88.0 (78.0-93.0) fL MCH 28.4 (26.0-32.0) pg MCHC 32.2 (32.0-36.0) g/dL RDW Coeff of Dian 15.0 (10.0-15.0) % Plt Count 250 (130-400) x10^3/uL Immature Gran % (Auto) 0.60 H (0.00-0.43) % Neut % (Auto) 87.5 H (50.0-80.0) % Lymph % (Auto) 7.2 L (25.0-50.0) % [place] % (Auto) 4.4 (2.0-11.0) % Eos % (Auto) 0.2 (0.0-4.0) % Baso % (Auto) 0.1 L (0.2-1.2) % Neut # (Auto) 16.7 H (1.8-7.7) x10^3/uL Lymph # (Auto) 1.4 (1.0-4.8) x10^3/uL [place] # (Auto) 0.8 (0.0-0.8) x10^3/uL Eos # (Auto) 0.0 (0.0-0.5) x10^3/uL Baso # (Auto) 0.0 (0.0-0.2) x10^3/uL Immature Gran # (Auto) 0.12 H (0.00-0.07) x10^3/uL PT 26.9 H (9.9-12.5) SEC INR 2.4 (2.0-3.5) Sodium (136-145) mmol/L Potassium (3.5-5.1) mmol/L Chloride (98-107) mmol/L Carbon Dioxide (21-32) mmol/L Anion Gap (5-15) mmol/L BUN (7-18) mg/dL Creatinine (0.70-1.30) mg/dL Est Cr Clr Drug Dosing mL/min Estimated GFR (MDRD) Glucose (70-99) mg/dL POC Glucose 187 H (70-99) mg/dL Lactic Acid (0.4-2.0) mmol/L Calcium (8.5-10.1) mg/dL Corrected Calcium (8.5-10.1) mg/dL Magnesium (1.8-2.4) mg/dL Total Bilirubin (0.2-1.0) mg/dL AST (15-37) U/L ALT (16-63) U/L Alkaline Phosphatase (46-116) U/L C-Reactive Protein (<=0.9) mg/dL Total Protein (6.4-8.2) g/dL Albumin (3.4-5.0) g/dL Globulin Albumin/Globulin Ratio Procalcitonin (0.1-0.50) ng/mL SARS CoV-2 RNA Rapid MARCELINA (NEGATIVE) 04/03/21 04/03/21 04/03/21 Range/Units 06:12 06:12 06:12 WBC (4.0-10.0) x10^3/uL RBC (4.5-6.0) x10^6/uL Hgb (14.0-18.0) g/dL Hct (40.0-52.0) % MCV (78.0-93.0) fL MCH (26.0-32.0) pg MCHC (32.0-36.0) g/dL RDW Coeff of Dian (10.0-15.0) % Plt Count (130-400) x10^3/uL Immature Gran % (Auto) (0.00-0.43) % Neut % (Auto) (50.0-80.0) % Lymph % (Auto) (25.0-50.0) % [place] % (Auto) (2.0-11.0) % Eos % (Auto) (0.0-4.0) % Baso % (Auto) (0.2-1.2) % Neut # (Auto) (1.8-7.7) x10^3/uL Lymph # (Auto) (1.0-4.8) x10^3/uL [place] # (Auto) (0.0-0.8) x10^3/uL Eos # (Auto) (0.0-0.5) x10^3/uL Baso # (Auto) (0.0-0.2) x10^3/uL Immature Gran # (Auto) (0.00-0.07) x10^3/uL PT (9.9-12.5) SEC INR (2.0-3.5) Sodium 134 L (136-145) mmol/L Potassium 3.9 (3.5-5.1) mmol/L Chloride 98 (98-107) mmol/L Carbon Dioxide 29 (21-32) mmol/L Anion Gap 10.9 (5-15) mmol/L BUN 20 H (7-18) mg/dL Creatinine 0.7 (0.70-1.30) mg/dL Est Cr Clr Drug Dosing 114.14 mL/min Estimated GFR (MDRD) > 60 Glucose 186 H (70-99) mg/dL POC Glucose (70-99) mg/dL Lactic Acid 1.0 (0.4-2.0) mmol/L Calcium 8.3 L (8.5-10.1) mg/dL Corrected Calcium 9.8 (8.5-10.1) mg/dL Magnesium 1.9 (1.8-2.4) mg/dL Total Bilirubin 0.4 (0.2-1.0) mg/dL AST 13 L (15-37) U/L ALT 12 L (16-63) U/L Alkaline Phosphatase 90 (46-116) U/L C-Reactive Protein (<=0.9) mg/dL Total Protein 6.5 (6.4-8.2) g/dL Albumin 2.1 L (3.4-5.0) g/dL Globulin 4.4 Albumin/Globulin Ratio 0.48 Procalcitonin 0.38 (0.1-0.50) ng/mL SARS CoV-2 RNA Rapid MARCELINA (NEGATIVE) 04/03/21 04/03/21 Range/Units 06:51 11:36 WBC (4.0-10.0) x10^3/uL RBC (4.5-6.0) x10^6/uL Hgb (14.0-18.0) g/dL Hct (40.0-52.0) % MCV (78.0-93.0) fL MCH (26.0-32.0) pg MCHC (32.0-36.0) g/dL RDW Coeff of Dian (10.0-15.0) % Plt Count (130-400) x10^3/uL Immature Gran % (Auto) (0.00-0.43) % Neut % (Auto) (50.0-80.0) % Lymph % (Auto) (25.0-50.0) % [place] % (Auto) (2.0-11.0) % Eos % (Auto) (0.0-4.0) % Baso % (Auto) (0.2-1.2) % Neut # (Auto) (1.8-7.7) x10^3/uL Lymph # (Auto) (1.0-4.8) x10^3/uL [place] # (Auto) (0.0-0.8) x10^3/uL Eos # (Auto) (0.0-0.5) x10^3/uL Baso # (Auto) (0.0-0.2) x10^3/uL Immature Gran # (Auto) (0.00-0.07) x10^3/uL PT (9.9-12.5) SEC INR (2.0-3.5) Sodium (136-145) mmol/L Potassium (3.5-5.1) mmol/L Chloride (98-107) mmol/L Carbon Dioxide (21-32) mmol/L Anion Gap (5-15) mmol/L BUN (7-18) mg/dL Creatinine (0.70-1.30) mg/dL Est Cr Clr Drug Dosing mL/min Estimated GFR (MDRD) Glucose (70-99) mg/dL POC Glucose 184 H 157 H (70-99) mg/dL Lactic Acid (0.4-2.0) mmol/L Calcium (8.5-10.1) mg/dL Corrected Calcium (8.5-10.1) mg/dL Magnesium (1.8-2.4) mg/dL Total Bilirubin (0.2-1.0) mg/dL AST (15-37) U/L ALT (16-63) U/L Alkaline Phosphatase (46-116) U/L C-Reactive Protein (<=0.9) mg/dL Total Protein (6.4-8.2) g/dL Albumin (3.4-5.0) g/dL Globulin Albumin/Globulin Ratio Procalcitonin (0.1-0.50) ng/mL SARS CoV-2 RNA Rapid MARCELINA (NEGATIVE) Med Orders - Current: Current Medications Atorvastatin Calcium (Atorvastatin 10 Mg Tab) 20 mg PO DAILY [facility] Last Admin: 04/03/21 08:58 Dose: 20 mg Documented by: Betamethasone/Clotrimazole (Betamethasone Dipropionate/Clotrimazole 0.05-1% Crm 15 Gm Tube) 0 gm TOP BID [facility] Last Admin: 04/03/21 09:03 Dose: 1 dose Documented by: Calcium Polycarbophil (Calcium Polycarbophil 625 Mg Tab) 625 mg PO DAILY [facility] Last Admin: 04/03/21 08:51 Dose: 625 mg Documented by: Ceftriaxone Sodium (Ceftriaxone 2 Gm Vial) 2 gm IVPUSH Q24H [facility] Last Admin: 04/02/21 18:34 Dose: 2 gm Documented by: Cholecalciferol (Cholecalciferol (Vitamin D3) 25 Mcg Tab) 100 mcg PO DAILY [facility] Last Admin: 04/03/21 08:58 Dose: 100 mcg Documented by: Dextrose/Water (50% Dextrose In Water 50 Ml Syringe) 50 ml IVPUSH ASDIRECTED PRN PRN Reason: Hypoglycemia Sodium Chloride (Normal Saline) 1,000 mls @ 150 mls/hr IV ASDIRECTED [facility] Last Admin: 04/02/21 18:35 Dose: 150 mls/hr Documented by: Insulin Glargine (Insulin Glarg,Human.Rec.Analog 100 Unit/Ml) 40 unit SUBCUT BEDTIME [facility] Last Admin: 04/02/21 20:48 Dose: 40 unit Documented by: Insulin Human Lispro (Insulin Lispro 100 Units/Ml 3 Ml Vial) 0 unit SUBCUT TIDMEALS [facility]; Protocol Insulin Human Lispro (Insulin Lispro 100 Units/Ml 3 Ml Vial) 7 unit SUBCUT TIDMEALS [facility] Lisinopril (Lisinopril 10 Mg Tab) 10 mg PO DAILY [facility] Last Admin: 04/03/21 08:51 Dose: 10 mg Documented by: Melatonin (Melatonin 3 Mg Tab) 3 mg PO BEDTIME [facility] Last Admin: 04/02/21 20:55 Dose: Not Given Documented by: Ondansetron HCl (Ondansetron 4 Mg Tab.Dis) 4 mg PO Q6H PRN PRN Reason: Nausea Risperidone (Risperidone 1 Mg Tab) 3 mg PO BID [facility] Last Admin: 04/03/21 08:58 Dose: 3 mg Documented by: Sertraline HCl (Sertraline 50 Mg Tab) 50 mg PO DAILY [facility] Last Admin: 04/03/21 08:51 Dose: 50 mg Documented by: Tamsulosin HCl (Tamsulosin 0.4 Mg Cap.Er) 0.4 mg PO DAILY [facility] Last Admin: 04/03/21 08:51 Dose: 0.4 mg Documented by: Warfarin Sodium (Warfarin 5 Mg Tab) 5 mg PO BEDTIME [facility] Discontinued Medications Insulin Human Lispro (Insulin Lispro 100 Units/Ml 3 Ml Vial) 7 unit SUBCUT TIDAC [facility] Last Admin: 04/03/21 06:56 Dose: 7 unit Documented by: Non-Formulary Medication (Insulin Aspart) 1 unit SQ TIDAC PRN PRN Reason: Blood Glucose Non-Formulary Medication (Urea [Urea 20% Crm]) 1 applic TOP DAILY [facility] Warfarin Sodium (Warfarin 5 Mg Tab) 5 mg PO ONETIME ONE Stop: 04/02/21 20:16 Last Admin: 04/02/21 20:48 Dose: 5 mg Documented by: - Exam General: Alert, Cooperative, No Acute Distress HEENT: Mucous Membr. Moist/[place] Neck: Supple Lungs: Clear to Auscultation, Normal Respiratory Effort Cardiovascular: Regular Rate, Regular Rhythm, Murmurs (3/6 systolic ejection murmur) GI/Abdominal Exam: Normal Bowel Sounds, Soft, Non-Tender Extremities: Non-Tender, No Pedal Edema Skin: Warm, Dry Wound/Incisions: Other (unable to assess sacral wound today (no assistance in the room)) Neurological: No New Focal Deficit Psy/Mental Status: Alert, Normal Affect, Normal Mood, Other (patient is at his baseline mental function with his normal concerns/complaints/delusions) - Patient Data Lab Results Last 24 hrs: Laboratory Results - last 24 hr 04/02/21 04/02/21 04/02/21 Range/Units 15:32 15:35 15:35 WBC (4.0-10.0) x10^3/uL RBC (4.5-6.0) x10^6/uL Hgb (14.0-18.0) g/dL Hct (40.0-52.0) % MCV (78.0-93.0) fL MCH (26.0-32.0) pg MCHC (32.0-36.0) g/dL RDW Coeff of Dian (10.0-15.0) % Plt Count (130-400) x10^3/uL Immature Gran % (Auto) (0.00-0.43) % Neut % (Auto) (50.0-80.0) % Lymph % (Auto) (25.0-50.0) % [place] % (Auto) (2.0-11.0) % Eos % (Auto) (0.0-4.0) % Baso % (Auto) (0.2-1.2) % Neut # (Auto) (1.8-7.7) x10^3/uL Lymph # (Auto) (1.0-4.8) x10^3/uL [place] # (Auto) (0.0-0.8) x10^3/uL Eos # (Auto) (0.0-0.5) x10^3/uL Baso # (Auto) (0.0-0.2) x10^3/uL Immature Gran # (Auto) (0.00-0.07) x10^3/uL PT (9.9-12.5) SEC INR (2.0-3.5) Sodium (136-145) mmol/L Potassium (3.5-5.1) mmol/L Chloride (98-107) mmol/L Carbon Dioxide (21-32) mmol/L Anion Gap (5-15) mmol/L BUN (7-18) mg/dL Creatinine (0.70-1.30) mg/dL Est Cr Clr Drug Dosing mL/min Estimated GFR (MDRD) Glucose (70-99) mg/dL POC Glucose (70-99) mg/dL Lactic Acid 2.3 H* (0.4-2.0) mmol/L Calcium (8.5-10.1) mg/dL Corrected Calcium (8.5-10.1) mg/dL Magnesium (1.8-2.4) mg/dL Total Bilirubin (0.2-1.0) mg/dL AST (15-37) U/L ALT (16-63) U/L Alkaline Phosphatase (46-116) U/L C-Reactive Protein (<=0.9) mg/dL Total Protein (6.4-8.2) g/dL Albumin (3.4-5.0) g/dL Globulin Albumin/Globulin Ratio Procalcitonin 0.39 (0.1-0.50) ng/mL SARS CoV-2 RNA Rapid MARCELINA Negative (NEGATIVE) 04/02/21 04/02/21 04/02/21 Range/Units 17:58 17:58 18:55 WBC (4.0-10.0) x10^3/uL RBC (4.5-6.0) x10^6/uL Hgb (14.0-18.0) g/dL Hct (40.0-52.0) % MCV (78.0-93.0) fL MCH (26.0-32.0) pg MCHC (32.0-36.0) g/dL RDW Coeff of Dian (10.0-15.0) % Plt Count (130-400) x10^3/uL Immature Gran % (Auto) (0.00-0.43) % Neut % (Auto) (50.0-80.0) % Lymph % (Auto) (25.0-50.0) % [place] % (Auto) (2.0-11.0) % Eos % (Auto) (0.0-4.0) % Baso % (Auto) (0.2-1.2) % Neut # (Auto) (1.8-7.7) x10^3/uL Lymph # (Auto) (1.0-4.8) x10^3/uL [place] # (Auto) (0.0-0.8) x10^3/uL Eos # (Auto) (0.0-0.5) x10^3/uL Baso # (Auto) (0.0-0.2) x10^3/uL Immature Gran # (Auto) (0.00-0.07) x10^3/uL PT (9.9-12.5) SEC INR (2.0-3.5) Sodium (136-145) mmol/L Potassium (3.5-5.1) mmol/L Chloride (98-107) mmol/L Carbon Dioxide (21-32) mmol/L Anion Gap (5-15) mmol/L BUN (7-18) mg/dL Creatinine (0.70-1.30) mg/dL Est Cr Clr Drug Dosing mL/min Estimated GFR (MDRD) Glucose (70-99) mg/dL POC Glucose 198 H (70-99) mg/dL Lactic Acid 1.0 (0.4-2.0) mmol/L Calcium (8.5-10.1) mg/dL Corrected Calcium (8.5-10.1) mg/dL Magnesium (1.8-2.4) mg/dL Total Bilirubin (0.2-1.0) mg/dL AST (15-37) U/L ALT (16-63) U/L Alkaline Phosphatase (46-116) U/L C-Reactive Protein 94.4 H (<=0.9) mg/dL Total Protein (6.4-8.2) g/dL Albumin (3.4-5.0) g/dL Globulin Albumin/Globulin Ratio Procalcitonin (0.1-0.50) ng/mL SARS CoV-2 RNA Rapid MARCELINA (NEGATIVE) 04/02/21 04/03/21 04/03/21 Range/Units 20:52 06:12 06:12 WBC 19.1 H (4.0-10.0) x10^3/uL RBC 3.42 L (4.5-6.0) x10^6/uL Hgb 9.7 L (14.0-18.0) g/dL Hct 30.1 L (40.0-52.0) % MCV 88.0 (78.0-93.0) fL MCH 28.4 (26.0-32.0) pg MCHC 32.2 (32.0-36.0) g/dL RDW Coeff of Dian 15.0 (10.0-15.0) % Plt Count 250 (130-400) x10^3/uL Immature Gran % (Auto) 0.60 H (0.00-0.43) % Neut % (Auto) 87.5 H (50.0-80.0) % Lymph % (Auto) 7.2 L (25.0-50.0) % [place] % (Auto) 4.4 (2.0-11.0) % Eos % (Auto) 0.2 (0.0-4.0) % Baso % (Auto) 0.1 L (0.2-1.2) % Neut # (Auto) 16.7 H (1.8-7.7) x10^3/uL Lymph # (Auto) 1.4 (1.0-4.8) x10^3/uL [place] # (Auto) 0.8 (0.0-0.8) x10^3/uL Eos # (Auto) 0.0 (0.0-0.5) x10^3/uL Baso # (Auto) 0.0 (0.0-0.2) x10^3/uL Immature Gran # (Auto) 0.12 H (0.00-0.07) x10^3/uL PT 26.9 H (9.9-12.5) SEC INR 2.4 (2.0-3.5) Sodium (136-145) mmol/L Potassium (3.5-5.1) mmol/L Chloride (98-107) mmol/L Carbon Dioxide (21-32) mmol/L Anion Gap (5-15) mmol/L BUN (7-18) mg/dL Creatinine (0.70-1.30) mg/dL Est Cr Clr Drug Dosing mL/min Estimated GFR (MDRD) Glucose (70-99) mg/dL POC Glucose 187 H (70-99) mg/dL Lactic Acid (0.4-2.0) mmol/L Calcium (8.5-10.1) mg/dL Corrected Calcium (8.5-10.1) mg/dL Magnesium (1.8-2.4) mg/dL Total Bilirubin (0.2-1.0) mg/dL AST (15-37) U/L ALT (16-63) U/L Alkaline Phosphatase (46-116) U/L C-Reactive Protein (<=0.9) mg/dL Total Protein (6.4-8.2) g/dL Albumin (3.4-5.0) g/dL Globulin Albumin/Globulin Ratio Procalcitonin (0.1-0.50) ng/mL SARS CoV-2 RNA Rapid MARCELINA (NEGATIVE) 04/03/21 04/03/21 04/03/21 Range/Units 06:12 06:12 06:12 WBC (4.0-10.0) x10^3/uL RBC (4.5-6.0) x10^6/uL Hgb (14.0-18.0) g/dL Hct (40.0-52.0) % MCV (78.0-93.0) fL MCH (26.0-32.0) pg MCHC (32.0-36.0) g/dL RDW Coeff of Dian (10.0-15.0) % Plt Count (130-400) x10^3/uL Immature Gran % (Auto) (0.00-0.43) % Neut % (Auto) (50.0-80.0) % Lymph % (Auto) (25.0-50.0) % [place] % (Auto) (2.0-11.0) % Eos % (Auto) (0.0-4.0) % Baso % (Auto) (0.2-1.2) % Neut # (Auto) (1.8-7.7) x10^3/uL Lymph # (Auto) (1.0-4.8) x10^3/uL [place] # (Auto) (0.0-0.8) x10^3/uL Eos # (Auto) (0.0-0.5) x10^3/uL Baso # (Auto) (0.0-0.2) x10^3/uL Immature Gran # (Auto) (0.00-0.07) x10^3/uL PT (9.9-12.5) SEC INR (2.0-3.5) Sodium 134 L (136-145) mmol/L Potassium 3.9 (3.5-5.1) mmol/L Chloride 98 (98-107) mmol/L Carbon Dioxide 29 (21-32) mmol/L Anion Gap 10.9 (5-15) mmol/L BUN 20 H (7-18) mg/dL Creatinine 0.7 (0.70-1.30) mg/dL Est Cr Clr Drug Dosing 114.14 mL/min Estimated GFR (MDRD) > 60 Glucose 186 H (70-99) mg/dL POC Glucose (70-99) mg/dL Lactic Acid 1.0 (0.4-2.0) mmol/L Calcium 8.3 L (8.5-10.1) mg/dL Corrected Calcium 9.8 (8.5-10.1) mg/dL Magnesium 1.9 (1.8-2.4) mg/dL Total Bilirubin 0.4 (0.2-1.0) mg/dL AST 13 L (15-37) U/L ALT 12 L (16-63) U/L Alkaline Phosphatase 90 (46-116) U/L C-Reactive Protein (<=0.9) mg/dL Total Protein 6.5 (6.4-8.2) g/dL Albumin 2.1 L (3.4-5.0) g/dL Globulin 4.4 Albumin/Globulin Ratio 0.48 Procalcitonin 0.38 (0.1-0.50) ng/mL SARS CoV-2 RNA Rapid MARCELINA (NEGATIVE) 04/03/21 04/03/21 Range/Units 06:51 11:36 WBC (4.0-10.0) x10^3/uL RBC (4.5-6.0) x10^6/uL Hgb (14.0-18.0) g/dL Hct (40.0-52.0) % MCV (78.0-93.0) fL MCH (26.0-32.0) pg MCHC (32.0-36.0) g/dL RDW Coeff of Dian (10.0-15.0) % Plt Count (130-400) x10^3/uL Immature Gran % (Auto) (0.00-0.43) % Neut % (Auto) (50.0-80.0) % Lymph % (Auto) (25.0-50.0) % [place] % (Auto) (2.0-11.0) % Eos % (Auto) (0.0-4.0) % Baso % (Auto) (0.2-1.2) % Neut # (Auto) (1.8-7.7) x10^3/uL Lymph # (Auto) (1.0-4.8) x10^3/uL [place] # (Auto) (0.0-0.8) x10^3/uL Eos # (Auto) (0.0-0.5) x10^3/uL Baso # (Auto) (0.0-0.2) x10^3/uL Immature Gran # (Auto) (0.00-0.07) x10^3/uL PT (9.9-12.5) SEC INR (2.0-3.5) Sodium (136-145) mmol/L Potassium (3.5-5.1) mmol/L Chloride (98-107) mmol/L Carbon Dioxide (21-32) mmol/L Anion Gap (5-15) mmol/L BUN (7-18) mg/dL Creatinine (0.70-1.30) mg/dL Est Cr Clr Drug Dosing mL/min Estimated GFR (MDRD) Glucose (70-99) mg/dL POC Glucose 184 H 157 H (70-99) mg/dL Lactic Acid (0.4-2.0) mmol/L Calcium (8.5-10.1) mg/dL Corrected Calcium (8.5-10.1) mg/dL Magnesium (1.8-2.4) mg/dL Total Bilirubin (0.2-1.0) mg/dL AST (15-37) U/L ALT (16-63) U/L Alkaline Phosphatase (46-116) U/L C-Reactive Protein (<=0.9) mg/dL Total Protein (6.4-8.2) g/dL Albumin (3.4-5.0) g/dL Globulin Albumin/Globulin Ratio Procalcitonin (0.1-0.50) ng/mL SARS CoV-2 RNA Rapid MARCELINA (NEGATIVE) Result Diagrams: 04/03/21 06:12 04/03/21 06:12 Sepsis Event Note - Evaluation Sepsis Screening Result: Possible Sepsis Risk - Focused Exam Vital Signs: Vital Signs Temp Temp Pulse Resp BP BP Pulse Ox 04/03/21 12:03 97.9 F 96 33 H 165/90 H 92 L 04/03/21 08:51 146/88 H 04/03/21 05:52 98.4 F 99 31 H 146/88 H 91 L 04/03/21 02:00 97 25 H 132/77 89 L - Problem List & Annotations (1) Sepsis SNOMED Code(s): 60392648 Code(s): A41.9 - SEPSIS, UNSPECIFIED ORGANISM Status: Resolved Current Visit: Yes Qualifiers: Sepsis type: sepsis due to unspecified organism Sepsis acute organ dysfunction status: with acute organ dysfunction Severe sepsis acute organ dysfunction type: unspecified Severe sepsis shock status: with septic shock Qualified Code(s): A41.9 - Sepsis, unspecified organism; R65.21 - Severe sepsis with septic shock (2) UTI (urinary tract infection) SNOMED Code(s): 85757932 Code(s): N39.0 - URINARY TRACT INFECTION, SITE NOT SPECIFIED Status: Acute Current Visit: Yes Qualifiers: Urinary tract infection type: catheter-associated UTI Indwelling urinary catheter type: indwelling urethral catheter Encounter type: initial encounter Qualified Code(s): T83.511A - Infection and inflammatory reaction due to indwelling urethral catheter, initial encounter; N39.0 - Urinary tract infection, site not specified - Problem List Review Problem List Initiated/Reviewed/Updated: Yes - My Orders Last 24 Hours: My Active Orders 04/03/21 00:26 Consult to Case Management/Instructional Design Technologist [CONS] Routine 04/03/21 07:04 CULTURE URINE [RM] Routine 04/03/21 08:09 Dextrose 50% in Water 50 ml IVPUSH ASDIRECTED PRN 04/03/21 12:00 Insulin Lispro [HumaLOG] See Protocol SUBCUT TIDMEALS - Plan Plan:: Mr Munoz is hospital day #2 for treatment of urosepsis. Sepsis - resolved UTI, likely pyelonephritis -Patient clinical status is improved from previous - CBC with mild improvement, LA back to normal - Chronic fortune use (hx urinary retention after RCC ablation, has failed a number of void trials) Plan: - Cut down on IVF - Continue IV Rocephin, anticipate 14 day course given repeat complicated UTI - Monitor cultures (UA at [place], Blood at [facility]) Sacral Ulcer - Chronic - Given previous culture results should be covered by current abx - Has never had positive blood cultures during past admissions Plan: - Wound cares - Had discussed general surgery for further cares, held off given patient fra gility in the past, may pursue again - Will plan to continue antibiotics at discharge that will cover both UTI and buttocks wound Chronic: -Schizophrenia - continue home Risperdal, Zoloft -HTN - continue home Lisinopril -Type 2 diabetes - continue home Lantus 45 units at bedtime, NovoLog 7 units 3 times a day with meals, +SS, metformin -Insomnia - continue home melatonin -BPH - continue home Flomax -Hyperlipidemia - continue home Lipitor -PE (provoked): continue warfarin, INR monitoring Diet: Diabetic, as tolerated DVT: oral anticoagulation, INR's for monitoring of coumadin Code: [place] Disposition: Anticipate that patient will need 1-2 more midnights for IV antibiotics. Will monitor cultures and adjust regiment as indicated. Anticipate prolonged outpatient antibiotic course. Will plan to line up surgical as well as likely urological consults after discharge to address the sacral wound as well as the chronic fortune in more detail. Also likely worth a repeat of PSA outpatient given history of BPH.
[2021-04-03] MEDS: Sodium Chloride 0.9% 1,000 ML IV SCH (14:40)
[2021-04-03] MEDS: cefTRIAXone 2 GM Vial IVPUSH SCH (16:58)
[2021-04-03] MEDS: metFORMIN 500 MG Tab PO SCH (19:10)
[2021-04-03] MEDS: Warfarin 5 MG Tab PO SCH (20:56)
[2021-04-03] MEDS: Melatonin 3 MG Tab PO SCH (20:56)
[2021-04-03] MEDS: Insulin Glarg,Human.Rec.Analog 100 Unit/ML SUBCUT SCH (20:57)
[2021-04-04] MEDS: Sodium Chloride 0.9% 1,000 ML IV SCH (03:35)
[2021-04-04 07:22] LABS: CHLORIDE,CL 101 mmol/L (98-107); SODIUM,NA 136 mmol/L (136-145)
[2021-04-04] MEDS: Calcium Polycarbophil 625 MG Tab PO SCH (08:28)
[2021-04-04] MEDS: risperiDONE 1 MG Tab PO SCH ×2 (08:28→19:33)
[2021-04-04] MEDS: metFORMIN 500 MG Tab PO SCH ×2 (08:28→18:37)
[2021-04-04] MEDS: atorvaSTATin 10 MG Tab PO SCH (08:28)
[2021-04-04] MEDS: Tamsulosin 0.4 MG Cap.ER PO SCH (08:28)
[2021-04-04] MEDS: Cholecalciferol (Vitamin D3) 25 MCG Tab PO SCH (08:29)
[2021-04-04] MEDS: Sertraline 50 MG Tab PO SCH (08:29)
[2021-04-04] MEDS: Lisinopril 10 MG Tab PO SCH (08:29)
[2021-04-04] MEDS: Insulin Lispro 100 Units/ML 3 ML Vial SUBCUT SCH ×6 (08:30→17:18)
[2021-04-04] MEDS: Betamethasone Dipropionate/Clotrimazole 0.05-1% Crm 15 GM Tube TOP SCH ×2 (08:32→19:32)
--- NOTE | 2021-04-04 15:13 | PCM.PN ---
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 He presented to the clinic for evaluation after being noted to have weakness, loss of appetite, fatigue, intermittent lethargic behaviors. Laboratory evaluation in the clinic was notable for leukocytosis of 24,000. Ur ine came back demonstrating likely urinary urinary tract infection with calcium oxalate crystals and WBC clumps. He was admitted, initiated on fluids and IV antibiotics (Rocephin). He maintains at his baseline level of mentation this morning: alert and asking to be transferred to a hospital a hospital that can take care of all of his needs. Vitals remain stable and WBC down-trending. - Review of Systems General: Reports: Weakness, Fatigue HEENT: Reports: No Symptoms Pulmonary: Reports: No Symptoms Cardiovascular: Reports: No Symptoms Gastrointestinal: Reports: No Symptoms Genitourinary: Reports: No Symptoms Musculoskeletal: Reports: No Symptoms Skin: Reports: No Symptoms Neurological: Reports: No Symptoms - Patient Data Vitals - Most Recent: Last Vital Signs Temp 98.2 F 04/04/21 14:00 Pulse 96 04/04/21 14:00 Resp 34 H 04/04/21 14:00 BP 149/95 H 04/04/21 14:00 Pulse Ox 91 L 04/04/21 14:00 Weight - Most Recent: 235 lb 14.314 oz I&O - Last 24 Hours: Intake & Output 04/04/21 04/04/21 04/04/21 06:59 14:59 22:59 Intake Total 1815 720 Output Total 1400 1550 Balance 415 -830 Lab Results Last 24 Hours: Laboratory Results - last 24 hr 04/03/21 04/04/21 04/04/21 Range/Units 16:57 06:28 06:28 WBC 11.9 H (4.0-10.0) x10^3/uL RBC 3.60 L (4.5-6.0) x10^6/uL Hgb 10.2 L (14.0-18.0) g/dL Hct 31.2 L (40.0-52.0) % MCV 86.7 (78.0-93.0) fL MCH 28.3 (26.0-32.0) pg MCHC 32.7 (32.0-36.0) g/dL RDW Coeff of Dian 14.7 (10.0-15.0) % Plt Count 292 (130-400) x10^3/uL Neutrophils % (Manual) 74 (50-80) % Band Neutrophils % 4 (0-6) % Lymphocytes % (Manual) 14 L (25-50) % Monocytes % (Manual) 6 (2-11) % Eosinophils % (Manual) 1 (0-4) % Metamyelocytes % 1 H (0) % Immature Gran # 0.12 H (0.00-0.07) X10^3/Ul Absolute Neutrophils 9.3 H (1.8-7.7) x10^3/uL Lymphocytes # (Manual) 1.7 (1.0-4.8) x10^3/uL Monocytes # (Manual) 0.7 (0.0-0.8) x10^3/uL Eosinophils # (Manual) 0.1 (0.0-0.5) x10^3/uL Platelet Estimate Adequate Ovalocytes 1+ slight H Effort Cells 1+ slight H Acanthocytes (Spur) 1+ slight H Rouleaux 1+ slight H PT 27.6 H (9.9-12.5) SEC INR 2.5 (2.0-3.5) Sodium (136-145) mmol/L Potassium (3.5-5.1) mmol/L Chloride (98-107) mmol/L Carbon Dioxide (21-32) mmol/L Anion Gap (5-15) mmol/L BUN (7-18) mg/dL Creatinine (0.70-1.30) mg/dL Est Cr Clr Drug Dosing mL/min Estimated GFR (MDRD) Glucose (70-99) mg/dL POC Glucose 148 H (70-99) mg/dL Calcium (8.5-10.1) mg/dL 04/04/21 04/04/21 Range/Units 06:28 13:24 WBC (4.0-10.0) x10^3/uL RBC (4.5-6.0) x10^6/uL Hgb (14.0-18.0) g/dL Hct (40.0-52.0) % MCV (78.0-93.0) fL MCH (26.0-32.0) pg MCHC (32.0-36.0) g/dL RDW Coeff of Dian (10.0-15.0) % Plt Count (130-400) x10^3/uL Neutrophils % (Manual) (50-80) % Band Neutrophils % (0-6) % Lymphocytes % (Manual) (25-50) % Monocytes % (Manual) (2-11) % Eosinophils % (Manual) (0-4) % Metamyelocytes % (0) % Immature Gran # (0.00-0.07) X10^3/Ul Absolute Neutrophils (1.8-7.7) x10^3/uL Lymphocytes # (Manual) (1.0-4.8) x10^3/uL Monocytes # (Manual) (0.0-0.8) x10^3/uL Eosinophils # (Manual) (0.0-0.5) x10^3/uL Platelet Estimate Ovalocytes John Cells Acanthocytes (Spur) Rouleaux PT (9.9-12.5) SEC INR (2.0-3.5) Sodium 136 (136-145) mmol/L Potassium 4.0 (3.5-5.1) mmol/L Chloride 101 (98-107) mmol/L Carbon Dioxide 29 (21-32) mmol/L Anion Gap 10.0 (5-15) mmol/L BUN 12 (7-18) mg/dL Creatinine 0.7 (0.70-1.30) mg/dL Est Cr Clr Drug Dosing 114.14 mL/min Estimated GFR (MDRD) > 60 Glucose 134 H (70-99) mg/dL POC Glucose 148 H (70-99) mg/dL Calcium 8.3 L (8.5-10.1) mg/dL Sha Results Last 24 Hours: Microbiology 04/03/21 07:04 Urine Culture - Preliminary Urine, Fortune Cath (Indwelling) Gram Negative Rods Streptococcus Species 04/02/21 15:43 Aerobic Blood Culture - Preliminary Blood - Venous - Lab Draw NO GROWTH AFTER 1 DAY Anaerobic Blood Culture - Preliminary NO GROWTH AFTER 1 DAY 04/02/21 15:35 Aerobic Blood Culture - Preliminary Blood - Venous NO GROWTH AFTER 1 DAY Anaerobic Blood Culture - Preliminary NO GROWTH AFTER 1 DAY 04/02/21 15:45 MRSA Surveillance Culture - Final Nasal, Unspecified NO MRSA ISOLATED Med Orders - Current: Current Medications Atorvastatin Calcium (Atorvastatin 10 Mg Tab) 20 mg PO DAILY [facility] Last Admin: 04/04/21 08:28 Dose: 20 mg Documented by: Betamethasone/Clotrimazole (Betamethasone Dipropionate/Clotrimazole 0.05-1% Crm 15 Gm Tube) 0 gm TOP BID [facility] Last Admin: 04/04/21 08:32 Dose: 1 dose Documented by: Calcium Polycarbophil (Calcium Polycarbophil 625 Mg Tab) 625 mg PO DAILY [facility] Last Admin: 04/04/21 08:28 Dose: 625 mg Documented by: Ceftriaxone Sodium (Ceftriaxone 2 Gm Vial) 2 gm IVPUSH Q24H [facility] Last Admin: 04/03/21 16:58 Dose: 2 gm Documented by: Cholecalciferol (Cholecalciferol (Vitamin D3) 25 Mcg Tab) 100 mcg PO DAILY [facility] Last Admin: 04/04/21 08:29 Dose: 100 mcg Documented by: Dextrose/Water (50% Dextrose In Water 50 Ml Syringe) 50 ml IVPUSH ASDIRECTED PRN PRN Reason: Hypoglycemia Sodium Chloride (Normal Saline) 1,000 mls @ 1 mls/hr IV ASDIRECTED [facility] Last Admin: 04/04/21 03:35 Dose: 75 mls/hr Documented by: Insulin Glargine (Insulin Glarg,Human.Rec.Analog 100 Unit/Ml) 45 unit SUBCUT BEDTIME [facility] Last Admin: 04/03/21 20:57 Dose: 45 unit Documented by: Insulin Human Lispro (Insulin Lispro 100 Units/Ml 3 Ml Vial) 0 unit SUBCUT TIDMEALS [facility]; Protocol Last Admin: 04/04/21 13:27 Dose: Not Given Documented by: Insulin Human Lispro (Insulin Lispro 100 Units/Ml 3 Ml Vial) 7 unit SUBCUT TIDMEALS [facility] Last Admin: 04/04/21 13:28 Dose: 7 units Documented by: Lisinopril (Lisinopril 10 Mg Tab) 10 mg PO DAILY [facility] Last Admin: 04/04/21 08:29 Dose: 10 mg Documented by: Melatonin (Melatonin 3 Mg Tab) 3 mg PO BEDTIME [facility] Last Admin: 04/03/21 20:56 Dose: 3 mg Documented by: Metformin HCl (Metformin 500 Mg Tab) 1,000 mg PO BIDMEALS [facility] Last Admin: 04/04/21 08:28 Dose: 1,000 mg Documented by: Ondansetron HCl (Ondansetron 4 Mg Tab.Dis) 4 mg PO Q6H PRN PRN Reason: Nausea Risperidone (Risperidone 1 Mg Tab) 3 mg PO BID [facility] Last Admin: 04/04/21 08:28 Dose: 3 mg Documented by: Sertraline HCl (Sertraline 50 Mg Tab) 50 mg PO DAILY [facility] Last Admin: 04/04/21 08:29 Dose: 50 mg Documented by: Tamsulosin HCl (Tamsulosin 0.4 Mg Cap.Er) 0.4 mg PO DAILY [facility] Last Admin: 04/04/21 08:28 Dose: 0.4 mg Documented by: Warfarin Sodium (Warfarin 5 Mg Tab) 5 mg PO BEDTIME [facility] Last Admin: 04/03/21 20:56 Dose: 5 mg Documented by: Discontinued Medications Insulin Glargine (Insulin Glarg,Human.Rec.Analog 100 Unit/Ml) 40 unit SUBCUT BEDTIME [facility] Last Admin: 04/02/21 20:48 Dose: 40 unit Documented by: Insulin Human Lispro (Insulin Lispro 100 Units/Ml 3 Ml Vial) 7 unit SUBCUT TIDAC [facility] Last Admin: 04/03/21 06:56 Dose: 7 unit Documented by: Non-Formulary Medication (Insulin Aspart) 1 unit SQ TIDAC PRN PRN Reason: Blood Glucose Non-Formulary Medication (Urea [Urea 20% Crm]) 1 applic TOP DAILY [facility] Warfarin Sodium (Warfarin 5 Mg Tab) 5 mg PO ONETIME ONE Stop: 04/02/21 20:16 Last Admin: 04/02/21 20:48 Dose: 5 mg Documented by: - Exam General: Alert, Cooperative, No Acute Distress HEENT: Mucous Membr. Moist/[place]: Supple Lungs: Clear to Auscultation, Normal Respiratory Effort Cardiovascular: Regular Rate, Regular Rhythm, Murmurs (2/6 ejection murmur) GI/Abdominal Exam: Normal Bowel Sounds, Soft, Non-Tender Extremities: Normal Inspection, Non-Tender, No Pedal Edema Skin: Warm, Dry Neurological: No New Focal Deficit Psy/Mental Status: Alert, Normal Mood, Other (typical delusions/fixations again today) - Patient Data Lab Results Last 24 hrs: Laboratory Results - last 24 hr 04/03/21 04/04/21 04/04/21 Range/Units 16:57 06:28 06:28 WBC 11.9 H (4.0-10.0) x10^3/uL RBC 3.60 L (4.5-6.0) x10^6/uL Hgb 10.2 L (14.0-18.0) g/dL Hct 31.2 L (40.0-52.0) % MCV 86.7 (78.0-93.0) fL MCH 28.3 (26.0-32.0) pg MCHC 32.7 (32.0-36.0) g/dL RDW Coeff of Dian 14.7 (10.0-15.0) % Plt Count 292 (130-400) x10^3/uL Neutrophils % (Manual) 74 (50-80) % Band Neutrophils % 4 (0-6) % Lymphocytes % (Manual) 14 L (25-50) % Monocytes % (Manual) 6 (2-11) % Eosinophils % (Manual) 1 (0-4) % Metamyelocytes % 1 H (0) % Immature Gran # 0.12 H (0.00-0.07) X10^3/Ul Absolute Neutrophils 9.3 H (1.8-7.7) x10^3/uL Lymphocytes # (Manual) 1.7 (1.0-4.8) x10^3/uL Monocytes # (Manual) 0.7 (0.0-0.8) x10^3/uL Eosinophils # (Manual) 0.1 (0.0-0.5) x10^3/uL Platelet Estimate Adequate Ovalocytes 1+ slight H John Cells 1+ slight H Acanthocytes (Spur) 1+ slight H Rouleaux 1+ slight H PT 27.6 H (9.9-12.5) SEC INR 2.5 (2.0-3.5) Sodium (136-145) mmol/L Potassium (3.5-5.1) mmol/L Chloride (98-107) mmol/L Carbon Dioxide (21-32) mmol/L Anion Gap (5-15) mmol/L BUN (7-18) mg/dL Creatinine (0.70-1.30) mg/dL Est Cr Clr Drug Dosing mL/min Estimated GFR (MDRD) Glucose (70-99) mg/dL POC Glucose 148 H (70-99) mg/dL Calcium (8.5-10.1) mg/dL 04/04/21 04/04/21 Range/Units 06:28 13:24 WBC (4.0-10.0) x10^3/uL RBC (4.5-6.0) x10^6/uL Hgb (14.0-18.0) g/dL Hct (40.0-52.0) % MCV (78.0-93.0) fL MCH (26.0-32.0) pg MCHC (32.0-36.0) g/dL RDW Coeff of Dian (10.0-15.0) % Plt Count (130-400) x10^3/uL Neutrophils % (Manual) (50-80) % Band Neutrophils % (0-6) % Lymphocytes % (Manual) (25-50) % Monocytes % (Manual) (2-11) % Eosinophils % (Manual) (0-4) % Metamyelocytes % (0) % Immature Gran # (0.00-0.07) X10^3/Ul Absolute Neutrophils (1.8-7.7) x10^3/uL Lymphocytes # (Manual) (1.0-4.8) x10^3/uL Monocytes # (Manual) (0.0-0.8) x10^3/uL Eosinophils # (Manual) (0.0-0.5) x10^3/uL Platelet Estimate Ovalocytes John Cells Acanthocytes (Spur) Rouleaux PT (9.9-12.5) SEC INR (2.0-3.5) Sodium 136 (136-145) mmol/L Potassium 4.0 (3.5-5.1) mmol/L Chloride 101 (98-107) mmol/L Carbon Dioxide 29 (21-32) mmol/L Anion Gap 10.0 (5-15) mmol/L BUN 12 (7-18) mg/dL Creatinine 0.7 (0.70-1.30) mg/dL Est Cr Clr Drug Dosing 114.14 mL/min Estimated GFR (MDRD) > 60 Glucose 134 H (70-99) mg/dL POC Glucose 148 H (70-99) mg/dL Calcium 8.3 L (8.5-10.1) mg/dL Result Diagrams: 04/04/21 06:28 04/04/21 06:28 Sha Results Last 24 hrs: Microbiology 04/03/21 07:04 Urine Culture - Preliminary Urine, Fortune Cath (Indwelling) Gram Negative Rods Streptococcus Species 04/02/21 15:43 Aerobic Blood Culture - Preliminary Blood - Venous - Lab Draw NO GROWTH AFTER 1 DAY Anaerobic Blood Culture - Preliminary NO GROWTH AFTER 1 DAY 04/02/21 15:35 Aerobic Blood Culture - Preliminary Blood - Venous NO GROWTH AFTER 1 DAY Anaerobic Blood Culture - Preliminary NO GROWTH AFTER 1 DAY 04/02/21 15:45 MRSA Surveillance Culture - Final Nasal, Unspecified NO MRSA ISOLATED Sepsis Event Note - Evaluation Sepsis Screening Result: Possible Sepsis Risk - Focused Exam Vital Signs: Vital Signs Temp Pulse Resp BP BP Pulse Ox 04/04/21 14:00 98.2 F 96 34 H 149/95 H 91 L 04/04/21 10:00 98.2 F 98 34 H 159/97 H 90 L 04/04/21 08:29 159/84 H 04/04/21 06:00 91 20 159/84 H 93 L - Problem List & Annotations (1) Sepsis SNOMED Code(s): 33094050 Code(s): A41.9 - SEPSIS, UNSPECIFIED ORGANISM Status: Resolved Current Visit: Yes Qualifiers: Sepsis type: sepsis due to unspecified organism Sepsis acute organ dysfunction status: with acute organ dysfunction Severe sepsis acute organ dysfunction type: unspecified Severe sepsis shock status: with septic shock Qualified Code(s): A41.9 - Sepsis, unspecified organism; R65.21 - Severe sepsis with septic shock (2) UTI (urinary tract infection) SNOMED Code(s): 79083670 Code(s): N39.0 - URINARY TRACT INFECTION, SITE NOT SPECIFIED Status: Acute Current Visit: Yes Qualifiers: Urinary tract infection type: catheter-associated UTI Indwelling urinary catheter type: indwelling urethral catheter Encounter type: initial encounter Qualified Code(s): T83.511A - Infection and inflammatory reaction due to indwelling urethral catheter, initial encounter; N39.0 - Urinary tract infection, site not specified - Problem List Review Problem List Initiated/Reviewed/Updated: Yes - My Orders Last 24 Hours: My Active Orders 04/03/21 16:35 Discontinue Telemetry Monitoring [Cardiac Monitoring Discontinue] [RC] Click to Edit 04/03/21 18:00 metFORMIN [Glucophage] 1,000 mg PO BIDMEALS 04/03/21 20:00 Insulin Glarg,Human.Rec.Analog [LantUS] 45 unit SUBCUT BEDTIME 04/05/21 06:00 CBC W/O DIFF,HEMOGRAM [HEME] Routine - Plan Plan:: Mr Munoz is hospital day #3 for treatment of urosepsis. Sepsis - resolved UTI, likely pyelonephritis -Patient clinical status is improved from previous - labs/vitals improving - Chronic fortune use (hx urinary retention after RCC ablation, has failed a number of void trials) - Urine growing enterococcucus and coag neg staph, similar to past urine samples Plan: - Stop IVF - Continue IV Rocephin today. Switch to oral antibiotics tomorrow: Augmenting 875 BID for 11 more days (total of 14 days of treatment) for presumed pyelo - Continue to monitor cultures (UA at [place], Blood at [facility]) Sacral Ulcer - Chronic - Given previous culture results should be covered by current abx - Has never had positive blood cultures during past admissions Plan: - Wound cares - Had discussed general surgery for further cares, held off given patient fragility in the past, may pursue again - Will plan to continue antibiotics at discharge that will cover both UTI and buttocks wound Chronic: -Schizophrenia - continue home Risperdal, Zoloft -HTN - continue home Lisinopril -Type 2 diabetes - continue home Lantus 45 units at bedtime, NovoLog 7 units 3 times a day with meals, +SS, metformin -Insomnia - continue home melatonin -BPH - continue home Flomax -Hyperlipidemia - continue home Lipitor -PE (provoked): continue warfarin, INR monitoring Diet: Diabetic, as tolerated DVT: oral anticoagulation, INR's for monitoring of coumadin Code: [place] Disposition: Anticipate that patient will be discharged tomorrow on oral antibiotics: augmentin BID for 11 more days. Will plan to line up surgical as well as likely urological consults after discharge to address the sacral wound as well as the chronic fortune in more detail. Also likely worth a repeat of PSA outpatient given history of BPH.
[2021-04-04] MEDS: cefTRIAXone 2 GM Vial IVPUSH SCH (16:34)
[2021-04-04] MEDS: Warfarin 5 MG Tab PO SCH (19:31)
[2021-04-04] MEDS: Melatonin 3 MG Tab PO SCH (19:33)
[2021-04-04] MEDS: Insulin Glarg,Human.Rec.Analog 100 Unit/ML SUBCUT SCH (19:36)
[2021-04-05] MEDS ORDERED: Amoxicillin/Clavulanate K 875-125 MG Tab PO SCH (08:00)
[2021-04-05] MEDS: Betamethasone Dipropionate/Clotrimazole 0.05-1% Crm 15 GM Tube TOP SCH (08:06)
[2021-04-05] MEDS: Cholecalciferol (Vitamin D3) 25 MCG Tab PO SCH (08:06)
[2021-04-05] MEDS: risperiDONE 1 MG Tab PO SCH (08:06)
[2021-04-05] MEDS: Calcium Polycarbophil 625 MG Tab PO SCH (08:07)
[2021-04-05] MEDS: Lisinopril 10 MG Tab PO SCH (08:07)
[2021-04-05] MEDS: Tamsulosin 0.4 MG Cap.ER PO SCH (08:07)
[2021-04-05] MEDS: metFORMIN 500 MG Tab PO SCH (08:07)
[2021-04-05] MEDS: atorvaSTATin 10 MG Tab PO SCH (08:08)
[2021-04-05] MEDS: Insulin Lispro 100 Units/ML 3 ML Vial SUBCUT SCH ×2 (08:08)
[2021-04-05] MEDS: Sertraline 50 MG Tab PO SCH (08:08)
--- NOTE | 2021-04-05 08:16 | PCM.DCSUM1 ---
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 He presented to the clinic for evaluation after being noted to have weakness, loss of appetite, fatigue, intermittent lethargic behaviors. Laboratory evaluation in the clinic was notable for leukocytosis of 24,000. Urine came back demonstrating likely urinary tract infection with calcium oxalate crystals and WBC clumps. He was admitted, initiated on fluids and IV antibiotics (Rocephin). On hospital day 3 his vitals and labs had improved. Urine cultures grew out pseudomonas and strep species (similar to past cultures). Given his picture pointing towards a pyelonephritis we will plan to treat for another 11 days with PO antibiotics; will plan to treat with Cefdinir 300mg BID PO for 22 doses. I do want to get him set up with urology for evaluation of this chronic fortune that has been in place since his ablation this summer. Give medical stability I also think we can advance plans for him to see general surgery to discuss his buttocks wound. These referrals will be placed via [employer]. We will also plan to repeat a PSA at his next appt as this has not been done in the recent years and may be cause for the bladder/fortune troubles. - Discharge Data Discharge Date: 04/05/21 Discharge Disposition: DC/Tfer to [facility] Condition: Good - Referral to Home Health Primary Care Physician: Maggie Ross MD - Discharge Diagnosis/Problem(s) (1) Pyelonephritis SNOMED Code(s): 88361933 ICD Code: N12 - TUBULO-INTERSTITIAL NEPHRITIS, NOT SPCF ACUTE OR CHRONIC Status: Acute Current Visit: Yes (2) Sepsis SNOMED Code(s): 40600363 ICD Code: A41.9 - SEPSIS, UNSPECIFIED ORGANISM Status: Resolved Current Visit: Yes Qualifiers: Sepsis type: sepsis due to unspecified organism Sepsis acute organ dysfunction status: with acute organ dysfunction Severe sepsis acute organ dysfunction type: unspecified Severe sepsis shock status: with septic shock Qualified Code(s): A41.9 - Sepsis, unspecified organism; R65.21 - Severe sepsis with septic shock (3) UTI (urinary tract infection) SNOMED Code(s): 06962101 ICD Code: N39.0 - URINARY TRACT INFECTION, SITE NOT SPECIFIED Status: Acute Current Visit: Yes Qualifiers: Urinary tract infection type: catheter-associated UTI Indwelling urinary catheter type: indwelling urethral catheter Encounter type: initial encounter Qualified Code(s): T83.511A - Infection and inflammatory reaction due to indwelling urethral catheter, initial encounter; N39.0 - Urinary tract infecti on, site not specified - Patient Summary/Data Consults: Consultations 04/03/21 00:26 Consult to Case Management/Data Migration Lead [CONS] Routine 04/03/21 12:43 PT Evaluation and Treatment [CONS] Routine - Discharge Plan *PRESCRIPTION DRUG MONITORING PROGRAM REVIEWED*: Not Applicable *COPY OF PRESCRIPTION DRUG MONITORING REPORT IN PATIENT PAVEL: Not Applicable Prescriptions/Med Rec: Cefdinir [Omnicef] 300 mg PO BID 11 Days #22 cap Home Medications: Home Meds Cholecalciferol (Vitamin D3) [Vitamin D3] 4,000 units PO DAILY 12/21/20 [History] Insulin Aspart See Protocol SQ TIDAC 12/21/20 [History] Insulin Glarg,Human.Rec.Analog [Lantus Solostar] 40 units SQ BEDTIME 12/21/20 [History] Melatonin 3 mg PO BEDTIME 12/21/20 [History] atorvaSTATin Calcium [Atorvastatin Calcium] 20 mg PO DAILY 12/21/20 [History] metFORMIN HCl [Metformin HCl] 1,000 mg PO BID 12/21/20 [History] Tamsulosin HCl [Flomax] 0.4 mg PO DAILY 01/27/21 [History] Urea [Urea 20% Crm] 1 applic TOP DAILY 01/27/21 [History] Sertraline [Zoloft] 50 mg PO DAILY 02/15/21 [History] ondansetron HCL [Zofran] 4 mg PO Q6H PRN 02/15/21 [History] risperiDONE [RisperiDAL] 3 mg PO BID 02/15/21 [History] Betamethasone/Clotrimazole [Lotrisone] 1 applic TOP BID 03/10/21 [History] Methylcellulose [Fiber] 500 mg PO DAILY 03/10/21 [History] Warfarin [Coumadin] 5 mg PO DAILY 03/10/21 [History] lisinopriL [Prinivil] 10 mg PO DAILY #30 tablet 03/12/21 [Rx] Insulin Aspart [NovoLOG] 7 units SUBCUT TIDAC 04/02/21 [History] Cefdinir [Omnicef] 300 mg PO BID 11 Days #22 cap 04/05/21 [Rx] - Discharge Summary/Plan Comment DC Time >30 min.: No Total # of Minutes for Discharge Time: 25 Discharge Summary/Plan Comment: Pyelonephritis: discharge on Cefdinir 300mg BID for 11 more days (total of 14 days of antibiotics) - Review of Systems General: Reports: Weakness, Fatigue HEENT: Reports: No Symptoms Pulmonary: Reports: No Symptoms Cardiovascular: Reports: No Symptoms Gastrointestinal: Reports: No Symptoms Genitourinary: Reports: No Symptoms Musculoskeletal: Reports: No Symptoms Neurological: Reports: No Symptoms Psychiatric: Reports: No Symptoms - Patient Data Vitals - Most Recent: Last Vital Signs Temp 97.2 F 04/05/21 06:00 Pulse 94 04/05/21 06:00 Resp 16 04/05/21 06:00 BP 171/94 H 04/05/21 08:07 Pulse Ox 90 L 04/05/21 06:00 Weight - Most Recent: 235 lb 14.314 oz I&O - Last 24 hours: Intake & Output 04/04/21 04/05/21 04/05/21 22:59 06:59 14:59 Intake Total 680 360 Output Total 850 1750 Balance -170 -1750 360 Lab Results - Last 24 hrs: Laboratory Results - last 24 hr 04/04/21 04/04/21 04/04/21 Range/Units 13:24 17:08 19:35 WBC (4.0-10.0) x10^3/uL RBC (4.5-6.0) x10^6/uL Hgb (14.0-18.0) g/dL Hct (40.0-52.0) % MCV (78.0-93.0) fL MCH (26.0-32.0) pg MCHC (32.0-36.0) g/dL RDW Coeff of Dian (10.0-15.0) % Plt Count (130-400) x10^3/uL PT (9.9-12.5) SEC INR (2.0-3.5) POC Glucose 148 H 74 135 H (70-99) mg/dL 04/05/21 04/05/21 04/05/21 Range/Units 06:15 06:15 06:23 WBC 9.4 (4.0-10.0) x10^3/uL RBC 3.84 L (4.5-6.0) x10^6/uL Hgb 10.7 L (14.0-18.0) g/dL Hct 33.2 L (40.0-52.0) % MCV 86.5 (78.0-93.0) fL MCH 27.9 (26.0-32.0) pg MCHC 32.2 (32.0-36.0) g/dL RDW Coeff of Dian 14.8 (10.0-15.0) % Plt Count 334 (130-400) x10^3/uL PT 33.9 H (9.9-12.5) SEC INR 3.1 (2.0-3.5) POC Glucose 77 (70-99) mg/dL BHAVANI Results - Last 24 hrs: Microbiology 04/03/21 07:04 Urine Culture - Preliminary Urine, Fortune Cath (Indwelling) Pseudomonas Aeruginosa Streptococcus Species 04/02/21 15:43 Aerobic Blood Culture - Preliminary Blood - Venous - Lab Draw NO GROWTH AFTER 2 DAYS Anaerobic Blood Culture - Preliminary NO GROWTH AFTER 2 DAYS 04/02/21 15:35 Aerobic Blood Culture - Preliminary Blood - Venous NO GROWTH AFTER 2 DAYS Anaerobic Blood Culture - Preliminary NO GROWTH AFTER 2 DAYS Med Orders - Current: Current Medications Amoxicillin/Clavulanate Potassium (Amoxicillin/Clavulanate K 875-125 Mg Tab) 1 tab PO Q12HR [facility] Stop: 04/16/21 08:01 Last Admin: 04/05/21 08:07 Dose: 1 tab Documented by: Atorvastatin Calcium (Atorvastatin 10 Mg Tab) 20 mg PO DAILY [facility] Last Admin: 04/05/21 08:08 Dose: 20 mg Documented by: Betamethasone/Clotrimazole (Betamethasone Dipropionate/Clotrimazole 0.05-1% Crm 15 Gm Tube) 0 gm TOP BID [facility] Last Admin: 04/05/21 08:06 Dose: 1 dose Documented by: Calcium Polycarbophil (Calcium Polycarbophil 625 Mg Tab) 625 mg PO DAILY [facility] Last Admin: 04/05/21 08:07 Dose: 625 mg Documented by: Cefdinir (Cefdinir 300 Mg Cap) 300 mg PO BID [facility] Stop: 04/16/21 20:01 Cholecalciferol (Cholecalciferol (Vitamin D3) 25 Mcg Tab) 100 mcg PO DAILY [facility] Last Admin: 04/05/21 08:06 Dose: 100 mcg Documented by: Dextrose/Water (50% Dextrose In Water 50 Ml Syringe) 50 ml IVPUSH ASDIRECTED PRN PRN Reason: Hypoglycemia Insulin Glargine (Insulin Glarg,Human.Rec.Analog 100 Unit/Ml) 45 unit SUBCUT BEDTIME [facility] Last Admin: 04/04/21 19:36 Dose: 45 unit Documented by: Insulin Human Lispro (Insulin Lispro 100 Units/Ml 3 Ml Vial) 0 unit SUBCUT TIDMEALS [facility]; Protocol Last Admin: 04/05/21 08:08 Dose: Not Given Documented by: Insulin Human Lispro (Insulin Lispro 100 Units/Ml 3 Ml Vial) 7 unit SUBCUT TIDMEALS [facility] Last Admin: 04/05/21 08:08 Dose: Not Given Documented by: Lisinopril (Lisinopril 10 Mg Tab) 10 mg PO DAILY [facility] Last Admin: 04/05/21 08:07 Dose: 10 mg Documented by: Melatonin (Melatonin 3 Mg Tab) 3 mg PO BEDTIME [facility] Last Admin: 04/04/21 19:33 Dose: 3 mg Documented by: Metformin HCl (Metformin 500 Mg Tab) 1,000 mg PO BIDMEALS [facility] Last Admin: 04/05/21 08:07 Dose: 1,000 mg Documented by: Ondansetron HCl (Ondansetron 4 Mg Tab.Dis) 4 mg PO Q6H PRN PRN Reason: Nausea Risperidone (Risperidone 1 Mg Tab) 3 mg PO BID [facility] Last Admin: 04/05/21 08:06 Dose: 3 mg Documented by: Sertraline HCl (Sertraline 50 Mg Tab) 50 mg PO DAILY [facility] Last Admin: 04/05/21 08:08 Dose: 50 mg Documented by: Tamsulosin HCl (Tamsulosin 0.4 Mg Cap.Er) 0.4 mg PO DAILY [facility] Last Admin: 04/05/21 08:07 Dose: 0.4 mg Documented by: Warfarin Sodium (Warfarin 5 Mg Tab) 5 mg PO BEDTIME [facility] Last Admin: 04/04/21 19:31 Dose: 5 mg Documented by: Discontinued Medications Ceftriaxone Sodium (Ceftriaxone 2 Gm Vial) 2 gm IVPUSH Q24H [facility] Stop: 04/04/21 23:59 Last Admin: 04/04/21 16:34 Dose: 2 gm Documented by: Sodium Chloride (Normal Saline) 1,000 mls @ 1 mls/hr IV ASDIRECTED [facility] Last Admin: 04/04/21 03:35 Dose: 75 mls/hr Documented by: Insulin Glargine (Insulin Glarg,Human.Rec.Analog 100 Unit/Ml) 40 unit SUBCUT BEDTIME [facility] Last Admin: 04/02/21 20:48 Dose: 40 unit Documented by: Insulin Human Lispro (Insulin Lispro 100 Units/Ml 3 Ml Vial) 7 unit SUBCUT TIDAC [facility] Last Admin: 04/03/21 06:56 Dose: 7 unit Documented by: Non-Formulary Medication (Insulin Aspart) 1 unit SQ TIDAC PRN PRN Reason: Blood Glucose Non-Formulary Medication (Urea [Urea 20% Crm]) 1 applic TOP DAILY [facility] Warfarin Sodium (Warfarin 5 Mg Tab) 5 mg PO ONETIME ONE Stop: 04/02/21 20:16 Last Admin: 04/02/21 20:48 Dose: 5 mg Documented by: - Exam General: Reports: Alert, Oriented, Cooperative, No Acute Distress HEENT: Reports: Mucous Membr. Moist/[place]: Reports: Supple Lungs: Reports: Clear to Auscultation, Normal Respiratory Effort Cardiovascular: Reports: Regular Rate, Regular Rhythm, Murmurs (2/6 ejection) GI/Abdominal Exam: Normal Bowel Sounds, Soft, Non-Tender Extremities: Normal Inspection, Non-Tender, No Pedal Edema Skin: Reports: Warm, Dry Neurological: Reports: No New Focal Deficit Psy/Mental Status: Reports: Alert, Normal Affect, Normal Mood
[2021-04-05] MEDS ORDERED: Cefdinir 300 MG Cap PO SCH (20:00)
== END 2021-04-05 11:15 | DRG 698 ==
LOC: VM.MS 15:14
PROVIDERS: ADMIT Family Medicine; ATTEND Family Medicine
DX: T83.511A Infection and inflammatory reaction due to indwelling urethral catheter, initial encounter (principal); A41.52 Sepsis due to Pseudomonas; R65.21 Severe sepsis with septic shock; I26.99 Other pulmonary embolism without acute cor pulmonale; N12 Tubulo-interstitial nephritis, not specified as acute or chronic; F20.9 Schizophrenia, unspecified; I10 Essential (primary) hypertension; Z20.822 Contact with and (suspected) exposure to COVID-19; E11.9 Type 2 diabetes mellitus without complications; E27.8 Other specified disorders of adrenal gland; F31.9 Bipolar disorder, unspecified; E78.5 Hyperlipidemia, unspecified; I35.0 Nonrheumatic aortic (valve) stenosis; E11.51 Type 2 diabetes mellitus with diabetic peripheral angiopathy without gangrene; G47.00 Insomnia, unspecified; N40.0 Benign prostatic hyperplasia without lower urinary tract symptoms; Z90.49 Acquired absence of other specified parts of digestive tract; L98.429 Non-pressure chronic ulcer of back with unspecified severity; E11.622 Type 2 diabetes mellitus with other skin ulcer; Z79.4 Long term (current) use of insulin; Z79.899 Other long term (current) drug therapy
CPT/HCPCS: 36415; 80048; 80053; 82947; 83605; 83735; 84145; 85007; 85025; 85027; 85610; 86140; 87040; 87086; 87088; 87186; A9270-GY; J0696; J1815-GY; J7030; U0002

== ENCOUNTER 2021-08-10 09:22 | Inpatient (IN) | payer MEDICARE ==
[2021-08-10] MEDS ORDERED: Sodium Chloride 0.9% 10 ML Syringe FLUSH PRN (09:35)
[2021-08-10] MEDS ORDERED: Lactated Ringers 1,000 ML IV ONE ×3 (09:37→10:41)
[2021-08-10] MEDS ORDERED: cefTRIAXone 2 GM Vial IVPUSH ONE (09:38)
--- NOTE | 2021-08-10 10:03 | CR ---
[id number] RAD/RAD Chest PA or AP 1V EXAM: RAD Chest PA or AP 1V INDICATION: SEPSIS. COMPARISON: Subtle DISCUSSION/IMPRESSION: Cardiomediastinal silhouette is unchanged from the prior examination. Subtle opacity projects over the left lung base. This was seen in February 2021. Correlation with CT from February demonstrates linear opacity in the left lower lobe. This is most consistent with scarring or atelectasis. Within limitation of low lung volumes, no evidence of pneumonia. There is however central vascular congestion. Correlate for other signs of fluid retention. Ian Bray MD 08/10/21 1000 Thank you for allowing us to participate in the care of your patient.
[2021-08-10 10:26] LABS: ANION GAP 14.8 mmol/L (5-15)
[2021-08-10 10:35] LABS: CORONAVIRUS COVID-19 NAA NEGATIVE (NEGATIVE); RESPIRATORY SYNCYTIAL VIR NAA NEGATIVE (NEGATIVE)
[2021-08-10] MEDS ORDERED: Azithromycin 500 MG in Sodium Chloride 0.9% 250 ML IV ONE (10:46)
--- NOTE | 2021-08-10 11:01 | EDM.PDOC ---
ED HPI GENERAL MEDICAL PROBLEM - General Chief Complaint: General Stated Complaint: VOMITING, CODE 1 Time Seen by Provider: 08/10/21 09:25 Source of Information: Reports: Patient, EMS, Intermediate Records History Limitations: Reports: No Limitations - History of Present Illness INITIAL COMMENTS - FREE TEXT/NARRATIVE: Patient comes emergency department today from the group home with concerns of vomiting hypotension and pallor. 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 This morning they noted that his blood pressure was in the 80s he had been vomiting. Therefore the ambulance was summoned. Upon arrival EMS noted that his blood pressure was in the 90s or so. He was quite pale. Upon arrival in the emergency department the patient is alert he complains of abdominal pain nausea and generalized malaise and fatigue. He keeps repeating that he wants to get penicillin because he knows that he has some type of infection. He has no shortness of breath difficulty breathing cough or congestion. His oxygen saturation was noted to be in the 86 to 87% which is new for him. He was placed on oxygen. He has been Covid vaccinated. Generalized Pain Score (Numeric/FACES): 8 - Related Data Allergies Allergy/AdvReac Type Severity Reaction Status Date / Time No Known Allergies Allergy Verified 08/10/21 10:13 Home Meds: Home Meds Cholecalciferol (Vitamin D3) [Vitamin D3] 4,000 units PO DAILY 12/21/20 [History] Insulin Aspart See Protocol SQ TIDAC 12/21/20 [History] Insulin Glarg,Human.Rec.Analog [Lantus Solostar] 40 units SQ BEDTIME 12/21/20 [History] Melatonin 3 mg PO BEDTIME 12/21/20 [History] atorvaSTATin Calcium [Atorvastatin Calcium] 20 mg PO DAILY 12/21/20 [History] metFORMIN HCl [Metformin HCl] 1,000 mg PO BID 12/21/20 [History] Tamsulosin HCl [Flomax] 0.4 mg PO DAILY 01/27/21 [History] Urea [Urea 20% Crm] 1 applic TOP DAILY 01/27/21 [History] Sertraline [Zoloft] 150 mg PO DAILY 02/15/21 [History] ondansetron HCL [Zofran] 4 mg PO Q6H PRN 02/15/21 [History] risperiDONE [RisperiDAL] 2 mg PO BID 02/15/21 [History] Methylcellulose [Fiber] 500 mg PO DAILY 03/10/21 [History] lisinopriL [Prinivil] 10 mg PO DAILY #30 tablet 03/12/21 [Rx] Insulin Aspart [NovoLOG] 7 units SUBCUT TIDAC 04/02/21 [History] Acetaminophen [Tylenol] 650 mg PO Q8H PRN 08/10/21 [History] hydroCHLOROthiazide [Hydrochlorothiazide] 12.5 mg PO DAILY 08/10/21 [History] Past Medical History Cardiovascular History: Reports: Heart Murmur, High Cholesterol, Hypertension Gastrointestinal History: Reports: Chronic Constipation Genitourinary History: Reports: BPH Psychiatric History: Reports: Anxiety, Schizophrenia Endocrine/Metabolic History: Reports: Diabetes, Type II, Obesity/BMI 30+ Dermatologic History: Reports: Other (See Below) Other Dermatologic History: cyst removal site slow healing - Infectious Disease History Infectious Disease History: Reports: Novel Coronavirus - Past Surgical History Other Cardiovascular Surgeries/Procedures: aortic valve stenosis Social & Family History - Family History Cardiac: Reports: CAD, Hypertension - Tobacco Use Tobacco Use Status *Q: Former Tobacco User Used Tobacco, but Quit: Yes Month/Year Tobacco Last Used: 1999 - Recreational Drug Use Recreational Drug Use: No ED ROS GENERAL - Review of Systems Review Of Systems: Comprehensive ROS is negative, except as noted in HPI. ED EXAM, GENERAL - Physical Exam Exam: See Below Free Text/Narrative:: The patient is alert with a flat affect that is typical for him paler and he is ill-appearing as well as toxic appearing. He is pale cool diaphoretic. Exam Limited By: No Limitations General Appearance: Alert, Moderate Distress, Obese. No: Anxious, Lethargic, Obtunded Eye Exam: Bilateral Eye: EOMI Ears: Normal External Exam Nose: Normal Inspection Throat/Mouth: No: Normal Inspection (Oral mucosas exquisitely dry no lesions.), Normal Lips (His lips are dried and cracked) Head: Atraumatic, Normocephalic Neck: Normal Inspection Respiratory/Chest: Respiratory Distress (He does have some mild respiratory distress with tachypnea shallow respirations. He is maintaining his airway.), Decreased Breath Sounds (Decreased breath sounds bilaterally.), Wheezing (Some faint expiratory wheezing bilateral bases) Cardiovascular: Normal Peripheral Pulses, Regular Rate, Rhythm, Tachycardia Peripheral Pulses: 1+: Radial (L), Radial (R) GI/Abdominal: Distended, Guarding, Tender (He has generalized tenderness.), Abnormal Bowel Sounds (Hypoactive), Mass (There is a round type mass under his umbilicus that is tender soft). No: Rigid, Rebound (Male) Exam: Other (He has a Myers catheter in place that is draining very cloudy sedimentary full urine) Back Exam: Other (He does have some breakdown on his coccyx.) Extremities: Slow Capillary Refill, Pallor Neurological: Alert, Oriented (At his baseline) Psychiatric: Flat Affect Skin Exam: No Rash, Cool, Diaphoretic, Pallor Course - Vital Signs Last Recorded V/S: Last Vital Signs Temp 96.2 F L 08/11/21 02:00 Pulse 109 H 08/11/21 02:00 Resp 26 H 08/11/21 02:00 BP 97/60 08/11/21 02:00 Pulse Ox 91 L 08/11/21 02:00 - Orders/Labs/Meds Orders: Active Orders 24 hr Category Date Time Status Myers Catheter Insertion [Insert Urinary Catheter] [OM. Care 08/10/21 10:15 Ordered PC] Q24H Urinary Catheter Assessment [RC] ASDIRECTED Care 08/10/21 10:02 Active CULTURE BLOOD [BC] Stat Lab 08/10/21 09:30 Stop Req CULTURE BLOOD [BC] Stat Lab 08/10/21 10:24 Received CULTURE URINE [RM] Stat Lab 08/10/21 09:36 Stop Req CULTURE URINE [RM] Stat Lab 08/10/21 11:10 Received Sodium Chloride 0.9% [Saline Flush] Med 08/10/21 09:35 Active 10 ml FLUSH ASDIRECTED PRN Blood Culture x2 Reflex Set [OM.PC] Stat Oth 08/10/21 09:35 Ordered Peripheral IV Insertion Adult [OM.PC] Stat Oth 08/10/21 09:35 Ordered Medication Orders Acetaminophen (Acetaminophen Susp 160 Mg/5 Ml 120 Ml Bottle) 640 mg PO Q4H PRN PRN Reason: Pain Acetaminophen (Acetaminophen 80 Mg Supp) 320 mg RECTAL Q4H PRN PRN Reason: Pain Dextrose/Water (50% Dextrose In Water 50 Ml Syringe) 50 ml IVPUSH ASDIRECTED PRN PRN Reason: Hypoglycemia Flumazenil (Flumazenil 0.1 Mg/Ml 5 Ml Mdv) 0.2 mg IVPUSH ASDIRECTED PRN PRN Reason: Respiratory Depression Glucagon (Glucagon,Human Recombinant 1 Mg Vial) 1 mg IM ASDIRECTED PRN PRN Reason: Hypoglycemia Glycopyrrolate (Glycopyrrolate 0.2 Mg/Ml 2 Ml Sdv) 0.4 mg IVPUSH Q2H PRN PRN Reason: Other Hydromorphone HCl (Hydromorphone 1 Mg/Ml Syringe) 1 mg IVPUSH Q4H PRN PRN Reason: Pain Ciprofloxacin/Dextrose 200 mg/ (Premix) 100 mls @ 100 mls/hr IV Q12HR AISHA Last Admin: 08/10/21 22:11 Dose: 100 mls/hr Documented by: CORNELIA Insulin Glargine (Insulin Glarg,Human.Rec.Analog 100 Unit/Ml) 20 unit SUBCUT DAILY AISHA Lorazepam (Lorazepam 2 Mg/Ml Sdv) 1 mg IVPUSH Q4H PRN PRN Reason: Anxiety Ondansetron HCl (Ondansetron 4 Mg/2 Ml Sdv) 4 mg IVPUSH Q8H PRN PRN Reason: Nausea Last Admin: 08/10/21 17:36 Dose: 4 mg Documented by: YIFAN Sodium Chloride (Sodium Chloride 0.9% 10 Ml Syringe) 10 ml FLUSH ASDIRECTED PRN PRN Reason: Keep Vein Open Labs: Laboratory Tests 08/10/21 08/10/21 08/10/21 Range/Units 09:30 09:30 09:30 WBC 14.1 H (4.0-10.0) x10^3/uL RBC 4.44 L (4.5-6.0) x10^6/uL Hgb 11.8 L (14.0-18.0) g/dL Hct 36.9 L (40.0-52.0) % MCV 83.1 D (78.0-93.0) fL MCH 26.6 (26.0-32.0) pg MCHC 32.0 (32.0-36.0) g/dL RDW Coeff of Dian 16.4 H (10.0-15.0) % Plt Count 269 (130-400) x10^3/uL Add Manual Diff Yes Neutrophils % (Manual) 78 (50-80) % Band Neutrophils % 19 H (0-6) % Lymphocytes % (Manual) 2 L (25-50) % Metamyelocytes % 1 H (0) % Immature Gran # 0.14 H (0.00-0.07) X10^3/Ul Absolute Neutrophils 13.7 H (1.8-7.7) x10^3/uL Lymphocytes # (Manual) 0.3 L (1.0-4.8) x10^3/uL Vacuolated Neuts 1+ slight Toxic Granulation 2+ moderate H Platelet Estimate Adequate Giant Platelets Rare H Polychromasia Rare Anisocytosis 1+ slight H Ovalocytes 1+ slight H PT (9.9-12.5) SEC INR (2.0-3.5) APTT (25.6-32.8) SEC POC VBG pH (7.33-7.43) pH POC VBG pCO2 (41-51) mmHg POC VBG pO2 mmHg POC VBG HCO3 (22-29) mmol/L POC Venous O2 Sat % VBG Base Excess (-(2)-3) mmol/L POC FiO2 Sodium 133 L (136-145) mmol/L Potassium 4.8 (3.5-5.1) mmol/L Chloride 95 L (98-107) mmol/L Carbon Dioxide 28 (21-32) mmol/L POC Venous Total CO2 (23-30) mmol/L Anion Gap 14.8 (5-15) mmol/L BUN 68 H D (7-18) mg/dL Creatinine 1.9 H D (0.70-1.30) mg/dL Est Cr Clr Drug Dosing 42.05 mL/min Estimated GFR (MDRD) 35 Glucose 225 H (70-99) mg/dL Lactic Acid 7.2 H* (0.4-2.0) mmol/L Calcium 10.1 D (8.5-10.1) mg/dL Corrected Calcium 11.2 H (8.5-10.1) mg/dL Magnesium 1.8 (1.8-2.4) mg/dL Total Bilirubin 0.7 (0.2-1.0) mg/dL AST 14 L (15-37) U/L ALT 19 (16-63) U/L Alkaline Phosphatase 110 (46-116) U/L Creatine Kinase (39-308) U/L Troponin I High Sens 19 (<=76) ng/L C-Reactive Protein 14.7 H (<=0.9) mg/dL NT-Pro-B Natriuret Pep (<=125) pg/mL Total Protein 7.7 (6.4-8.2) g/dL Albumin 2.6 L (3.4-5.0) g/dL Globulin 5.1 Albumin/Globulin Ratio 0.51 Lipase 40 L (73-393) U/L Procalcitonin (0.1-0.50) ng/mL Urine Color (YELLOW) Urine Appearance (CLEAR) Urine pH (5.0-8.0) Ur Specific [place] Urine Protein (NEGATIVE) mg/dL Urine Glucose (UA) (NEGATIVE) mg/dL Urine Ketones (NEGATIVE) mg/dL Urine Occult Blood (NEGATIVE) Urine Nitrite (NEGATIVE) Urine Bilirubin (NEGATIVE) Urine Urobilinogen (0.2) EU/dL Ur Leukocyte Esterase (NEGATIVE) U Hyaline Cast (Auto) Urine RBC (NOT SEEN) /HPF Urine WBC (NOT SEEN) /HPF Ur Squamous Epith Cells (NOT SEEN) /HPF Triple Phos Crystals (NOT SEEN) /HPF Urine Bacteria (NOT SEEN) /HPF Urine Mucus (NOT SEEN) /LPF Urine Yeast (Budding) (NONE - FEW) /HPF Influenza Type A RNA (NEGATIVE) RSV RNA (INAAT) (NEGATIVE) Influenza Type B RNA (NEGATIVE) SARS-CoV-2 RNA (MARCELINA) (NEGATIVE) 08/10/21 08/10/21 08/10/21 Range/Units 09:30 09:30 09:30 WBC (4.0-10.0) x10^3/uL RBC (4.5-6.0) x10^6/uL Hgb (14.0-18.0) g/dL Hct (40.0-52.0) % MCV (78.0-93.0) fL MCH (26.0-32.0) pg MCHC (32.0-36.0) g/dL RDW Coeff of Dian (10.0-15.0) % Plt Count (130-400) x10^3/uL Add Manual Diff Neutrophils % (Manual) (50-80) % Band Neutrophils % (0-6) % Lymphocytes % (Manual) (25-50) % Metamyelocytes % (0) % Immature Gran # (0.00-0.07) X10^3/Ul Absolute Neutrophils (1.8-7.7) x10^3/uL Lymphocytes # (Manual) (1.0-4.8) x10^3/uL Vacuolated Neuts Toxic Granulation Platelet Estimate Giant Platelets Polychromasia Anisocytosis Ovalocytes PT 10.6 D (9.9-12.5) SEC INR 1.0 L (2.0-3.5) APTT 32.3 (25.6-32.8) SEC POC VBG pH (7.33-7.43) pH POC VBG pCO2 (41-51) mmHg POC VBG pO2 mmHg POC VBG HCO3 (22-29) mmol/L POC Venous O2 Sat % VBG Base Excess (-(2)-3) mmol/L POC FiO2 Sodium (136-145) mmol/L Potassium (3.5-5.1) mmol/L Chloride (98-107) mmol/L Carbon Dioxide (21-32) mmol/L POC Venous Total CO2 (23-30) mmol/L Anion Gap (5-15) mmol/L BUN (7-18) mg/dL Creatinine (0.70-1.30) mg/dL Est Cr Clr Drug Dosing mL/min Estimated GFR (MDRD) Glucose (70-99) mg/dL Lactic Acid (0.4-2.0) mmol/L Calcium (8.5-10.1) mg/dL Corrected Calcium (8.5-10.1) mg/dL Magnesium (1.8-2.4) mg/dL Total Bilirubin (0.2-1.0) mg/dL AST (15-37) U/L ALT (16-63) U/L Alkaline Phosphatase (46-116) U/L Creatine Kinase (39-308) U/L Troponin I High Sens (<=76) ng/L C-Reactive Protein (<=0.9) mg/dL NT-Pro-B Natriuret Pep 1679 H (<=125) pg/mL Total Protein (6.4-8.2) g/dL Albumin (3.4-5.0) g/dL Globulin Albumin/Globulin Ratio Lipase (73-393) U/L Procalcitonin 0.77 H (0.1-0.50) ng/mL Urine Color (YELLOW) Urine Appearance (CLEAR) Urine pH (5.0-8.0) Ur Specific [place] Urine Protein (NEGATIVE) mg/dL Urine Glucose (UA) (NEGATIVE) mg/dL Urine Ketones (NEGATIVE) mg/dL Urine Occult Blood (NEGATIVE) Urine Nitrite (NEGATIVE) Urine Bilirubin (NEGATIVE) Urine Urobilinogen (0.2) EU/dL Ur Leukocyte Esterase (NEGATIVE) U Hyaline Cast (Auto) Urine RBC (NOT SEEN) /HPF Urine WBC (NOT SEEN) /HPF Ur Squamous Epith Cells (NOT SEEN) /HPF Triple Phos Crystals (NOT SEEN) /HPF Urine Bacteria (NOT SEEN) /HPF Urine Mucus (NOT SEEN) /LPF Urine Yeast (Budding) (NONE - FEW) /HPF Influenza Type A RNA (NEGATIVE) RSV RNA (INAAT) (NEGATIVE) Influenza Type B RNA (NEGATIVE) SARS-CoV-2 RNA (MARCELINA) (NEGATIVE) 08/10/21 08/10/21 08/10/21 Range/Units 09:30 09:36 09:37 WBC (4.0-10.0) x10^3/uL RBC (4.5-6.0) x10^6/uL Hgb (14.0-18.0) g/dL Hct (40.0-52.0) % MCV (78.0-93.0) fL MCH (26.0-32.0) pg MCHC (32.0-36.0) g/dL RDW Coeff of Dian (10.0-15.0) % Plt Count (130-400) x10^3/uL Add Manual Diff Neutrophils % (Manual) (50-80) % Band Neutrophils % (0-6) % Lymphocytes % (Manual) (25-50) % Metamyelocytes % (0) % Immature Gran # (0.00-0.07) X10^3/Ul Absolute Neutrophils (1.8-7.7) x10^3/uL Lymphocytes # (Manual) (1.0-4.8) x10^3/uL Vacuolated Neuts Toxic Granulation Platelet Estimate Giant Platelets Polychromasia Anisocytosis Ovalocytes PT (9.9-12.5) SEC INR (2.0-3.5) APTT (25.6-32.8) SEC POC VBG pH (7.33-7.43) pH POC VBG pCO2 (41-51) mmHg POC VBG pO2 mmHg POC VBG HCO3 (22-29) mmol/L POC Venous O2 Sat % VBG Base Excess (-(2)-3) mmol/L POC FiO2 Sodium (136-145) mmol/L Potassium (3.5-5.1) mmol/L Chloride (98-107) mmol/L Carbon Dioxide (21-32) mmol/L POC Venous Total CO2 (23-30) mmol/L Anion Gap (5-15) mmol/L BUN (7-18) mg/dL Creatinine (0.70-1.30) mg/dL Est Cr Clr Drug Dosing mL/min Estimated GFR (MDRD) Glucose (70-99) mg/dL Lactic Acid (0.4-2.0) mmol/L Calcium (8.5-10.1) mg/dL Corrected Calcium (8.5-10.1) mg/dL Magnesium (1.8-2.4) mg/dL Total Bilirubin (0.2-1.0) mg/dL AST (15-37) U/L ALT (16-63) U/L Alkaline Phosphatase (46-116) U/L Creatine Kinase 46 (39-308) U/L Troponin I High Sens (<=76) ng/L C-Reactive Protein (<=0.9) mg/dL NT-Pro-B Natriuret Pep (<=125) pg/mL Total Protein (6.4-8.2) g/dL Albumin (3.4-5.0) g/dL Globulin Albumin/Globulin Ratio Lipase (73-393) U/L Procalcitonin (0.1-0.50) ng/mL Urine Color Dark yellow H (YELLOW) Urine Appearance Cloudy H (CLEAR) Urine pH >=9.0 H (5.0-8.0) Ur Specific [place] 1.010 Urine Protein >=300 H (NEGATIVE) mg/dL Urine Glucose (UA) Negative (NEGATIVE) mg/dL Urine Ketones Negative (NEGATIVE) mg/dL Urine Occult Blood Negative (NEGATIVE) Urine Nitrite Negative (NEGATIVE) Urine Bilirubin Negative (NEGATIVE) Urine Urobilinogen 0.2 (0.2) EU/dL Ur Leukocyte Esterase Moderate H (NEGATIVE) U Hyaline Cast (Auto) Rare Urine RBC Not seen (NOT SEEN) /HPF Urine WBC 20-30 H (NOT SEEN) /HPF Ur Squamous Epith Cells Not seen (NOT SEEN) /HPF Triple Phos Crystals Few H (NOT SEEN) /HPF Urine Bacteria Many H (NOT SEEN) /HPF Urine Mucus Not seen (NOT SEEN) /LPF Urine Yeast (Budding) Few (NONE - FEW) /HPF Influenza Type A RNA Negative (NEGATIVE) RSV RNA (INAAT) Negative (NEGATIVE) Influenza Type B RNA Negative (NEGATIVE) SARS-CoV-2 RNA (MARCELINA) Negative (NEGATIVE) 08/10/21 08/10/21 08/10/21 Range/Units 11:10 12:55 13:11 WBC (4.0-10.0) x10^3/uL RBC (4.5-6.0) x10^6/uL Hgb (14.0-18.0) g/dL Hct (40.0-52.0) % MCV (78.0-93.0) fL MCH (26.0-32.0) pg MCHC (32.0-36.0) g/dL RDW Coeff of Dian (10.0-15.0) % Plt Count (130-400) x10^3/uL Add Manual Diff Neutrophils % (Manual) (50-80) % Band Neutrophils % (0-6) % Lymphocytes % (Manual) (25-50) % Metamyelocytes % (0) % Immature Gran # (0.00-0.07) X10^3/Ul Absolute Neutrophils (1.8-7.7) x10^3/uL Lymphocytes # (Manual) (1.0-4.8) x10^3/uL Vacuolated Neuts Toxic Granulation Platelet Estimate Giant Platelets Polychromasia Anisocytosis Ovalocytes PT (9.9-12.5) SEC INR (2.0-3.5) APTT (25.6-32.8) SEC POC VBG pH 7.42 (7.33-7.43) pH POC VBG pCO2 40 L (41-51) mmHg POC VBG pO2 29 mmHg POC VBG HCO3 26 (22-29) mmol/L POC Venous O2 Sat 56 % VBG Base Excess 2 (-(2)-3) mmol/L POC FiO2 36 Sodium (136-145) mmol/L Potassium (3.5-5.1) mmol/L Chloride (98-107) mmol/L Carbon Dioxide (21-32) mmol/L POC Venous Total CO2 26 (23-30) mmol/L Anion Gap (5-15) mmol/L BUN (7-18) mg/dL Creatinine (0.70-1.30) mg/dL Est Cr Clr Drug Dosing mL/min Estimated GFR (MDRD) Glucose (70-99) mg/dL Lactic Acid 6.6 H* (0.4-2.0) mmol/L Calcium (8.5-10.1) mg/dL Corrected Calcium (8.5-10.1) mg/dL Magnesium (1.8-2.4) mg/dL Total Bilirubin (0.2-1.0) mg/dL AST (15-37) U/L ALT (16-63) U/L Alkaline Phosphatase (46-116) U/L Creatine Kinase (39-308) U/L Troponin I High Sens (<=76) ng/L C-Reactive Protein (<=0.9) mg/dL NT-Pro-B Natriuret Pep (<=125) pg/mL Total Protein (6.4-8.2) g/dL Albumin (3.4-5.0) g/dL Globulin Albumin/Globulin Ratio Lipase (73-393) U/L Procalcitonin (0.1-0.50) ng/mL Urine Color Dark yellow H (YELLOW) Urine Appearance Cloudy H (CLEAR) Urine pH >=9.0 H (5.0-8.0) Ur Specific [place] 1.010 Urine Protein >=300 H (NEGATIVE) mg/dL Urine Glucose (UA) Negative (NEGATIVE) mg/dL Urine Ketones Negative (NEGATIVE) mg/dL Urine Occult Blood Large H (NEGATIVE) Urine Nitrite Negative (NEGATIVE) Urine Bilirubin Negative (NEGATIVE) Urine Urobilinogen 0.2 (0.2) EU/dL Ur Leukocyte Esterase Large H (NEGATIVE) U Hyaline Cast (Auto) Rare Urine RBC 50-75 H (NOT SEEN) /HPF Urine WBC 20-30 H (NOT SEEN) /HPF Ur Squamous Epith Cells Not seen (NOT SEEN) /HPF Triple Phos Crystals Few H (NOT SEEN) /HPF Urine Bacteria Many H (NOT SEEN) /HPF Urine Mucus Not seen (NOT SEEN) /LPF Urine Yeast (Budding) (NONE - FEW) /HPF Influenza Type A RNA (NEGATIVE) RSV RNA (INAAT) (NEGATIVE) Influenza Type B RNA (NEGATIVE) SARS-CoV-2 RNA (MARCELINA) (NEGATIVE) Meds: Medications Generic Name Dose Route Start Last Admin Trade Name Rober PRN Reason Stop Dose Admin Acetaminophen 640 mg 08/10/21 15:04 Acetaminophen Susp 160 Mg/5 Ml 120 Ml Bottle PO Q4H PRN Pain Acetaminophen 320 mg 08/10/21 15:04 Acetaminophen 80 Mg Supp RECTAL Q4H PRN Pain Dextrose/Water 50 ml 08/10/21 15:24 50% Dextrose In Water 50 Ml Syringe IVPUSH ASDIRECTED PRN Hypoglycemia Flumazenil 0.2 mg 08/10/21 15:09 Flumazenil 0.1 Mg/Ml 5 Ml Mdv IVPUSH ASDIRECTED PRN Respiratory Depression Glucagon 1 mg 08/10/21 15:24 Glucagon,Human Recombinant 1 Mg Vial IM ASDIRECTED PRN Hypoglycemia Glycopyrrolate 0.4 mg 08/10/21 15:09 Glycopyrrolate 0.2 Mg/Ml 2 Ml Sdv IVPUSH Q2H PRN Other Hydromorphone HCl 1 mg 08/10/21 15:04 Hydromorphone 1 Mg/Ml Syringe IVPUSH Q4H PRN Pain Ciprofloxacin/Dextrose 200 mg/ 100 mls @ 100 mls/hr 08/10/21 20:00 08/10/21 22:11 Premix IV 100 mls/hr Q12HR AISHA Administration Insulin Glargine 20 unit 08/10/21 15:30 Insulin Glarg,Human.Rec.Analog 100 Unit/Ml SUBCUT DAILY AISHA Lorazepam 1 mg 08/10/21 15:09 Lorazepam 2 Mg/Ml Sdv IVPUSH Q4H PRN Anxiety Ondansetron HCl 4 mg 08/10/21 15:02 08/10/21 17:36 Ondansetron 4 Mg/2 Ml Sdv IVPUSH 4 mg Q8H PRN Administration Nausea Sodium Chloride 10 ml 08/10/21 09:35 Sodium Chloride 0.9% 10 Ml Syringe FLUSH ASDIRECTED PRN Keep Vein Open Discontinued Medications Generic Name Dose Route Start Last Admin Trade Name Rober PRN Reason Stop Dose Admin Ceftriaxone Sodium 2 gm 08/10/21 09:38 08/10/21 09:43 Ceftriaxone 2 Gm Vial IVPUSH 08/10/21 09:39 2 gm STAT ONE Administration Lactated Ringer's 1,000 mls @ 999 mls/hr 08/10/21 09:37 08/10/21 09:31 Ringers, Lactated IV 08/10/21 10:37 999 mls/hr ONETIME ONE Administration Lactated Ringer's 1,000 mls @ 999 mls/hr 08/10/21 09:38 08/10/21 10:50 Ringers, Lactated IV 08/10/21 10:38 999 mls/hr ONETIME ONE Administration Lactated Ringer's 1,000 mls @ 999 mls/hr 08/10/21 10:41 08/10/21 10:50 Ringers, Lactated IV 08/10/21 11:41 999 mls/hr ONETIME ONE Administration Azithromycin 500 mg/ Sodium 250 mls @ 250 mls/hr 08/10/21 10:46 08/10/21 10:50 Chloride IV 08/10/21 11:45 250 mls/hr STAT ONE Administration Lactated Ringer's 1,000 mls @ 125 mls/hr 08/10/21 13:00 08/10/21 13:09 Ringers, Lactated IV 125 mls/hr ASDIRECTED AISHA Administration - Radiology Interpretation Free Text/Narrative:: Per radiology chest x-ray subtle opacity projects over the left lung base. Previously seen in February 2021. Most likely consistent with scarring or atelectasis. Within limitations of the low lung volumes no evidence of pneumonia. There is however central vascular congestion correlate for the signs of fluid retention. CT abdomen pelvis with contrast initially reviewed extemporaneously by myself. Shows a rather full stomach that extends into his duodenum. He clearly has some pretty impressive hydroureteronephrosis bilaterally with some perinephric stranding around the kidneys. I do not see any evidence of free air or bowel obstruction he has a rather impressively very thick-walled bladder that appears to be decompressed with some stranding around his bladder as well. He has severe constipation specifically in the rectal vault. CT abdomen pelvis per radiology shows extensive diffuse and severe wall thickening edema throughout the urinary bladder. CT abdomen pelvis shows extensive diffuse and severe wall thickening edema throughout the urinary bladder. Findings were previously seen but increased. Additionally there has been development of reactive fat stranding and edema in the pericystic fat. Correlate with urinalysis for urinary tract infection. Changes in urinary bladder likely accounting for bilateral right greater than left hydroureteral nephrosis is no obstructing stone or mass identified in either distal ureter. No other acute findings in the abdomen or pelvis. Other findings are described as above. - Re-Assessments/Exams Free Text/Narrative Re-Assessment/Exam: I have severe concerns for this patient presentation with sepsis and most likely septic shock. IV was established labs are drawn to include blood cultures x2. 2 g of Rocephin IV push. Initiation of fluid bolus 3 L total to get him to 30 mils per kilogram. Bedside ultrasound of the abdomen shows a very large distended bladder when completed by myself. Myers catheter was exchanged and urine was flowing easily and had return of 2 liters aproximately of very dark maroon colored urine. He is requiring oxygen to keep his oxygen saturations above 90%. Chest x-ray initially reviewed extemporaneously by myself shows some rotational aspect looks like he may have a pleural effusion on the right lower no overt pulmonary infiltrate. Radiological review to follow. Azithromycin 500 mg IV piggyback. Patient's lactic is quite elevated at 7 as well as an elevation in his creatinine. This patient clearly has some severe sepsis going on. CT abdomen pelvis was ordered. He did respond well to the fluid resuscitation and his blood pressure improved quite a bit. His skin is pink and less diaphoretic. Patient clearly is in sepsis with septic shock that was responsive to fluid resuscitation. He is also constipated. His sepsis is most likely due to recurrent urinary tract infection and/or pneumonia that has not flurished yet. This patient is a known code level 1 although his guardian is within [place]. We did repeat his lactic which showed improvement from his initial lactic of 7.2 down to 6.6. He is showing clinical improvement. I spoke with Dr. Deloris Brown about this patient. HPI ER COURSE findings and concerns were relayed to her. She did come and see the patient in the ED. She accepted this patient here for further care and management. I advised Dr. Brown to discuss with his guardian that a consideration of change in code status is really warranted for this patient. Departure - Departure Time of Disposition: 10:30 Disposition: Admitted As Inpatient 68 Clinical Impression: Acute kidney injury, Hypoxia Urinary tract infection associated with indwelling urethral catheter Qualifiers: Encounter type: initial encounter Qualified Code(s): T83.511A - Infection and inflammatory reaction due to indwelling urethral catheter, initial encounter Complication, blocked Myers catheter Qualifiers: Encounter type: initial encounter Qualified Code(s): T83.091A - Other mechanical complication of indwelling urethral catheter, initial encounter Sepsis with acute renal failure and septic shock Qualifiers: Sepsis type: sepsis due to unspecified organism Acute renal failure type: unspecified Qualified Code(s): A41.9 - Sepsis, unspecified organism - Discharge Information Sepsis Event Note (ED) - Evaluation Sepsis Screening Result: Possible Sepsis Risk - My Orders Last 24 Hours: My Active Orders 08/10/21 09:30 CULTURE BLOOD [BC] Stat 08/10/21 09:35 Sodium Chloride 0.9% [Saline Flush] 10 ml FLUSH ASDIRECTED PRN Blood Culture x2 Reflex Set [OM.PC] Stat Peripheral IV Insertion Adult [OM.PC] Stat 08/10/21 09:36 CULTURE URINE [RM] Stat 08/10/21 10:02 Urinary Catheter Assessment [RC] ASDIRECTED 08/10/21 10:15 Myers Catheter Insertion [Insert Urinary Catheter] [OM.PC] Q24H 08/10/21 10:24 CULTURE BLOOD [BC] Stat 08/10/21 11:10 CULTURE URINE [RM] Stat - Assessment/Plan Last 24 Hours: My Active Orders 08/10/21 09:30 CULTURE BLOOD [BC] Stat 08/10/21 09:35 Sodium Chloride 0.9% [Saline Flush] 10 ml FLUSH ASDIRECTED PRN Blood Culture x2 Reflex Set [OM.PC] Stat Peripheral IV Insertion Adult [OM.PC] Stat 08/10/21 09:36 CULTURE URINE [RM] Stat 08/10/21 10:02 Urinary Catheter Assessment [RC] ASDIRECTED 08/10/21 10:15 Myers Catheter Insertion [Insert Urinary Catheter] [OM.PC] Q24H 08/10/21 10:24 CULTURE BLOOD [BC] Stat 08/10/21 11:10 CULTURE URINE [RM] Stat
[2021-08-10 11:14] LABS: PTT,PARTIAL THROMBOPLSTIN TIME 32.3 SEC (25.6-32.8)
--- NOTE | 2021-08-10 11:57 | CT ---
[id number] CT/CT Abdomen Pelvis W IV EXAM: CT Abdomen Pelvis W IV CLINICAL DATA: ABDOMEN PAIN,VOMITTING HIGH LACTIC. COMPARISON STUDY: January 2021. FINDINGS: Bibasal parenchymal atelectasis in both lungs. Extensive and severe wall thickening/edema throughout the urinary bladder with pericystic reactive change. Amount and severity of thickening is increased since the prior examination. Reactive stranding and edema in the adjacent soft tissues was not present previously. Myers catheter within the urinary bladder, similar to the prior examination. Moderate right-sided hydroureteronephrosis to nearly the UVJ. Distal to where the ureter crosses the iliac vasculature there is focal transition to decompressed ureter that extends to the UVJ. No obstructing stone or mass identified. Mild left hydroureteronephrosis. Persistent area of hypoenhancement the right kidney interpolar region. This correlates with findings on prior examination, similar in appearance that examination. Focal nodular thickening measuring up to 8 mm. Finding is nonspecific and similar to the prior examination. Slightly increased bilateral and symmetric perinephric stranding. Findings are nonspecific. No definitive radiographic evidence of pyelonephritis. Large amount of retained stool in the rectum and sigmoid segment of the colon. Gastric distention with air-fluid level. No evidence of gastric caliber obstruction. No small bowel obstruction or inflammation. No colitis or diverticulitis. Cholelithiasis. No evidence of acute cholecystitis. Liver, spleen, pancreas, and adrenal glands are unremarkable. Spondylosis. No acute fracture or compression deformity. IMPRESSION: Extensive diffuse and severe wall thickening/edema throughout the urinary bladder. Findings were seen previously but have increased. Additionally there has been development of reactive fat stranding and edema in the pericystic fat. Correlate with urinalysis for urinary tract infection. Changes in the urinary bladder likely accounting for bilateral right greater than left hydroureteronephrosis, as no obstructing stone or mass identified in either distal ureter. No other acute findings in the abdomen or pelvis. Other findings are described above. Ian Bray MD 08/10/21 [id number] Thank you for allowing us to participate in the care of your patient.
[2021-08-10] MEDS ORDERED: Lactated Ringers 1,000 ML IV SCH (13:00)
[2021-08-10] MEDS ORDERED: Ondansetron 4 MG/2 ML SDV IVPUSH PRN (15:02)
[2021-08-10] MEDS ORDERED: Acetaminophen Susp 160 MG/5 ML 120 ML Bottle PO PRN (15:04)
[2021-08-10] MEDS ORDERED: Acetaminophen 80 MG Supp RECTAL PRN (15:04)
[2021-08-10] MEDS ORDERED: HYDROmorphone 1 MG/ML Syringe IVPUSH PRN (15:04)
[2021-08-10] MEDS ORDERED: Glycopyrrolate 0.2 MG/ML 2 ML SDV IVPUSH PRN (15:09)
[2021-08-10] MEDS ORDERED: LORazepam 2 MG/ML SDV IVPUSH PRN (15:09)
[2021-08-10] MEDS ORDERED: Flumazenil 0.1 MG/ML 5 ML MDV IVPUSH PRN (15:09)
[2021-08-10] MEDS ORDERED: 50% Dextrose in Water 50 ML Syringe IVPUSH PRN (15:24)
[2021-08-10] MEDS ORDERED: Glucagon,Human Recombinant 1 MG Vial IM PRN (15:24)
--- NOTE | 2021-08-10 17:48 | PN ---
Progress Note for LINH COULTER Date: 08/10/2021 Room #: VM.203 CHIEF COMPLAINT: Not feeling well. HISTORY OF PRESENT ILLNESS: This is a 70-year-old [facility] patient who is well-known to myself from previous hospital admissions for pneumonia and UTI who was having hypotension in the 80s. He was pale. He was hypoxic around 86%. His catheter was not working well and therefore the decision was made to transfer him over to the hospital. He had some vomiting as well. On arrival, he has been afebrile, but he was tachycardic. He was found to have a respiratory rate of 44, his lactic acid was 7, white count was 14, and he was complaining mainly of abdominal pain. He was given IV Rocephin and Zithromax. His initial chest x-ray did not show any pneumonia. His abdominal CT did show a thickened wall to the bladder with moderate right-sided hydroureteronephrosis and no obstructing masses noted. This was felt to be possibly related to the bladder findings and he had some perinephric stranding, but nonspecific, not felt to be pyelonephritis. He had a previous IR procedure for renal cancer. He has urinary retention and had just seen Urology earlier this month and decision was to leave the Myers in place. CT also did show constipation. He was incontinent of bowel since arriving. It was normal, not diarrhea. 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 There is packing in place. We examined that. We did not feel that was any acute source of infection. The patient is very pale despite the 3 L of fluid. He is maintaining his blood pressures. He is alert. He is talking to us. He denies any shortness of breath, but states he has been coughing. In the care center, he had reported some coughing over the last couple of days and he had a negative COVID test over there 2 days ago. ALLERGIES: None. MEDICATIONS: His medication list is reviewed. He is on Flomax 0.4 daily, hydrochlorothiazide 12.5 daily, sliding scale insulin, Lantus 40 units daily, Lipitor 20 mg daily, lisinopril 10 mg daily, melatonin 3 mg at bedtime, metformin 1000 twice daily, NovoLog 7 units with meals, Risperdal 2 mg twice daily, Tylenol p.r.n., urea cream, vitamin D, Zofran 4 mg every 6 hours as needed for nausea, and Zoloft 150 daily. The patient is not normally on oxygen. Also, he has a fiber tablet listed once a day. The patient also had not been eating or drinking well. 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 PAST SURGICAL HISTORY: The patient has had tonsillectomy, dental extraction, sinus tract excision, IR ablation for kidney tumor, groin surgery for hernia, fracture surgery for maxillary fracture, appendectomy, colonoscopy. SOCIAL HISTORY: The patient is a former smoker. No alcohol use. Single. No children. No occupation listed. [employer] is his guardian. The on-call, Alessandra spoke with her today on [phone]. FAMILY HISTORY: Both parents are listed as . Mother had hypertension. REVIEW OF SYSTEMS: Unobtainable from the patient due to his critical status other than he does report yes, he has abdominal pain and had been coughing. PHYSICAL EXAMINATION: Vital Signs: The patient did have a temperature of 98.1, pulse 119, blood pressure 91/63, respiratory rate 44, O2 of 87% on room air. Later vitals show respiratory rate down to 24 and O2 of 95% on 2 L. General: He is in no acute distress. Heart: Regular rate and rhythm with tachycardia with faint murmur noted. Lungs: Lung sounds are decreased with poor respiratory effort. Abdomen: Positive bowel sounds. It is soft. Mildly distended, but he does have some right lower [id number] abdomen tenderness. When he turned over, he had some dark [id number] vomit, it was just liquid. Mental Status: He is not orientated to place that he is at the hospital, but he did recognize the ER staff earlier as he has seen them before. Extremities: Otherwise, his extremities are pale and cool. There is no mottling. The buttocks are examined. He does have the tract with iodoform packing in place, but there is no drainage. No new warmth or redness to suggest active infection. These wounds are chronic. DIAGNOSTIC DATA: Lab work; white count 14.1, hemoglobin 11.8, platelets 269. INR 1, pH 7.4, pCO2 of 40, this is a venous blood gas. Sodium 133, potassium 4.8, chloride 95, bicarb 28, BUN 68, creatinine 1.9 with baseline around 1, glucose 225, lactic 7.2 and repeat 6.3, calcium corrected is 11.2, magnesium is 1.8, bilirubin is 0.7, AST 14, ALT 19, alkaline phosphatase 110, CK 46, troponin 19, CRP 14.7, NT-proBNP 1679, albumin 2.6, procalcitonin is 0.77, lipase 40. Urine shows large blood and leukocyte esterase was 20 to 30 wbc's and rbc's are 50 to 75. COVID, influenza, RSV all negative. It should be noted in the HPI that when he arrived, the catheter was not working. It was just like pus. They replaced it with a Coude and he did have immediate good urine output, however, it was bloody. EKG did show him to have sinus tachycardia. His chest x-ray showed some central pulmonary congestion, chronic scarring in the left base. No infiltrates. Abdominal CT as listed in HPI. ASSESSMENT: 1. Septic shock. The patient is DNR as per discussion with his guardian. We will not transfer to a higher level of care. He already received IV Rocephin and Zithromax in the ER, but given his history of Pseudomonas, I did add on IV Cipro. His condition is extremely guarded. He will be on palliative care status. If his condition worsens, he will transition to full comfort cares and his guardian is aware of this. 2. Acute hypoxic respiratory failure secondary to a pneumonia. He got the Rocephin and Zithromax. He has not been hospitalized for 4 months. 3. Severe urinary tract infection complicated due to obstruction and catheter. Due to past cultures, he has had multiple things, Proteus, Pseudomonas. The IV Rocephin was helpful, but we will add the IV Cipro 200 twice daily. 4. Type 2 diabetes with some mild hyperglycemia. We will continue just his Lantus daily unless he is on full- out comfort cares. We will do Accu- Cheks p.r.n. 5. History of pulmonary embolism. He is off Coumadin. Due to the renal failure and comfort care status, I will hold off on deep venous thrombosis prophylaxis. If the patient's condition is improved though, I will start it. 6. History of renal cell cancer, status post ablation that was earlier this summer. 7. Schizophrenia. We will start his home medications if he is well enough to take them. We will have some p.r.n. Ativan available. 8. Hyperlipidemia. Hold Lipitor. 9. Palliative cares PLAN: The patient will be admitted for acute cares. He has a critical illness. He received 3 L of fluid. I am going to hold off on further fluids now that his blood pressure has improved up to 112, as further fluids may just worsen his respiratory status. We will continue the IV antibiotics for code status code level 5. He is palliative care status. His condition is extremely guarded and we will not try to transfer to a higher level of care given the goals of care and discussed that he was already DNR per his guardian and the patient himself said he did not want to be put on a ventilator or have CPR. MKA: 08/10/2021 15:25:16 MODL: 08/10/2021 17:43:54 /[id number] MTDTray
[2021-08-10] MEDS: Ciprofloxacin in D5W 200 MG in Premix Bag 1 BAG IV SCH ×2 (22:11)
[2021-08-11] MEDS ORDERED: Azithromycin 500 MG in Sodium Chloride 0.9% 250 ML IV ONE (03:52)
[2021-08-11] MEDS: Insulin Glarg,Human.Rec.Analog 100 Unit/ML SUBCUT SCH ×2 (05:37→09:44)
[2021-08-11] MEDS: Ciprofloxacin in D5W 200 MG in Premix Bag 1 BAG IV SCH ×4 (09:44→20:51)
[2021-08-11] MEDS: cefTRIAXone 2 GM Vial IVPUSH SCH (12:49)
--- NOTE | 2021-08-11 13:37 | PN ---
Progress Note for LINH COULTER Date: 08/11/2021 Room #: VM.203 SUBJECTIVE: This is hospital day #2 on a 70-year-old admitted for septic shock yesterday with gram-negative bacteremia. His blood cultures became positive. Urine cultures are also showing gram-negative rods. He does have a history of enterococcus and Pseudomonas on previous cultures in the hospital. He also was positive for MRSA on his screen. He does have a chronic low back wound and fistula that all looked stable. It did not appear to be a source of infection. He has had previous cultures through the clinic showing Proteus which would be sensitive to his current antibiotics, but that was the most recent one in June. The patient is much more alert this morning. He had 3 L of fluid. He was in acute renal failure when he came in and he has had good urine output of 3 L. He feels like eating and drinking. He is able to answer questions appropriately. He does report having pain all over. He reports a little bit of a cough, but not feeling short of breath. The patient has had previous admissions for pneumonia and UTI. Yesterday, he was having abdominal pain and a CT did show extensive cystitis and even hydroureteronephrosis. Myers catheter is in place and is draining blood. OBJECTIVE: Vital Signs: His temperature is 96.2, pulse 109, blood pressure 97/60, respiratory rate 26, and O2 of 91 on room air. General: He is in no acute distress. He is still quite pale, but his extremities are warm and dry. Mental Status: He is alert. He asks when he is going to go home. Heart: Regular rate and rhythm with murmur. Lungs: Lung sounds are actually clear to auscultation bilaterally without crackles or wheezes. Abdomen: Nondistended. Positive bowel sounds. Soft, nontender. Extremities: Warm and dry. No edema. He has padding on both heels. Genitourinary: Myers is in place, still with red urine. LABORATORY DATA: Lab work was not repeated today other than his blood sugar is 157. He has not required any insulin and again urine and blood are growing gram- negative rods. ASSESSMENT: 1. Severe sepsis with septic shock in a 70-year-old who did improve with IV antibiotics, Rocephin, and Zithromax, and then given IV Cipro. He is off IV fluids. He is not requiring any pressors. Long discussion was had with his guardian and he is on a modified comfort cares. We will not escalate therapy. I will continue the IV Rocephin 2 g daily and the IV Cipro 200 b.i.d. and await further cultures. Source of gram-negative bacteremia is presumably the urine. 2. Acute hypoxic respiratory failure secondary to a pneumonia. It is very possible that this could be from an aspiration. However, he is clinically improving. We will continue to monitor respiratory status. 3. Severe complicated urinary tract infection with Myers in place. He has a chronic Myers since radiation procedure through IR for kidney cancer. We will continue current antibiotics and await culture. 4. Hematuria, possibly due to his Myers catheter versus a severe infection. We will hold all anticoagulation and monitor hemoglobins. 5. Type 2 diabetes. Blood sugars are controlled. He does have Lantus ordered for when he starts eating and drinking. We will hold off on any meal insulin. 6. History of pulmonary embolism. He is off Coumadin due to acute hematuria and the goals of care ultimately if he gets worse to be comfort. I am not going to start him on any Lovenox, but would consider it if his condition improves and he has resolved hematuria. 7. History of renal cancer, status post ablation earlier this summer with IR. 8. Schizophrenia. His home medications are ordered and he should take them when he can safely do so. 9. Hyperlipidemia. Lipitor has been stopped. 10.Palliative care. PLAN: The patient will continue on acute cares. We will hold off on further fluids. We will continue IV antibiotics. His condition continues to be guarded. We will repeat his lab work tomorrow. We will allow him to eat and drink per the goals of care for comfort. He is a code level 5. No DVT prophylaxis due to comfort care and also that he is acutely bleeding. Wound care orders for packing on his fistula again tomorrow, but I do not feel that is the source of infection, that has been more of a chronic thing. MKA: 08/11/2021 13:05:48 MODL: 08/11/2021 13:29:39 /[id number]
[2021-08-12] MEDS: Ciprofloxacin in D5W 200 MG in Premix Bag 1 BAG IV SCH ×4 (08:20→19:42)
[2021-08-12] MEDS: Insulin Glarg,Human.Rec.Analog 100 Unit/ML SUBCUT SCH (08:21)
[2021-08-12] MEDS: cefTRIAXone 2 GM Vial IVPUSH SCH (08:22)
[2021-08-12] MEDS ORDERED: Acetaminophen 325 MG Tab PO PRN (08:40)
[2021-08-12] MEDS ORDERED: Ondansetron 4 MG Tab.DIS PO PRN (08:40)
[2021-08-12 08:42] LABS: CHLORIDE,CL 97 mmol/L (98-107); SODIUM,NA 135 mmol/L (136-145)
[2021-08-12 08:47] LABS: ANION GAP 7.9 mmol/L (5-15)
[2021-08-12] MEDS ORDERED: LORazepam 2 MG/ML SDV IVPUSH PRN (09:00)
--- NOTE | 2021-08-12 09:18 | PN ---
Progress Note for LINH COULTER Date: 08/12/2021 Room #: VM.203 SUBJECTIVE: This is hospital day #3 on a 70-year-old admitted with severe sepsis, septic shock due to gram-negative bacteremia with gram-negative rods in the urine and blood. CT was confirming thickened bladder. He did have some hydronephrosis. He had acute renal failure that has completely resolved. He is more alert and awake. He is eating. He is answering questions. He denies that he has any pain. He denies shortness of breath. He denies that he is coughing and I did hear him doing some coughing from the fernandez, however, it is much improved. He is continued on 2 L of oxygen. He also has a Myers catheter in place. There is no longer bloody urine. He has not been on his psychotropic medications. He is starting to say he does not want to go back to the senior care. He does not like to be in hospitals. He does not like the food here, but he thinks he needs to stay a week to get stronger. He says that he is not able to walk. The nurse at the [facility] had said that he had not been ambulating. OBJECTIVE: Vital Signs: His temperature is 97.1, pulse 101, blood pressure 144/87, respiratory rate 20, O2 of 93% on 2 L. General: He is in no acute distress. Heart: Regular rate and rhythm. S1, S2 with murmur. Lungs: Sounds are decreased. He has poor effort in the bases. He has some crackles in the left base. Abdomen: Nondistended. Positive bowel sounds. Soft, nontender. Extremities: Warm, dry. No edema. He has bilateral heel ulcers present on admission. Mental Status: He is alert, that he is in the hospital. He does not recognize me. He tells me he wants a male doctor. LABORATORY DATA: White count 8.7; hemoglobin 10, down from 11.8, probably hemodilution; platelets 218. Sodium 135, potassium 3.9, chloride 97, bicarb 34, BUN 29, creatinine 0.8, glucose 174, calcium 8.9. ASSESSMENT AND PLAN: 1. Septic shock due to gram-negative bacteremia due to urinary tract infection, improving. Repeat lactic acid this morning is pending. 2. Acute hypoxic respiratory failure secondary to pneumonia versus aspiration. The patient is oxygenating the same. He is not having any respiratory status. At this point, we will continue to wean oxygen. He is on the Rocephin and Cipro. He did get some Zithromax initially. 3. Severe complicated urinary tract infection with Myers in place. It is draining well. He will continue IV antibiotics and await further culture results. 4. Gram-negative bacteremia. He has previously had Pseudomonas and Proteus. I did continue the Rocephin as he had, had an Enterococcus that was resistant to Cipro while awaiting further urine cultures as well. 5. Hematuria, resolved. This was after his Myers catheter was revised. 6. Type 2 diabetes. Blood sugars are under fair control. He is on half his regular Lantus dosing. We will continue with the same. Q.i.d. Accu-Cheks and hold off on meal insulin for now. 7. History of pulmonary embolism. He has been off Coumadin. Now that he has had no further hematuria, I will start him on Lovenox daily. 8. Acute renal failure. His kidney function has returned to normal. This is likely due to his severe sepsis. 9. History of renal cancer. He is status post ablation earlier this summer with IR. 10.Schizophrenia. We will restart his home medications today. 11.Essential hypertension. Blood pressures are elevated. I am going to restart his hydrochlorothiazide. He may also need his lisinopril restarted soon. 12.Hyperlipidemia. We will continue to hold Lipitor. 13.Palliative care. PLAN: The patient will continue acute cares with IV Cipro and Rocephin until his final culture, sensitivities come in. He is a code level 5, but he is clinically improving. He would be a do not transfer or escalate care. For deep vein thrombosis prophylaxis, I am going to start him on Lovenox daily. His wound cares for packing of the fistula every other day are due again today and likely the patient will be able to return to [facility] tomorrow. We will get a PT consult here and start him on incentive spirometry as well. MKA: 08/12/2021 08:58:37 MODL: 08/12/2021 09:12:17 /[id number]
[2021-08-12] MEDS: risperiDONE 1 MG Tab PO SCH ×2 (10:19→19:43)
[2021-08-12] MEDS: Sertraline 50 MG Tab PO SCH (10:19)
[2021-08-12] MEDS: Hydrochlorothiazide 12.5 MG Cap PO SCH (10:19)
[2021-08-12] MEDS: Enoxaparin 40 MG/0.4 ML Syringe SUBCUT SCH (12:14)
[2021-08-12] MEDS ORDERED: 50% Dextrose in Water 50 ML Syringe IVPUSH PRN (17:37)
[2021-08-12] MEDS ORDERED: Glucagon,Human Recombinant 1 MG Vial IM PRN (17:37)
[2021-08-12] MEDS ORDERED: Insulin Glarg,Human.Rec.Analog 100 Unit/ML SUBCUT ONE (17:50)
[2021-08-12] MEDS ORDERED: Melatonin 3 MG Tab PO SCH (20:00)
[2021-08-13] MEDS ORDERED: Ciprofloxacin in D5W 100 ML ONE (07:45)
[2021-08-13] MEDS: Insulin Glarg,Human.Rec.Analog 100 Unit/ML SUBCUT SCH (08:04)
[2021-08-13] MEDS: Ciprofloxacin in D5W 200 MG in Premix Bag 1 BAG IV SCH ×2 (08:05)
[2021-08-13] MEDS: Sertraline 50 MG Tab PO SCH (08:06)
[2021-08-13] MEDS: Hydrochlorothiazide 12.5 MG Cap PO SCH (08:06)
[2021-08-13] MEDS: risperiDONE 1 MG Tab PO SCH (08:06)
[2021-08-13] MEDS: cefTRIAXone 2 GM Vial IVPUSH SCH (08:06)
[2021-08-13] MEDS: Enoxaparin 40 MG/0.4 ML Syringe SUBCUT SCH (11:55)
--- NOTE | 2021-08-13 12:23 | PCM.DCSUM1 ---
Discharge Summary - Hospital Course Free Text/Narrative:: Yuriy Munoz is a 70-year-old male who was admitted on 08/10/2021 with sepsis found to be of urological origin. He was placed onto IV antibiotics with significant improvement in his lactic acidosis, leukocytosis, and fever. CT scan of the abdomen was performed at the time of admission which demonstrated diffuse and severe bladder wall thickening as well as pericystic fat stranding and some hydronephrosis. He does have a history of chronic urinary catheter that his been in place since the summer 2020. He was recently evaluated by urology for potential removal of the catheter/discussion of his chronic urinary retention but the patient deferred to have any further intervention done at that visit. At the time of admission the urinary catheter was not draining well due to being clogged with a lot of pus. This was changed. He does have gram-negative bacteremia with previous cultures positive for Pseudomonas and Proteus. Urine cultures as well as blood cultures this time around did grow Proteus that was pansensitive other than nitrofurantoin and tetracycline. Due to patient's poor clinical prognosis the admitting provider did have discussions with his POA (senior talent acquisition specialist) about his poor prognosis and code level. Patient has previously been a code 1 but after this discussion was changed to a code 5/palliative. He has had some hypoxia during his hospitalization; secondary potentially to fluid hydration that was needed secondary to his hypotension. We will plan to discharge him back to the correction today given his clinical improvement. He will return on oral ciprofloxacin 500 mg 2 times a day for total of 2 weeks duration given the bacteremia/pyelonephritis picture. He will sutured to the correction on a little bit of supplemental oxygen which can be weaned as tolerated. As for his chronic complex perianal fistula he will cont inue wound cares as previously directed by the colorectal surgeon; they are planning to follow-up with him at the end of August. We will plan for him to have his hospital discharge follow-up visit when we see him for regularly schedule SNF rounds next week. - Discharge Data Discharge Date: 08/13/21 Discharge Disposition: DC/Tfer to [facility] Condition: Stable - Referral to Home Health Primary Care Physician: Maggie Ross MD - Patient Summary/Data Consults: Consultations 08/12/21 08:51 PT Evaluation and Treatment [CONS] Routine - Discharge Plan *PRESCRIPTION DRUG MONITORING PROGRAM REVIEWED*: Not Applicable *COPY OF PRESCRIPTION DRUG MONITORING REPORT IN PATIENT PAVEL: Not Applicable Prescriptions/Med Rec: Ciprofloxacin HCl [Cipro] 500 mg PO BID 12 Days tablet Home Medications: Home Meds Cholecalciferol (Vitamin D3) [Vitamin D3] 4,000 units PO DAILY 12/21/20 [History] Insulin Aspart See Protocol SQ TIDAC 12/21/20 [History] Insulin Glarg,Human.Rec.Analog [Lantus Solostar] 40 units SQ BEDTIME 12/21/20 [History] Melatonin 3 mg PO BEDTIME 12/21/20 [History] atorvaSTATin Calcium [Atorvastatin Calcium] 20 mg PO DAILY 12/21/20 [History] metFORMIN HCl [Metformin HCl] 1,000 mg PO BID 12/21/20 [History] Urea [Urea 20% Crm] 1 applic TOP DAILY 01/27/21 [History] Sertraline [Zoloft] 150 mg PO DAILY 02/15/21 [History] ondansetron HCL [Zofran] 4 mg PO Q6H PRN 02/15/21 [History] risperiDONE [RisperiDAL] 2 mg PO BID 02/15/21 [History] Methylcellulose [Fiber] 500 mg PO DAILY 03/10/21 [History] Insulin Aspart [NovoLOG] 7 units SUBCUT TIDAC 04/02/21 [History] Acetaminophen [Tylenol] 650 mg PO Q8H PRN 08/10/21 [History] hydroCHLOROthiazide [Hydrochlorothiazide] 12.5 mg PO DAILY 08/10/21 [History] Ciprofloxacin HCl [Cipro] 500 mg PO BID 12 Days tablet 08/13/21 [Rx] Forms: ED Department Discharge Referrals: Maggie Ross MD [Primary Care Provider] - - Discharge Summary/Plan Comment DC Time >30 min.: No Total # of Minutes for Discharge Time: 25 - General Info Date of Service: 08/13/21 - Review of Systems General: Reports: Fatigue HEENT: Reports: No Symptoms Pulmonary: Reports: No Symptoms Cardiovascular: Reports: No Symptoms Gastrointestinal: Reports: Nausea Genitourinary: Reports: No Symptoms Musculoskeletal: Reports: No Symptoms Psychiatric: Reports: No Symptoms - Patient Data Vitals - Most Recent: Last Vital Signs Temp 97.9 F 08/13/21 10:00 Pulse 105 H 01/03/22 10:00 Resp 20 08/13/21 10:00 BP 149/95 H 08/13/21 10:00 Pulse Ox 96 08/13/21 10:00 Weight - Most Recent: 229 lb 6.4 oz I&O - Last 24 hours: Intake & Output 08/12/21 08/13/21 08/13/21 22:59 06:59 14:59 Intake Total 340 50 300 Output Total 2100 450 Balance -1760 -400 300 Lab Results - Last 24 hrs: Laboratory Results - last 24 hr 08/12/21 08/12/21 08/13/21 Range/Units 17:23 21:52 08:00 POC Glucose 210 H 239 H 212 H (70-99) mg/dL [facility]AVANI Results - Last 24 hrs: Microbiology 08/10/21 10:24 Aerobic Blood Culture - Preliminary Blood - Venous - Lab Draw NO GROWTH AFTER 3 DAYS Anaerobic Blood Culture - Preliminary NO GROWTH AFTER 3 DAYS 08/10/21 09:30 Aerobic Blood Culture - Final Blood - Venous Proteus Mirabilis Anaerobic Blood Culture - Final Proteus Mirabilis 08/10/21 11:10 Urine Culture - Final Urine, Myers Cath (Indwelling) Proteus Mirabilis 08/10/21 09:36 Urine Culture - Final Urine, Catheterized Proteus Mirabilis Med Orders - Current: Current Medications Acetaminophen (Acetaminophen Susp 160 Mg/5 Ml 120 Ml Bottle) 640 mg PO Q4H PRN PRN Reason: Pain Acetaminophen (Acetaminophen 80 Mg Supp) 320 mg RECTAL Q4H PRN PRN Reason: Pain Acetaminophen (Acetaminophen 325 Mg Tab) 650 mg PO Q8H PRN PRN Reason: Pain/Fever Ceftriaxone Sodium (Ceftriaxone 2 Gm Vial) 2 gm IVPUSH DAILY [facility] Last Admin: 08/13/21 08:06 Dose: 2 gm Documented by: Dextrose/Water (50% Dextrose In Water 50 Ml Syringe) 50 ml IVPUSH ASDIRECTED PRN PRN Reason: Hypoglycemia Enoxaparin Sodium (Enoxaparin 40 Mg/0.4 Ml Syringe) 40 mg SUBCUT Q24H [facility] Last Admin: 08/13/21 11:55 Dose: 40 mg Documented by: Flumazenil (Flumazenil 0.1 Mg/Ml 5 Ml Mdv) 0.2 mg IVPUSH ASDIRECTED PRN PRN Reason: Respiratory Depression Glucagon (Glucagon,Human Recombinant 1 Mg Vial) 1 mg IM ASDIRECTED PRN PRN Reason: Hypoglycemia Glycopyrrolate (Glycopyrrolate 0.2 Mg/Ml 2 Ml Sdv) 0.4 mg IVPUSH Q2H PRN PRN Reason: Other Hydrochlorothiazide (Hydrochlorothiazide 12.5 Mg Cap) 12.5 mg PO DAILY [facility] Last Admin: 08/13/21 08:06 Dose: 12.5 mg Documented by: Hydromorphone HCl (Hydromorphone 1 Mg/Ml Syringe) 1 mg IVPUSH Q4H PRN PRN Reason: Pain Ciprofloxacin/Dextrose 200 mg/ (Premix) 100 mls @ 100 mls/hr IV Q12HR [facility] Last Admin: 08/13/21 08:05 Dose: 100 mls/hr Documented by: Insulin Glargine (Insulin Glarg,Human.Rec.Analog 100 Unit/Ml) 20 unit SUBCUT DAILY [facility] Last Admin: 08/13/21 08:04 Dose: 20 units Documented by: Lorazepam (Lorazepam 2 Mg/Ml Sdv) 0.5 mg IVPUSH Q4H PRN PRN Reason: Anxiety Melatonin (Melatonin 3 Mg Tab) 3 mg PO BEDTIME [facility] Last Admin: 08/12/21 19:43 Dose: 3 mg Documented by: Ondansetron HCl (Ondansetron 4 Mg/2 Ml Sdv) 4 mg IVPUSH Q8H PRN PRN Reason: Nausea Last Admin: 08/10/21 17:36 Dose: 4 mg Documented by: Ondansetron HCl (Ondansetron 4 Mg Tab.Dis) 4 mg PO Q6H PRN PRN Reason: Nausea Risperidone (Risperidone 1 Mg Tab) 2 mg PO BID [facility] Last Admin: 08/13/21 08:06 Dose: 2 mg Documented by: Sertraline HCl (Sertraline 50 Mg Tab) 150 mg PO DAILY [facility] Last Admin: 08/13/21 08:06 Dose: 150 mg Documented by: Sodium Chloride (Sodium Chloride 0.9% 10 Ml Syringe) 10 ml FLUSH ASDIRECTED PRN PRN Reason: Keep Vein Open Discontinued Medications Ceftriaxone Sodium (Ceftriaxone 2 Gm Vial) 2 gm IVPUSH STAT ONE Stop: 08/10/21 09:39 Last Admin: 08/10/21 09:43 Dose: 2 gm Documented by: Dextrose/Water (50% Dextrose In Water 50 Ml Syringe) 50 ml IVPUSH ASDIRECTED PRN PRN Reason: Hypoglycemia Glucagon (Glucagon,Human Recombinant 1 Mg Vial) 1 mg IM ASDIRECTED PRN PRN Reason: Hypoglycemia Lactated Ringer's (Ringers, Lactated) 1,000 mls @ 999 mls/hr IV ONETIME ONE Stop: 08/10/21 10:37 Last Admin: 08/10/21 09:31 Dose: 999 mls/hr Documented by: Lactated Ringer's (Ringers, Lactated) 1,000 mls @ 999 mls/hr IV ONETIME ONE Stop: 08/10/21 10:38 Last Admin: 08/10/21 10:50 Dose: 999 mls/hr Documented by: Lactated Ringer's (Ringers, Lactated) 1,000 mls @ 999 mls/hr IV ONETIME ONE Stop: 08/10/21 11:41 Last Admin: 08/10/21 10:50 Dose: 999 mls/hr Documented by: Azithromycin 500 mg/ Sodium (Chloride) 250 mls @ 250 mls/hr IV STAT ONE Stop: 08/10/21 11:45 Last Admin: 08/10/21 10:50 Dose: 250 mls/hr Documented by: Lactated Ringer's (Ringers, Lactated) 1,000 mls @ 125 mls/hr IV ASDIRECTED [facility]IS[facility] Last Admin: 08/10/21 13:09 Dose: 125 mls/hr Documented by: Azithromycin 500 mg/ Sodium (Chloride) 250 mls @ 250 mls/hr IV STAT ONE Stop: 08/11/21 04:51 Last Admin: 08/11/21 04:35 Dose: 250 mls/hr Documented by: Ciprofloxacin/Dextrose (Cipro In D5w 200 Mg/100 Ml) Confirm Administered Dose 100 mls @ as directed .ROUTE .STK-MED ONE Stop: 08/13/21 07:46 Last Admin: 08/13/21 09:22 Dose: Not Given Documented by: Insulin Glargine (Insulin Glarg,Human.Rec.Analog 100 Unit/Ml) 10 unit SUBCUT DAILY ONE Stop: 08/12/21 17:51 Last Admin: 08/12/21 18:32 Dose: 10 units Documented by: Lorazepam (Lorazepam 2 Mg/Ml Sdv) 1 mg IVPUSH Q4H PRN PRN Reason: Anxiety - Exam Quality Assessment: Reports: Supplemental Oxygen (1L with sats in the mid-90s) General: Reports: Alert, Cooperative, No Acute Distress HEENT: Reports: Mucous Membr. Moist/[place] Neck: Reports: Supple Lungs: Reports: Clear to Auscultation, Normal Respiratory Effort Cardiovascular: Reports: Regular Rate, Regular Rhythm, Murmurs (systolic ejec tion murmur, 3/6 (chronic)) GI/Abdominal Exam: Normal Bowel Sounds, Soft, Tender (mildly) Extremities: Normal Inspection, Non-Tender, No Pedal Edema Skin: Reports: Warm, Dry Psy/Mental Status: Reports: Normal Affect, Normal Mood, Other (patient displaying typical delusions (wanting to live in a "[facility]"))
--- NOTE | 2021-08-15 15:33 | PCM.EKG ---
#1 Interpretation EKG Date: 08/10/21 Time: 09:51 Rhythm: NSR Rate (Beats/Min): 118 [place]: Normal P-Wave: Present QRS: Normal ST-T: Normal QT: Normal Comparison: No Change
== END 2021-08-13 15:00 | DRG 698 ==
LOC: VM.ED 09:22 → VM.MS 13:31 → UNDOADMIN 13:45
PROVIDERS: ADMIT Internal Medicine; ATTEND Internal Medicine
DX: A41.9 Sepsis, unspecified organism (principal); T83.511A Infection and inflammatory reaction due to indwelling urethral catheter, initial encounter; A41.50 Gram-negative sepsis, unspecified; M17.9 Osteoarthritis of knee, unspecified; R09.02 Hypoxemia; J96.01 Acute respiratory failure with hypoxia; R65.21 Severe sepsis with septic shock; J18.9 Pneumonia, unspecified organism; N13.30 Unspecified hydronephrosis; E11.9 Type 2 diabetes mellitus without complications; N17.9 Acute kidney failure, unspecified; R33.9 Retention of urine, unspecified; E78.00 Pure hypercholesterolemia, unspecified; K59.09 Other constipation; N40.0 Benign prostatic hyperplasia without lower urinary tract symptoms; F41.9 Anxiety disorder, unspecified; F20.9 Schizophrenia, unspecified; E66.9 Obesity, unspecified; T83.091A Other mechanical complication of indwelling urethral catheter, initial encounter; N39.0 Urinary tract infection, site not specified; R31.9 Hematuria, unspecified; E78.5 Hyperlipidemia, unspecified; Z85.53 Personal history of malignant neoplasm of renal pelvis; Z79.4 Long term (current) use of insulin; Z79.899 Other long term (current) drug therapy; Z86.16 Personal history of COVID-19; Z87.891 Personal history of nicotine dependence; Z86.711 Personal history of pulmonary embolism; Z79.01 Long term (current) use of anticoagulants; I10 Essential (primary) hypertension; I73.9 Peripheral vascular disease, unspecified; G47.00 Insomnia, unspecified; E11.65 Type 2 diabetes mellitus with hyperglycemia; Z20.822 Contact with and (suspected) exposure to COVID-19
CPT/HCPCS: 0241U; 36415; 51702; 71045; 74177; 80048; 80053; 81001; 82550; 82803; 82947; 83605; 83690; 83735; 83880; 84145; 84484; 85025; 85610; 85730; 86140; 87040; 87077; 87086; 87088; 87186; 93005; 94760; 96365; 96375; 99285; 99285-25; A9270-GY; J0456; J0696; J0744; J1650; J1815-GY; J2405; J7050; J7120; U0002